=== PATIENT | female | born 1935 | race Caucasian/White ===

== ENCOUNTER → 2019-04-11 08:50 | Outpatient (CLI) | payer MEDICARE, SELFPAY ==
--- NOTE | 2019-04-11 08:55 | BD_ITS ---
STUDY: DUAL ENERGY X-RAY ABSORPTIOMETRY / DXA REASON FOR EXAM: Female, 84 years old. The patient is postmenopausal. Loss of height. TECHNIQUE: Bone Mineral Density (BMD) measurements of lumbar spine and bilateral hips were obtained. COMPARISON: None. FINDINGS: Lumbar Spine (L1-L4): g/cm2 (1.034) / T-score (-1.1) / Z-score (0.8) Findings are suggestive of osteopenia with a low fracture risk. Left Femur Total: g/cm2 (0.859) / T-score (-1.2) / Z-score (0.9) Left Femoral Neck: g/cm2 (0.848) / T-score (-1.4) / Z-score (0.9) Right Femur Total: g/cm2 (0.814) / T-score (-1.5) / Z-score (0.6) Right Femoral Neck: g/cm2 (0.827) / T-score (-1.5) / Z-score (0.7) Right Forearm: g/cm2 ( ) / T-score ( ) / Z-score ( ) Left Forearm: g/cm2 ( ) / T-score ( ) / Z-score ( ) BD/Dexa Bone Density Study IMPRESSION: The patient is considered osteopenic as outlined below according to World [employer] Organization (WHO) criteria with a moderate fracture risk. Reference Information: The T-score is the number of standard deviations above or below the standard which is normal for young adults at their peak bone mineral density. The World Health Organization (WHO) interprets the T-scores as follows: Above -1 Normal bone density Between -1 and -2.5 Osteopenia Equal to / or below -2.5 Osteoporosis As a practical clinical guideline, osteopenia may be graded as follows: Mild -1 through -1.5 Moderate -1.6 through -2.0 Severe -2.1 through -2.4 The Z-score is the number of standard deviations above or below age-matched controls. A Z-score of less than -1.5 would be considered abnormal. References: 1. NIH Osteoporosis and Related Bone Diseases http://www.osteo.org 2. International Society for Clinical Densitometry http://www.iscd.org 3. National Osteoporosis Foundation http://www.nof.org Electronically Signed: Dylan Gabriel, at 15:22 EDT , Service support ,
== END ==
PROVIDERS: Family Provider Family Medicine; PCP Family Medicine; Referring Provider Family Medicine; Visit Provider Family Medicine
DX: Z78.0 Asymptomatic menopausal state (principal)
CPT/HCPCS: 77080

== ENCOUNTER → 2020-06-19 09:52 | Outpatient (CLI) | payer MEDICARE, OTHER, SELFPAY ==
--- NOTE | 2020-06-19 09:55 | CDU_ITS ---
Reason For Study: DIZZINESS Rt. Velocities/BP Lt. Velocities/BP Prox CCA 59.9/ 9.0 cm/sec. Prox CCA 75.2/ 10.0 cm/sec. Mid CCA 65.1/ 10.3 cm/sec. Mid CCA 75.2/ 15.7 cm/sec. Dist CCA 32.7/ 5.3 cm/sec. Dist CCA 52.5/ 12.8 cm/sec. Prox ICA 32.8/ 6.6 cm/sec. Prox ICA 37.4/ 10.0 cm/sec. Mid ICA 83.7/ 23.2 cm/sec. Mid ICA 146.2/ 38.6 cm/sec. Dist ICA 96.1/ 28.5 cm/sec. Dist ICA 118.0/ 28.5 cm/sec. Rt. ICA/CCA = 1.6. Lt. ICA/CCA = 1.9. Prox ECA 68.6/ 0.0 cm/sec. Prox ECA 75.2/ 0.0 cm/sec. Rt. Vert. 43.1/ 5.3 cm/sec. Lt. Vert. 19.3/ 59.5 cm/sec. Right Extracranial There is intimal thickening but no significant atherosclerotic plaque noted in the right common carotid artery. There is intimal thickening but no significant atherosclerotic plaque noted in the right internal carotid artery. There is intimal thickening but no significant atherosclerotic plaque noted in the right external carotid artery. Antegrade flow is noted in the right vertebral artery. Left Extracranial There is homogeneous, smooth atherosclerotic plaque noted in the left common carotid artery. There is heterogeneous, smooth atherosclerotic plaque noted in the left internal carotid artery. The tortuous nature of the left internal carotid artery may result in flow velocities overestimating the degree of stenosis. There is intimal thickening but no significant atherosclerotic plaque noted in the left external carotid artery. Antegrade flow is noted in the left vertebral artery. Procedure Carotid Duplex 84402. This is a Carotid Duplex examination using B-mode, color flow and specral Doppler. Exam performed in department. 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 <50% stenosis left external carotid Patent, antegrade vertebrals bilaterally Ordering Physician: Minh Plaza Referring Physician: Minh Plaza Performed By: Fallon Kraus RVT and Student
--- NOTE | 2020-06-19 09:56 | ECHOD_ITS ---
Reason For Study: HEART MURMUR Procedure This was a 2D Doppler, Color Flow transthoracic echocardiogram. Exam performed in department. Left Ventricle Normal LV size. The estimated ejection fraction is 65 %. Diastolic function is indeterminate. No regional wall motion abnormalities noted. Right Ventricle Normal RV size. Normal systolic function. Atria The left atrium is mildly enlarged. Normal right atrium. No doppler evidence for ASD. Mitral Valve There is no mitral valve stenosis. No mitral valve insufficiency. Tricuspid Valve There is no tricuspid stenosis. Trivial tricuspid valve insufficiency. Pulmonary artery systolic pressure is 30 mmHg. Aortic Valve Mild diffuse aortic valve thickening. Mild aortic stenosis. No aortic valve insufficiency. Pulmonic Valve There is no pulmonic valvular stenosis. No pulmonic valve insufficiency. Great Vessels Normal aortic root. Pericardium/Pleural No pericardial effusion. MMode/2D Measurements & Calculations LVIDd: 4.1 cm IVSd: 1.0 cm LVOT diam: 2.0 cm LVIDs: 2.8 cm LVPWd: 0.97 cm LVOT area: 3.2 cm2 RVDd: 3.1 cm FS: 32.1 % Ao root diam: 3.2 cm LAV(MOD-bp): 53.2 ml LVAd ap4: 26.4 cm2 LAV(MOD-bp) Indexed: 34.0 ml/m2 EDV(MOD-sp4): 77.1 ml LAV(MOD-sp2): 56.9 ml EDV(sp4-el): 79.6 ml LAV(MOD-sp4): 46.6 ml LVAs ap4: 15.0 cm2 ESV(MOD-sp4): 31.0 ml ESV(sp4-el): 31.6 ml EF(MOD-sp4): 59.8 % EF(sp4-el): 60.3 % SV(MOD-sp4): 46.1 ml SV(sp4-el): 48.0 ml LA A4 area: 16.6 cm2 LA dimension(2D): 4.6 cm RA A4 area: 12.5 cm2 Time Measurements MV dec time: 0.25 sec Doppler Measurements & Calculations MV E max curt: 72.9 cm/sec Lat Peak E' Curt: 8.2 cm/sec Med Peak E' Curt: 7.4 cm/sec MV A max curt: 96.1 cm/sec E/E' lat: 8.9 E/E' med: 9.8 MV E/A: 0.76 Ao V2 max: 179.1 cm/sec LV V1 max: 104.5 cm/sec PA V2 max: 114.7 cm/sec Ao max P.8 mmHg LV V1 max P.4 mmHg MARY(V,D): 1.8 cm2 TR max curt: 256.1 cm/sec TR max P.3 mmHg Interpretation Summary The estimated ejection fraction is 65 %. Diastolic function is indeterminate. The left atrium is mildly enlarged. Trivial tricuspid valve insufficiency. Mild aortic stenosis. Ordering Physician: Minh Plaza Referring Physician: Minh Plaza Performed By: Joanie Weinsetin RDCS
== END ==
PROVIDERS: PCP Family Medicine; Referring Provider Family Medicine; Visit Provider Family Medicine
DX: R01.1 Cardiac murmur, unspecified (principal); R42 Dizziness and giddiness
CPT/HCPCS: 93306; 93880

== ENCOUNTER 2021-10-08 12:00 | Outpatient (RCR) | payer MEDICARE, SELFPAY | END 2021-10-12 23:59 | disposition home or self-care (01) | LOC: DC 12:00 | PROVIDERS: PCP Family Medicine; Referring Provider Family Medicine; Visit Provider Family Medicine | DX: E11.65 Type 2 diabetes mellitus with hyperglycemia (principal) | CPT/HCPCS: 97802; G0108 ==

== ENCOUNTER 2021-11-04 09:30 | Outpatient (RCR) | payer MEDICARE, SELFPAY | END 2021-11-05 11:08 | disposition home or self-care (01) | LOC: DC 09:30 | PROVIDERS: PCP Family Medicine; Referring Provider Family Medicine; Visit Provider Family Medicine | DX: E11.9 Type 2 diabetes mellitus without complications (principal) | CPT/HCPCS: 97803 ==

== ENCOUNTER → 2022-09-13 | Outpatient (CLI) | payer MEDICARE, SELFPAY ==
--- NOTE | 2022-09-13 13:13 | RAD_ITS ---
STUDY: X-RAY - PELVIS AND RIGHT HIP REASON FOR EXAM: Female, 87 years old. PAIN TECHNIQUE: XR Hip Unilateral with Pelvis when performed; 2-3 Views COMPARISON: None. FINDINGS: There is a non-specific bowel gas pattern. There are atherosclerotic vascular calcifications of the pelvic arteries. There are degenerative changes of the lumbar spine. Normal bilateral iliac wings, sacroiliac joints and visualized sacrum. Normal bilateral superior and inferior pubic rami. Normal pubic symphysis. Normal bilateral ischial tuberosities. Normal visualized femoral head. Normal acetabulum. Normal hip joint. RAD/HIP, UNI W/ Pelvis 2-3 Views IMPRESSION: No acute findings. Electronically Signed: Han Ro MD at 17:20 EST ,
== END | disposition home or self-care (01) ==
LOC: RAD 13:11
PROVIDERS: PCP Family Medicine; Referring Provider Family Medicine; Visit Provider Family Medicine
DX: M25.551 Pain in right hip (principal)
CPT/HCPCS: 73502

== ENCOUNTER → 2022-11-08 | Outpatient (CLI) | payer MEDICARE, SELFPAY ==
[2022-11-08 10:53] LABS: Absolute Lymphocyte Count 0.93 X10^3/uL (0.83-4.51); Absolute Neutrophil Count 3.1 X10^3/uL (2.0-7.7); Basophil# 0.01 X10^3/uL; Basophil% 0.2 % (0-1); Eosinophil# 0.02 X10^3/uL; Eosinophils% 0.5 % (0-5); Hematocrit 33.4 % (37-47); Hemoglobin 10.6 g/dL (12.0-15.0); Lymphocyte # 0.93 X10^3/ul (0.83-4.51); Lymphocyte % 21.4 % (19-41); Mean Corp Hgb Conc 31.7 g/dL (32-36); Mean Corpuscular Hgb 30.5 pg (27.0-32.0); Mean Platelet Vol. 10.1 fl (6.2-12.0); Monocyte# 0.32 X10^3/uL; Monocyte% 7.4 % (0-10); NRBC Flagged by Analyzer 0 % (0-5); Neutrophil # 3.06 X10^3/uL (2.7-7.7); Neutrophil % 70.3 % (47-70); Platelet Count 224 K/mm3 (150-450); RBC Distribution Width CV 14.5 % (11.6-14.6); RBC Distribution Width SD 50.4 fl (35.1-43.9); Red Blood Count 3.48 M/mm3 (4.2-5.4); White Blood Count 4.4 K/mm3 (4.4-11.0)
[2022-11-08 11:29] LABS: AST(SGOT) 25 U/L (15-37); Alanine Aminotransfer ALT/SGPT 33 U/L (13-56); Albumin, Serum 3.4 g/dL (3.2-5.0); Alkaline Phosphatase 99 U/L (45-117); Anion Gap 4 (5-15); BUN 22 mg/dL (7-18); BUN/Creat Ratio 33.7 RATIO (10-20); Bilirubin, Direct 0.14 mg/dL (0.00-0.30); Calcium,Total 8.6 mg/dL (8.5-10.1); Chloride 105 mmol/L (98-107); Creatinine, Serum 0.65 mg/dL (0.55-1.02); EST Glomerular Filtration Rate 92 mL/min (>60); Est Glom Filt Rate - Afr Amer 111 mL/min (>60); Glucose 147 mg/dL (74-106); Potassium 3.7 mmol/L (3.5-5.1); Protein, Total 6.4 g/dL (6.4-8.2); Sodium Level 140 mmol/L (136-145)
[2022-11-08 12:08] LABS: Hepatitis B Surface Antibody Non-Reactive; Hepatitis B Surface Antigen Non-Reactive (Nonreactive); Hepatitis C Antibody Non-Reactive (Nonreactive)
[2022-11-09 13:08] LABS: RNP Ab <0.2 AI (0.0-0.9); Smith Ab <0.2 AI (0.0-0.9)
[2022-11-09 16:32] LABS: ANTINUCLEAR ANTIBODIES DIRECT Positive (Negative)
[2022-11-10 09:50] LABS: Pathologist Review Reviewed
[2022-11-10 10:09] LABS: QNTFERON TB Mitogen Value > 10.00 IU/mL (.); QNTFERON TB Nil Value 0.02 IU/mL (.); QNTFERON TB1+ Ag Value 0.03 IU/mL (.); QNTFERON TB2+ Ag Value 0.03 IU/mL (.)
[2022-11-10 11:24] LABS: Hepatitis B Core Ab Total Negative (Negative)
[2022-11-10 11:25] LABS: CCP IgG Antibodies 0 units (0-19); QNTIFERON TB Positive Criteria Negative (Negative)
== END | disposition home or self-care (01) ==
PROVIDERS: PCP Family Medicine
DX: M06.9 Rheumatoid arthritis, unspecified (principal); D64.89 Other specified anemias; Z92.21 Personal history of antineoplastic chemotherapy
CPT/HCPCS: 36415; 80048; 80076; 85025; 86038; 86200; 86235; 86431; 86480; 86704; 86706; 86803; 87340

== ENCOUNTER → 2022-11-17 | Outpatient (CLI) | payer MEDICARE, SELFPAY ==
--- NOTE | 2022-11-17 09:04 | BD_ITS ---
STUDY: DUAL ENERGY X-RAY ABSORPTIOMETRY / DXA REASON FOR EXAM: Female, 87 years old. M810 TECHNIQUE: Bone Mineral Density (BMD) measurements of lumbar spine and bilateral hips were obtained. COMPARISON: Comparison is made with prior study April 11, 2019. FINDINGS: Lumbar Spine (L1-L4): g/cm2 (0.899) / T-score (-1.3) / Z-score (1.5) Findings are suggestive of osteopenia with a low fracture risk. Left Femur Total: g/cm2 (0.698) / T-score (-2.0) / Z-score (0.3) Left Femoral Neck: g/cm2 (0.663) / T-score (-1.7) / Z-score (0.8) Right Femur Total: g/cm2 (0.771) / T-score (-1.4) / Z-score (0.9) Right Femoral Neck: g/cm2 (0.629) / T-score (-2.0) / Z-score (0.5) The T-Scores on the most recent prior examination were: Lumbar Spine (L1-L4): There has been worsening of bone density since the previous examination. Left Femur Total: which represents a worsening of 12.4%. Right Femur Total: which represents an improvement of 2.3%. BD/Dexa Bone Density Study IMPRESSION: The patient is considered osteopenic as outlined below according to World Zacher[employer] Organization (WHO) criteria with a moderate fracture risk. There has been worsening of bone density since the previous examination. Reference Information: The T-score is the number of standard deviations above or below the standard which is normal for young adults at their peak bone mineral density. The World Health Organization (WHO) interprets the T-scores as follows: Above -1 Normal bone density Between -1 and -2.5 Osteopenia Equal to / or below -2.5 Osteoporosis As a practical clinical guideline, osteopenia may be graded as follows: Mild -1 through -1.5 Moderate -1.6 through -2.0 Severe -2.1 through -2.4 The Z-score is the number of standard deviations above or below age-matched controls. A Z-score of less than -1.5 would be considered abnormal. References: 1. NIH Osteoporosis and Related Bone Diseases www osteo.org 2. International Society for Clinical Densitometry www iscd.org 3. National Osteoporosis Foundation www nof.org Electronically Signed: Dylan Gabriel MD at 9:09 EDT ,
== END | disposition home or self-care (01) ==
LOC: OPBD 09:01
PROVIDERS: PCP Family Medicine
DX: M81.0 Age-related osteoporosis without current pathological fracture (principal)
CPT/HCPCS: 77080

== ENCOUNTER 2022-12-13 08:00 | Outpatient (RCR) | payer MEDICARE, SELFPAY ==
--- NOTE | 2022-11-17 11:49 | HP.PTEVAL ---
Patient's Visit Information MARYCRUZ LE is a 87 year old F referred to Physical Therapy by ROSEMARIE CAMACHO with a diagnosis of Gait instability. Date of Evaluation: 11/17/22 Physical Therapist: Priyank Saeed, MGT, OCS, CSCS - Visit Plan Frequency: 2x /Week Duration: 2-4 Weeks Plan: 2x/week for 2-4 weeks for.. 1. please teach head turn ing balance e(VOR, head turns with balance challenge). 2. foam ex progressing to ec. 3. weight shifting ex forward. progressing all to I at home with pics in 4 visits if safe. Work on gait with head movements. - Subjective Rhumatologist thought gait therapy might help her unsteady feeling. Walking a straight line is challenging intermittently. No stumbling but veers especially going the way she turns her head. Has to remind self to apple picker feet. Had a fall a number of months ago while walking running into a wagon and losing balance, hard to correct balance. No spinning , no neuropathy. Sleep is Ok. No pain. Not employed. Can get things done OK around the house but some things take longer and more care. basic ADLs are I. Hobbies include: cooking, walking, gardening. Doing them all without a problem. Walks 2 miles at time on pavement and uses walking stick for this. Does a senior chair ex program. - Objective Walks into therapy with head still but I, trasnfers I with UE, steps reciprocal with one rail. Hesitant in turning and veers to the direction she turns her head. cervical aROM WFL but hesitant to move it when walking. LE AROM WFL. coordination to reciprocal toe and heel tap is good. LE strength 4/5. sensation LE WNL to gross light touch. reflexes 2/3 patella and achilles - Balance/Special Test Scores Functional Gait Assessment Score: 24 % Disability: 20.0000 Lower Extremity Functional Score: 56 TUG Test Time Seconds: 8 30 Second Chair Rise Test Seconds: 14 - Goals Goal 1:: Walk with head turns without veering 100 feet Goal Time Frame: 2-4 Weeks Goal 2:: I appropr vestibualr balance ex to reduce future risk Goal Time Frame: 2-4 Weeks Goal 3:: Pt feel 50% improvement in overall balance mobility Goal Time Frame: 2-4 Weeks - Rehabilitation Potential Physical Therapy Diagnosis: Gait instability, seemingly vestibular weakness in nature Rehabilitation Potential: Good - Anticipated Interventions Patient/Client Instruction: Educate patient on: Condition, Plan of Care For the Purpose of:: To decrease pain, To improve gait and locomotor functions, To improve safety with gait, To improve safety Therapeutic Exercise to Include: Balance training, Gait and locomotor training For the Purpose of:: To improve balance, To improve safety with gait Thank you for the opportunity to evaluate your patient. For Medicare and Medicare HMO plans, please review the plan of care and approve it. It will need to be FAXED BACK to us at [phone] for Medicare purposes. For Medicare only, by signing this I certify the plan of care. Please let me know if there are questions or concerns regarding this plan of care. Physician Signature: Date:
--- NOTE | 2022-12-13 08:25 | HP.PTDCSUM ---
It has been my pleasure to treat MARYCRUZ LE referred by ROSEMARIE CAMACHO, with the diagnosis of Gait instability for a total of 6 visit(s). Discharge Date: 12/13/22 Please see the following information for a summary of their discharge status. Subjective: Not much improvement in feeling of steadiness but is more conscious of weight shift and foot lifting. % Improvement: 10 Objective/Function: No veering with ambuilation today. +3 FGA, but still feels about the same. Needs encouragement with her age related digression and to continue HEP but feels like she can do that herself. Goal 1:: Walk with head turns without veering 100 feet Goal Progress: Goal Met Goal 2:: I appropr vestibualr balance ex to reduce future risk Goal Progress: Goal Met Goal 3:: Pt feel 50% improvement in overall balance mobility Goal Progress: Goal Met Plan: d/c to HEP Discharge Comments: Pt to continue via HEP If there are questions or concerns regarding this patient's physical therapy, please feel free to call me at [phone]. Thank you for the referral of this patient. Sincerely, Priyank Saeed, DPT, OCS, CSCS Balance/Gait/Functional tests - Balance/Special Test Scores Functional Gait Assessment Score: 27 % Disability: 10.0000 CATSIB Score (Max score 120 seconds): 76 Lower Extremity Functional Score: 59 TUG Test Time Seconds: 8 Tug Test: <10 sec.=free mobile 30 Second Chair Rise Test Seconds: 14
== END 2022-12-13 09:53 | disposition home or self-care (01) ==
LOC: PT 08:00
PROVIDERS: PCP Family Medicine
DX: M06.00 Rheumatoid arthritis without rheumatoid factor, unspecified site (principal); R26.81 Unsteadiness on feet
CPT/HCPCS: 97110; 97112; 97161; 97164

== ENCOUNTER 2023-07-08 12:35 | Emergency (ER) | payer MEDICARE, SELFPAY ==
[2023-07-08 12:36] VITALS: BP 176/70; PULSE 74; RESP 18; TEMP 36.1; O2SAT 98; BMI 22.1
--- NOTE | 2023-07-08 12:59 | EDS_ITS ---
HPI History of Present Illness Chief Complaint: Hyperglycemia Informant: patient Narrative Narrative: Presenting to the ER for high blood sugars. She states they seem to start about a week ago when she felt like she was getting a head cold. They have persisted. Several days ago she had a blood sugar of about 430 but she states that was explained by her eating high sugar food item. In the last couple days they have ranged from 200-400. Her doctor was Dr. Plaza, he recently had his last day and she is being switched to a new physician next week, in the meantime when she called the office they told her to take extra dose of her insulin but she states it did not affect her blood sugar. When asked which insulin the patient is on, she states she is on Lantus and does not have any other insulins. She denies any fevers or chills or dyspnea or GI symptoms. She did have some increased thirst and urinary frequency a couple days ago when sugars were higher than they have been. Otherwise no dysuria or other urinary changes. No lightheadedness even when standing or walking. She states the head cold symptoms are really off-and-on, the majority of it is hoarseness and a bit of a sore throat, and sometimes rhinorrhea. She denies any cough or other symptoms. No known sick contacts. [facility] Medical History (Updated 07/08/23 @ 14:[address] Arya Miller MD) GERD (gastroesophageal reflux disease) HTN (hypertension) Rheumatoid arthritis Type 2 diabetes mellitus Home Medications cholecalciferol (vitamin D3) 25 mcg (1,000 unit) capsule (Vitamin D3) 1,000 unit PO DAILY 12/21/16 [History Last Taken Unknown] folic acid 1 mg tablet 1 mg PO DAILY@0800 12/21/16 [History Last Taken Unknown] lansoprazole 30 mg capsule,delayed release (Prevacid) 30 mg PO DAILY ##30 12/21/16 [Rx Last Taken Unknown] losartan 50 mg-hydrochlorothiazide 12.5 mg tablet 1 ea PO DAILY 12/21/16 [History Last Taken Unknown] metformin 500 mg 24 hr tablet,extended release 500 mg PO BID 12/21/16 [History Last Taken Unknown] methotrexate sodium 2.5 mg tablet 2.5 mg PO QWEEK 12/21/16 [History Last Taken Unknown] Allergy/AdvReac Type Severity Reaction Status Date / Time No Known Allergies Allergy Verified 07/08/23 12:38 Social History Smoking Status: Never smoker ROS ROS ED Constitutional Constitutional ED: Denies chills or fever(s) Eyes Eyes: Denies change in vision or diplopia ENT ENT ED: Reports hoarseness, rhinorrhea and sore throat Cardiovascular Cardiovascular: Denies chest pain or palpitations Respiratory/Chest Respiratory/Chest: Denies cough or dyspnea Gastrointestinal Gastrointestinal: Denies abdominal pain, diarrhea, nausea or vomiting Genitourinary Genitourinary ED: Denies dysuria or hematuria Musculoskeletal Musculoskeletal: Denies back pain or neck pain Integumentary Denies abscess or rash Neurologic Neurologic: Denies headache(s), paresthesias or weakness Psychiatric Psychiatric: Denies anxiety or suicidal thoughts Endocrine Endocrinology: Reports polydipsia and polyuria EXAM Physical Exam Const Vital Signs: 07/08/23 12:36 Temperature 97 F L Temperature Source Temporal Pulse Rate 74 Respiratory Rate 18 Blood Pressure 176/70 H Blood Pressure Mean 105 Pulse Ox 98 Oxygen Delivery Method Room Air Positive well nourished and well developed General Appearance ED: well developed and NAD HEENT Reports moist mucous membranes HEENT Narrative: POP clear normocephalic and atraumatic Eyes PERRL and EOMs intact bilaterally Neck full ROM and supple Resp normal respiratory effort and clear to auscultation bilaterally Cardio regular rate, regular rhythm and no murmurs GI non-tender and non-distended Auscultation: normoactive bowel sounds Palpation: soft Back/Spine no CVA tenderness General Back: other FROM Extremity normal to inspection General Extremety ED: Negative for edema, pulses abnormal or tenderness General Extremity: Negative for edema or pulses abnormal Neuro oriented x3, CN's II-XII intact bilaterally and no sensory deficits noted Sensorium / Orientation: awake and alert Motor Exam: strength 5/5 throughout Skin no rashes or lesions noted and no wounds MDM MDM MDM Narrative Medical decision making narrative: Patient confirms that she is on Lantus and no short acting insulin, I reviewed her medication list that she brought with her to confirm this as well. We discussed why her blood sugar did not go down because she used a very small dose of a long-acting insulin, she is on very low-dose of long-acting insulin daily in addition to metformin 1000 mg twice daily. We did a BGT here it is 308. Gave her dose of lispro and monitored her, her vital signs show no tachycardia, she is on no AV priscila blockers to suppress this, and she appears well and hydrated she does not have symptoms of orthostasis and I do not think any emergent blood tests are indicated, nor does she need IV fluids. I did have her provide a urine and drink some fluids. Her blood sugar is down to just over 200. I do not think she needs a COVID or influenza test for a week of symptoms that are very mild and sound more like viral laryngitis/pharyngitis. She is in agreement with that. Other than glycosuria, her urinalysis is normal. I discussed with her PCP, we discussed changing her Lantus dosing until she follows up to get better control of her sugars. She was given these instructions at discharge and she is comfortable with that. Lab Data Attestation: I reviewed the patient's lab results. Labs: Laboratory Results - last 24 hr 07/08/23 07/08/23 12:47 13:21 Urine Color Yellow Urine Clarity Clear Urine pH 6.5 Ur Specific [place] 1.010 Urine Protein Negative Urine Glucose (UA) 250 H Urine Ketones Negative Urine Occult Blood Negative Urine Nitrite Negative Urine Bilirubin Negative Urine Urobilinogen Normal Ur Leukocyte Esterase Negative Urine RBC 0 SEEN Urine WBC 0 SEEN Ur Squamous Epith Cells 0 SEEN Urine Bacteria 0 SEEN Urine Mucus 0 SEEN POC Glucose 308 H Management Discussion w/another healthcare provider: PCP Discharge Plan Triage Chief Complaint: Hyperglycemia ED Provider: Arya Miller Dx/Rx/DC Orders Clinical Impression: Hyperglycemia due to type 2 diabetes mellitus, Viral URI Instructions: ED Diabetic Hyperglycemia Prescriptions: Continued methotrexate sodium 2.5 MG tablet 2.5 mg PO QWEEK Patient Comments: RA folic acid 1 MG tablet 1 mg PO DAILY@0800 Patient Comments: take every day except the day you take methotrexate losartan-hydrochlorothiazide 1 EACH tablet 1 ea PO DAILY Patient Comments: htn cholecalciferol (vitamin D3) [Vitamin D3] 1,000 UNIT capsule 1,000 unit PO DAILY metformin 500 MG tablet,ER [email or web address] 24 hr 500 mg PO BID Patient Comments: 1 tab twice a day lansoprazole [Prevacid] 30 MG capsule 30 mg PO DAILY Qty: 30 0RF Discontinued prednisone 5 MG tablet 5 mg PO DAILY Primary Care Provider: Michela Holguin Referrals: Michela Holguin MD [Primary Care Provider] - Keep [facility] appointment (Office will call you if they can squeeze you in sooner this coming week) Activity Restrictions/Additional Instructions: Change your Lantus as follows: 10 units at nighttime before bed, just once daily. Check your blood sugar when you wake up in the morning before you eat or drink anything. If it is 180 or higher, increase your Lantus dosage at nighttime by 2 units. Continue doing this until you are around 150 and then stick with that dosing until you follow-up. Disposition Disposition: Home, Self Care
[2023-07-08 13:06] LABS: Bedside Glucose 308 mg/dL (74-106)
[2023-07-08] MEDS: Insulin Lispro 100 UNIT/ML INSULN.PEN 10 UNIT SC (13:16)
[2023-07-08 13:26] LABS: Bacteria 0 SEEN /hpf (None Seen); Mucous, Urine 0 SEEN /hpf (<or=2+); Red Blood Cells-Urine 0 SEEN /hpf (0-5); Squamous Epithelial Cells - UA 0 SEEN /hpf (5-10); White Blood Cells 0 SEEN /hpf (0-5)
[2023-07-08 13:38] LABS: Color, Urine Yellow (Yellow); Glucose, Dipstick 250 mg/dl (Normal); Ketone-Dipstick Negative (Negative); Leukocyte Esterase-Dipstick Negative /ul (Negative); Nitrite-Dipstick Negative (Negative); Occult Blood-Urine Negative /ul (Negative); Protein-Dipstick Negative (Negative); Urine Bilirubin Dipstick Negative (Negative); Urine Clarity Clear (Clear); Urine Urobilinogen Normal (Normal); Urine pH 6.5 (5.0 - 8.0)
[2023-07-08 14:38] LABS: Bedside Glucose 205 mg/dL (74-106)
== END 2023-07-08 14:39 | disposition home or self-care (01) ==
PROVIDERS: Emergency Provider Emergency Medicine; PCP Family Medicine; Visit Provider Emergency Medicine
DX: E11.65 Type 2 diabetes mellitus with hyperglycemia (principal); Z79.4 Long term (current) use of insulin; J06.9 Acute upper respiratory infection, unspecified; I10 Essential (primary) hypertension; R81 Glycosuria; Z79.84 Long term (current) use of oral hypoglycemic drugs; R63.1 Polydipsia; R35.89 Other polyuria
CPT/HCPCS: 81001; 82962; 99282

== ENCOUNTER 2023-07-10 19:21 | Emergency (ER) | payer MEDICARE, SELFPAY ==
[2023-07-10 19:24] VITALS: BP 161/78; PULSE 81; RESP 16; TEMP 36.6; O2SAT 97; BMI 22.4
--- NOTE | 2023-07-10 19:37 | EDS_ITS ---
HPI History of Present Illness Chief Complaint: Hyperglycemia Informant: patient and family Onset/Context/Timing Context: Gradual Onset Timing: Intermittent Current Severity: Mild Maximum Severity: Mild Narrative Narrative: 88-year-old female history of rheumatoid arthritis, diabetes and reflux. For her diabetes she is on Lantus and metformin. Has had no recent medication changes. Her blood sugars often run very irregular. Recently she has had mild URI symptoms. And her sugars have been running higher. She denies any vomiting or diarrhea. She denies any fever or chills. She denies any dysuria. She was seen in the emergency department the last 36 hours had a negative urinalysis and blood sugar 308 at that time. Prior similar symptoms: Yes Recent Illness/Hospitalization: No PFSH PFSH Medical History GERD (gastroesophageal reflux disease) HTN (hypertension) Rheumatoid arthritis Type 2 diabetes mellitus Home Medications cholecalciferol (vitamin D3) 25 mcg (1,000 unit) capsule (Vitamin D3) 1,000 unit PO DAILY 12/21/16 [History Last Taken Unknown] folic acid 1 mg tablet 1 mg PO DAILY@0800 12/21/16 [History Last Taken Unknown] lansoprazole 30 mg capsule,delayed release (Prevacid) 30 mg PO DAILY ##30 12/21/16 [Rx Last Taken Unknown] losartan 50 mg-hydrochlorothiazide 12.5 mg tablet 1 ea PO DAILY 12/21/16 [History Last Taken Unknown] metformin 500 mg 24 hr tablet,extended release 500 mg PO BID 12/21/16 [History Last Taken Unknown] methotrexate sodium 2.5 mg tablet 2.5 mg PO QWEEK 12/21/16 [History Last Taken Unknown] Allergy/AdvReac Type Severity Reaction Status Date / Time No Known Allergies Allergy Verified 07/10/23 19:25 Social History Smoking Status: Never smoker ROS ROS ED ROS Narrative Nasal congestion. Review of Systems ROS Unobtainable: Denies due to encephalopathy Constitutional Constitutional ED: Denies chills or fever(s) Eyes Eyes: Denies blurry vision ENT ENT ED: Denies ear pain Cardiovascular Cardiovascular: Denies chest pain Respiratory/Chest Respiratory/Chest: Denies cough or dyspnea Gastrointestinal Gastrointestinal: Denies abdominal pain Genitourinary Genitourinary ED: Denies dysuria or hematuria Musculoskeletal Musculoskeletal: Denies arthralgias or back pain Integumentary Denies abscess Neurologic Neurologic: Denies headache(s) Psychiatric Psychiatric: Denies anxiety Endocrine Endocrinology: Denies cold intolerance Hematologic/Lymphatic Hematologic/Lymphatic: Reports none Allergic/Immunologic Allergic/Immunologic ED: Denies mouth swelling, tongue swelling or urticaria EXAM Physical Exam Narrative Exam Narrative: Well-appearing 88-year-old female. Vital signs are stable and afebrile. She does not look septic toxic or in any distress. Well-hydrated. H EENT exam unremarkable. Moist mucous membranes. Neck nontender no lymphadenopathy. Lungs clear to auscultation bilaterally. Heart regular rhythm rate about 80 no murmur. Chest wall nontender. Abdomen soft nontender. Moving all 4 extremities. Nontender no edema. Neurologically she is awake and alert with no focal motor deficits. Answering questions following commands. Normal speech. No facial droop. Const Vital Signs: 07/10/23 19:24 07/10/23 20:10 Temperature 97.8 F Temperature Source Temporal Pulse Rate 81 Respiratory Rate 16 Respiratory Effort Normal Respiratory Pattern Normal Blood Pressure 161/78 H Blood Pressure Mean 105 Pulse Ox 97 Oxygen Delivery Method Room Air Positive well nourished and well developed; Negative for obese, cachectic, contractures or unkempt General Appearance ED: well developed and NAD; Negative for unkempt, cachectic, contractures, cyanotic or diaphoretic Nutritional Appearance: Negative for cachectic or obese HEENT Reports moist mucous membranes Negative for trauma or tenderness Eyes PERRL and EOMs intact bilaterally General Eye ED: Negative for pale conjunctiva, scleral icterus or other Neck no lymphadenopathy, supple and no JVD General: Negative for tenderness Lymph Lymphatic: Negative for other Chest Wall inspection of chest normal and palpation of chest normal Chest: Negative for other Resp normal respiratory effort and clear to auscultation bilaterally Effort and Inspection: Negative for retractions Auscultation: Negative for rales, rhonchi or wheezes Cardio regular rate, regular rhythm, S1 normal heart sound, S2 normal heart sound and no murmurs Palpation: Negative for palpable S3 or palpable S4 Rate: Negative for bradycardia or tachycardic Rhythm: Negative for abnormal rhythm GI normal to inspection, nondistended, normoactive bowel sounds, non-tender, non- distended and no masses Inspection: Negative for abdominal distention Auscultation: normoactive bowel sounds Palpation: soft; Negative for tender or guarding Bladder / Kidney Exam: No other Back/Spine no CVA tenderness General Back: Negative for CVA tenderness Cervical Spine: Negative for cervical spine tenderness Thoracic Spine / Upper Back: Negative for thoracic spinal tenderness Lumbar Spine / Lower Back: Negative for lumbar spinal tenderness Extremity normal to inspection General Extremety ED: Negative for edema or tenderness General Extremity: Negative for edema Neuro oriented x3 and CN's II-XII intact bilaterally Sensorium / Orientation: alert; Negative for orientation impaired, lethargic or stuporous Motor Exam: strength 5/5 throughout Psych mental status grossly normal Appearance: Negative for unkempt Attitude: No agitated Mood & Affect: Negative for depressed, anxious or tearful Skin no rashes or lesions noted, no wounds and skin turgor normal General Skin Exam: elasticity normal Lesions: No lesion noted Rashes: No rashes noted Trauma: Negative for abrasion Wounds: Negative for wounds noted MDM MDM MDM Narrative Medical decision making narrative: 88-year-old diabetic female with labile blood sugars recently. Exam benign. Screening labs will be obtained. She had negative urinalysis yesterday. She will be treated with a liter normal saline. Parth exam patient is doing well at 8:45 PM. She will be given 10 units of subcu insulin prior to discharge. She will check her blood sugar tonight at home before she goes to bed between 10 and 1030. Give her sliding dose of Lantus. Will going adjust her metformin from 1000-15 100 in the morning. Antecubitus thousand in the evening. She checks her blood sugar at least 3 if not 4 times a day. She will follow-up with endocrinology and her primary care physician. She has appointment to see her new primary care physician Dr. Holguin on 29 July. Lab Data Attestation: I reviewed the patient's lab results. Lab results narrative: CBC unremarkable. White count of 5.6. H&H of 10.5 and 33 that is her baseline chronic anemia. Platelet count 312. BMP shows. BUN of 26 creatinine 0.78. Glucose is elevated at 426. Serum acetone is negative. No DKA because gap is normal as is serum ketones. Labs: Laboratory Results - last 24 hr 07/10/23 07/10/23 19:50 20:07 WBC 5.6 RBC 3.47 L Hgb 10.5 L Hct 33.3 L MCV 96.0 MCH 30.3 MCHC 31.5 L RDW Std Deviation 47.7 H RDW Coeff of Siva 13.5 Plt Count 312 MPV 9.7 Immature Gran % (Auto) 0.900 Neut % (Auto) 65.8 Lymph % (Auto) 25.2 Swift % (Auto) 7.0 Eos % (Auto) 0.7 Baso % (Auto) 0.4 Absolute Neuts (auto) 3.7 Absolute Lymphs (auto) 1.40 Nucleated RBC % 0 Sodium 136 Potassium 4.0 Chloride 100 Carbon Dioxide 31.0 Anion Gap 5 BUN 26 H Creatinine 0.78 Estim Creat Clear Calc 31.94 Est GFR (MDRD) Af Amer 91 Est GFR (MDRD) Non-Af 75 BUN/Creatinine Ratio 33.5 H Glucose 426 H Calcium 9.0 Acetone Level NEGATIVE POC Glucose 415 H Discharge Plan Triage Chief Complaint: Hyperglycemia ED Provider: Bassam Soni Dx/Rx/DC Orders Clinical Impression: Hyperglycemia due to type 2 diabetes mellitus, Viral URI Instructions: ED Diabetic Hyperglycemia Prescriptions: No Action methotrexate sodium 2.5 MG tablet 2.5 mg PO QWEEK Patient Comments: RA folic acid 1 MG tablet 1 mg PO DAILY@0800 Patient Comments: take every day except the day you take methotrexate losartan-hydrochlorothiazide 1 EACH tablet 1 ea PO DAILY Patient Comments: htn cholecalciferol (vitamin D3) [Vitamin D3] 1,000 UNIT capsule 1,000 unit PO DAILY metformin 500 MG tablet,ER diane.retention 24 hr 500 mg PO BID Patient Comments: 1 tab twice a day lansoprazole [Prevacid] 30 MG capsule 30 mg PO DAILY Qty: 30 0RF Primary Care Provider: Michela Holguin Referrals: Michela Holguin MD [Primary Care Provider] - As soon as possible Montana Arriaga MD [Med Staff - Courtesy Staff] - As soon as possible Activity Restrictions/Additional Instructions: Acute blood sugar the night between 10 and 1030 before you go to bed. Usual sliding scale insulin prior to bedtime. I prefer that you are a little bit higher while you are sleeping ninth and it goes low. We will change your metformin dose to 1500 in the morning. And leave your evening dose the same as it is at 1000. Will be primary care physician. Follow-up with your primary care physician and/or get an appointment with the pharmaceutical laboratory technician, Dr. Montana Arriaga. Disposition Disposition: Home, Self Care
[2023-07-10 19:54] LABS: Absolute Neutrophil Count 3.7 X10^3/uL (2.0-7.7); Basophil# 0.02 X10^3/uL; Basophil% 0.4 % (0-1); Eosinophil# 0.04 X10^3/uL; Eosinophils% 0.7 % (0-5); Hematocrit 33.3 % (37-47); Hemoglobin 10.5 g/dL (12.0-15.0); Lymphocyte % 25.2 % (19-41); Mean Corp Hgb Conc 31.5 g/dL (32-36); Mean Corpuscular Hgb 30.3 pg (27.0-32.0); Mean Platelet Vol. 9.7 fl (6.2-12.0); Monocyte# 0.39 X10^3/uL; NRBC Flagged by Analyzer 0 % (0-5); Neutrophil # 3.66 X10^3/uL (2.7-7.7); Neutrophil % 65.8 % (47-70); Platelet Count 312 K/mm3 (150-450); RBC Distribution Width CV 13.5 % (11.6-14.6); RBC Distribution Width SD 47.7 fl (35.1-43.9); Red Blood Count 3.47 M/mm3 (4.2-5.4); White Blood Count 5.6 K/mm3 (4.4-11.0)
[2023-07-10] MEDS: 0.9% Normal Saline (1000mL) 1,000 ML 999 ML IV (19:59)
[2023-07-10 20:11] LABS: Anion Gap 5 (5-15); BUN 26 mg/dL (7-18); BUN/Creat Ratio 33.5 RATIO (10-20); Chloride 100 mmol/L (98-107); Creatinine, Serum 0.78 mg/dL (0.55-1.02); EST Glomerular Filtration Rate 75 mL/min (>60); Est Glom Filt Rate - Afr Amer 91 mL/min (>60); Estimated Creatinine Clearance 31.94 ml/min; Glucose 426 mg/dL (74-106); Sodium Level 136 mmol/L (136-145)
[2023-07-10 20:27] LABS: Bedside Glucose 415 mg/dL (74-106)
[2023-07-10 20:54] VITALS: BP 96/52; PULSE 59; RESP 16; O2SAT 97
[2023-07-10] MEDS: Insulin Lispro 100 UNIT/ML INSULN.PEN 10 UNIT SC (21:08)
== END 2023-07-10 21:16 | disposition home or self-care (01) ==
PROVIDERS: Emergency Provider Emergency Medicine; PCP Family Medicine; Visit Provider Emergency Medicine
DX: E11.65 Type 2 diabetes mellitus with hyperglycemia (principal); M06.9 Rheumatoid arthritis, unspecified; J06.9 Acute upper respiratory infection, unspecified; I10 Essential (primary) hypertension; K21.9 Gastro-esophageal reflux disease without esophagitis; Z79.84 Long term (current) use of oral hypoglycemic drugs; Z79.899 Other long term (current) drug therapy
CPT/HCPCS: 80048; 82009; 82962; 85025; 96360; 99283; J7030; A4216

== ENCOUNTER → 2023-10-19 | Outpatient (CLI) | payer OTHER, SELFPAY ==
--- OUTSIDE RECORDS SUMMARY | 2023-10-19 10:48 | XMS RPT_ITS | CCD ---
Author Name Unknown Address [address] [place] [address] Organization [facility] Care Team Providers Care [employer] Name Role Phone Evaristo Connors Unavailable [phone] Unavailable Unavailable Unavailable Stadnick, Evaristo Nava Unavailable Unavailable Stadnick, Evaristo Nava Unavailable Unavailable Stadnick, Evaristo Nava Unavailable Unavailable Stadnick, Evaristo Nava Unavailable Unavailable STADNICK, EVARISTO GUZMAN Unavailable Unavailab Evaristo Mayes Unavailable Unavailable Tomkyrie, Evaristo Mckeon Unavailable Unavailable Evaristo Connors Unavailable Unavailable Evaristo Connors Primary Care Provider Evaristo Connors MD Primary Care Provider [phone] Evaristo Connors MD Primary Care Provider [phone] EVARISTO CONNORS Primary Care Unavailable IGOEROSEMARIE Referring Unavailable EVARISTO CONNORS Primary Care Unavailable IGROSEMARIE MOCTEZUMA Attending Unavailable EVARISTO CONNORS Primary Care Unavailable IGOE, ROSEMARIE ALLAN Attending Unavailable EVARISTO CONNORS Primary Care Unavailable IGOE, ROSEMARIE ALLAN Attending Unavailable IGOE, ROSEMARIE ALLAN Attending Unavailable EVARISTO CONNORS Admitting Unavailable EVARISTO CONNORS Primary Care Unavailable EVARISTO CONNORS Referring Unavailable EVARISTO CONNORS Primary Care Unavailable IGOE, ROSEMARIE ALLAN Attending Unavailable Medications Current Medications Medication Drug Class(es) Dates Sig (Normalized) Sig (Original) cholecalciferol 0.025 mg oral tablet (6 sources) Vitamin D take 1 tablet by mouth once daily cholecalciferol, vitamin D3, 1,000 unit tablet Take 1 (one) tablet (1,000 Units total) by mouth daily . 0 Active folic acid 1 mg oral tablet (6 sources) Start: 11-01-2022 End: 11-01-2023 take 1 tablet by mouth once daily folic acid (FOLVITE) 1 MG tablet Indications: every day but methotrexate day Take 1 (one) tablet (1 mg total) by mouth daily Reasons: every day but methotrexate day. 360 tablet 0 11/01/2022 11/01/2023 Active Completed/Discontinued Medications Medication Drug Class(es) Dates Sig (Normalized) Sig (Original) sulfaSALAzine 500 mg oral tablet (4 sources) Aminosalicylate Start: 09-28-2017 End: 12-12-2017 sulfaSALAzine (AZULFIDINE) 500 mg tablet Indications: Seronegative rheumatoid arthritis (HCC) Take 1 pill a day for 1 week; then take 1 pill twice a day for 1 week; then take 1 pill 3 times a day for 1 week.. 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] Onset: 11-01-2022 Chronic Osteoarthritis (2 sources) Polyosteoarthritis, unspecified; Translations: [Polyosteoarthritis, unspecified] Onset: 11-01-2022 Chronic Osteoporosis (2 sources) Age-related osteoporosis without current pathological fracture; Translations: [Age-related osteoporosis without current pathological fracture] Onset: 11-01-2022 Chronic Other aftercare (1 source) skilled nursing methotrexate user; Translations: [intermediate frame tender methotrexate user] 03-30-2023 Episodic Other aftercare (1 source) Drug therapy finding; Translations: [Other penitentiary (current) drug therapy] 03-30-2023 Episodic Other aftercare (2 sources) Other penitentiary (current) drug therapy; Translations: [Other watermaster (current) drug therapy] Onset: 03-30-2023 Episodic Other connective tissue disease (1 source) Polymyalgia rheumatica; Translations: [Polymyalgia rheumatica] 03-30-2023 Chronic Other connective tissue disease (4 sources) Polymyalgia rheumatica; Translations: [Polymyalgia rheumatica] Onset: 03-30-2023 Chronic Other nervous system disorders (1 source) Abnormal gait; Translations: [Unsteadiness on feet] 03-30-2023 Episodic Other nervous system disorders (2 sources) Unsteadiness on feet; Translations: [Unsteadiness on feet] Onset: 03-30-2023 Episodic Other skin disorders (1 source) Callosity; Translations: [Corns and callosities] Episodic Rheumatoid arthritis and related disease (7 sources) Rheumatoid arthritis of multiple joints; Translations: [Rheumatoid arthritis with rheumatoid factor of multiple sites without organ or systems involvement] Onset: 11-01-2022 03-30-2023 Chronic Unclassified (1 source) skilled nursing (current) use of antimetabolite agent; Translations: [intermediate frame tender (current) use of antimetabolite agent] Onset: 03-30-2023 Past or Other Problems Problem Classification Problem Date Documented Date Episodic/Chronic Deficiency and other anemia (2 sources) Other specified anemias; Translations: [Other specified anemias] Onset: 11-01-2022 Episodic Immunizations and screening for infectious disease (2 sources) Encounter for screening for other viral diseases; Translations: [Encounter for screening for other viral diseases] Onset: 11-01-2022 Episodic Medical examination/evaluatio n (2 sources) Encounter for general adult medical examination without abnormal findings; Translations: [Encounter for general adult medical examination without abnormal findings] Onset: 09-13-2017 Episodic Other screening for suspected conditions (not mental disorders or infectious disease) (2 sources) Other specified abnormal findings of blood chemistry; Translations: [Other specified abnormal findings of blood chemistry] Onset: 11-01-2022 Episodic Residual codes; unclassified (2 sources) Personal history of antineoplastic chemotherapy; Translations: [Personal history of antineoplastic chemotherapy] Onset: 11-01-2022 Episodic Unclassified (1 source) skilled nursing (current) use of antimetabolite agent; Translations: [skilled nursing (current) use of antimetabolite agent] Onset: 03-30-2023 Results Test Name Value Interpretation Reference Range Facil ity Vital Signs Date Time Vital Sign Value Performing Clinician Bruce anderson 03-30-2023 08:09-0400 Body mass index (BMI) [Ratio] 21.26 kg/m2 Rosemarie Shi MD Work Phone: [facility] 03-30-2023 08:09-0400 Body weight 54.43 kg Rosemarie Shi MD Work Phone: [facility] 03-30-2023 08:09-0400 Diastolic blood pressure 70 mm[Hg] Rosemarie Shi MD Work Phone: [facility] 03-30-2023 08:09-0400 Heart rate 70 /min Rosemarie Shi MD Work Phone: [facility] 03-30-2023 08:09-0400 Systolic blood pressure 125 mm[Hg] Rosemarie Shi MD Work Phone: [facility] 12-12-2017 11:20-0400 BMI (Body Mass Index) 25.33 kg/m2 Evaristo Encarnacion [facility] 12-12-2017 11:20-0400 BP Diastolic 72 mm[Hg] [facility] 12-12-2017 11:20-0400 BP Systolic 131 mm[Hg] [facility] 12-12-2017 11:20-0400 Height 160 cm [facility] 12-12-2017 11:20-0400 Pulse (Heart Rate) 71 /min Evaristo Encarnacion [facility] 12-12-2017 11:20-0400 Weight 64.86 kg Evaristo Encarnacion [facility] 09-28-2017 10:07-0500 BMI (Body Mass Index) 25.33 kg/m2 Evaristo Encarnacion [facility] Work Phone: 09-28-2017 10:07-0500 BP Diastolic 81 mm[Hg] Evaristo Encarnacion [facility] Work Phone: 09-28-2017 10:07-0500 BP Systolic 149 mm[Hg] Evaristo Encarnacion [facility] Work Phone: 09-28-2017 10:07-0500 Pulse (Heart Rate) 83 /min Evaristo Encarnacion [facility] Work Phone: 09-28-2017 10:07-0500 Weight 64.86 kg Evaristo Encarnacion [facility] Work Phone: 09-13-2017 14:17-0500 BMI (Body Mass Index) 25.44 kg/m2 Evaristo Encarnacion [facility] Work Phone: 09-13-2017 14:17-0500 BP Diastolic 78 mm[Hg] Evaristo Encarnacion [facility] Work Phone: 09-13-2017 14:17-0500 BP Systolic 149 mm[Hg] Evaristo Encarnacion [facility] Work Phone: 09-13-2017 14:17-0500 Height 160 cm Evaristo Encarnacion [facility] Work Phone: 09-13-2017 14:17-0500 Pulse (Heart Rate) 93 /min Evaristo Encarnacion [facility] Work Phone: 09-13-2017 14:17-0500 Weight 65.14 kg Evaristo Encarnacion [facility] Work Phone: Encounters Encounter Date Encounter Type Care Provider Facility Start: [facility] Start: 03-30-2023 End: 04-03-2023 ambulatory [facility] Start: 03-30-2023 End: 03-30-2023 ambulatory [facility] Start: 03-30-2023 End: 03-30-2023 Office outpatient visit 40 minutes Rosemarie Shi MD Work Phone: [facility] Orthopedic and Sports Medicine Plan of Treatment Date Care Activity Detail Author Start: 10-05-2023 End: 10-05-2023 Patient encounter procedure 10/05/2023 9:00 AM EST Office Visit [facility] Orthopedic and Sports Medicine [address] [place] [address] [place] [id number] Rosemarie Shi MD [address] [place] [id number] [facility] Orthopedic and Sports Medicine Start: 04-15-2023 Influenza vaccination Sequential Influenza Vaccine (#1) [facility] Start: 04-15-2022 Influenza vaccination Sequential Influenza Vaccine (#1) [facility] Start: 12-03-2021 COVID-19 Vaccine (5 - Moderna series) COVID-19 Vaccine (5 - Moderna series) [facility] Start: 04-15-2020 Influenza vaccination given Sequential Influenza Vaccine (#1) [facility] Start: 03-13-2018 End: 03-13-2018 Ambulatory 03/13/2018 Office Visit Orthopedic Surgery Evaristo Encarnacion MD [address] [place] [address] [phone] [facility] Orthopedic and Sports Medicine Start: 12-14-2017 Ambulatory 12/14/2017 Office Visit Orthopedic Surgery Evaristo Encarnacion MD [address] [place] [address] [phone] [facility] Orthopedic [facility] Sports Medicine Start: 09-28-2017 Ambulatory 09/28/2017 Office Visit Orthopedic Surgery Evaristo Encarnacion MD [address] [place] [address] [phone] [facility] Orthopedic and Sports Medicine Start: 04-15-2017 Influenza vaccination SEQUENTIAL INFLUENZA VACCINE (#1) [facility] Work Phone: Start: 06-27-2007 Pneumococcal Vaccine: Age 65+ (2 - PCV) Pneumococcal Vaccine: Age 65+ (2 - PCV) [facility] Start: 2002 Fall risk assessment Falls Risk Assessment [facility] Start: 2002 Pneumococcal vaccination PNEUMOCOCCAL VACCINE AGE 65+ (1 of 2 - PCV13) [facility] Work Phone: Start: 2002 Pneumococcal Vaccine: Age 65+ (1 - PCV) Pneumococcal Vaccine: Age 65+ (1 - PCV) [facility] Start: 1997 Zoster vacc, sc ZOSTER VACCINE [facility] Work Phone: Start: 1987 Administration of herpes zoster vaccine Zoster Vaccines (1 of 2) [facility] Start: 1949 Adolescent depression screening assessment Depression Screening (PHQ9) [facility] Start: 1949 Depression screening using PHQ-9 (Patient Health Questionnaire 9) score Depression Screening (PHQ-2/9) [facility] Start: 1947 Diabetic foot examination Foot Exam [facility] Start: 1947 Glaucoma screening Diabetic Eye Exam [facility] Start: 1947 Urine screening for protein Urine Microalbumin [facility] Start: 02-28-1940 History and physical examination, annual for health maintenance Wellness Visit [facility] Start: 1937 COVID-19 Vaccine (#1) COVID-19 Vaccine (#1) [facility] Start: 1937 Fall risk assessment Falls Risk Assessment [facility] Start: 1937 Hemoglobin A1c measurement A1C [facility] Start: 1937 End: 1937 Screening for osteoporosis DEXA SCAN [facility] Start: 1937 End: 1937 Tetanus vaccination [facility] End: 03-30-2024 DIANNA measurement DIANNA Lab Routine Anemia, unspecified type 1 Occurrences starting 03/30/2023 until 03/30/2024 [facility] Work Phone: Payers Date Payer Category Payer Medicare [id number] 2017 Unknown [id number] 2017 Unknown [employer] [facility] [id number] 2017-Present [id number] 2017 Unknown [employer] [facility] [id number] 2017-Present [phone] [address] [place] [address] [id number] 2002 Medicare [id number] 2002 Medicare 2002 Medicare MEDICARE MEDICAR E PART A & B [id number] 2002-Present [place] [id number] 1937 Unknown [id number] 1937 Unknown [id number] 1937 Unknown [id number] 1937 Unknown [id number] 1937 Unknown [id number] 1937 Unknown [id number] Social History Date Type Detail Facility Start: 12-12-2017 End: 11-01-2022 Tobacco smoking status [facility] Never smoker [facility] Work Phone: Start: 1935 Sex Assigned At Not on file [facility] Work Phone: Start: 09-14-2017 Tobacco smoking stat us [facility] Unknown if ever smoked [facility] Work Phone: Start: 12-12-2017 End: 11-01-2022 Tobacco use and exposure Never used [facility] Start: 12-12-2017 End: 03-30-2023 Alcohol intake Current non-drinker of alcohol (finding) [facility] Start: 11-01-2022 History of Social function [facility] Start: 11-01-2022 Tobacco use panel [facility] History of Present illness Narrative 03-30-2023 Rosemarie Shi MD - 03/30/2023 8:09 AM EDT Note Date & Type Note Facility 03-30-2023 History of Presen t illness Narrative Formatting of this note is different fro m the original. Images from the original note were not included. RHEUMATOLOGY EST PATIENT VISIT Patients name: Carolina Mendez : 1935 Today's date: 03/30/2023 Reason for visit: Referred by Dr. Bradford for RA Disease summary:RA diagnosed at 62 years of age. Status: controlled. Serology: +ve -ve RF, CCP Radiology: Current Meds:methotrexate 5mg/week Pain control: Prior Meds: Hcq HPC: This is a 88 y.o. female with a pmhx of DJD, DM2, GERD who presents for f/u of her autoimmune issues. Hx: Patient reports to me when she was first diagnosed approximately 20 years ago she had abrupt onset pain all over her body with difficulty using her upper extremities. She was unable to brush her teeth or comb her hair or fasten her bra. In addition she had significantly swollen joints. She was diagnosed with rheumatoid arthritis and started on methotrexate. She has never used any other medications such as biologicals. She was briefly on Plaquenil for couple years and then stopped on the advice of her eye physician. We do not have any eye exam on file to ascertain if the patient does indeed have Plaquenil toxicity. Patient complains of issues with her gait: Unsteadiness and fear of falling. She cannot walk without looking at all times and having a walking stick. Dr. Chadd Pryor [facility] [place] Office: [address] [phone] Prior Rheum appts: Former Dr. Encarnacion patient Oct 2022 Interim: The patient reports feeling good with no swollen joints or other issues after the decrease in methotrexate dosage. 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 The patient recalls experiencing overall stiffness, swollen hands, and difficulty moving their arms when their joint issues first began around the age of 62. The patient has a history of gait therapy, which they found helpful, but still experiences a fear of falling due to feeling unbalanced. They have had a bone density test done recently but the results have not been received yet. The patient has had at least one previous bone density test before the most recent one. The patient has not been on any other rheumatology drugs or injections besides Plaquenil and methotrexate. I have reviewed the patient's medical history in detail and updated the computerized patient record. Past Medical History: Diagnosis Date Anemia Diabetes (HCC) Hypertension Past Surgical History: Procedure Laterality Date SECTION, CLASSIC Social History Tobacco Use Smoking status: Never Smokeless tobacco: Never Vaping Use Vaping Use: Never used Substance Use Topics Alcohol use: No Drug use: No Family History Problem Relation Age of Onset Broken bones Mother No Known Allergies No outpatient medications have been marked as taking for the 03/30/23 encounter (Appointment) with Rosemarie Shi MD. Review of Systems: General Constitutional: Denied fevers, chills, anorexia, weight loss, or night sweats Eyes: denied blurry vision, no dry eyes, no RP ENT: denied nasal drainage, sinus pressure, nasal ulcers Mouth: denied oral ulcers, dry mouth Lymphatics: no new adenopathy in cervical, supraclavicular, axillary, inguinal regions Respiratory: no cough, SOB CV: denied palpitations, chest pain/pressure, PND, orthopnea. GI: denied abd pain, n/v/d, constipation, melena. : denied dysuria, urgency, frequency or hematuria. Skin: no rashes or lesions Musculoskeletal: as per HPI Hematologic/lmmunologic: no adenopathy, bleeding, easy bruisiality or recurrent infection. Neurology: Denied new headaches, speech/balance/coordination problems. Denied new focal numbness or weakness of extremities Psych: denied anxiety, depression or mood swings A 10 point review of systems was completed. Physical Exam: BP 125/70 Pulse 70 Wt 54.4 kg (120 lb) BMI 21.26 kg/m Gen: NAD, resting comfortably,Alert, cooperative, no distress, appears stated age HEENT: NCAT, no temporal wasting, EOMI, perrl, anicteric sclerae, mmm, no op lesions Neck: supple, no thyromegaly or LAD, no bruits Lymphatics: no cervical, axillary, or inguinal adenopathy Chest: Good a/e b/l, no added sounds, no respiratory distress CV: RRR, no m/r/g, normal S1, S2 Abd: soft, nontender, nondistended, +BS, no hepatosplenomegaly Ext: no clubbing, cyanosis or edema MSK: No synovitis of the MCPs or PIPs. Crepitus of the knees no effusion or warmth. Skin: no rashes or lesions Neuro: no focal deficits, moves all four extremities Psych: Mood and affect appropriate DATA: I have reviewed lab work and imaging. Labs:reviewed. Imaging: reviewed. Health Maintenance Due Topic Date Due Tetanus: Every 10yrs Never done A1C Never done Dexa Scan Never done Wellness Visit Never done Foot Exam Never done Diabetic Eye Exam Never done Urine Microalbumin Never done Depression Screening (PHQ-2/9) Never done Falls Risk Assessment Never done Pneumococcal Vaccine: Age 65+ (2 - PCV) 06/27/2007 COVID-19 Vaccine (5 - Moderna series) 12/03/2021 Assessment & Plan Seronegative rheumatoid arthritis versus polymyalgia rheumatica - controlled on methotrexate - Hx more in keeping with PMR -ESR, CRP, CBC/BMP/LFTs -Biological screening labs WNL -Lower methotrexate 5mg/weekly with supplemental folate. - Need new HCQ eye exam - any flares advised to make urgent TH appt. Anemia - 2/2 methotrexate therapy versus other causes - Plan: Pathologist Blood Smear Interpretation, JACOBY labs, DIANNA, Nuclear antigen antibody Age-related osteoporosis without current pathological fracture - Plan: XR Bone Density DEXA Axial done recently at [place] - need to obtain result H/O methotrexate therapy - Plan:No fibrosis - Explained to patient that we need to monitor for laboratory abnormalities such as liver function and blood counts every three months. Advised patient to abstain from alcohol. -Explained to patient that she needs to take folic acid supplementation every day EXCEPT day MTX is administered to reduce the incidence of other adverse effects associated with folate deficiency such as stomatitis, alopecia, diarrhea, nausea/vomiting, flu-like symptoms, shortness of breath, symptoms of myelosuppression, hepatotoxicity, infection, lymph node swelling. - Methotrexate should be held for 2 weeks after vaccinations when possible Gait instability - improved - Plan: continue with home exercises The patient indicates understanding of these issues and agrees with the plan. Return to clinic in 6 month(s) - any issues can make urgent TH Telehealth appointments ok. Rosemarie Shi MD [employer] Specialist Note: To expedite correspondence this note was generated by [employer] voice recognition software. Some grammatical or spelling errors may occur using the system. documented in this encounter [facility] Evaluation note Note Date & Type Note Facility documented in this encounter [facility] Evaluation note Note Date & Type Note Facility documented in this encounter [facility] Assessments Diagnosis Seronegative rheumatoid arth ritis (HCC) Rheumatoid arthritis Diagnosis Seronegative rheumatoid arth ritis (HCC) - Primary Rheumatoid arthritis Diagnosis Rheumatoid arthritis, involv ing unspecified site, unspecified rheumatoid factor presence (HCC) Summary Purpose Family History No Family History Records FoundNo Family History Records FoundNo Family History Records FoundNo Family History Records FoundNo Family History Records Found Advance Directives No Advanced Directives Records FoundNo Advanced Directives Records FoundNo Advanced Directives Records FoundNo Advanced Directives Records FoundNo Advanced Directives Records Found Reason for Referral Specialty Diagnoses / Procedures Referred By Contac t Referred To Contact Podiatry Diagnoses Callus Evaristo Connors MD [address] [place] [address] [facility] [address] [place] [address] Referral ID Status Reason Start Date Expiration Date V isits Requested Visits Authorized [id number] Authorized 02/17/2022 02/17/2023 1 1 Specialty Diagnoses / Procedures Referred By Contac Referred To Contact Ophthalmology Diagnoses Long-term use of Plaquenil Rosemarie Shi MD [address] [place] [address] Referral ID Status Reason Start Date Expiration Date V isits Requested Visits Authorized [id number] Closed Specialty Services Required/Annia ent's Best Interest 03/30/2023 03/29/2024 1 1 Additional Source Comments INFORMATION SOURCE (unrecogn ized section and content) DATE CREATED AUTHOR AUTHOR'S ORGANIZ ATION 02/06/2018 [facility] DATE CREATED AUTHOR AUTHOR'S ORGANIZ ATION 02/07/2018 [facility] DATE CREATED AUTHOR AUTHOR'S ORGANIZ ATION 04/03/2023 [facility] DATE CREATED AUTHOR AUTHOR'S ORGANIZ ATION 06/17/2023 [facility] Care Teams (unrecognized sec tion and content) Rural Route Mail Carrier Relationship Specialty Start Date End Date Evaristo Connors MD PCP - General Family Medicine 09/13/17 FOR RECORDS PERTAINING TO PATIENTS WHO ARE OR HAVE BEEN ENROLLED IN A CHEMICAL DEPENDENCY/SUBSTANCEABUSE PROGRAM, SOME INFORMATION MAY BE OMITTED. This clinical summary was aggregated from multiple sources. Caution should be exercised in using it in the provision of clinical care. This summary normalizes information from multiple sources, and as a consequence, information in this document may materially change the coding, format and clinical context of patient data. In addition, data may be omitted in some cases. CLINICAL DECISIONS SHOULD BE BASED ON THE PRIMARY CLINICAL RECORDS. [facility] [employer] [facility]. provides no warranty or guarantee of the accuracy or completeness of information in this document.
[2023-10-19 12:32] LABS: Absolute Lymphocyte Count 0.87 X10^3/uL (0.83-4.51); Absolute Neutrophil Count 2.3 X10^3/uL (2.0-7.7); Basophil# 0.01 X10^3/uL; Basophil% 0.3 % (0-1); Eosinophil# 0.01 X10^3/uL; Eosinophils% 0.3 % (0-5); Hematocrit 33.5 % (37-47); Hemoglobin 10.6 g/dL (12.0-15.0); Lymphocyte # 0.87 X10^3/ul (0.83-4.51); Mean Corp Hgb Conc 31.6 g/dL (32-36); Mean Corpuscular Hgb 29.6 pg (27.0-32.0); Mean Corpuscular Volume 93.6 fL (81-99); Mean Platelet Vol. 10.4 fl (6.2-12.0); Monocyte# 0.24 X10^3/uL; Monocyte% 6.9 % (0-10); NRBC Flagged by Analyzer 0 % (0-5); Neutrophil # 2.34 X10^3/uL (2.7-7.7); Neutrophil % 67.2 % (47-70); Platelet Count 251 K/mm3 (150-450); RBC Distribution Width CV 14.6 % (11.6-14.6); RBC Distribution Width SD 49.6 fl (35.1-43.9); Red Blood Count 3.58 M/mm3 (4.2-5.4); White Blood Count 3.5 K/mm3 (4.4-11.0)
[2023-10-19 13:50] LABS: Ferritin 13 ng/mL (8-252); Iron 47 ug/dL (50-170); Iron Binding Capacity,Total 342 ug/dL (250-450); PERCENT IRON SATURATION 13.7 % (15.0-55.0); Thyroid Stim Hormone (TSH) 1.02 uIU/mL (0.358-3.74)
== END | disposition home or self-care (01) ==
LOC: MFPLAB 10:15
PROVIDERS: PCP Family Medicine; Visit Provider Family Medicine
DX: M06.9 Rheumatoid arthritis, unspecified (principal); D64.9 Anemia, unspecified; R53.83 Other fatigue
CPT/HCPCS: 36415; 82728; 82746; 83540; 83550; 84443; 85025

== ENCOUNTER → 2024-04-30 | Outpatient (CLI) | payer OTHER, SELFPAY ==
[2024-04-30 10:32] LABS: Absolute Neutrophil Count 2.3 X10^3/uL (2.0-7.7); Basophil# 0.01 X10^3/uL; Basophil% 0.3 % (0-1); Eosinophil# 0.01 X10^3/uL; Eosinophils% 0.3 % (0-5); Hematocrit 33.6 % (37-47); Hemoglobin 10.5 g/dL (12.0-15.0); Lymphocyte % 27.9 % (19-41); Mean Corp Hgb Conc 31.3 g/dL (32-36); Mean Corpuscular Hgb 30.7 pg (27.0-32.0); Mean Corpuscular Volume 98.2 fL (81-99); Monocyte# 0.28 X10^3/uL; Monocyte% 7.8 % (0-10); NRBC Flagged by Analyzer 0 % (0-5); Neutrophil # 2.28 X10^3/uL (2.7-7.7); Neutrophil % 63.4 % (47-70); Platelet Count 206 K/mm3 (150-450); RBC Distribution Width CV 13.1 % (11.6-14.6); RBC Distribution Width SD 46.5 fl (35.1-43.9); Red Blood Count 3.42 M/mm3 (4.2-5.4); White Blood Count 3.6 K/mm3 (4.4-11.0)
[2024-04-30 10:55] LABS: Vitamin D,25 Hydroxy 62.8 ng/mL
[2024-04-30 11:17] LABS: ALB/GLOB Ratio 1.2 RATIO (0.9-2.4); AST(SGOT) 17 U/L (15-37); Alanine Aminotransfer ALT/SGPT 24 U/L (13-56); Albumin, Serum 3.4 g/dL (3.2-5.0); Alkaline Phosphatase 117 U/L (45-117); Anion Gap 5 (5-15); BUN 25 mg/dL (7-18); BUN/Creat Ratio 39.3 RATIO (10-20); Calcium,Total 8.9 mg/dL (8.5-10.1); Chloride 103 mmol/L (98-107); Creatinine, Serum 0.64 mg/dL (0.55-1.02); EST Glomerular Filtration Rate 94 mL/min (>60); Est Glom Filt Rate - Afr Amer 114 mL/min (>60); Ferritin 60 ng/mL (8-252); Globulin 2.8 g/dL (2.2-4.2); Glucose 299 mg/dL (74-106); Iron 77 ug/dL (50-170); Iron Binding Capacity,Total 313 ug/dL (250-450); PERCENT IRON SATURATION 24.6 % (15.0-55.0); Potassium 4.1 mmol/L (3.5-5.1); Protein, Total 6.2 g/dL (6.4-8.2); Sodium Level 137 mmol/L (136-145); Thyroid Stim Hormone (TSH) 0.909 uIU/mL (0.358-3.740)
== END | disposition home or self-care (01) ==
LOC: MFPLAB 09:04
PROVIDERS: PCP Family Medicine; Visit Provider Family Medicine
DX: D64.9 Anemia, unspecified (principal)
CPT/HCPCS: 36415; 80053; 82306; 82728; 83540; 83550; 84443; 85025

== ENCOUNTER 2024-06-12 20:45 | Observation (INO) | payer MEDICARE, SELFPAY ==
[2024-06-12 20:46] VITALS: BP 199/95; PULSE 90; RESP 18; TEMP 36.4; O2SAT 100; BMI 22.3
[2024-06-12 21:16] VITALS: BMI 21.7
--- NOTE | 2024-06-12 21:16 | EKG12_ITS ---
Test Reason : DYSRHYTHMIA Blood Pressure : */* mmHG Vent. Rate : 88 BPM Atrial Rate : 88 BPM P-R Int : 148 ms QRS Dur : 100 ms QT Int : 368 ms P-R-T Axes : 64 -38 82 degrees QTcB Int : 445 ms Normal sinus rhythm Left axis deviation Septal infarct , age undetermined Abnormal ECG Confirmed by LAURA KHANNA, SANTOS ([id number]), editor publications TUCKER AUGUSTIN ([id number]) on 06/14/2024 11:31:15 AM Referred By: Confirmed By: SANTOS SANCHEZ MD
--- NOTE | 2024-06-12 21:16 | CT_ITS ---
INDICATION: Neuro deficit, acute, stroke suspected EXAMINATION: CT BRAIN WITHOUT CONTRAST, CTA HEAD, AND CTA NECK TECHNIQUE: Noncontrast axial images were obtained of the brain. Subsequently, routine carotid CT angiogram protocol was performed without and with IV contrast. In addition, images were obtained of the [place]. NASCET criteria using the distal ICAs for comparison were used for evaluation of stenoses. 3D reconstructions were reviewed. The protocol utilizes one or more of the following dose reduction techniques: automated exposure control, adjustment of mA and/or kV according to patient size,and/or use of iterative reconstruction technique. IV Contrast dosage and agent: COMPARISON: FINDINGS: --CT BRAIN WITHOUT CONTRAST: BRAIN PARENCHYMA: No intra- or extra-axial hemorrhage. No evidence of acute infarct. No intracranial mass or mass effect. Bilateral white matter microangiopathic ischemic changes. Posterior fossa structures are unremarkable. CSF SPACES: Appropriate for age. No hydrocephalus. Basal cisterns are patent. CALVARIUM, SKULL BASE, PARANASAL SINUSES AND MASTOID AIR CELLS: Clear. No discrete lytic or blastic abnormalities. --CTA NECK: AORTIC ARCH AND BRANCHES: Normal anatomy, patent. RIGHT CCA: No occlusion, significant stenosis or dissection. RIGHT CAROTID BULB: Atherosclerotic calcifications with no hemodynamically significant stenosis. RIGHT ICA: No occlusion, significant stenosis or dissection. LEFT CCA: No occlusion, significant stenosis or dissection. LEFT CAROTID BULB: Atherosclerotic calcifications with no hemodynamically significant stenosis. LEFT ICA: No occlusion, significant stenosis or dissection. RIGHT VERTEBRAL ARTERY: No occlusion, significant stenosis or dissection. LEFT VERTEBRAL ARTERY: No occlusion, significant stenosis or dissection. NECK SOFT TISSUES: Bilateral thyroid nodules.. --CTA HEAD: --Anterior circulation: ICAs: No significant stenosis at the intracranial/visualized segments. ACAs: No significant stenosis at the visualized segments. ACOM: Nonvisualization. MCAs: No significant stenosis at the visualized segments. --Posterior circulation: PCOMs: Nonvisualization bilaterally. configuration management analyst: No significant stenosis at the visualized segments. BASILAR ARTERY: No significant stenosis. VERTEBRAL ARTERIES: No significant stenosis at the intradural/visualized segments. No evidence of intracranial aneurysm or vascular malformation. CT/CTA Head AND Neck W/ Contrast IMPRESSION: Negative CT Brain, CTA Carotid, and CTA Brain. Electronically Signed: Kevin Chambers DO at 23:17 EDT ,
--- NOTE | 2024-06-12 21:20 | EDS_ITS ---
HPI History of Present Illness Chief Complaint: Neuro S/Sx Informant: patient and family Narrative Narrative: Presents by private vehicle with daughters for evaluation. 6:30 PM watching TV she had to turn her head to the left to see. She states on and off symptoms past year have this lasted longer. She called her daughter who came over. States on the phone was told just come there. While seeing her at the house blood glucose was 70, patient had trouble remembering what she ate for dinner and was unable to use the blood pressure cuff. She states she understood however just could not do what she needed to do. This is new symptoms for her. No stroke history. Rheumatoid arthritis with diabetes history. Has mild headache in the frontal region. Denies hemiparesis or any paresthesias. Symptoms now resolved. Prior similar symptoms: No PFSH PFSH Medical History Solar lentigo GERD (gastroesophageal reflux disease) Type 2 diabetes mellitus HTN (hypertension) Rheumatoid arthritis Home Medications ?Medication ?Instructions ?Recorded ?Last Taken ?Type cholecalciferol (vitamin D3) 25 1,000 unit PO DAILY 12/21/16 Unknown History mcg (1,000 unit) capsule (Vitamin D3) folic acid 1 mg tablet 1 mg PO DAILY@0800 12/21/16 Unknown History losartan 50 mg-hydrochlorothiazide 1 ea PO DAILY 12/21/16 Unknown History 12.5 mg tablet methotrexate sodium 2.5 mg tablet 2.5 mg PO QWEEK 12/21/16 Unknown History insulin glargine 100 unit/mL (3 7 unit subcut DAILY 03/26/24 Unknown History mL) subcutaneous pen (Lantus Solostar U-100 Insulin) insulin lispro 100 unit/mL 10 unit (0.1 mL) subcut TID #9 mL 03/26/24 Unknown Rx subcutaneous pen (Humalog KwikPen (U-100) Insulin) ferrous sulfate 325 mg (65 mg 325 mg PO QDAY 05/23/24 Unknown History iron) tablet metformin 500 mg 24 hr 1,000 mg PO BID 05/23/24 Unknown History tablet,extended release (gastric retention) rosuvastatin 5 mg tablet 5 mg PO QDAY 05/23/24 Unknown History Allergy/AdvReac Type Severity Reaction Status Date / Time No Known Allergies Allergy Verified 06/12/24 20:46 Family History Mother Diabetes Social History Smoking Status: Never smoker Electronic Cigarette Use: not used second hand exposure: No alcohol intake: never substance use type: does not use ROS ROS ED Constitutional Constitutional ED: Denies chills, fever(s) or sweats Eyes Eyes: Reports change in vision ENT ENT ED: Denies dysphagia or sore throat Cardiovascular Cardiovascular: Denies chest pain, leg edema, palpitations or racing heartbeat Respiratory/Chest Respiratory/Chest: Denies cough, dyspnea or dyspnea on exertion Gastrointestinal Gastrointestinal: Denies abdominal pain, diarrhea, nausea or vomiting Genitourinary Genitourinary ED: Denies dysuria, hematuria or urinary frequency Musculoskeletal Musculoskeletal: Denies back pain, extremity pain or neck pain Integumentary Denies rash or wounds Neurologic Neurologic: Reports headache(s) and other Details: Difficulty performing tasks and memory ; Denies paresthesias or weakness EXAM Physical Exam Const Vital Signs: 06/12/24 20:46 06/12/24 21:34 06/12/24 21:45 Temperature 97.5 F L Temperature Source Temporal Pulse Rate 90 82 Respiratory Rate 18 19 H Blood Pressure 199/95 H 154/91 H Blood Pressure Mean 129 108 Pulse Ox 100 99 Oxygen Delivery Method Room Air Room Air 06/12/24 22:00 06/12/24 22:30 06/12/24 23:00 Temperature Temperature Source Pulse Rate 83 78 74 Respiratory Rate 14 9 L 15 Blood Pressure 163/86 H 173/70 H 155/71 H Blood Pressure Mean 108 104 96 Pulse Ox 94 97 97 Oxygen Delivery Method Positive well nourished and well developed General Appearance ED: well developed and NAD HEENT Reports moist mucous membranes normocephalic and atraumatic Eyes EOMs intact bilaterally and conjunctivae normal Eyes Narrative: Normal finger counting in all 4 quadrants testing each eye separately. General Eye ED: Yes normal appearance of both eyes Neck no lymphadenopathy and supple General: Negative for tenderness Chest Wall Chest: Negative for tenderness Resp normal respiratory effort and normal air movement Effort and Inspection: symmetric chest movement; Negative for respiratory distress Cardio regular rate, regular rhythm and no murmurs Peripheral Pulses: pulses 2+ throughout GI normal to inspection, nondistended, normoactive bowel sounds and non-tender Palpation: Negative for guarding or rebound tenderness present Back/Spine no CVA tenderness and no thoracic nor lumbar tenderness Extremity normal to inspection General Extremety ED: Negative for edema or tenderness General Extremity: Negative for edema Neuro oriented x3, CN's II-XII intact bilaterally and no sensory deficits noted Sensorium / Orientation: awake and alert Skin no rashes or lesions noted and no wounds NIHSS NIHSS Initial: 1a Level of Consciousness: 0 1b LOC Questions (Score 2 if aphasic/stupor): 0 1c LOC Commands (Only score 1st attempt): 0 2 Best Gaze (If aphasic, use reflexive mvmts.): 0 3 Visual: 0 4 Facial Palsy: 0 5 Motor Arm Right (UN = amputation/fusion): 0 5 Motor Arm Left: 0 6 Motor Leg Right: 0 6 Motor Leg Left: 0 7 Limb ataxia (Only + if out of proportion): 0 8 Sensory (Aphasia/stupor=0 or 1, coma=2): 0 9 Best Language: 0 10 Dysarthria (mute, coma=2, intubated=UN): 0 11 Extinction and Inattention (only scored if +): 0 Total Score: 0 MDM MDM MDM Narrative Medical decision making narrative: Interventions / MDM: Differential diagnosis: TIA, transient hemianopsia, difficulty performing tasks Diagnosis considered but do not suspect: N/A My EKG interpretation: Sinus rate of 88, no ST or T wave changes. Imaging independently reviewed and interpreted by myself: 1 view chest x-ray: Right pulmonary hilar granulomatous calcifications. Also by radiology. CT angiogram head and neck: No acute process read by radiology. External documents reviewed: N/A Test considered but not ordered:N/A ED course: Patient elevated blood pressure around 199, blood pressure 170 in the room. She describes left-sided hemianopsia along with difficulty performing task. She understood what she needed to do however she is just could not. This is all resolved. Concern for TIA symptoms. NIH of 0. Will perform a stroke workup. Symptoms resolved no stroke team will be called at this time as she is not a TNK candidate at this time. 2325: Patient remains symptom-free. CT angiogram negative. Chest x-ray make. Labs are stable. EKG sinus rhythm. I will discuss with hospitalist for plan admission for further workup. 2350: I spoke with Dr. Morris for admission to PCU. Re-evaluation: stable Disposition discussed with patient/family/significant other: Patient and family Case discussed with consulting clinician: Hospitalist This note was generated with [employer] dictation software. It may contain incorrect words, spelling, and punctuation that were not noted in checking the note before signing. Lab Data Attestation: I reviewed the patient's lab results. Labs: Laboratory Results - last 24 hr 06/12/24 06/12/24 21:06 21:33 WBC 5.1 RBC 3.70 L Hgb 11.8 L Hct 36.8 L MCV 99.5 H MCH 31.9 MCHC 32.1 RDW Std Deviation 50.4 H RDW Coeff of Siva 13.8 Plt Count 255 MPV 9.8 Immature Gran % (Auto) 0.200 Neut % (Auto) 66.4 Lymph % (Auto) 23.1 [place] % (Auto) 9.7 Eos % (Auto) 0.2 Baso % (Auto) 0.4 Absolute Neuts (auto) 3.4 Absolute Lymphs (auto) 1.17 Nucleated RBC % 0 PT 11.8 INR 0.9 APTT 25.0 Sodium 141 Potassium 3.9 Chloride 105 Carbon Dioxide 30.0 Anion Gap 6 BUN 18 Creatinine 0.72 Estim Creat Clear Calc 39.18 Est GFR (MDRD) Af Amer 98 Est GFR (MDRD) Non-Af 81 BUN/Creatinine Ratio 24.9 H Glucose 99 Calcium 9.3 Troponin I High Sens 50 POC Glucose 104 Radiography Diagnostic Testing: Clinical Impression(s) from Imaging Studies Head/Neck CTA 06/12/24 21:16 IMPRESSION: Negative CT Brain, CTA Carotid, and CTA Brain. Electronically Signed: Kevin Chambers DO at 23:17 EDT , Chest X-Ray 06/12/24 21:35 IMPRESSION: Right pulmonary and hilar granulomatous calcifications.. Electronically Signed: Kevin Chambers DO at 23:02 EDT , Discharge Plan Dx/Rx/DC Orders Clinical Impression: Brain TIA, Left homonymous hemianopsia, HTN (hypertension), Type 2 diabetes mellitus, Rheumatoid arthritis Disposition Disposition: Acute Care Hospital [facility]
[2024-06-12 21:27] LABS: Absolute Lymphocyte Count 1.17 X10^3/uL (0.83-4.51); Absolute Neutrophil Count 3.4 X10^3/uL (2.0-7.7); Basophil# 0.02 X10^3/uL; Basophil% 0.4 % (0-1); Eosinophil# 0.01 X10^3/uL; Eosinophils% 0.2 % (0-5); Hematocrit 36.8 % (37-47); Hemoglobin 11.8 g/dL (12.0-15.0); Lymphocyte # 1.17 X10^3/ul (0.83-4.51); Lymphocyte % 23.1 % (19-41); Mean Corp Hgb Conc 32.1 g/dL (32-36); Mean Corpuscular Hgb 31.9 pg (27.0-32.0); Mean Corpuscular Volume 99.5 fL (81-99); Mean Platelet Vol. 9.8 fl (6.2-12.0); Monocyte# 0.49 X10^3/uL; Monocyte% 9.7 % (0-10); NRBC Flagged by Analyzer 0 % (0-5); Neutrophil # 3.36 X10^3/uL (2.7-7.7); Neutrophil % 66.4 % (47-70); Platelet Count 255 K/mm3 (150-450); RBC Distribution Width CV 13.8 % (11.6-14.6); RBC Distribution Width SD 50.4 fl (35.1-43.9); White Blood Count 5.1 K/mm3 (4.4-11.0)
--- NOTE | 2024-06-12 21:35 | RAD_ITS ---
INDICATION: Neuro deficit, acute, stroke suspected EXAMINATION/TECHNIQUE: X-RAY - XR Chest 1 View COMPARISON: FINDINGS: LINES/DEVICES: None. LUNGS: No consolidation, edema or effusion. No pneumothorax. MEDIASTINUM AND CARDIOVASCULAR STRUCTURES: Cardiac silhouette not enlarged. Right pulmonary and hilar granulomatous calcifications. Central airways and mediastinal contour are unremarkable. BONES AND SOFT TISSUES: Unremarkable. RAD/Chest 1 View IMPRESSION: Right pulmonary and hilar granulomatous calcifications.. Electronically Signed: Kevin Chambers DO at 23:02 EDT ,
[2024-06-12 21:44] LABS: International Normalized Ratio 0.9; Prothrombin Time (Protime)PT. 11.8 SECONDS (11.7-14.9)
[2024-06-12 21:45] VITALS: BP 154/91; PULSE 82; RESP 19; O2SAT 99
[2024-06-12 21:47] LABS: Anion Gap 6 (5-15); BUN 18 mg/dL (7-18); BUN/Creat Ratio 24.9 RATIO (10-20); Calcium,Total 9.3 mg/dL (8.5-10.1); Chloride 105 mmol/L (98-107); Creatinine, Serum 0.72 mg/dL (0.55-1.02); EST Glomerular Filtration Rate 81 mL/min (>60); Est Glom Filt Rate - Afr Amer 98 mL/min (>60); Estimated Creatinine Clearance 39.18 ml/min; Glucose 99 mg/dL (74-106); Potassium 3.9 mmol/L (3.5-5.1); Sodium Level 141 mmol/L (136-145); Troponin-I HS 50 pg/mL (3.0-54.0)
[2024-06-12 21:58] LABS: Bedside Glucose 104 mg/dL (74-106)
[2024-06-12 22:00] VITALS: BP 163/86; PULSE 83; RESP 14; O2SAT 94
[2024-06-12 22:30] VITALS: BP 173/70; PULSE 78; RESP 9; O2SAT 97
[2024-06-12 23:00] VITALS: BP 155/71; PULSE 74; RESP 15; O2SAT 97
--- NOTE | 2024-06-12 23:47 | PCM.HP.STD ---
[facility] - General General Date of Admission: 06/12/24 Date of Service: 06/12/24 Chief Complaint: Left-sided hemianopsia about 6:30, lasted for an hour. HPI Narrative MARYCRUZ LE, is a 89 F who came to ED with sudden onset of vision loss on the left side while she was watching the TV. This happened about 6:30 PM and she had to turn her head to the left to see the TV. She was also confused and was trying to call her daughter who lives in close have her hold but it took 5 minutes to figure out how to call her. Actually she picked up a TV remote and thought it was her phone. Her symptoms of vision loss lasted for about an hour. She denies any other symptoms like hemiplegia, sensory loss, language deficit, dysarthria or dysphagia. She had similar symptoms of vision loss total 3 in her life in last 1 year. She checked her blood sugar and it was 70. Complain of mild headache in the frontal region. Her symptoms resolved by the time she came to ED. She has also seen skoog machine operator Dr. 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 Vitals in the ED shows BP was high 199/95, heart rate 90/min but most recent BP 155/71. CT head does not show acute intracranial abnormality and patient was admitted. [facility] Medical History Solar lentigo GERD (gastroesophageal reflux disease) Type 2 diabetes mellitus HTN (hypertension) Rheumatoid arthritis Home Medications ?Medication ?Instructions ?Recorded ?Last Taken ?Type cholecalciferol (vitamin D3) 25 1,000 unit PO DAILY 12/21/16 Unknown History mcg (1,000 unit) capsule (Vitamin D3) folic acid 1 mg tablet 1 mg PO DAILY@0800 12/21/16 Unknown History methotrexate sodium 2.5 mg tablet 5 mg PO QWEEK 12/21/16 Unknown History insulin glargine 100 unit/mL (3 6 unit subcut DAILY 03/26/24 Unknown History mL) subcutaneous pen (Lantus Solostar U-100 Insulin) ferrous sulfate 325 mg (65 mg 325 mg PO QDAY 05/23/24 Unknown History iron) tablet metformin 500 mg 24 hr 1,000 mg PO BID 05/23/24 Unknown History tablet,extended release (gastric retention) rosuvastatin 5 mg tablet 5 mg PO QDAY 05/23/24 Unknown History insulin lispro 100 unit/mL See Rx Instructions .Route .COMPLEX 06/13/24 Unknown History subcutaneous pen (Humalog KwikPen (U-100) Insulin) losartan 50 mg tablet 50 mg PO DAILY 06/13/24 Unknown History Allergy/AdvReac Type Severity Reaction Status Date / Time No Known Allergies Allergy Verified 06/12/24 20:46 Family History Mother Diabetes Social History Smoking Status: Never smoker Electronic Cigarette Use: not used second hand exposure: No alcohol intake: never substance use type: does not use ROS ROS Narrative Constitutional: No acute fatigue and weakness. Mild headache, has resolved. No fever. HEENT: No dizziness/vertigo. Reports systems reviewed and no addt'l complaints, except as documented Respiratory/Chest: No acute shortness of breath or respiratory distress or wheezing. CVS: No chest pain pressure or tightness. Gastrointestinal: Denies coffee ground emesis, hematemesis or vomiting Genitourinary: Denies burning urination or new urinary tract symptoms Musculoskeletal: Denies acute joint pain or limited range of motion. No acute injury Neurologic: Denies seizure-like symptoms. Chronic mild gait instability but no new weakness. Rest as described in HPI skin: No ulcer. No rash Endocrinology: Reports systems reviewed and no addt'l complaints, except as documented Hematologic/Lymphatic: Reports systems reviewed and no addt'l complaints, except as documented Rest 14 ROS are negative except as mentioned in HPI Vital Signs Vital Signs Vital Signs: 06/12/24 20:46 06/12/24 21:34 06/12/24 21:45 Temperature 97.5 F L Temperature Source Temporal Pulse Rate 90 82 Respiratory Rate 18 19 H Blood Pressure 199/95 H 154/91 H Blood Pressure Mean 129 108 Pulse Ox 100 99 Oxygen Delivery Method Room Air Room Air 06/12/24 22:00 06/12/24 22:30 06/12/24 23:00 Temperature Temperature Source Pulse Rate 83 78 74 Respiratory Rate 14 9 L 15 Blood Pressure 163/86 H 173/70 H 155/71 H Blood Pressure Mean 108 104 96 Pulse Ox 94 97 97 Oxygen Delivery Method Weight Weight: 121 lb 14.65 oz Body Mass Index (BMI) 22.3 Physical Exam Narrative General: Alert, Oriented x3, Cooperative HEENT: Uses hearing aid. Atraumatic, PERRLA, EOMI, Normocephalic Oral: oral mucosa moist.No Gingival or Mucosal Lesions/ Ulcerations Neck: Supple, No JVD, Negative Carotid Bruits Chest wall/Lungs: Air entry equal in bilateral lung bases. No crepitation/rhonchi Cardiovascular: Regular rate, Regular Rhythm, Normal S1, Normal S2, No M/G/R Abdomen: Bowel Sounds Present, Soft, Non Tender, Non-Distended : No dysuria. No renal angle tenderness. No suprapubic tenderness. Extremities: No edema, Capillary Refill Less than 3 Seconds Skin: No rashes, No breakdown Musculoskeletal: No Tenderness to Palpation of Joints or Extremities Neurological: Cranial nerves II-XII grossly intact, DTR 2+/4. No acute focal neurological deficit. Visual confrontation test shows no acute vision loss or loss of field of vision. Psych/Mental Status: Normal Affect, Appropriate. Results Lab / Micro Data 06/12/24 21:06 06/12/24 21:06 Labs: Laboratory Results - last 24 hr 06/12/24 21:06: WBC 5.1, RBC 3.70 L, Hgb 11.8 L, Hct 36.8 L, MCV 99.5 H, MCH 31.9, MCHC 32.1, RDW Std Deviation 50.4 H, RDW Coeff of Siva 13.8, Plt Count 255, MPV 9.8, Immature Gran % (Auto) 0.200, Neut % (Auto) 66.4, Lymph % (Auto) 23.1, [place] % (Auto) 9.7, Eos % (Auto) 0.2, Baso % (Auto) 0.4, Absolute Neuts (auto) 3.4, Absolute Lymphs (auto) 1.17, Nucleated RBC % 0, PT 11.8, INR 0.9, APTT 25.0, Sodium 141, Potassium 3.9, Chloride 105, Carbon Dioxide 30.0, Anion Gap 6, BUN 18, Creatinine 0.72, Estim Creat Clear Calc 39.18, Est GFR (MDRD) Af Amer 98, Est GFR (MDRD) Non-Af 81, BUN/Creatinine Ratio 24.9 H, Glucose 99, Calcium 9.3, Troponin I High Sens 50 06/12/24 21:33: POC Glucose 104 Imaging Radiology Impression Head/Neck CTA 06/12/24 21:16 IMPRESSION: Negative CT Brain, CTA Carotid, and CTA Brain. Electronically Signed: Kevin Chambers DO at 23:17 EDT , Chest X-Ray 06/12/24 21:35 IMPRESSION: Right pulmonary and hilar granulomatous calcifications.. Electronically Signed: Kevin Chambers DO at 23:02 EDT , Assessment & Plan Assessment/Plan (1) Left homonymous hemianopsia: PLAN: Plan This is a 89-year-old female came to ED with sudden onset of left-sided hemianopia that has resolved. 1. Left sided homonymous hemianopia, unclear whether TIA or dry macular degeneration: Patient is being admitted to PCU. Head and neck CTA was done which was negative for acute abnormality. NIH stroke scale 0. Twelve-lead EKG shows normal sinus rhythm 78 bpm. LAD, LVH QTc 414 ms. Chest x-ray no acute abnormality. PT, OT, speech therapy/swallow evaluation and management, nursing NIH stroke scale, BP and glucose monitoring and control as per stroke protocol. TSH, A1c fasting lipid profile tomorrow AM. MRI brain and 2D echo with bubble contrast study ordered 2. 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 Pryor, skoog machine operator [facility]. Advised to continue follow. 3. Type 2 diabetes mellitus: Glucose in BMP 99, POC 104. At home her Accu-Chek was 70 mg/dL. Accu-Chek before meals and at bedtime with Humalog sliding scale coverage and hypoglycemia protocol. 4. Hypertension: BP was high in ED, 119/95. Follow stroke guidelines for blood pressure control. 5. Chronic rheumatoid arthritis: No acute issues. DVT prophylaxis: Lovenox 40 Mg subcu daily. Living will/advanced directive/end of life care: Patient does have living will or advanced directive. Her daughter is power of health care attorney for health. After discussion of benefits/risks procedures involved with full code, DNR CC arrest and DNR CC, the patient opted for DNR CC arrest with no intubation Patient doesn't want artificial life support including intubation, tube feed, ventilator and/chest compression, central venous catheter, vasopressor and DC shock if needed Total time spent in [id number] encounter in discussion of advanced directive 17 minutes. Laboratory Results 06/12/24 21:06: WBC 5.1, RBC 3.70 L, Hgb 11.8 L, Hct 36.8 L, MCV 99.5 H, MCH 31.9, MCHC 32.1, RDW Std Deviation 50.4 H, RDW Coeff of Siva 13.8, Plt Count 255, MPV 9.8, Immature Gran % (Auto) 0.200, Neut % (Auto) 66.4, Lymph % (Auto) 23.1, [place] % (Auto) 9.7, Eos % (Auto) 0.2, Baso % (Auto) 0.4, Absolute Neuts (auto) 3.4, Absolute Lymphs (auto) 1.17, Nucleated RBC % 0, PT 11.8, INR 0.9, APTT 25.0, Sodium 141, Potassium 3.9, Chloride 105, Carbon Dioxide 30.0, Anion Gap 6, BUN 18, Creatinine 0.72, Estim Creat Clear Calc 39.18, Est GFR (MDRD) Af Amer 98, Est GFR (MDRD) Non-Af 81, BUN/Creatinine Ratio 24.9 H, Glucose 99, Calcium 9.3, Troponin I High Sens 50 06/12/24 21:33: POC Glucose 104 Clinical Impression(s) from Imaging Studies Head/Neck CTA 06/12/24 21:16 IMPRESSION: Negative CT Brain, CTA Carotid, and CTA Brain. Chest X-Ray 06/12/24 21:35 IMPRESSION: Right pulmonary and hilar granulomatous calcifications.. Charges/Coding Visit Charges Inpatient E&M: 13706 Init Hosp L3 Procedures Hospitalists Procedures: 98350 Advncd Care Plan 30 Min
[2024-06-12 23:59] VITALS: BMI 22.3
[2024-06-13] VITALS (9 sets, daily range): BP systolic 105–180; BP diastolic 65–83; PULSE 62–81; RESP 13–18; TEMP 36.7–36.9; O2SAT 93–98; BMI 21.7
[2024-06-13 00:14] LABS: Bedside Glucose 141 mg/dL (74-106)
[2024-06-13 00:19] LABS: Magnesium 1.7 mg/dL (1.6-2.6)
--- NOTE | 2024-06-13 00:38 | MRI_ITS ---
EXAM: MR HEAD WITHOUT INTRAVENOUS CONTRAST CLINICAL INDICATION: STROKE Suspected TECHNIQUE: Multiplanar and multisequence MR images of the brain were obtained without intravenous contrast. COMPARISON: CTA head and neck with contrast 06/12/2024. FINDINGS: BRAIN AND EXTRA-AXIAL SPACES: No diffusion restriction to suspect acute or subacute ischemic infarct. Periventricular white matter T2 FLAIR hyperintensity foci in both vertebral hemispheres are chronic white matter ischemic changes. They are confluent in the forceps major. Normal ventricles and cisterns. No recent or remote intracranial bleeding. No communicating or noncommunicating hydrocephalus. No intracranial mass or mass effect. Posterior fossa structures are unremarkable. SELLA: Unremarkable. Normal sella turcica, pituitary gland, infundibular stalk, optic chiasm and hypothalamus. AUDITORY SYSTEM: Unremarkable. The internal auditory canals are patent. BONES/JOINTS: Unremarkable. No discrete lytic or blastic abnormalities. SINUSES: Unremarkable as visualized. Clear. MASTOID AIR CELLS: Unremarkable as visualized. Clear. ORBITS: Unremarkable as visualized. Both globes, extraocular muscles, optic nerves and retrobulbar fat appear unremarkable. VASCULATURE: Unremarkable as visualized. Normal flow voids in the major intracranial circulation. MRI/Brain without Contrast IMPRESSION: 1. No MRI evidence of acute or subacute ischemic infarct or remote cortical-based ischemic infarct. 2. Chronic periventricular white matter ischemic changes in both cerebral hemispheres, confluent in the forceps major. Electronically Signed: Parth Dumont MD at 13:34 EDT ,
--- NOTE | 2024-06-13 00:38 | ECHOD_ITS ---
Reason For Study: TIA/CVA Procedure This was a 2D Doppler, Color Flow transthoracic echocardiogram. Myocardial strain analysis was performed in this exam to aid in the assessment of cardiac function. Exam performed portable in patient room. Left Ventricle Normal LV size. Moderate concentric left ventricular hypertrophy. The left ventricular ejection fraction is 70 %. Stage 1 diastolic dysfunction. No regional wall motion abnormalities noted. Right Ventricle Normal RV size. Normal systolic function. Atria Normal left atrium. Normal right atrium. Bubble contrast study negative for right to left interatrial shunt. Mitral Valve There is mild mitral annular calcification. Mild (1+) eccentric mitral valve insufficiency. Tricuspid Valve Normal tricuspid valve. Mild (1+) tricuspid valve insufficiency. Pulmonary artery systolic pressure is 45 mmHg. Aortic Valve Trisinus/trileaflet aortic valve. Moderate focal aortic valve calcification. Pulmonic Valve Normal pulmonic valve. Great Vessels Normal aortic root. The pulmonary artery is normal size. Inferior vena cava collapse with respiration. Pericardium/Pleural Small (<1.0 cm) pericardial effusion. Medication Performed a rapid injection of agitated mix of 9 cc saline and 1cc air to assess for atrial septal defect. MMode/2D Measurements & Calculations LVIDd: 3.8 cm IVSd: 1.5 cm LVOT diam: 2.2 cm LVIDs: 2.1 cm LVPWd: 1.2 cm RVDd: 3.1 cm FS: 44.6 % LVOT area: 3.6 cm2 asc Aorta Diam: 3.3 cm LAV(MOD-bp): 52.2 ml LVAd ap4: 22.2 cm2 LAV(MOD-bp) Indexed: 33.7 ml/m2 LVLd ap4: 7.4 cm LAV(MOD-sp2): 51.7 ml EDV(MOD-sp4): 56.5 ml LAV(MOD-sp4): 50.0 ml EDV(sp4-el): 57.1 ml LVAs ap4: 10.9 cm2 LVLs ap4: 5.8 cm ESV(MOD-sp4): 17.9 ml ESV(sp4-el): 17.1 ml EF(MOD-sp4): 68.3 % EF(sp4-el): 70.0 % LVAd ap2: 22.6 cm2 SV(MOD-sp4): 38.6 ml SV(MOD-sp2): 40.2 ml LVLd ap2: 7.2 cm SI(MOD-sp4): 24.9 ml/m2 SI(MOD-sp2): 25.9 ml/m2 EDV(MOD-sp2): 59.2 ml EDV(sp2-el): 60.5 ml LVAs ap2: 11.4 cm2 LVLs ap2: 6.0 cm ESV(MOD-sp2): 18.9 ml ESV(sp2-el): 18.6 ml EF(MOD-sp2): 68.0 % SV(sp4-el): 39.9 ml Ao sinus diam: 3.[address] Junction: 2.9 cm LA dimension(2D): 4.2 cm LA A4 area: 18.0 cm2 RA A4 area: 15.2 cm2 TAPSE: 2.0 cm Time Measurements MV dec time: 0.24 sec Doppler Measurements & Calculations MV E max curt: 80.3 cm/sec Lat Peak E' Curt: 9.3 cm/sec Med Peak E' Curt: 7.7 cm/sec MV A max cutr: 104.5 cm/sec E/E' lat: 8.7 E/E' med: 10.4 MV E/A: 0.77 MV dec slope: 330.3 cm/sec2 Ao V2 max: 188.9 cm/sec LV V1 max: 108.0 cm/sec Ao max P.4 mmHg LV V1 max P.7 mmHg Ao V2 mean: 130.5 cm/sec LV V1 mean P.5 mmHg Ao mean P.7 mmHg LV V1 mean: 75.5 cm/sec Ao V2 VTI: 42.9 cm LV V1 VTI: 26.8 cm AV (velocity ratio): 0.63 MARY(I,D): 2.3 cm2 MARY(V,D): 2.1 cm2 SV(LVOT): 97.4 ml PA V2 max: 101.1 cm/sec TR max curt: 311.7 cm/sec PA max PG (full): 1.3 mmHg TR max P.9 mmHg ECHO/Echo Complete Interpretation Summary Normal LV size. The left ventricular ejection fraction is 70 %. Stage 1 diastolic dysfunction. Moderate concentric left ventricular hypertrophy. Bubble contrast study negative for right to left interatrial shunt. The global longitudinal strain is normal. The global longitudinal strain = -19. 2 % (normal). Ordering Physician: Ammon Morris Performed By: Yadira Fernandez RDCS and Student
[2024-06-13] MEDS: 0.9% Normal Saline (1000mL) 1,000 ML 100 ML IV (01:26)
[2024-06-13] MEDS: Aspirin 81 MG TAB.CHEW PO (01:26)
--- NOTE | 2024-06-13 01:57 | EKG12_ITS ---
Test Reason : CP Blood Pressure : */* mmHG Vent. Rate : 78 BPM Atrial Rate : 78 BPM P-R Int : 150 ms QRS Dur : 104 ms QT Int : 364 ms P-R-T Axes : 67 -34 63 degrees QTcB Int : 414 ms Normal sinus rhythm Left axis deviation Minimal voltage criteria for LVH, may be normal variant ( [place] product ) Septal infarct , age undetermined Abnormal ECG When compared with ECG of 12-Jun-2024 21:33, MANUAL COMPARISON REQUIRED DATA IS UNCONFIRMED Confirmed by LAURA KHANNA, SANTOS ([id number]), industrial editor TUCKER AUGUSTIN ([id number]) on 06/14/2024 11:34:13 AM Referred By: ALYSON Confirmed By: SANTOS SANCHEZ MD
[2024-06-13] MEDS: Insulin Lispro 100 UNIT/ML INSULN.PEN SC ×4 (06:17→22:57)
[2024-06-13 06:52] LABS: Bedside Glucose 197 mg/dL (74-106)
[2024-06-13 07:14] LABS: Cholesterol 100 mg/dL (200); High Density Lipoprotein 89 mg/dL; Triglycerides 16 mg/dL; Very Low Density Lipoprotein 3 mg/dL (5-40)
[2024-06-13 07:28] LABS: Hemoglobin A1c 7.3 % (3.8-5.6)
[2024-06-13] MEDS: Enoxaparin 40 MG/0.4 ML Syringe SC (09:15)
[2024-06-13] MEDS: FLU VACCINE **HIGH DOSE** TV 24-25 180 MCG/0.5 ML SYRINGE IM (09:20)
[2024-06-13 13:17] LABS: Bedside Glucose 301 mg/dL (74-106)
--- NOTE | 2024-06-13 13:50 | CON.PCM.NE_ITS ---
Assessment and Plan: Stroke Assessment/Plan MARYCRUZ LE is a 89 F with a history of DM2 and RA who presents for evaluation of TIA. Symptoms are atypical as she is having some recurrent stereotyped episodes which are off for cerebrovascular events. Concern that these represent either small seizure or there could be a clot in the heart causing some cerebrovascular events but this is not clear - Anti-platelet medication: Aspirin 81 mg + Plavix 75mg daily for 21 days, then ASA alone - hold on statin as LDL is very low - Recommend EEG to eval for any seizure signatures - recommedn STEVEN to eval the PHU more closely - Occupational/ Physical therapy consults - DVT prophylaxis with SCDs and heparin SQ - Vascular risk factor modification. 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 BP management should aim to achieve retirement contorl in a reasonable amount of time, taking into consideration the individual patient's requirements and characteristics. Weight Management: Goal for BMI is 18.5 -24.9 kg/m2 Alcohol: No more than 2 drinks/day for men or 1 drink/day for non- women - Promote lifestyle modification: weight control, physical activity, moderation of alcohol intake, moderate sodium intake. Followup with PCP in 1-2 weeks, and in Neurology clinic in 6-12 weeks HPI Consult Data Date of Consult: 06/13/24 HPI Narrative HPI Narrative: Presents by private vehicle with daughters for evaluation. 6:30 PM watching TV she had to turn her head to the left to see. She states on and off symptoms past year have this lasted longer. She called her daughter who came over. States on the phone was told just come there. While seeing her at the house blood glucose was 70, patient had trouble remembering what she ate for dinner and was unable to use the blood pressure cuff. She states she understood however just could not do what she needed to do. This is new symptoms for her. No stroke history. Rheumatoid arthritis with diabetes history. Has mild headache in the frontal region. Denies hemiparesis or any paresthesias. Symptoms now resolved. Prior similar symptoms: No Neurologic History: Last night she was reading a newspaper and had to turn her head to see everything. She has had symptoms off and on per her for the last 2-3 months off and on. 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 Never has headache with these events happen. No numbness or weakness with this event. This last time was atypical because she had confusion as well. Had to turn to her left to see the newspaper. She has had recurrent episodes in the last 3 months 6 times, at most these symptoms will last 5-8 min[address] one morning and did notice one day had difficulty looking as the white line on the R side which lasted < 20 min. Has blurriness and blurred vision with this. No scotomas noted. Sometimes she will notice someone approaching her from the L side. Never had seizures.Has had a change in her diabetic medications but no other changes to her medication. At baseline she gets a high BG and will then have a low BG later in the day. [facility] Medical History Solar lentigo GERD (gastroesophageal reflux disease) Type 2 diabetes mellitus HTN (hypertension) Rheumatoid arthritis Home Medications ?Medication ?Instructions ?Recorded ?Last Taken ?Type cholecalciferol (vitamin D3) 25 1,000 unit PO DAILY 12/21/16 Unknown History mcg (1,000 unit) capsule (Vitamin D3) folic acid 1 mg tablet 1 mg PO DAILY@0800 12/21/16 Unknown History methotrexate sodium 2.5 mg tablet 5 mg PO QWEEK 12/21/16 Unknown History insulin glargine 100 unit/mL (3 6 unit subcut DAILY 03/26/24 Unknown History mL) subcutaneous pen (Lantus Solostar U-100 Insulin) ferrous sulfate 325 mg (65 mg 325 mg PO QDAY 05/23/24 Unknown History iron) tablet metformin 500 mg 24 hr 1,000 mg PO BID 05/23/24 Unknown History tablet,extended release (gastric retention) rosuvastatin 5 mg tablet 5 mg PO QDAY 05/23/24 Unknown History aspirin 81 mg chewable tablet 81 mg PO BREAKFAST #30 tabs 06/13/24 Unknown Rx insulin lispro 100 unit/mL See Rx Instructions .Route .COMPLEX 06/13/24 Unknown History subcutaneous pen (Humalog KwikPen (U-100) Insulin) losartan 50 mg tablet 50 mg PO DAILY 06/13/24 Unknown History Allergy/AdvReac Type Severity Reaction Status Date / Time No Known Allergies Allergy Verified 06/12/24 20:46 Family History Mother Diabetes Social History Smoking Status: Never smoker Electronic Cigarette Use: not used second hand exposure: No alcohol intake: never substance use type: does not use Vital Signs Vital Signs Vital Signs: 06/12/24 20:46 06/12/24 21:34 06/12/24 21:45 Temperature 97.5 F L Temperature Source Temporal Pulse Rate 90 82 Respiratory Rate 18 19 H Respiratory Effort Respiratory Depth Respiratory Pattern Blood Pressure 199/95 H 154/91 H Blood Pressure Mean 129 108 Blood Pressure Source Blood Pressure Position Blood Pressure Location Pulse Ox 100 99 Oxygen Delivery Method Room Air Room Air 06/12/24 22:00 06/12/24 22:30 06/12/24 23:00 Temperature Temperature Source Pulse Rate 83 78 74 Respiratory Rate 14 9 L 15 Respiratory Effort Respiratory Depth Respiratory Pattern Blood Pressure 163/86 H 173/70 H 155/71 H Blood Pressure Mean 108 104 96 Blood Pressure Source Blood Pressure Position Blood Pressure Location Pulse Ox 94 97 97 Oxygen Delivery Method 06/13/24 00:00 06/13/24 00:45 06/13/24 00:45 Temperature 98.5 F 98.0 F 98.0 F Temperature Source Oral Oral Pulse Rate 81 76 76 Respiratory Rate 13 18 18 Respiratory Effort Respiratory Depth Respiratory Pattern Blood Pressure 180/77 H 179/73 H 179/73 H Blood Pressure Mean 111 108 108 Blood Pressure Source Monitor Monitor Blood Pressure Position Semi-Fowlers Semi-Fowlers Blood Pressure Location Right Arm Right Arm Pulse Ox 97 97 97 Oxygen Delivery Method Room Air Room Air 06/13/24 00:45 06/13/24 01:46 06/13/24 04:45 Temperature 98.4 F Temperature Source Oral Pulse Rate 75 Respiratory Rate 18 Respiratory Effort Normal Non-Labored Respiratory Depth Normal Respiratory Pattern Normal Blood Pressure 158/73 H Blood Pressure Mean 101 Blood Pressure Source Monitor Blood Pressure Position Semi-Fowlers Blood Pressure Location Right Arm Pulse Ox 93 97 Oxygen Delivery Method Room Air Room Air Room Air 06/13/24 04:45 06/13/24 07:34 06/13/24 08:45 Temperature 98.4 F 98.1 F Temperature Source Oral Oral Pulse Rate 75 72 Respiratory Rate 18 16 Respiratory Effort Respiratory Depth Respiratory Pattern Blood Pressure 158/73 H 155/83 H Blood Pressure Mean 101 107 Blood Pressure Source Monitor Monitor Blood Pressure Position Semi-Fowlers Semi-Fowlers Blood Pressure Location Right Arm Right Arm Pulse Ox 97 98 95 Oxygen Delivery Method Room Air Room Air Room Air 06/13/24 08:45 06/13/24 09:58 06/13/24 11:35 Temperature 98.1 F 98.1 F Temperature Source Oral Oral Pulse Rate 72 68 Respiratory Rate 16 16 Respiratory Effort Normal Non-Labored Respiratory Depth Normal Respiratory Pattern Normal Blood Pressure 155/83 H 159/71 H Blood Pressure Mean 107 100 Blood Pressure Source Monitor Monitor Blood Pressure Position Semi-Fowlers Sitting Blood Pressure Location Right Arm Right Arm Pulse Ox 95 98 Oxygen Delivery Method Room Air Room Air Room Air Weight Weight: 53.977 kg Body Mass Index (BMI) 21.7 EEG Results Procedure Details EEG Procedure Details: MARYCRUZ LE is a 89 year old F with a past medical history of , who presents for evaluation of Electroencephalogram on DATE at TIME NIHSS NIHSS Nursing Documentation NIHSS Nursing Documentation: NIHSS: Ischemic Stroke/TIA Start: 06/13/24 00:38 Text: For PCU Patients: NIH and Neuro Check every 4 Status: Active hours, PRN and with change in RN caregiver. Freq: [id number] Protocol: Activity Type Activity Date Activity User E-sign Co-sign Detail Recorded Client Recorded Date Recorded By Document 06/13/24 11:44 UBD [id number] 06/13/24 12:58 BUD 06/13/24 11:44 NIH Stroke Scale [NIHSS] A score of 0 is normal or asymptomatic . Total possible score is 42. Inpatient: RN or Physician to activate a stroke alert for onset of new stroke symptoms or with NIHSS increase >/= 3 points. Following change in neurological status, NIHSS will be performed per physician order or more frequently PRN. -1a. Level of Consciousness Alert; keenly responsive -1b. LOC Questions Answers BOTH questions correctly. -1c. LOC Commands Performs both tasks correctly . -2. Best Gaze Normal -3. Visual No visual loss -4. Facial Palsy Normal symmetrical movements -5a. Left Arm No drift; arm holds 90 (or 45 ) degrees for full 10 seconds -5b. Right Arm No drift; arm holds 90 (or 45 ) degrees for full 10 seconds -6a. Left Leg No drift; leg holds 30-degree position for full 5 seconds -6b. Right Leg No drift; leg holds 30-degree position for full 5 seconds -7. Limb Ataxia Absent -8. Sensory Normal; no sensory loss -9. Best Language No aphasia; normal -10. Dysarthria Normal -11. Extinction and Inattention No abnormality -Total 0 Query Text:A score of 0 is normal or asymptomatic. Total possible score is 42 . ED: Notify Physician for NIHSS increase by > / = 3 points. Inpatient: RN or Physician to activate a stroke alert for NIHSS increase of > / = 3 points. Coma Scale [Assess] -Eye Opening Spontaneous -Motor Obeys Commands -Verbal Oriented [Total] -Coma Scale Total 15 NIHSS 1a. Level of Consciousness: Alert; keenly responsive 1b. LOC Questions: Answers BOTH questions correctly. 1c. LOC Commands: Performs both tasks correctly. 2. Best Gaze: Normal 3. Visual: No visual loss 4. Facial Palsy: Normal symmetrical movements 5a. Left Arm: No drift; arm holds 90 (or 45) degrees for full 10 seconds 5b. Right Arm: No drift; arm holds 90 (or 45) degrees for full 10 seconds 6a. Left Leg: No drift; leg holds 30-degree position for full 5 seconds 6b. Right Leg: No drift; leg holds 30-degree position for full 5 seconds 7. Limb Ataxia: Absent 8. Sensory: Normal; no sensory loss 9. Best Language: No aphasia; normal 10. Dysarthria: Normal 11. Extinction and Inattention: No abnormality Total: 0 Lab / Micro Data 06/12/24 21:06 06/12/24 21:06 Labs: Laboratory Results - last 24 hr 06/12/24 21:06: WBC 5.1, RBC 3.70 L, Hgb 11.8 L, Hct 36.8 L, MCV 99.5 H, MCH 31.9, MCHC 32.1, RDW Std Deviation 50.4 H, RDW Coeff of Siva 13.8, Plt Count 255, MPV 9.8, Immature Gran % (Auto) 0.200, Neut % (Auto) 66.4, Lymph % (Auto) 23.1, [place] % (Auto) 9.7, Eos % (Auto) 0.2, Baso % (Auto) 0.4, Absolute Neuts (auto) 3.4, Absolute Lymphs (auto) 1.17, Nucleated RBC % 0, PT 11.8, INR 0.9, APTT 25.0, Sodium 141, Potassium 3.9, Chloride 105, Carbon Dioxide 30.0, Anion Gap 6, BUN 18, Creatinine 0.72, Estim Creat Clear Calc 39.18, Est GFR (MDRD) Af Amer 98, Est GFR (MDRD) Non-Af 81, BUN/Creatinine Ratio 24.9 H, Glucose 99, Calcium 9.3, Magnesium 1.7, Troponin I High Sens 50 06/12/24 21:33: POC Glucose 104 06/12/24 23:55: POC Glucose 141 H 06/13/24 06:06: Hemoglobin A1c 7.3 H, Triglycerides 16, Cholesterol 100, LDL Cholesterol 8, VLDL Cholesterol 3 L, HDL Cholesterol 89, TSH 1.810 06/13/24 06:13: POC Glucose 197 H 06/13/24 12:50: POC Glucose 301 H Imaging Radiology Impression Head/Neck CTA 06/12/24 21:16 IMPRESSION: Negative CT Brain, CTA Carotid, and CTA Brain. Electronically Signed: Kevin Chambers DO at 23:17 EDT , Chest X-Ray 06/12/24 21:35 IMPRESSION: Right pulmonary and hilar granulomatous calcifications.. Electronically Signed: Kevin Chambers DO at 23:02 EDT , Brain MRI 06/13/24 00:38 IMPRESSION: 1. No MRI evidence of acute or subacute ischemic infarct or remote cortical-based ischemic infarct. 2. Chronic periventricular white matter ischemic changes in both cerebral hemispheres, confluent in the forceps major. Electronically Signed: Parth Dumont MD at 13:34 EDT , Active Medications Active Medications Active Medications: Current Medications Generic Name Dose Route Start Last Admin Trade Name Freq PRN Reason Stop Dose Admin Acetaminophen 650 mg 06/13/24 00:38 Acetaminophen 325 Mg Tablet PO Q6H PRN PRN Pain 1-10 Or Fever>100.7 Aspirin 81 mg 06/13/24 00:38 06/13/24 01:26 Aspirin 81 Mg Tab.Chew PO 81 mg BREAKFAST ADRI Administration Atorvastatin Calcium 40 mg 06/13/24 22:00 Atorvastatin Calcium 40 Mg Tablet PO QHS ADRI Enoxaparin Sodium 40 mg 06/13/24 10:00 06/13/24 09:15 Enoxaparin 40 Mg/0.4 Ml Syringe SC 40 mg DAILY ADRI Administration Glucagon 1 mg 06/13/24 00:38 Glucagon 1 Mg/Ml Syringe IM X1 PRN Hypoglycemia Protocol Hydralazine HCl 5 mg 06/13/24 00:38 Hydralazine 20 Mg/Ml Vial IV 06/14/24 00:38 Q30M PRN maintain BP parameters with HR <60 Dextrose 250 mls @ 0 mls/hr 06/13/24 00:38 Dextrose 10%-Water IV .Q0M PRN HYPOGLYCEMIA Protocol As Directed Sodium Chloride 500 mls @ 15 mls/hr 06/13/24 00:56 IV .[id number] PRN Saline Flush Sodium Chloride 500 mls @ 15 mls/hr 06/13/24 00:56 IV .[id number] PRN Additional IVPB Infusion Insulin Human Lispro 0 unit 06/13/24 07:00 06/13/24 12:51 Insulin Lispro 100 Unit/Ml Insuln.Pen SC 6 units ACHS ADRI Administration Protocol Iopamidol 0 ml 06/12/24 21:15 06/12/24 22:32 Contrast Allergy Safety Check IV Not Given X1 [facility] Iopamidol 0 ml 06/12/24 21:30 06/12/24 22:32 Contrast Allergy Safety Check IV Not Given X1 [facility] Labetalol HCl 20 mg 06/12/24 21:16 Labetalol (Prefilled) 20 Mg/4 Ml Vial IV 06/13/24 21:16 X1 PRN BLOOD PRESSURE Labetalol HCl 10 - 20 mg 06/13/24 00:38 Labetalol (Prefilled) 20 Mg/4 Ml Vial IV 06/14/24 00:38 Q10M PRN PRN maintain BP parameters with HR >/=60 Prochlorperazine Edisylate 5 mg 06/13/24 00:38 Prochlorperazine 10 Mg/2 Ml Vial IV Q4H PRN PRN Breakthrough Nausea/Vomiting Senna/Docusate Sodium 2 tablet 06/13/24 00:38 Senna/Docusate Sodium 1 Tablet PO BID PRN PRN Constipation Sodium Chloride 10 - 40 ml 06/13/24 00:56 0.9% Saline Lock 10 Ml Syringe IV UD PRN SALINE FLUSH
--- NOTE | 2024-06-13 14:07 | PCM.DC.SUM ---
Providers Date of Admission: 06/12/24 Date of Discharge: 06/13/24 Primary Care Physician: Michela Holguin MD Consultations 06/13/24 00:38 Consult: Tele-Neurology Routine Consulting Provider: [facility] Reason for Consult: Acute Ischemic Stroke/TIA EMERGENT Consult: No MD Notified: Yes Date Notified: 06/13/24 Time Notified: 04:19 Method of Notification: Answering Service Nursing Unit Staff Notify [facility] of Tele-Neurology Consult: Yes Reason For Visit: TIA Diagnosis Discharge Diagnosis (1) Left homonymous hemianopsia: Status: Acute Code(s): H53.462 - Homonymous bilateral field defects, left side Medications at Discharge Home Medications cholecalciferol (vitamin D3) 25 mcg (1,000 unit) capsule (Vitamin D3) 1,000 unit PO DAILY 12/21/16 folic acid 1 mg tablet 1 mg PO DAILY@0800 12/21/16 methotrexate sodium 2.5 mg tablet 5 mg PO QWEEK 12/21/16 insulin glargine 100 unit/mL (3 mL) subcutaneous pen (Lantus Solostar U-100 Insulin) 6 unit subcut DAILY 03/26/24 ferrous sulfate 325 mg (65 mg iron) tablet 325 mg PO QDAY 05/23/24 metformin 500 mg 24 hr tablet,extended release (gastric retention) 1,000 mg PO BID 05/23/24 rosuvastatin 5 mg tablet 5 mg PO QDAY 05/23/24 aspirin 81 mg chewable tablet 81 mg PO BREAKFAST #30 tabs 06/13/24 insulin lispro 100 unit/mL subcutaneous pen (Humalog KwikPen (U-100) Insulin) See Rx Instructions .Route .COMPLEX 06/13/24 losartan 50 mg tablet 50 mg PO DAILY 06/13/24 Hospital Course Operations None Procedures None Summary of Care Provided Minutes Spent on Discharge: 45 Hospital Course: Patient is an 89-year-old female with a past medical history as outlined was admitted to the ED on 06/12/2024 with a complaint of sudden onset of vision loss in her left eye while she was watching TV. This happened at around 6:30 PM on the day of admission. She had to turn her head to the left to watch TV. She says she also had some episode of confusion and could not remember how to call her daughter. His symptoms lasted for about an hour. He had no other symptoms and she denied any weakness, numbness or tingling or any other symptoms. She checked her blood sugar at home and her blood sugar was 70. Review of systems otherwise negative. CT of the brain showed no acute intracranial pathology. Her blood pressure was elevated when she came in at 199/95 but subsequently improved. She was admitted to be managed for TIA. CT of the brain showed no acute intracranial pathology. CTA of the head and neck showed no hemodynamically significant stenosis. 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 She had MRI of the brain which showed no evidence of a stroke. She remained stable and her symptoms did didnt recur. Lipid profile was normal. She remained stable and was discharged home on 06/13/2024. She is to follow up with her PCP and with her opthalmologist within 1-2 weeks. Patient seen and examined prior to discharge. She had no complaints and felt well. She had an uneventful night. Review of systems was otherwise negative. Labs nad vitals reviewed. Home meds reviewed and reconciled. Physical Exam Const alert, oriented x3 and no apparent distress General Appearance: cooperative and comfortable Orientation / Consciousness: awake Exam Limitations: no limitations HEENT normocephalic, head/scalp atraumatic, hearing grossly normal bilaterally, moist oral mucous membranes and oropharynx normal Mouth: oral and palatal mucosa normal Eyes PERRL, EOMs intact bilaterally and conjunctivae normal Neck no lymphadenopathy, supple and no JVD Resp normal respiratory effort, no retractions and no use of accessory muscles Cardio regular rate, regular rhythm, S1 normal heart sound, S2 normal heart sound and no murmurs GI normal to inspection, nondistended, normoactive bowel sounds, soft to palpation, non-tender and non-distended Extremity normal to inspection, full ROM and no clubbing, cyanosis or edema Skin no rashes or lesions noted Neuro oriented x3, CN's II-XII intact bilaterally, moves all extremities and no focal motor deficits Sensorium / Orientation: awake and alert Motor Exam: strength 5/5 throughout Psych affect normal Weight / BMI Weight Weight: 119 lb Body Mass Index (BMI) 21.7 ABG / Lab / Microbiology Data 06/12/24 21:06 06/12/24 21:06 Laboratory: Laboratory Results - last 24 hr 06/12/24 21:06: WBC 5.1, RBC 3.70 L, Hgb 11.8 L, Hct 36.8 L, MCV 99.5 H, MCH 31.9, MCHC 32.1, RDW Std Deviation 50.4 H, RDW Coeff of Siva 13.8, Plt Count 255, MPV 9.8, Immature Gran % (Auto) 0.200, Neut % (Auto) 66.4, Lymph % (Auto) 23.1, [place] % (Auto) 9.7, Eos % (Auto) 0.2, Baso % (Auto) 0.4, Absolute Neuts (auto) 3.4, Absolute Lymphs (auto) 1.17, Nucleated RBC % 0, PT 11.8, INR 0.9, APTT 25.0, Sodium 141, Potassium 3.9, Chloride 105, Carbon Dioxide 30.0, Anion Gap 6, BUN 18, Creatinine 0.72, Estim Creat Clear Calc 39.18, Est GFR (MDRD) Af Amer 98, Est GFR (MDRD) Non-Af 81, BUN/Creatinine Ratio 24.9 H, Glucose 99, Calcium 9.3, Magnesium 1.7, Troponin I High Sens 50 06/12/24 21:33: POC Glucose 104 06/12/24 23:55: POC Glucose 141 H 06/13/24 06:06: Hemoglobin A1c 7.3 H, Triglycerides 16, Cholesterol 100, LDL Cholesterol 8, VLDL Cholesterol 3 L, HDL Cholesterol 89, TSH 1.810 06/13/24 06:13: POC Glucose 197 H 06/13/24 12:50: POC Glucose 301 H Radiography Diagnostic Testing: Radiology Impression Head/Neck CTA 06/12/24 21:16 IMPRESSION: Negative CT Brain, CTA Carotid, and CTA Brain. Electronically Signed: Kevin Chambers DO at 23:17 EDT , Chest X-Ray 06/12/24 21:35 IMPRESSION: Right pulmonary and hilar granulomatous calcifications.. Electronically Signed: Kevin Chambers DO at 23:02 EDT , Brain MRI 06/13/24 00:38 IMPRESSION: 1. No MRI evidence of acute or subacute ischemic infarct or remote cortical-based ischemic infarct. 2. Chronic periventricular white matter ischemic changes in both cerebral hemispheres, confluent in the forceps major. Electronically Signed: Parth Dumont MD at 13:34 EDT , D/C Instructions Discharge Diet: Low fat / Low cholesterol Discharge Activity: Return to Normal Activity Weight Bearing Status: Weight bearing as tolerated Call your doctor if you observe: Fever of 101 or Higher, Shortness of breath, Dizziness, Swelling in the ankles and Chest pain Meaningful Use Info Meaningful Use Meaningful Use Diagnoses (Choose all that apply): None applicable Ischemic Stroke Statin Dosing Therapy Reference: STATIN DOSE THERAPY REFERENCE: * Patients > 75 years receive moderate or high dose statin therapy. * Patients 75 years or YOUNGER should receive HIGH intensity statin dose unless contraindicated. You will be required to document reason for non-treatment if statin daily dose does not meet guidelines. HIGH DOSE STATIN THERAPY DAILY Atorvastatin > than or = to 40 mg Rosuvastatin > than or = to 20 mg Amlodipine + Atorvastatin > than or = to 2.5/40 mg Ezetimibe + Simvastatin 10/80 mg Simvastatin 80mg Discharge Plan Admission Admit Date/Time: 06/12/24 23:48 Primary Reason for Your Visit: left hemianopsia Attending Provider: Alice Triplett Primary Care Provider: Michela Holguin Consulting Providers: Guzman Real; Karina Menjivar; Billie Henriquez; Josefina Obregon; Linette Ramirez; Thor Doe; Wanda Pagan; Yaya Bear; Bam Florentino; Piero Carmichael; Toshia Arvizu; Horace Verdugo; Solange Ohara; John Dias; Cathi Pierson; Jose D Murphy; Tao Mckeon; Simone Rascon; Yolanda Espinoza; Ellen Gomez; Arturo,Ammon Instructions Patient Instructions: TIA Dc Discharge Orders/Prescriptions Prescriptions: New aspirin 81 mg Tablet,Chewable 81 mg PO BREAKFAST Qty: 30 2RF Continued insulin glargine [Lantus Solostar U-100 Insulin] 100 unit/mL (3 mL) insulin pen 6 unit subcut DAILY Rx Instructions: qam rosuvastatin 5 mg tablet 5 mg PO QDAY ferrous sulfate 325 mg (65 mg iron) tablet 325 mg PO QDAY methotrexate sodium 2.5 MG tablet 5 mg PO QWEEK Patient Comments: RA Rx Instructions: folic acid 1 MG tablet 1 mg PO DAILY@0800 Patient Comments: take every day except the day you take methotrexate cholecalciferol (vitamin D3) [Vitamin D3] 1,000 UNIT capsule 1,000 unit PO DAILY metformin 500 mg tablet,ER diane.retention 24 hr 1,000 mg PO BID Patient Comments: 1 tab twice a day losartan 50 mg tablet 50 mg PO DAILY insulin lispro [Humalog KwikPen Insulin] 100 unit/mL insulin pen See Rx Instructions .ROUTE .COMPLEX Rx Instructions: 6 units daily before breakfast 4 units daily before lunch and dinner; Referrals / Follow Up: Michela Holguin MD [Primary Care Provider] - Within 2 Weeks Disposition Disposition (needs filled in before D/C Order can be placed): Home, Self Care Charges/Coding Visit Charges Inpatient E&M: 62315 Disch Hosp >30min
--- NOTE | 2024-06-13 14:32 | PN_ITS ---
Subjective Subjective Patient seen and examined. Her left eye blurred vision had resolved. Review of systems is otherwise negative. Objective Data Objective Data Vital Signs: Vital Signs Temp Pulse Resp BP Pulse Ox O2 Del Method 98.1 F 68 16 159/71 H 98 Room Air 06/13/24 11:35 06/13/24 11:35 06/13/24 11:35 06/13/24 11:35 06/13/24 11:35 06/13/24 11:35 Oxygen Delivery Method Room Air Weight: 119 lb Body Mass Index (BMI) 21.7 Intake & Output: Intake and Output for Last 24 Hours 06/11/24 06/12/24 06/13/24 23:59 23:59 23:59 Intake Total 1460 / 1460 Balance 1460 / 1460 Lab / Micro Data 06/12/24 21:06 06/12/24 21:06 Labs: Laboratory Results - last 24 hr 06/12/24 21:06: WBC 5.1, RBC 3.70 L, Hgb 11.8 L, Hct 36.8 L, MCV 99.5 H, MCH 31.9, MCHC 32.1, RDW Std Deviation 50.4 H, RDW Coeff of Siva 13.8, Plt Count 255, MPV 9.8, Immature Gran % (Auto) 0.200, Neut % (Auto) 66.4, Lymph % (Auto) 23.1, [place] % (Auto) 9.7, Eos % (Auto) 0.2, Baso % (Auto) 0.4, Absolute Neuts (auto) 3.4, Absolute Lymphs (auto) 1.17, Nucleated RBC % 0, PT 11.8, INR 0.9, APTT 25.0, Sodium 141, Potassium 3.9, Chloride 105, Carbon Dioxide 30.0, Anion Gap 6, BUN 18, Creatinine 0.72, Estim Creat Clear Calc 39.18, Est GFR (MDRD) Af Amer 98, Est GFR (MDRD) Non-Af 81, BUN/Creatinine Ratio 24.9 H, Glucose 99, Calcium 9.3, Magnesium 1.7, Troponin I High Sens 50 06/12/24 21:33: POC Glucose 104 06/12/24 23:55: POC Glucose 141 H 06/13/24 06:06: Hemoglobin A1c 7.3 H, Triglycerides 16, Cholesterol 100, LDL Cholesterol 8, VLDL Cholesterol 3 L, HDL Cholesterol 89, TSH 1.810 06/13/24 06:13: POC Glucose 197 H 06/13/24 12:50: POC Glucose 301 H Radiography Diagnostic Testing: Radiology Impression Head/Neck CTA 06/12/24 21:16 IMPRESSION: Negative CT Brain, CTA Carotid, and CTA Brain. Electronically Signed: Kevin Chambers DO at 23:17 EDT , Chest X-Ray 06/12/24 21:35 IMPRESSION: Right pulmonary and hilar granulomatous calcifications.. Electronically Signed: Kevin Chambers DO at 23:02 EDT , Brain MRI 06/13/24 00:38 IMPRESSION: 1. No MRI evidence of acute or subacute ischemic infarct or remote cortical-based ischemic infarct. 2. Chronic periventricular white matter ischemic changes in both cerebral hemispheres, confluent in the forceps major. Electronically Signed: Parth Dumont MD at 13:34 EDT , Physical Exam Const alert, oriented x3, no apparent distress and well nourished General Appearance: cooperative HEENT normocephalic, head/scalp atraumatic, moist oral mucous membranes and oropharynx normal Eyes PERRL and EOMs intact bilaterally Neck no lymphadenopathy and supple Lymph Lymphatic: no lymphadenopathy noted Resp normal respiratory effort, normal air movement and clear to auscultation bilaterally Cardio regular rate, regular rhythm, S1 normal heart sound, S2 normal heart sound and no murmurs GI normal to inspection, nondistended, normoactive bowel sounds, soft to palpation, non-tender and non-distended Extremity normal capillary refill, no clubbing, cyanosis or edema and no calf tenderness General Extremity: no tenderness to palpation of joints or extremities Skin General Skin Exam: no breakdown Neuro CN's II-XII intact bilaterally, no focal motor deficits and no sensory deficits noted Motor Exam: strength 5/5 throughout and general weakness Psych thought process normal and cooperative Appearance: appropriate Assessment & Plan Assessment/Plan (1) Left homonymous hemianopsia: (2) Brain TIA: PLAN: Plan #Left sided homonymous hemianopia * Didnt recur. * CT of the brain and CT of the head and neck did not show any acute pathology. EKG showed no acute ST changes. * MRI of the brain shows no evidence of stroke. * Lipid profile is normal. Neurology reviewed patient's and think this is atypical for TIA. * Neurology recommends continuing aspirin and Plavix and to get STEVEN and EEG. He had been ordered. * PT OT on board. * High intensity statin * #Type 2 diabetes mellitus: On Lantus 6 units daily. Insulin sliding scale. Accu-Cheks ACHS. Also on metformin Hypertension: Resume BP meds and stroke has been ruled out. On losartan #Chronic rheumatoid arthritis: Stable. On methotrexate #DVT prophylaxis: Lovenox Charges/Coding Visit Charges Inpatient E&M: 76180 Subs Hosp L2
--- NOTE | 2024-06-13 15:02 | CHAPLAIN ---
Type of Pastoral Visit _x__ Initial Visit ___ Follow-up Visit ___ On-call Visit ___ General Patient Visit ___ Spiritual Assessment ___ Family Conference ___ Bereavement ___ Rapid Response ___ Code Blue ___ Other (describe below) Pastoral Care Referral From _x__ Patient ___ Family ___ Nurse ___ Physician ___ Computer Game Designer ___ Manager Bridge ___ Other (describe below) Sacrament/Intervention _x__ Active listening ___ Anointing ___ Yazidi ___ Bereavement ___ Communion _x__ Yeny exploration ___ ___ Life review _x__ Prayer ___ Reconciliation ___ Sacrament of Sick _x__ Supportive presence ___ Wedding ___ Other (describe below) Pastoral Comments patient states that she is feeling fine and has no pains; pt describes however her physical problems that brought her to the hospital and the resulting finds that may address some unknown issues; pt is an active person and hopes to return to her events; pt is active in her [employer]; pt is pleasant and reports no other concerns or worries; prayer is given
--- NOTE | 2024-06-13 15:45 | CASEMGMT ---
SW completed a PHQ 9 with patient as she may have had a TIA. Patient scored a 0 which indicates no depression. Patient denied need for any counseling resources. Ashlyn HASKINS
--- NOTE | 2024-06-13 15:53 | CASEMGMT ---
Met with patient to complete SHI form. SHI form explained to patient who voiced understanding and signed form. Original form placed in pt?s chart and copy provided to patient. Radha Osuna, Discharge Planning Asst
[2024-06-13 17:16] LABS: Bedside Glucose 347 mg/dL (74-106)
[2024-06-13] MEDS: Atorvastatin Calcium 40 MG Tablet PO (22:57)
[2024-06-13 23:45] LABS: Bedside Glucose 205 mg/dL (74-106)
[2024-06-14 02:55] VITALS: BP 133/64; PULSE 91; RESP 18; TEMP 36.6; O2SAT 97
[2024-06-14 03:02] VITALS: BMI 21.7
[2024-06-14 06:15] VITALS: BP 157/65; PULSE 65; RESP 16; TEMP 36.7; O2SAT 96
[2024-06-14] MEDS: Insulin Lispro 100 UNIT/ML INSULN.PEN SC ×3 (06:22→16:30)
[2024-06-14 06:49] LABS: Absolute Lymphocyte Count 0.81 X10^3/uL (0.83-4.51); Absolute Neutrophil Count 2.5 X10^3/uL (2.0-7.7); Basophil# 0.02 X10^3/uL; Basophil% 0.5 % (0-1); Eosinophil# 0.03 X10^3/uL; Eosinophils% 0.8 % (0-5); Hematocrit 32.8 % (37-47); Hemoglobin 10.4 g/dL (12.0-15.0); Lymphocyte # 0.81 X10^3/ul (0.83-4.51); Lymphocyte % 21.5 % (19-41); Mean Corp Hgb Conc 31.7 g/dL (32-36); Mean Corpuscular Hgb 31.2 pg (27.0-32.0); Mean Corpuscular Volume 98.5 fL (81-99); Mean Platelet Vol. 9.7 fl (6.2-12.0); Monocyte# 0.42 X10^3/uL; Monocyte% 11.1 % (0-10); NRBC Flagged by Analyzer 0 % (0-5); Neutrophil # 2.47 X10^3/uL (2.7-7.7); Neutrophil % 65.6 % (47-70); Platelet Count 175 K/mm3 (150-450); RBC Distribution Width CV 13.7 % (11.6-14.6); RBC Distribution Width SD 49.5 fl (35.1-43.9); Red Blood Count 3.33 M/mm3 (4.2-5.4); White Blood Count 3.8 K/mm3 (4.4-11.0)
[2024-06-14 07:15] LABS: Bedside Glucose 204 mg/dL (74-106)
[2024-06-14 07:56] LABS: Anion Gap 5 (5-15); BUN 19 mg/dL (7-18); BUN/Creat Ratio 27.7 RATIO (10-20); Calcium,Total 8.4 mg/dL (8.5-10.1); Chloride 109 mmol/L (98-107); Creatinine, Serum 0.68 mg/dL (0.55-1.02); EST Glomerular Filtration Rate 86 mL/min (>60); Est Glom Filt Rate - Afr Amer 104 mL/min (>60); Estimated Creatinine Clearance 39.18 ml/min; Glucose 208 mg/dL (74-106); Potassium 4.3 mmol/L (3.5-5.1); Sodium Level 142 mmol/L (136-145)
[2024-06-14 08:07] VITALS: O2SAT 96
[2024-06-14 10:35] VITALS: BP 149/70; PULSE 64; RESP 16; TEMP 36.4; O2SAT 98
[2024-06-14] MEDS: Enoxaparin 40 MG/0.4 ML Syringe SC (11:30)
[2024-06-14] MEDS: Aspirin 81 MG TAB.CHEW PO (11:30)
[2024-06-14 11:54] LABS: Bedside Glucose 202 mg/dL (74-106)
--- NOTE | 2024-06-14 15:28 | STROKE.PNOTE ---
Objective Data Objective Data Vital Signs: Vital Signs Temp Pulse Resp BP Pulse Ox O2 Del Method 97.6 F L 64 16 149/70 H 98 Room Air 06/14/24 10:35 06/14/24 10:35 06/14/24 10:35 06/14/24 10:35 06/14/24 10:35 06/14/24 10:35 Oxygen Delivery Method Room Air Weight: 53.977 kg Body Mass Index (BMI) 21.7 Intake & Output: Intake and Output for Last 24 Hours 06/12/24 06/13/24 06/14/24 23:59 23:59 23:59 Intake Total 1700 / 1700 220 / 220 Balance 1700 / 1700 220 / 220 Lab / Micro Data 06/14/24 06:32 06/14/24 06:32 Labs: Laboratory Results - last 24 hr 06/13/24 16:54: POC Glucose 347 H 06/13/24 22:54: POC Glucose 205 H 06/14/24 06:21: POC Glucose 204 H 06/14/24 06:32: WBC 3.8 L, RBC 3.33 L, Hgb 10.4 L, Hct 32.8 L, MCV 98.5, MCH 31.2, MCHC 31.7 L, RDW Std Deviation 49.5 H, RDW Coeff of Siva 13.7, Plt Count 175, MPV 9.7, Immature Gran % (Auto) 0.500, Neut % (Auto) 65.6, Lymph % (Auto) 21.5, [place] % (Auto) 11.1 H, Eos % (Auto) 0.8, Baso % (Auto) 0.5, Absolute Neuts (auto) 2.5, Absolute Lymphs (auto) 0.81 L, Nucleated RBC % 0, Sodium 142, Potassium 4.3, Chloride 109 H, Carbon Dioxide 28.0, Anion Gap 5, BUN 19 H, Creatinine 0.68, Estim Creat Clear Calc 39.18, Est GFR (MDRD) Af Amer 104, Est GFR (MDRD) Non-Af 86, BUN/Creatinine Ratio 27.7 H, Glucose 208 H, Calcium 8.4 L 06/14/24 11:35: POC Glucose 202 H Radiography Diagnostic Testing: Radiology Impression Echocardiogram 06/13/24 00:38 Interpretation Summary Normal LV size. The left ventricular ejection fraction is 70 %. Stage 1 diastolic dysfunction. Moderate concentric left ventricular hypertrophy. Bubble contrast study negative for right to left interatrial shunt. The global longitudinal strain is normal. The global longitudinal strain = -19.2 % (normal). Ordering Physician: Ammon Morris Performed By: Yadira Fernandez RDCS and Student Subject: Neurology Subjective Pt no events overnight, doing well. Unable to get STEVEN EEG Results Procedure Details EEG Procedure Details: MARYCRUZ LE is a 89 year old F with a past medical history of , who presents for evaluation of Electroencephalogram on DATE at TIME Assessment and Plan: Stroke Assessment/Plan MARYCRUZ LE is a 89 F with a history of DM2 and RA who presents for evaluation of TIA. Symptoms are atypical as she is having some recurrent stereotyped episodes which are off for cerebrovascular events. Concern that these represent either small seizure or there could be a clot in the heart causing some cerebrovascular events but this is not clear - Anti-platelet medication: Aspirin 81 mg + Plavix 75mg daily for 21 days, then ASA alone - hold on statin as LDL is very low - EEG is normal, no interictal changes - unable to do STEVEN d/t esophageal stricture - recommend 30 day environmental monitoring specialist - Occupational/ Physical therapy consults - DVT prophylaxis with SCDs and heparin SQ - Vascular risk factor modification. The following are the recommended guidelines: LDL Goal < 70 Smoking Cessation Diabetes Management [facility] blood pressure control should achieve <130/80 mmHg. BP management should aim to achieve mcfp contorl in a reasonable amount of time, taking into consideration the individual patient's requirements and characteristics. Weight Management: Goal for BMI is 18.5 -24.9 kg/m2 Alcohol: No more than 2 drinks/day for men or 1 drink/day for non- women - Promote lifestyle modification: weight control, physical activity, moderation of alcohol intake, moderate sodium intake. Followup with PCP in 1-2 weeks, and in Neurology clinic in 6-12 weeks
--- NOTE | 2024-06-14 16:06 | DS.PCM_ITS ---
Providers Date of Admission: 06/12/24 Date of Discharge: 06/14/24 Primary Care Physician: Michela Holguin MD Consultations 06/13/24 00:38 Consult: Tele-Neurology Routine Consulting Provider: [facility] Reason for Consult: Acute Ischemic Stroke/TIA EMERGENT Consult: No MD Notified: Yes Date Notified: 06/13/24 Time Notified: 04:19 Method of Notification: Answering Service Nursing Unit Staff Notify [facility] of Tele-Neurology Consult: Yes Reason For Visit: TIA Diagnosis Discharge Diagnosis (1) Left homonymous hemianopsia: Status: Acute Code(s): H53.462 - Homonymous bilateral field defects, left side (2) Brain TIA: Status: Acute Code(s): G45.9 - Transient cerebral ischemic attack, unspecified Plan #Left sided homonymous hemianopia * Didnt recur. * CT of the brain and CT of the head and neck did not show any acute pathology. EKG showed no acute ST changes. * MRI of the brain shows no evidence of stroke. * Lipid profile is normal. Neurology reviewed patient's and think this is atypical for TIA. * Neurology recommends continuing aspirin and Plavix and to get STEVEN and EEG. He had been ordered. * PT OT on board. * High intensity statin * #Type 2 diabetes mellitus: On Lantus 6 units daily. Insulin sliding scale. Accu-Cheks ACHS. Also on metformin Hypertension: Resume BP meds and stroke has been ruled out. On losartan #Chronic rheumatoid arthritis: Stable. On methotrexate #DVT prophylaxis: Lovenox Medications at Discharge Home Medications cholecalciferol (vitamin D3) 25 mcg (1,000 unit) capsule (Vitamin D3) 1,000 unit PO DAILY 12/21/16 folic acid 1 mg tablet 1 mg PO DAILY@0800 12/21/16 methotrexate sodium 2.5 mg tablet 5 mg PO QWEEK 12/21/16 insulin glargine 100 unit/mL (3 mL) subcutaneous pen (Lantus Solostar U-100 Insulin) 6 unit subcut DAILY 03/26/24 ferrous sulfate 325 mg (65 mg iron) tablet 325 mg PO QDAY 05/23/24 metformin 500 mg 24 hr tablet,extended release (gastric retention) 1,000 mg PO BID 05/23/24 rosuvastatin 5 mg tablet 5 mg PO QDAY 05/23/24 aspirin 81 mg chewable tablet 81 mg PO BREAKFAST #30 tabs 06/13/24 insulin lispro 100 unit/mL subcutaneous pen (Humalog KwikPen (U-100) Insulin) See Rx Instructions .Route .COMPLEX 06/13/24 losartan 50 mg tablet 50 mg PO DAILY 06/13/24 clopidogrel 75 mg tablet 75 mg PO DAILY #21 tabs 06/14/24 Hospital Course Operations None Procedures 2-D Echocardiogram and Electroencephalogram Summary of Care Provided Minutes Spent on Discharge: 55 Hospital Course: Patient is an 89-year-old female with a past medical history as outlined was admitted through the ED on 06/12/2024 with a complaint of sudden onset of loss of vision in the left eye while she was watching TV. Her last normal was around 6:30 PM. She had to turn her head to watch TV. She also had associated confusion. His symptoms lasted for about an hour and subsequently resolved. She had no other symptoms. Says she had had similar symptoms of vision loss like this previously. 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 Review of systems otherwise negative. CT of the brain showed no acute intracranial pathology. She was admitted to rule out a stroke. CTA of the head and neck showed no acute intracranial pathology and no hemodynamically significant stenosis. 2D echo done showed EF of 70% with stage I diastolic dysfunction and moderate concentric left ventricular hypertrophy with negative bubble study. Neurology reviewed patient and thought this was an unusual presentation for TIA. Neurology therefore commended that patient get a STEVEN and an EEG. STEVEN was ordered and cardiology attempted STEVEN but could not do it due to concerns about a possible esophageal stricture. She did have the EEG which showed no evidence of his seizure. Neurology therefore commended that patient could be discharged on a 30-day event monitor and to be discharged on p.o. aspirin and Plavix for 21 days and then to continue with only aspirin. Hold off on statin as the LDL was very low. She was to follow-up with her primary care doctor and with neurology on outpatient basis. Patient was seen and examined prior to discharge. She had no active complaints and had an uneventful night. Review of systems otherwise negative. Labs and vitals reviewed. Home medication reviewed and reconciled. Physical Exam Const alert, oriented x3, no apparent distress and well nourished General Appearance: cooperative and comfortable Orientation / Consciousness: awake Exam Limitations: no limitations HEENT normocephalic, head/scalp atraumatic, hearing grossly normal bilaterally, moist oral mucous membranes and oropharynx normal Mouth: oral and palatal mucosa normal Eyes PERRL, EOMs intact bilaterally and conjunctivae normal Neck no lymphadenopathy, supple and no JVD Lymph Lymphatic: no lymphadenopathy noted Resp normal respiratory effort, normal air movement, no retractions, no use of accessory muscles and clear to auscultation bilaterally Cardio regular rate, regular rhythm, S1 normal heart sound, S2 normal heart sound and no murmurs GI normal to inspection, nondistended, normoactive bowel sounds, soft to palpation, non-tender and non-distended Extremity normal to inspection, full ROM, normal capillary refill, no clubbing, cyanosis or edema and no calf tenderness General Extremity: no tenderness to palpation of joints or extremities Skin no rashes or lesions noted General Skin Exam: no breakdown Neuro oriented x3, CN's II-XII intact bilaterally, moves all extremities, no focal motor deficits and no sensory deficits noted Sensorium / Orientation: awake and alert Motor Exam: strength 5/5 throughout and general weakness Psych thought process normal, cooperative and affect normal Appearance: appropriate Weight / BMI Weight Weight: 118 lb 15.983 oz Body Mass Index (BMI) 21.7 ABG / Lab / Microbiology Data 06/14/24 06:32 06/14/24 06:32 Laboratory: Laboratory Results - last 24 hr 06/13/24 16:54: POC Glucose 347 H 06/13/24 22:54: POC Glucose 205 H 06/14/24 06:21: POC Glucose 204 H 06/14/24 06:32: WBC 3.8 L, RBC 3.33 L, Hgb 10.4 L, Hct 32.8 L, MCV 98.5, MCH 31.2, MCHC 31.7 L, RDW Std Deviation 49.5 H, RDW Coeff of Siva 13.7, Plt Count 175, MPV 9.7, Immature Gran % (Auto) 0.500, Neut % (Auto) 65.6, Lymph % (Auto) 21.5, Martin % (Auto) 11.1 H, Eos % (Auto) 0.8, Baso % (Auto) 0.5, Absolute Neuts (auto) 2.5, Absolute Lymphs (auto) 0.81 L, Nucleated RBC % 0, Sodium 142, Potassium 4.3, Chloride 109 H, Carbon Dioxide 28.0, Anion Gap 5, BUN 19 H, Creatinine 0.68, Estim Creat Clear Calc 39.18, Est GFR (MDRD) Af Amer 104, Est GFR (MDRD) Non-Af 86, BUN/Creatinine Ratio 27.7 H, Glucose 208 H, Calcium 8.4 L 06/14/24 11:35: POC Glucose 202 H Radiography Diagnostic Testing: Radiology Impression Echocardiogram 06/13/24 00:38 Interpretation Summary Normal LV size. The left ventricular ejection fraction is 70 %. Stage 1 diastolic dysfunction. Moderate concentric left ventricular hypertrophy. Bubble contrast study negative for right to left interatrial shunt. The global longitudinal strain is normal. The global longitudinal strain = -19.2 % (normal). Ordering Physician: Ammon Morris Performed By: Yadira Fernandez RDCS and Student D/C Instructions Discharge Diet: Low fat / Low cholesterol Discharge Activity: Return to Normal Activity Weight Bearing Status: Weight bearing as tolerated Call your doctor if you observe: Fever of 101 or Higher, Shortness of breath, Dizziness, Swelling in the ankles and Chest pain Meaningful Use Info Meaningful Use Meaningful Use Diagnoses (Choose all that apply): None applicable Ischemic Stroke Statin Dosing Therapy Reference: STATIN DOSE THERAPY REFERENCE: * Patients > 75 years receive moderate or high dose statin therapy. * Patients 75 years or YOUNGER should receive HIGH intensity statin dose unless contraindicated. You will be required to document reason for non-treatment if statin daily dose does not meet guidelines. HIGH DOSE STATIN THERAPY DAILY Atorvastatin > than or = to 40 mg Rosuvastatin > than or = to 20 mg Amlodipine + Atorvastatin > than or = to 2.5/40 mg Ezetimibe + Simvastatin 10/80 mg Simvastatin 80mg Discharge Plan Admission Admit Date/Time: 06/12/24 23:48 Primary Reason for Your Visit: left hemianopsia Attending Provider: Alice Triplett Primary Care Provider: Michela Holguin Consulting Providers: Guzman Real; Karina Menjivar; Billie Henriquez; Josefina Obregon; Linette Ramirez; Thor Doe; Wanda Pagan; Yaya Bear; Bam Florentino; Piero Carmichael; Toshia Arvizu; Horace Verdugo; Solange Ohara; John Dias; Cathi Pierson; Jose D Murphy; Tao Mckeon; Simone Rascon; Yolanda Espinoza; Ellen Gomez; Ammon Morris; April Moyer; Jamil Curtis; Cornell Jovel; JULIETTE HUSSEIN; Timothy Escobar; Lyudmila Chen Instructions Patient Instructions: TIA Dc Discharge Orders/Prescriptions Prescriptions: New aspirin 81 mg Tablet,Chewable 81 mg PO BREAKFAST Qty: 30 2RF clopidogrel 75 mg Tablet 75 mg PO DAILY Qty: 21 0RF Continued insulin glargine [Lantus Solostar U-100 Insulin] 100 unit/mL (3 mL) insulin pen 6 unit subcut DAILY Rx Instructions: qam rosuvastatin 5 mg tablet 5 mg PO QDAY ferrous sulfate 325 mg (65 mg iron) tablet 325 mg PO QDAY methotrexate sodium 2.5 MG tablet 5 mg PO QWEEK Patient Comments: RA Rx Instructions: folic acid 1 MG tablet 1 mg PO DAILY@0800 Patient Comments: take every day except the day you take methotrexate cholecalciferol (vitamin D3) [Vitamin D3] 1,000 UNIT capsule 1,000 unit PO DAILY metformin 500 mg tablet,ER diane.retention 24 hr 1,000 mg PO BID Patient Comments: 1 tab twice a day losartan 50 mg tablet 50 mg PO DAILY insulin lispro [Humalog KwikPen Insulin] 100 unit/mL insulin pen See Rx Instructions .ROUTE .COMPLEX Rx Instructions: 6 units daily before breakfast 4 units daily before lunch and dinner; Other Ambulatory Orders: 30 Day Event Recorder Preventi (Urgent) Timeframe: 1 Day Facility: [facility] - Location: Cardiovascular Services Ordered By: Dr. Alice Triplett Referrals / Follow Up: Michela Holguin MD [Primary Care Provider] - Within 2 Weeks Disposition Disposition (needs filled in before D/C Order can be placed): Home, Self Care Charges/Coding Visit Charges Inpatient E&M: 01883 Disch Hosp >30min
--- NOTE | 2024-06-14 16:20 | DCINST_ITS ---
Discharge Instructions Diet Discharge Diet: Low fat / Low cholesterol Activity Discharge Activity: Return to Normal Activity Weight Bearing Status: Weight bearing as tolerated Dressing / Incision Call your doctor if you observe: Fever of 101 or Higher, Shortness of breath, Dizziness, Swelling in the ankles and Chest pain Follow Up Care Test Results: Test results from this visit will be discussed in further detail at your follow- up appointment, if applicable. Discharge Plan Admission Admit Date/Time: 06/12/24 23:48 Primary Reason for Your Visit: left hemianopsia Attending Provider: Alice Triplett Primary Care Provider: Michela Holguin Consulting Providers: Guzman Real; Karina Menjivar; Billie Henriquez; Josefina Obregon; Linette Ramirez; Thor Doe; Wanda Pagan; Yaya Bear; Bam Florentino; Piero Carmichael; Toshia Arvizu; Horace Verdugo; Solange Ohara; John Dias; Cathi Pierson; Jose D Murphy; Tao Mckeon; Simone Rascon; Yolanda Espinoza; Ellen Gomez; Ammon Morris; April Moyer; Jamil Curtis; Cornell Jovel; JULIETTE HUSSEIN; Timothy Escobar; Lyudmila Chen Instructions Patient Instructions: TIA Dc Discharge Orders/Prescriptions Prescriptions: New aspirin 81 mg Tablet,Chewable 81 mg PO BREAKFAST Qty: 30 2RF clopidogrel 75 mg Tablet 75 mg PO DAILY Qty: 21 0RF Continued insulin glargine [Lantus Solostar U-100 Insulin] 100 unit/mL (3 mL) insulin pen 6 unit subcut DAILY Rx Instructions: qam rosuvastatin 5 mg tablet 5 mg PO QDAY ferrous sulfate 325 mg (65 mg iron) tablet 325 mg PO QDAY methotrexate sodium 2.5 MG tablet 5 mg PO QWEEK Patient Comments: RA Rx Instructions: folic acid 1 MG tablet 1 mg PO DAILY@0800 Patient Comments: take every day except the day you take methotrexate cholecalciferol (vitamin D3) [Vitamin D3] 1,000 UNIT capsule 1,000 unit PO DAILY metformin 500 mg tablet,ER diane.retention 24 hr 1,000 mg PO BID Patient Comments: 1 tab twice a day losartan 50 mg tablet 50 mg PO DAILY insulin lispro [Humalog KwikPen Insulin] 100 unit/mL insulin pen See Rx Instructions .ROUTE .COMPLEX Rx Instructions: 6 units daily before breakfast 4 units daily before lunch and dinner; Other Ambulatory Orders: 30 Day Event Recorder Preventi (Urgent) Timeframe: 1 Day Facility: [facility] - Location: Cardiovascular Services Ordered By: Dr. Alice Triplett Referrals / Follow Up: Michela Holguin MD [Primary Care Provider] - Within 2 Weeks Disposition Disposition (needs filled in before D/C Order can be placed): Home, Self Care
[2024-06-14 16:25] VITALS: BP 150/81; PULSE 71; RESP 16; TEMP 36.8; O2SAT 97
--- NOTE | 2024-06-14 16:28 | CASEMGMT ---
Order for DC placed. RN CM to pt room at this time. Pt RN at bedside. Pt states that she lives alone but has plenty of family support at home. Pt denies the need for HHC, OP Tx. Pt states that she has a ride home today. Pt did well with PT, see notes. Pt denies further questions or concerns at this time.
[2024-06-14 16:54] LABS: Bedside Glucose 271 mg/dL (74-106)
[2024-06-14 17:15] VITALS: BP 150/81; PULSE 71; RESP 16; TEMP 36.8; O2SAT 97
== END 2024-06-14 16:16 | disposition home or self-care (01) ==
LOC: ED 23:29 → PCU 06-13 00:10
PROVIDERS: Admitting Provider Internal Medicine; Emergency Provider Emergency Medicine; PCP Family Medicine; Visit Provider Student in an Organized Health Care Education/Training Program
DX: G45.9 Transient cerebral ischemic attack, unspecified (principal); M06.9 Rheumatoid arthritis, unspecified; E11.9 Type 2 diabetes mellitus without complications; Z79.4 Long term (current) use of insulin; H53.462 Homonymous bilateral field defects, left side; R29.700 NIHSS score 0; Z23 Encounter for immunization; K21.9 Gastro-esophageal reflux disease without esophagitis; I10 Essential (primary) hypertension; Z79.899 Other long term (current) drug therapy; H35.30 Unspecified macular degeneration; Z79.84 Long term (current) use of oral hypoglycemic drugs; Z53.09 Procedure and treatment not carried out because of other contraindication
CPT/HCPCS: 36415; 70496; 70498; 70551; 71045; 80048; 80061; 82962; 83036; 83735; 84443; 84484; 85025; 85610; 85730; 90662; 93005; 93306; 93312; 93320; 93325; 94668; 94762; 95819; 96360; 96361; 96372; 97161; 99221; 99284; G0008; J7030; Q9967; A4216; G0378

== ENCOUNTER → 2024-07-02 | Outpatient (CLI) | payer MEDICARE, SELFPAY ==
[2024-07-02 17:50] LABS: Absolute Lymphocyte Count 1.22 X10^3/uL (0.83-4.51); Absolute Neutrophil Count 2.9 X10^3/uL (2.0-7.7); Basophil# 0.01 X10^3/uL; Basophil% 0.2 % (0-1); Eosinophil# 0.04 X10^3/uL; Eosinophils% 0.9 % (0-5); Hematocrit 34.6 % (37-47); Hemoglobin 10.8 g/dL (12.0-15.0); Lymphocyte # 1.22 X10^3/ul (0.83-4.51); Lymphocyte % 26.3 % (19-41); Mean Corp Hgb Conc 31.2 g/dL (32-36); Mean Corpuscular Hgb 30.9 pg (27.0-32.0); Mean Corpuscular Volume 99.1 fL (81-99); Mean Platelet Vol. 9.6 fl (6.2-12.0); Monocyte% 8.6 % (0-10); NRBC Flagged by Analyzer 0 % (0-5); Neutrophil # 2.94 X10^3/uL (2.7-7.7); Neutrophil % 63.6 % (47-70); Platelet Count 249 K/mm3 (150-450); RBC Distribution Width CV 13.2 % (11.6-14.6); RBC Distribution Width SD 47.6 fl (35.1-43.9); Red Blood Count 3.49 M/mm3 (4.2-5.4); White Blood Count 4.6 K/mm3 (4.4-11.0)
== END | disposition home or self-care (01) ==
LOC: MFPLAB 16:10
PROVIDERS: PCP Family Medicine; Visit Provider Family Medicine
DX: D64.9 Anemia, unspecified (principal)
CPT/HCPCS: 36415; 85025

== ENCOUNTER → 2024-07-16 | Outpatient (CLI) | payer MEDICARE, SELFPAY ==
[2024-07-16 17:34] LABS: Absolute Lymphocyte Count 0.99 X10^3/uL (0.83-4.51); Basophil# 0.02 X10^3/uL; Basophil% 0.4 % (0-1); Eosinophil# 0.02 X10^3/uL; Eosinophils% 0.4 % (0-5); Hematocrit 34.5 % (37-47); Hemoglobin 10.6 g/dL (12.0-15.0); Lymphocyte # 0.99 X10^3/ul (0.83-4.51); Lymphocyte % 22.2 % (19-41); Mean Corp Hgb Conc 30.7 g/dL (32-36); Mean Corpuscular Hgb 30.7 pg (27.0-32.0); Mean Platelet Vol. 9.9 fl (6.2-12.0); Monocyte# 0.39 X10^3/uL; Monocyte% 8.7 % (0-10); NRBC Flagged by Analyzer 0 % (0-5); Neutrophil # 3.03 X10^3/uL (2.7-7.7); Neutrophil % 68.1 % (47-70); Platelet Count 250 K/mm3 (150-450); RBC Distribution Width CV 13.4 % (11.6-14.6); Red Blood Count 3.45 M/mm3 (4.2-5.4); White Blood Count 4.5 K/mm3 (4.4-11.0)
== END | disposition home or self-care (01) ==
LOC: MFPLAB 15:45
PROVIDERS: PCP Family Medicine; Visit Provider Family Medicine
DX: D64.9 Anemia, unspecified (principal)
CPT/HCPCS: 36415; 85025

== ENCOUNTER → 2024-08-16 | Outpatient (CLI) | payer MEDICARE, SELFPAY ==
[2024-08-16 12:27] LABS: Absolute Lymphocyte Count 0.81 X10^3/uL (0.83-4.51); Absolute Neutrophil Count 2.7 X10^3/uL (2.0-7.7); Basophil# 0.02 X10^3/uL; Basophil% 0.5 % (0-1); Eosinophil# 0.02 X10^3/uL; Eosinophils% 0.5 % (0-5); Hematocrit 34.7 % (37-47); Lymphocyte # 0.81 X10^3/ul (0.83-4.51); Lymphocyte % 20.7 % (19-41); Mean Corp Hgb Conc 31.7 g/dL (32-36); Mean Corpuscular Hgb 31.2 pg (27.0-32.0); Mean Corpuscular Volume 98.3 fL (81-99); Mean Platelet Vol. 9.9 fl (6.2-12.0); Monocyte% 10.2 % (0-10); NRBC Flagged by Analyzer 0 % (0-5); Neutrophil # 2.67 X10^3/uL (2.7-7.7); Neutrophil % 68.1 % (47-70); Platelet Count 217 K/mm3 (150-450); RBC Distribution Width CV 13.4 % (11.6-14.6); Red Blood Count 3.53 M/mm3 (4.2-5.4); White Blood Count 3.9 K/mm3 (4.4-11.0)
== END | disposition home or self-care (01) ==
LOC: MFPLAB 09:58
PROVIDERS: PCP Family Medicine
DX: D64.9 Anemia, unspecified (principal)
CPT/HCPCS: 36415; 85025

== ENCOUNTER → 2024-12-10 | Outpatient (CLI) | payer MEDICARE, SELFPAY ==
[2024-12-10 18:44] LABS: Microalbumin,Random Urine < 12.0 mg/L (NO RANGE EST.); Microalbumin:Creatinine Ratio UNABLE TO CALCULATE mg/g CRE
[2024-12-10 18:48] LABS: Anion Gap 10 (5-15); BUN 26 mg/dL (4-19); BUN/Creat Ratio 34.4 RATIO (10-20); Calcium,Total 9.6 mg/dL (7.6-11.0); Chloride 103 mmol/L (98-108); Creatinine, Serum 0.74 mg/dL (0.70-1.20); EST Glomerular Filtration Rate 78 (>60); Glucose 55 mg/dL (70-99); Potassium 3.8 mmol/L (3.3-5.1); Sodium Level 142 mmol/L (133-145)
== END | disposition home or self-care (01) ==
LOC: MTLAB 15:17
PROVIDERS: PCP Family Medicine; Referring Provider Nurse Practitioner Family; Visit Provider Nurse Practitioner Family
DX: R79.89 Other specified abnormal findings of blood chemistry (principal); E11.65 Type 2 diabetes mellitus with hyperglycemia; Z79.4 Long term (current) use of insulin
CPT/HCPCS: 36415; 80048; 82043; 82570

== ENCOUNTER → 2025-02-28 | Outpatient (CLI) | payer MEDICARE, SELFPAY ==
--- NOTE | 2025-02-28 08:30 | BD_ITS ---
PROCEDURE: DEXA BONE DENSITY STUDY 02/28/2025 REASON FOR EXAM: SCREENING F, age 89 y/o . Postmenopausal. TECHNIQUE: DEXA BONE DENSITY STUDY COMPARISON: Prior study dated November 17, 2022. FINDINGS: BMD and T-SCORES Lumbar spine: 0.858 g/cm2, T-score -1.7 Levels: L1 through L4 Change from prior: Loss of 4.6%. Left femoral neck: 0.662 g/cm2, T-score -1.7 Femoral neck comparison data not recommended for monitoring change. Left total hip: 0.617 g/cm2, T-score -2.7 Change from prior: Loss of 11.7%. Right femoral neck: 0.636 g/cm2, T-score -1.9 Femoral neck comparison data not recommended for monitoring change. Right total hip: 0.662 g/cm2, T-score -2.3 Change from prior: Loss of 14.2%. The World Health Organization has defined the following categories based on bone density: Normal bone density: T-score equal to or greater than -1.0 Osteopenia: T-score between -1.0 and -2.5 Osteoporosis: T-score equal to or less than -2.5 The patient does meet the pharmacological treatment recommendations for prevention of osteoporosis. BD/Dexa Bone Density Study IMPRESSION: OSTEOPOROSIS. Recommend follow-up as clinically warranted. Reading Location: [place] [id number]
[2025-02-28 09:05] LABS: AST(SGOT) 24 U/L (<=31); Alanine Aminotransfer ALT/SGPT 25 U/L (<=34); Albumin, Serum 4.1 g/dL (3.4-4.8); Alkaline Phosphatase 88 U/L (35-104); Anion Gap 12 (5-15); BUN 23 mg/dL (4-19); BUN/Creat Ratio 31.0 RATIO (10-20); Calcium,Total 9.1 mg/dL (7.6-11.0); Carbon Dioxide 25.2 mmol/L (21.0-32.0); Chloride 103 mmol/L (98-108); Cholesterol 112 mg/dL (<=200); Globulin 2.1 g/dL (2.2-4.2); Glucose 161 mg/dL (70-99); Low Density Lipoprotein Calc. 16 mg/dL; Potassium 4.5 mmol/L (3.3-5.1); Triglycerides 31 mg/dL; Very Low Density Lipoprotein 6 mg/dL (5-40); Vitamin D,25 Hydroxy 45.4 ng/mL (30-100); cholesterol:hdl ratio screen 1.25
[2025-02-28 10:24] LABS: Creatinine, Urine (random) 73.50 mg/dL (28.00-217.00); Microalbumin,Random Urine < 12.0 mg/L (<20 mg/L)
== END | disposition home or self-care (01) ==
LOC: OPBD 08:33
PROVIDERS: PCP Family Medicine; Referring Provider Nurse Practitioner Family; Visit Provider Nurse Practitioner Family
DX: Z13.9 Encounter for screening, unspecified (principal); E11.65 Type 2 diabetes mellitus with hyperglycemia; Z79.4 Long term (current) use of insulin; Z78.0 Asymptomatic menopausal state; M81.0 Age-related osteoporosis without current pathological fracture; E55.9 Vitamin D deficiency, unspecified
CPT/HCPCS: 36415; 77080; 80053; 80061; 82043; 82306; 82570; 84443

== ENCOUNTER 2025-07-17 00:06 | Emergency (ER) | payer MEDICARE, SELFPAY ==
[2025-07-17 00:09] VITALS: BP 204/140; PULSE 95; RESP 13; TEMP 36.6; O2SAT 98; BMI 24.1
--- NOTE | 2025-07-17 00:26 | EKG12_ITS ---
Test Reason : DYSRHYTHMIA Blood Pressure : */* mmHG Vent. Rate : 84 BPM Atrial Rate : 84 BPM P-R Int : 172 ms QRS Dur : 106 ms QT Int : 368 ms P-R-T Axes : 26 -39 81 degrees QTcB Int : 434 ms Sinus rhythm with Premature atrial complexes Left axis deviation Moderate voltage criteria for LVH, may be normal variant ( R in aVL , Aiden product ) Septal infarct (cited on or before 12-Jun-2024) Abnormal ECG Confirmed by Humza Campos ([id number]), non linear editor TUCKER AUGUSTIN ([id number]) on 07/17/2025 8:49:14 AM Referred By: Confirmed By: Humza Campos
--- NOTE | 2025-07-17 00:26 | CT_ITS ---
PROCEDURE: CTA HEAD AND NECK W/ CONTRAST 07/17/2025 REASON FOR EXAM: PARESTHESIA TECHNIQUE: Procedure Code: CTCTA.HDNCK Modality: CT Procedure: CTA HEAD AND NECK W/ CONTRAST Multiplanar Sagittal and Coronal images were obtained. CONTRAST: Isovue 370 VOLUME: 100 mL One or more dose reduction techniques were used (e.g., Automated exposure control, adjustment of the mA and/or kV according to patient size, use of iterative reconstruction technique). RADIATION DOSE SUMMARY: CTDlvol: 15.41 mGy DLP: 1444.25 mGycm COMPARISON: MRI on 06/13/2024. CT angiography on 06/12/2024. FINDINGS: Mild diffuse cortical atrophy, commensurate with the patient's age. Scattered hypodense foci in the periventricular and subcortical white matter suggestive of chronic ischemic white matter disease. Normal size of the ventricles and extra-axial spaces for the patient's age. Normal basal ganglia and thalami. Normal brainstem. Normal cerebellum. There is no demonstrated extra-axial, intraparenchymal, or intraventricular hemorrhage. There are no findings of an acute ischemic infarction. Normal calvarium. There is no demonstrated fracture. Normal soft tissue structures. Normal visualized paranasal sinuses. Normal bilateral petrous carotid arteries. Mild atheromatous plaques of the right cavernous carotid artery with a normal supraclinoid bifurcation. Mild atheromatous plaques of the left cavernous carotid artery with a normal supraclinoid bifurcation. Normal right A1 segments of the anterior cerebral artery. Normal left A1 segments of the anterior cerebral artery. Normal intact anterior communicating artery (ACOM). Normal bilateral A2 segments of the anterior cerebral arteries. Normal right M1 and M2 segments of the middle cerebral arteries, with a normal M1 bifurcation. Normal left M1 and M2 segments of the middle cerebral arteries, with a normal M1 bifurcation. Normal right posterior communicating artery (PCOM). Normal left posterior communicating artery (PCOM). Normal bilateral vertebral arteries. Normal basilar artery with a normal basilar bifurcation. The visualized bilateral superior cerebellar (SCA) arteries are normal. Normal bilateral P1, P2 and visualized P3 segments of the posterior cerebral arteries. There is no demonstrated aneurysm of the [place] of [place]. There is no major vessel occlusion or hemodynamically significant stenosis. There is no demonstrated abnormality of the visualized brain. RIGHT CAROTID ARTERIES: Normal right common carotid artery (CCA). Normal right common carotid bulb. 10% stenosis of the origin of the right internal carotid (ICA) artery without a hemodynamically significant stenosis. Normal visualized cervical portion of the right internal carotid artery. Normal origin of the right external carotid artery (ECA). LEFT CAROTID ARTERIES: Normal left common carotid artery (CCA). Normal left common carotid bulb. 10% stenosis of the origin of the left internal carotid (ICA) artery without a hemodynamically significant stenosis. Normal visualized cervical portion of the left internal carotid artery. Normal origin of the left external carotid artery (ECA). VERTEBRAL ARTERIES: Normal bilateral vertebral artery without a hemodynamically significant stenosis. CT/CTA Head AND Neck W/ Contrast IMPRESSION: No CT evidence for acute brain abnormality. Atherosclerosis without high-grade stenosis. No significant change is noted since the prior exam. I discussed the findings with Dr. Ted Chow in the emergency department at 3 :15 a.m. EST. Reading Location: [place] [address]
[2025-07-17] MEDS: 0.9% Normal Saline (500mL Bag) 500 ML 999 ML IV (00:35)
[2025-07-17 00:40] VITALS: BMI 24.3
[2025-07-17 00:40] LABS: Hematocrit 33.2 % (37-47); Hemoglobin 10.7 g/dL (12.0-15.0); Immature Granulocytes Count 0.020 X10^3/uL (0.0-0.0); Mean Corp Hgb Conc 32.2 g/dL (32-36); Mean Corpuscular Volume 97.9 fL (81-99); Mean Platelet Vol. 9.8 fl (6.2-12.0); NRBC Flagged by Analyzer 0 % (0-5); Platelet Count 317 K/mm3 (150-450); RBC Distribution Width CV 13.4 % (11.6-14.6); RBC Distribution Width SD 47.6 fl (35.1-43.9); Red Blood Count 3.39 M/mm3 (4.2-5.4); White Blood Count 5.6 K/mm3 (4.4-11.0)
[2025-07-17 00:42] VITALS: BP 144/70; PULSE 83; RESP 16; O2SAT 97
[2025-07-17 01:13] LABS: Anion Gap 11 (5-15); BUN 26 mg/dL (4-19); BUN/Creat Ratio 33.4 RATIO (10-20); Calcium,Total 9.3 mg/dL (7.6-11.0); Carbon Dioxide 25.5 mmol/L (21.0-32.0); Chloride 103 mmol/L (98-108); Estimated Creatinine Clearance 40.39 ml/min (50-250); Glucose 111 mg/dL (70-99); Potassium 4.2 mmol/L (3.3-5.1)
--- NOTE | 2025-07-17 01:14 | EX.ED.DYSGE1 ---
HPI History of Present Illness Chief Complaint: Neuro S/Sx Informant: patient and family Narrative Narrative: Patient is an 89-year-old female with past medical history of rheumatoid arthritis hypertension and insulin-dependent type 2 diabetes. She states around 8 PM this evening she was reading and she states that she could read the words on the page but felt like she could not comprehend them. She states then a few hours later she noticed some decrease sensation in her left hand. She states she is also had a left-sided frontal headache. Patient denies any fevers or chills she denies any change in vision or recent trauma. She states she only takes a baby aspirin once daily and reports has been taking all of her medications as directed. She reports she was seen for similar issues roughly 1 year ago without obvious reason for them. She states she was told she had a TIA at that time and with concern for that once again she presents for evaluation [facility] Medical History Solar lentigo GERD (gastroesophageal reflux disease) Type 2 diabetes mellitus HTN (hypertension) Rheumatoid arthritis Home Medications ?Medication ?Instructions ?Recorded ?Last Taken ?Type folic acid 1 mg tablet 1 mg PO DAILY@0800 supplement 12/21/16 Unknown History methotrexate sodium 2.5 mg tablet 5 mg PO QWEEK 12/21/16 Unknown History insulin glargine 100 unit/mL (3 6 unit subcut DAILY diabetes 03/26/24 Unknown History mL) subcutaneous pen (Lantus Solostar U-100 Insulin) ferrous sulfate 325 mg (65 mg 325 mg PO QDAY supplement 05/23/24 Unknown History iron) tablet aspirin 81 mg chewable tablet 81 mg PO BREAKFAST #30 tabs 06/13/24 Unknown Rx calcium 600 mg (as carbonate)-vit tab PO 08/22/24 Unknown History D3 1,000 unit-vitamin K2 90 mcg tab mecobalamin (vitamin B12) 1,000 1,000 mcg PO QDAY 08/22/24 Unknown History mcg chewable tablet vitamins A,C,F-ulfz-pswzje 2,148 2 tab PO BID 08/22/24 Unknown History mcg-113 mg-45 mg-17.4 mg tablet (PreserVision AREDS) losartan 100 mg tablet 100 mg PO QDAY #90 tabs 11/21/24 Unknown Rx rosuvastatin 5 mg tablet 5 mg PO 2XW cholesterol 04/09/25 Unknown History pen needle, diabetic 32 gauge x #360 ea 01/30/25 Unknown Rx 5/32 metformin 500 mg tablet,extended 1,000 mg (2 x 500 mg) PO BID #360 02/04/25 Unknown Rx release 24 hr (Glucophage XR) tabs blood sugar diagnostic (FreeStyle #50 ea 06/03/25 Unknown Rx Precision Aldo Strips) insulin lispro 100 unit/mL 7 unit (0.07 mL) subcut TID 07/15/25 Unknown Rx subcutaneous pen (Humalog KwikPen diabetes #15 mL (U-100) Insulin) Allergy/AdvReac Type Severity Reaction Status Date / Time No Known Allergies Allergy Verified 07/17/25 00:12 Family History Mother Diabetes Social History Smoking Status: Never smoker Electronic Cigarette Use: not used second hand exposure: No alcohol intake: never substance use type: does not use ROS ROS ED Constitutional Constitutional ED: Denies chills or fever(s) Eyes Eyes: Denies blurry vision or change in vision ENT ENT ED: Denies sore throat Cardiovascular Cardiovascular: Denies chest pain, palpitations or racing heartbeat Respiratory/Chest Respiratory/Chest: Denies cough or dyspnea Gastrointestinal Gastrointestinal: Denies abdominal pain, diarrhea, nausea or vomiting Genitourinary Genitourinary ED: Denies dysuria Musculoskeletal Musculoskeletal: Denies myalgias or neck pain Integumentary Denies rash Neurologic Neurologic: Reports headache(s) and paresthesias; Denies weakness Hematologic/Lymphatic Hematologic/Lymphatic: Denies easy bleeding or easy bruising EXAM Physical Exam Const Vital Signs: 07/17/25 00:09 07/17/25 00:42 07/17/25 02:00 Temperature 98 F Temperature Source Oral Pulse Rate 95 83 71 Respiratory Rate 13 16 16 Blood Pressure 204/140 H 144/70 H 155/73 H Blood Pressure Mean 161 94 100 Pulse Ox 98 97 98 Oxygen Delivery Method Room Air Room Air Room Air 07/17/25 03:00 07/17/25 03:26 Temperature 97.9 F Temperature Source Pulse Rate 73 73 Respiratory Rate 18 16 Blood Pressure 159/68 H 159/68 H Blood Pressure Mean 98 98 Pulse Ox 99 Oxygen Delivery Method Positive well nourished and well developed General Appearance ED: well developed; Negative for pallor HEENT HEENT Narrative: Normocephalic atraumatic Eyes PERRL and EOMs intact bilaterally General Eye ED: Negative for scleral icterus Neck supple Neck Narrative: No nuchal rigidity or meningeal signs Resp normal respiratory effort and clear to auscultation bilaterally Cardio regular rate and regular rhythm Rate: other Other Details: Heart is regular rate and rhythm with occasional ectopic beat noted Radial and carotid pulses are equal and symmetric No carotid bruits noted GI normal to inspection, nondistended, normoactive bowel sounds, non-tender, non-distended and no masses GI Narrative: No voluntary guarding or rigidity or pulsatile mass Auscultation: normoactive bowel sounds Palpation: soft Extremity Extremity Narrative: +1 pitting edema to the bilateral lower extremities that is equal and symmetric and chronic per patient Negative Homans' sign bilaterally Neuro oriented x3, CN's II-XII intact bilaterally and no sensory deficits noted Neuro Narrative: GCS of 15 Cranial nerves II through XII are grossly intact without focal neurologic deficit Patient reports paresthesias in the left hand but when stressed between soft and sharp sensation in multiple dermatomes states this is the same as on the right side No pronator drift no dysmetria no truncal ataxia NIH stroke scale score of 0 Sensorium / Orientation: alert Motor Exam: strength 5/5 throughout Psych mental status grossly normal Skin no rashes or lesions noted General Skin Exam: Negative for jaundice or pallor MDM MDM MDM Narrative Medical decision making narrative: Patient arrived to the ER hypertensive otherwise with stable vitals. She reported initial symptoms around 8 PM and states that she was reading but felt like she could not comprehend the words that were appearing in front of her. She states she also had a left-sided headache but denies any history of atypical migraines. Later in the day there was progression to reported numbness and tingling in the left hand. As the symptoms were persistent there was concern this could be neurological in nature and the patient was brought in by family members. Upon arrival however despite her reporting paresthesias on physical exam she denies any change in sensation between the left and right hand and her NIH stroke scale score is 0. Her previous chart was reviewed and she had atypical complaints roughly 13 months ago and May 2024 for which she had a CTA of the head and neck and MRI which revealed chronic changes without acute findings. The neurology consultation note was reviewed and in this he reported multiple differential diagnoses that could potentially cause her symptoms but the MRI confirmed there was no findings of recent or acute stroke. Blood work today was obtained to assess for electrolyte abnormality or with a headache around the left frontal/temporal region potential temporal arteritis. Her inflammatory markers are normal going against temporal arteritis and laboratory study showed no findings of acute kidney injury or clinically significant electrolyte abnormality such as hypokalemia or hypomagnesemia as a cause of the paresthesia. I discussed with patient and family this could be related to hypertensive encephalopathy as her blood pressure was spiked upon arrival. However family ember states they are checking her blood pressure at home and it was running roughly 140-150/80 which is similar to the values we were obtaining in the ER after the initial hypertensive reading. Her blood sugar was also normal and there was no report that she needed to take glucose secondary to a hypoglycemic event. EKG and cardiac monitoring revealed no signs of ischemia or cardiac dysrhythmia. On reevaluation at the end of the workup patient's vitals remained stable and NIH remains 0. As she has had a workup for this previously with no obvious findings I do not feel there is need for readmission especially as her stroke scale score is 0 at this time. This plan of care was discussed with patient and family and they are agreeable to it and would prefer to follow-up with family doctor to discuss outpatient evaluation. Therefore as the patient's vitals are stable her neurologic exam normal with stroke scale score of 0 and overall workup is negative she is otherwise safe for discharge History & Record Review Discussion w/independent historian: Patient and Family Additional record(s) reviewed:: Prior inpatient record, Prior ED visit and Prior labs Lab Data Attestation: I reviewed the patient's lab results. Labs: Laboratory Results - last 24 hr 07/17/25 00:08 WBC 5.6 RBC 3.39 L Hgb 10.7 L Hct 33.2 L MCV 97.9 MCH 31.6 MCHC 32.2 RDW Std Deviation 47.6 H RDW Coeff of Siva 13.4 Plt Count 317 MPV 9.8 Immature Gran % (Auto) 0.400 Neut % (Auto) 64.3 Lymph % (Auto) 25.5 Marion % (Auto) 8.6 Eos % (Auto) 0.7 Baso % (Auto) 0.5 Absolute Neuts (auto) 3.6 Absolute Lymphs (auto) 1.43 Nucleated RBC % 0 ESR 2 Sodium 140 Potassium 4.2 Chloride 103 Carbon Dioxide 25.5 Anion Gap 11 BUN 26 H Creatinine 0.79 Estim Creat Clear Calc 40.39 L Est GFR (MDRD) Non-Af 72 BUN/Creatinine Ratio 33.4 H Glucose 111 H Calcium 9.3 Magnesium 1.8 C-React Prot Ext Range < 3.00 Radiography Diagnostic Testing: Clinical Impression(s) from Imaging Studies Head/Neck CTA 07/17/25 00:26 IMPRESSION: No CT evidence for acute brain abnormality. Atherosclerosis without high-grade stenosis. No significant change is noted since the prior exam. I discussed the findings with Dr. Ted Chow in the emergency department at 3:15 a.m. EST. Reading Location: [place] [id number] Management Discussion w/another healthcare provider: Radiologist Discharge Plan Triage Chief Complaint: Neuro S/Sx ED Provider: Ted Chow Dx/Rx/DC Orders Clinical Impression: Paresthesias, Hypertension, Rheumatoid arthritis, Diabetes mellitus type 2, insulin dependent Instructions: ED TIA: Transient Ischemic Attack, ED Paresthesia Prescriptions: No Action insulin glargine [Lantus Solostar U-100 Insulin] 100 unit/mL (3 mL) insulin pen 6 unit subcut DAILY Rx Instructions: qam ferrous sulfate 325 mg (65 mg iron) tablet 325 mg PO QDAY rosuvastatin 5 mg tablet 5 mg PO 2XW PreserVision AREDS 2,148 mcg-113 mg-45 mg-17.4mg tablet 2 tab PO BID Rx Instructions: administer with AM and PM meals mecobalamin (vitamin B12) 1,000 mcg tablet,chewable 1,000 mcg PO QDAY calcium carb-vitamin D3-vit K2 600 mg-1,000 unit-90 mcg tablet PO losartan 100 mg tablet 100 mg PO QDAY Qty: 90 1RF methotrexate sodium 2.5 MG tablet 5 mg PO QWEEK Patient Comments: RA Rx Instructions: folic acid 1 MG tablet 1 mg PO DAILY@0800 Patient Comments: take every day except the day you take methotrexate aspirin 81 mg Tablet,Chewable 81 mg PO BREAKFAST Qty: 30 2RF (DME) pen needle, diabetic 32 gauge x 5/32 needle See Rx Instructions .ROUTE .MEDSUPPLY Qty: 360 3RF Rx Instructions: 4 times daily metformin [Glucophage XR] 500 mg tablet extended release 24 hr 1,000 mg PO BID Qty: 360 1RF (DME) FreeStyle Precision Aldo Strips Strip See Rx Instructions .Route Qty: 50 5RF Rx Instructions: BID insulin lispro [Humalog KwikPen Insulin] 100 unit/mL insulin pen 7 unit subcut TID Qty: 15 1RF Primary Care Provider: Michela Holguin Referrals: Michela Holguin MD [Primary Care Provider, Family Practice] Activity Restrictions/Additional Instructions: Your CT scan today revealed no acute changes and was very similar to your previous workup from roughly a year ago according to the radiologist. Your labs revealed no signs of infection or electrolyte issues or inflammatory changes to serve as a cause of your symptoms. Please continue all of your home medications as directed by your family doctor. Talk to your family doctor about outpatient MRI and carotid duplex to further assess for potential causes of your symptoms. If they return or worsen or you have any further concerns return to the ER for repeat evaluation Print Language: [place] Island[place] Disposition Disposition: Home, Self Care Discharge Date/Time: 07/17/25 03:27
[2025-07-17 01:18] LABS: Magnesium 1.8 mg/dL (1.5-2.2)
--- OUTSIDE RECORDS SUMMARY | 2025-07-17 01:58 | XMS RPT_ITS | CCD ---
Author Organization [facility] Care Team Providers Care Cow Washer Name Role Phone Evaristo Plaza Unavailable [phone] Unavailable Unavailable Unavailable Stadnick, Evaristo Nava Unavailable Unavailable Stadnick, Evaristo Nava Unavailable Unavailable Stadnick, Evaristo Nava Unavailable Unavailable Stadnick, Evaristo Nava Unavailable Unavailable STADNICK, EVARISTO BOOTHR Unavailable Unavailab le TomEvaristo mittal Unavailable Unavailable Tomchak, Evaristo Mckeon Unavailable Unavailable TomEvaristo mittal Unavailable Unavailable Evaristo Plaza Primary Care Provider Evaristo Plaza MD Primary Care Provider Evaristo Plaza MD Primary Care Provider EVARISTO PLAZA Primary Care Unavailable IGOE, ROSEMARIE ALLAN Referring Unavailable EVARISTO PLAZA Primary Care Unavailable IGOE, ROSEMARIE ALLAN Attending Unavailable EVARISTO PLAZA Primary Care Unavailable IGOE, ROSEMARIE ALLAN Attending Unavailable EVARISTO PLAZA Primary Care Unavailable IGOE, ROSEMARIE ALLAN Attending Unavailable IGOE, ROSEMARIE ALLAN Attending Unavailable EVARISTO PLAZA Admitting Unavailable EVARISTO PLAZA Primary Care Unavailable EVARISTO PLAZA Referring Unavailable EVARISTO PLAZA Primary Care Unavailable IGOE, ROSEMARIE ALLAN Attending Unavailable Michela Holguin MD Primary Care Provider Michela Holguin MD Referring Provider Ramirez ROLLER MACHINE OPERATOR-CTonia Attending Provider [phone] Ramirez ROLLER MACHINE OPERATOR-CTonia Referring Provider [phone] Michela Holguin Primary Care Unavailable McMorrow ROLLER MACHINE OPERATOR, Jose Juan Attending Unavailable Guzman Real Consulting Unavailable Michela Holguin Primary Care Unavailable Ammon Morris Admitting Unavailable Alice Triplett Attending Unavailable Karina Menjivar Consulting Unavailable Hinduja, Billie Consulting Unavailable Sabas, Josefina Consulting Unavailable Zha, Linette Consulting Unavailable Brook, Thor Consulting Unavailable Latasha, Wanda Consulting Unavailable Bittar, Yaya Consulting Unavailable Chadd Bam Consulting Unavailable Amol, Piero Consulting Unavailable Beshelby, Toshia Consulting Unavailable Gusantonio, Horace Consulting Unavailable Lev, Solange Consulting Unavailable Ridha, Mohamed Consulting Unavailable Zaghlouleh, Mhd Villa Consulting UnavailJose D Evangelista Consulting Unavailable Mckeon, Rami Consulting Unavailable Tarah, Simone Consulting Unavailable Alexis, Yolanda Consulting Unavailable Hannawi, Yousef Consulting Unavailable Arturo, Ammon Consulting Unavailable Moyer, April Consulting Unavailable Mindchino, Jamil Consulting Unavailable Med, Jaydeningh Consulting Unavailable JOVITA, SEGOVIA Consulting Unavailable Khanddebbie, Timothy Consulting Unavailable Maturu, Lyudmila Consulting Unavailable Ezio, Chalon Primary Care Unavailable Koram, Alice Rebecca Referring Unavailable Koram, Alice Rebecca Attending Unavailable Ezio, Chalon Primary Care Unavailable Arturo, Ammon Attending Unavailable Arturo, Ammon Admitting Unavailable Arturo, Ammon Consulting Unavailable Guzman Real Consulting Unavailable Koram, Alice Rebecca Attending Unavailable Adeli, Amir Consulting Unavailable Hinduja, Billie Consulting Unavailable Sabas, Josefina Consulting Unavailable Zha, Linette Consulting Unavailable Brook, Thor Consulting Unavailable Latasha, Wanda Consulting Unavailable Bittar, Yaya Consulting Unavailable Chadd, Bam Consulting Unavailable Amol Piero Consulting Unavailable BeAlix ryanaret Consulting Unavailable Gusantonio, Horace Consulting Unavailable Lev, Solange Consulting Unavailable Ridha, Mohamed Consulting Unavailable Zaghlouleh, Mhd Villa Consulting UnavailJose D Evangelista Consulting Unavailable Mckeon, Rami Consulting Unavailable Tarah, Simone Consulting Unavailable Alexis, Yolanda Consulting Unavailable Hannawi, Yousef Consulting Unavailable Moyer, April Consulting Unavailable Mindel, Jamil Consulting Unavailable Jovel, Jaysingh Consulting Unavailable JOVITA, SEGOVIA Consulting Unavailable Khandker, Timothy Consulting Unavailable Maturu, Lyudmila Consulting Unavailable Koram, Alice Rebecca Consulting Unavailable Ezio, Chalon Primary Care Unavailable Ezio, Chalon Referring Unavailable Tonia Guzmán Attending Unavailable Ezio, Chalon Primary Care Unavailable Ezio, Chalon Referring Unavailable Tonia Guzmán Attending Unavailable Ezio, Chalon Primary Care Unavailable Ezio, Chalon Referring Unavailable Ramirez, Tonia Attending Unavailable Ezio, Chalon Primary Care Unavailable Tommie Monet Attending Unavailable Ezio, Chalon Primary Care Unavailable Ezio, Chalon Referring Unavailable Ramirez, Tonia Attending Unavailable Ezio, Chalon Primary Care Unavailable Ramirez, Tonia Attending Unavailable Ramirez, Tonia Referring Unavailable Ezio, Chalon Primary Care Unavailable Ramirez, Tonia Attending Unavailable Ramirez, Tonia Referring Unavailable Ezio, Chalon Primary Care Unavailable Ezio, Chalon Attending Unavailable Ezio, Chalon Primary Care Unavailable Ezio, Chalon Attending Unavailable Ezio KHANNA, Michela Primary Care Physician Michela Holguin MD Referring Provider [phone] Ramirez ROLLER MACHINE OPERATOR-C, Tonia Attending Physician Ramirez ROLLER MACHINE OPERATOR-C, Tonia Referring Provider Medications Current Medications Medication Drug Class(es) Dates Sig (Normalized) Sig (Original) ascorbic acid 113 mg / beta carotene 7160 mg / cuprous oxide 0.4 mg / dl-alpha tocopheryl acetate 100 unt / zinc oxide 17.4 mg oral tablet (3 sources) Vitamin C Start: 08-22-2024 Vitamins A,C,Q-Wnec-Kgnjqt (Preservision Areds) 2,148 mcg-113 mg-45 mg-17.4mg tablet Active 2 {tbl} PO TWICE A DAY August 22, 2024 1:00am administer with AM and PM meals Complies with drug therapy aspirin 81 mg chewable tablet (3 sources) Platelet Aggregation Inhibitor, Nonsteroidal Anti-inflammatory Drug Start: 06-13-2024 take 1 tablet by mouth at breakfast Aspirin 81 mg Tablet,Chewable Active 81 mg PO WITH BREAKFAST 30 June 13, 2024 12:00am Complies with drug therapy Calcium Carb-Vitamin D3-Vit K2 600 mg-1,000 unit-90 mcg tablet (3 sources) Start: 08-22-2024 Calcium Carb-Vitamin D3-Vit K2 600 mg-1,000 unit-90 mcg tablet Active {tbl} PO August 22, 2024 1:00am Complies with drug therapy Start: 08-22-2024 Calcium Carb-V itamin D3-Vit K2 600 mg-1,000 unit-90 mcg tablet Active {tbl} PO August 22, 2024 1:00am ferrous sulfate 325 mg oral tablet (3 sources) Start: 05-23-2024 take 1 tablet by mouth once daily Ferrous Sulfate 325 mg (65 mg iron) tablet Active 325 mg PO daily May 23, 2024 12:00am supplement Complies with drug therapy folic acid 1 mg oral tablet (15 sources) Start: 12-21-2016 End: 11-01-2023 take 1 tablet by mouth once daily Folic Acid 1 MG tablet Active 1 mg PO DAILY@08December 21, 2016 12:00am supplement Complies with drug therapy hydroxychloroquine sulfate 200 mg oral tablet (6 sources) Antirheumatic Agent Start: 08-28-2017 take 1 tablet by mouth once daily hydroxychloroquine (PLAQUENIL) 200 mg tablet Take 1 (one) tablet (200 mg total) by mouth daily . 0 08/28/2017 Active 3 ml insulin glargine 100 unt/ml pen injector (3 sources) Insulin Analog Start: 03-26-2024 Insulin Glargine (Lantus Solostar U-100 Insulin) 100 unit/mL (3 mL) insulin pen Active 6 U SC DAILY March 26, 2024 12:00am diabetes qam Complies with drug therapy 3 ml insulin lispro 100 unt/ml pen injector (12 sources) Insulin Analog Start: 02-20-2025 Insulin Lispro (Humalog Kwikpen Insulin) 100 unit/mL insulin pen Active 7 U SC THREE TIMES A DAY 15 February 20, 2025 11:48am diabetes Complies with drug therapy Start: 06-13-2024 End: 02-20-2025 Insulin Lispro (Humalog Kwik pen Insulin) 100 unit/mL insulin pen Discontinued 0 .ROUTE .COMPLEX 15 December 11, 2024 10:50am February 20, 2025 11:50am diabetes 6 units daily before breakfast 4 units daily before lunch and dinner; Start: 03-26-2024 End: 06-13-2024 Insulin Lispro (Humalog Kwik pen Insulin) 100 unit/mL insulin pen Discontinued 10 U SC THREE TIMES A DAY 9 March 26, 2024 12:00am June 13, 2024 12:09am Type 2 diabetes mellitus Type 2 diabetes mellitus without complications losartan potassium 100 mg oral tablet (6 sources) Angiotensin 2 Receptor Lelo Start: 11-21-2024 take 1 tablet by mouth once daily Losartan 100 mg tablet Active 100 mg PO daily 90 November 21, 2024 12:00am Blood cholesterol decreased Other specified abnormal findings of blood chemistry Complies with drug therapy Start: 06-13-2024 End: 11-21-2024 take 1 tablet by mouth once daily Losartan 50 mg tablet Discontinued 50 mg PO DAILY June 13, 2024 12:00am November 21, 2024 11:33am blood pressure mecobalamin 1 mg chewable tablet (3 sources) Start: 08-22-2024 take 1 tablet by mouth once daily Mecobalamin (Vitamin B12) 1,000 mcg tablet,chewable Active 1000 ug PO daily August 22, 2024 1:00am Complies with drug therapy 24 hr metFORMIN hydrochloride 500 mg extended release oral tablet (20 sources) Biguanide Start: 02-04-2025 Metformin (Glu cophage Xr) 500 mg tablet extended release 24 hr Active 1000 mg PO TWICE A DAY 360 February 04, 2025 12:00am Type 2 diabetes mellitus Type 2 diabetes mellitus with hyperglycemia detention (current) use of insulin Complies with drug therapy Start: 05-23-2024 End: 02-04-2025 take 1 tablet by mouth twice daily Metformin 500 mg tablet,ER [email or web address] 24 hr Discontinued 1000 mg PO TWICE A DAY May 23, 2024 10:40am February 04, 2025 9:51am diabetes Start: 07-17-2017 take 1 tablet by rosalva th twice daily metFORMIN (GLUCOPHAGE-XR) 500 MG 24 hr tablet Take 1 (one) tablet (500 mg total) by mouth 2 (two) times a day . 0 07/17/2017 Active Start: 12-21-2016 End: 05-23-2024 take 1 tablet by mouth twice daily Metformin 500 MG tablet,ER diane.retention 24 hr Discontinued 500 mg PO TWICE A DAY December 21, 2016 12:00am May 23, 2024 10:42am methotrexate 2.5 mg oral tablet (19 sources) Folate Analog Metabolic Inhibitor Start: 11-01-2022 take 3 tablets by mouth every week methotrexate (TREXALL) 2.5 MG tablet Indications: H/O methotrexate therapy , Seronegative rheumatoid arthritis (HCC) Take 3 (three) tablets (7.5 mg total) by mouth once a week . 36 tablet 0 11/01/2022 Active Start: 09-28-2017 End: 12-12-2017 methotrexate 2.5 MG tablet Indications: Seronegative rheumatoid arthritis (HCC) Take 6 pills every Tuesday.. 72 tablet 1 12/12/2017 Active Start: 07-01-2017 End: 09-28-2017 methotrexate 2.5 MG tablet T marcelle 15 mg by mouth every 7 days. 07/01/2017 09/28/2017 Discontinued Start: 12-21-2016 take 2 tablets by mo uth every week Methotrexate Sodium 2.5 MG tablet Active 5 mg PO EVERY WEEK December 21, 2016 12:00am Complies with drug therapy Start: 12-21-2016 take 2.5 mg by mouth every we k Methotrexate Sodium Active 2.5 MG PO EVERY WEEK December 21, 2016 12:00am rosuvastatin calcium 5 mg oral tablet (6 sources) HMG-CoA Reductase Inhibitor Start: 11-21-2024 take 1 tablet by mouth two times weekly Rosuvastatin 5 mg tablet Active 5 mg PO TWICE A WEEK November 21, 2024 10:52am cholesterol Complies with drug therapy Start: 05-23-2024 End: 11-21-2024 take 1 tablet by mouth once daily Rosuvastatin 5 mg tablet Discontinued 5 mg PO daily May 23, 2024 12:00am November 21, 2024 10:52am cholesterol vitamin b12 1 mg oral tablet (6 sources) Vitamin B12 take 1 tablet by mouth once daily cyanocobalamin (B-12) 1000 MCG tablet Take 1 (one) tablet (1,000 mcg total) by mouth daily . 0 Active Completed/Discontinued Medications Medication Drug Class(es) Dates Sig (Normalized) Sig (Original) cholecalciferol 0.025 mg oral capsule (15 sources) Vitamin D Start: 12-21-2016 End: 08-22-2024 take 1 capsule by mouth once daily Cholecalciferol (Vitamin D3) (Vitamin D3) 1,000 UNIT capsule Discontinued 1000 U PO DAILY December 21, 2016 12:00am August 22, 2024 11:47am vitamin take 1 tablet by mouth once ronnell y cholecalciferol, vitamin D3, 1,000 unit tablet Take 1 (one) tablet (1,000 Units total) by mouth daily . 0 Active clopidogrel 75 mg oral tablet (3 sources) P2Y12 Platelet Inhibitor Start: 06-14-2024 End: 08-22-2024 take 1 tablet by mouth once daily Clopidogrel 75 mg Tablet Discontinued 75 mg PO DAILY 21 June 14, 2024 12:00am August 22, 2024 11:45am 0.5 ml dulaglutide 1.5 mg/ml auto-injector (3 sources) GLP-1 Receptor Agonist Start: 03-26-2024 End: 05-23-2024 Dulaglutide (Trulicity) 0.75 mg/0.5 mL pen injector Discontinued 0.75 mg SC EVERY WEEK March 26, 2024 12:00am May 23, 2024 10:39am hydroCHLOROthiazide 12.5 mg / losartan potassium 50 mg oral tablet (15 sources) Thiazide Diuretic, Angiotensin 2 Receptor Lelo Start: 12-21-2016 End: 06-13-2024 Losartan-Hydrochl orothiazide 1 EACH tablet Discontinued 1 NMA PO DAILY December 21, 2016 12:00am June 13, 2024 12:06am Start: 12-21-2016 Losartan-[place] chlorothiazide Active 1 EACH PO DAILY December 21, 2016 12:00am lansoprazole 30 mg delayed release oral capsule (9 sources) Proton Pump Inhibitor Start: 12-21-2016 End: 05-23-2024 take 1 capsule by mouth once daily Lansoprazole (Prevacid) 30 MG capsule Discontinued 30 mg PO DAILY 30 December 21, 2016 12:00am May 23, 2024 10:41am predniSONE 5 mg oral tablet (9 sources) Start: 12-21-2016 End: 07-08-2023 take 1 tablet by mouth once daily Prednisone 5 MG tablet Discontinued 5 mg PO DAILY December 21, 2016 12:00am July 08, 2023 3:16pm sulfaSALAzine 500 mg oral tablet (4 sources) Aminosalicylate Start: 09-28-2017 End: 12-12-2017 sulfaSALAzine (AZULFIDINE) 500 mg tablet Indications: Seronegative rheumatoid arthritis (HCC) Take 1 pill a day for 1 week; then take 1 pill twice a day for 1 week; then take 1 pill 3 times a day for 1 week.. 42 tablet 0 09/28/2017 12/12/2017 Discontinued Start: 09-28-2017 End: 12-12-2017 sulfaSALAzine (AZULFIDINE) 5 00 mg tablet Indications: Seronegative rheumatoid arthritis (HCC) Take 2 pills twice a day after food.. 360 tablet 1 09/28/2017 12/12/2017 Discontinued Problems Active Problems Problem Classification Problem Date Documented Da te Episodic/Chronic Blindness and vision defects (1 source) Unspecified visual loss; Translations: [Unspecified visual loss] Onset: 07-04-2024 Chronic Deficiency and other anemia (4 sources) Anemia; Translations: [Anemia, unspecified] 03-30-2023 Episodic Diabetes mellitus with complications (6 sources) Hyperglycemia due to type 2 diabetes mellitus; Translations: [Type 2 diabetes mellitus with hyperglycemia] Onset: 05-29-2025 07-10-2023 Chronic Diabetes mellitus without complication (8 sources) Type 2 diabetes mellitus; Translations: [Type 2 diabetes mellitus without complications] 03-26-2024 Chronic Essential hypertension (8 sources) Hypertensive disorder; Translations: [Essential (primary) hypertension] 03-26-2024 Chronic Nutritional deficiencies (3 sources) 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; Translations: [Vitamin D deficiency, unspecified] Onset: 11-01-2022 Chronic Osteoarthritis (2 sources) Polyosteoarthritis, unspecified; Translations: [Polyosteoarthritis, unspecified] Onset: 11-01-2022 Chronic Osteoporosis (5 sources) Age-related osteoporosis without current pathological fracture; Translations: [Osteoporosis] Onset: 11-01-2022 Chronic Other aftercare (1 source) 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; Translations: [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] 03-30-2023 Episodic Other aftercare (1 source) Drug therapy finding; Translations: [Other prison (current) drug therapy] 03-30-2023 Episodic Other aftercare (2 sources) Other prison (current) drug therapy; Translations: [Other prison (current) drug therapy] Onset: 03-30-2023 Episodic Other aftercare (1 source) detention (current) use of insulin; Translations: [buttermilk drier operator (current) use of insulin] Onset: 05-29-2025 Episodic Other bone disease and musculoskeletal deformities (4 sources) Osteopenia; Translations: [Other specified disorders of bone density and structure, unspecified site] 02-20-2025 Episodic Other connective tissue disease (1 source) Polymyalgia rheumatica; Translations: [Polymyalgia rheumatica] 03-30-2023 Chronic Other connective tissue disease (4 sources) Polymyalgia rheumatica; Translations: [Polymyalgia rheumatica] Onset: 03-30-2023 Chronic Other nervous system disorders (1 source) Abnormal gait; Translations: [Unsteadiness on feet] 03-30-2023 Episodic Other nervous system disorders (2 sources) Unsteadiness on feet; Translations: [Unsteadiness on feet] Onset: 03-30-2023 Episodic Other screening for suspected conditions (not mental disorders or infectious disease) (12 sources) Other specified abnormal findings of blood chemistry; Translations: [Cholesterol level - finding] Onset: 11-01-2022 Episodic Other skin disorders (1 source) Callosity; Translations: [Corns and callosities] Episodic Other upper respiratory infections (5 sources) Viral upper respiratory tract infection; Translations: [Acute upper respiratory infection, unspecified] 07-10-2023 Episodic Rheumatoid arthritis and related disease (10 sources) Rheumatoid arthritis of multiple joints; Translations: [Rheumatoid arthritis with rheumatoid factor of multiple sites without organ or systems involvement] Onset: 11-01-2022 03-30-2023 Chronic Transient cerebral ischemia (4 sources) Transient cerebral ischemia; Translations: [Transient cerebral ischemic attack, unspecified] Onset: 06-14-2024 06-12-2024 Chronic Unclassified (1 source) detention (current) use of antimetabolite agent; Translations: [buttermilk drier operator (current) use of antimetabolite agent] Onset: 03-30-2023 Past or Other Problems Problem Classification Problem Date Documented Date Episodic/Chronic Blindness and vision defects (4 sources) Left homonymous hemianopsia; Translations: [Homonymous bilateral field defects, left side] Onset: 06-14-2024 06-22-2024 Episodic Deficiency and other anemia (5 sources) Anemia, unspecified; Translations: [Anemia, unspecified] Onset: 03-30-2023 Episodic Deficiency and other anemia (2 sources) Other [...] examination without abnormal findings] Onset: 09-13-2017 Episodic Residual codes; unclassified (2 sources) Personal history of antineoplastic chemotherapy; Translations: [Personal history of antineoplastic chemotherapy] Onset: 11-01-2022 Episodic Unclassified (1 source) detention (current) use of antimetabolite agent; Translations: [buttermilk drier operator (current) use of antimetabolite agent] Onset: 03-30-2023 Results Test Name Value Interpretation Reference Range Facility Endocrinology Visit Reporton 05-29-2025 Endocrinology Visit Report [facility] [address] [place] [address] OFFICE VISIT Date of Service: 05/29/25 MR#: [id number] Acct: [id number] Name: MARYCRUZ MENDEZ Rep #: [id number] : 1935 Provider: SONIA cheng Age/Sex: 89/F Location: [facility] [place] Status: Signed Intake Vital Signs 02/20/25 10:42 05/29/25 11:16 Height 5 ft 2 in 5 ft 2 in Weight: 125 lb 131 lb BMI 22.8 23.9 BP 123/74 H 143/69 H Blood Pressure Location Lt brachial Lt brachial Position Sitting Sitting Pulse 69 67 Pulse Source Monitor Monitor Pulse Oximetry (%) 68 98 Oxygen Delivery Method room air room air Intake Visit Reasons: 3 M FU Chief Complaint: f/u diabetes Newspaper Vendor Required: No Accompanied by: Self Is patient in pain?: No Allergies No Known Allergies Allergy (Verified 05/29/25 11:16) Medications ???Medication ???Instructions ???Recorded ???Confirmed ???Type folic acid 1 mg tablet 1 mg PO DAILY@0800 supplement 05/0105/29/25 History methotrexate sodium 2.5 mg tablet 5 mg PO QWEEK 12/21/16 05/29/25 H istory insulin glargine 100 unit/mL (3 6 unit subcut DAILY diabetes 03/2605/29/25 History mL) subcutaneous pen (Lantus Solostar U-100 Insulin) ferrous sulfate 325 mg (65 mg 325 mg PO QDAY supplement 05/23/24 05/29/25 History iron) tablet aspirin 81 mg chewable tablet 81 mg PO BREAKFAST #30 tabs 05/29/25 Rx calcium 600 mg (as carbonate)-vit tab PO 08/22/24 05/29/25 History D3 1,000 unit-vitamin K2 90 mcg tab mecobalamin (vitamin B12) 1,000 1,000 mcg PO QDAY 08/22/24 5 History mcg chewable tablet vitamins A,C,N-kzea-tkucoc 2,148 2 tab PO BID 08/22/24 05/29/25 His tory mcg-113 mg-45 mg-17.4 mg tablet (PreserVision AREDS) losartan 100 mg tablet 100 mg PO QDAY #90 tabs 11/21/24 1 Rx rosuvastatin 5 mg tablet 5 mg PO 2XW cholesterol 11/21/24 1 History pen needle, diabetic 32 gauge x #360 ea 01/30/25 05/29/25 Rx / metformin 500 mg tablet,extended 1,000 mg (2 x 500 mg) PO BID #360 02/04/25 05/29/25 Rx release 24 hr (Glucophage XR) tabs insulin lispro 100 unit/mL 7 unit (0.07 mL) subcut TID 05/29/25 Rx subcutaneous pen (Humalog KwikPen diabetes #15 mL (U-100) Insulin) Have you fallen in the past year?: No PFSH Medical History Solar lentigo GERD (gastroesophageal reflux disease) Type 2 diabetes mellitus HTN (hypertension) Rheumatoid arthritis Family History Mother Diabetes Social History Smoking Status: Never smoker Electronic Cigarette Use: not used second hand exposure: No alcohol intake: never substance use type: does not use HPI HPI Chief Complaint: f/u diabetes Details: MARYCRUZ MENDEZ, is a 89 F who presents to the office today for evaluation and management of diabetes. A1C today is 7.2%, increased from 02/20/25 at 6.8%. She has gained 6 lbs since that time. Currently taking Lantus 5 u once daily, Humalog 3-5-5, and metformin 1 gm BID with food. She is having recurrent loose stools after breakfast dose of metformin. Dexcom downloaded and reviewed- unfortunately her CGM advertising sales consultant is downloading bizarre tracings with two blood sugars listed at all times that with signification variation in readings. CGM reading at time of appointment is 92, finger stick bgl is 88. Per her reports, blood sugar will drop within an hour of lunchtime, she will correct and blood sugar will increase throughout the day until supper time. She routinely goes to bed with elevated blood sugar and notes improvement upon rising in the morning. She denies any significant episodes of hypoglycemia that have required assistance from others. BP controlled. Currently taking losartan 100 mg once daily. Reports she has been taking her BP at home a couple times/week with typical reading 120-140/60-80s. Bone density completed in February showed T score of -2.7 to her left hip. Discussed Prolia injections; however, she wanted to discuss with PCP prior to pursuing. She states that she forgot at her most recent appointment. She is taking a daily vitamin D supplement. Denies any recent fractures or falls. She has tightly controlled cholesterol and is currently taking rosuvastatin 5 mg 2x/week. Labs are up to date. Denies any acute concerns. ROS Const Constitutional: No fatigue, weakness, weight change or change in appetite Eyes Eyes: No change in vision ENT ENT: No hearing loss, nasal congestion or difficulty swallowing Cardio Cardiology: No chest pain at rest, chest pain with exertion or shortness of breath Musc Muscul (more content not included)... Normal [facility] - Hematology and Cell countsOrdered By: Tonia Guzmán on 05-29-2025 HbA1c (Bld) [Mass fraction] 7.2 % High 4.2-6.3 [facility] Anion gap in Serum or Plasma Ordered By: Tonia Guzmán on 02-28-2025 Anion gap [Moles/Vol] 12 mmol/L 12-27 [facility] BUN/creatinine ratioOrdered By: Tonia Guzmán on 02-28-2025 Urea nitrogen/Creatinine [Mass ratio] 31.0 mg/mg High 06-03 [facility] Bilirubin, totalOrdered By: Tonia Guzmán on 02-28-2025 Bilirubin [Mass/Vol] 0.26 mg/dL 0.00-1.30 [facility] Bone density reportOrdered B y: Dylan Gabriel on 02-28-2025 Study report Skeletal system [facility] [address] [place] [address] Dexa Bone Density Study MR#: [id number] Acct: [id number] Name: MARYCRUZ MENDEZ Rep #: [id number] : 1935 F 89 From: Jacob Gabriel MD PCP: Dr. Michela Holguin MD Status: REG CL I Study:Dexa Bone Density Study Date of Exam: 02/28/25 Exam# [id number] Ordering Dr: Tonia Guzmán ROLLER MACHINE OPERATOR-C PROCEDURE: DEXA BONE DENSITY STUDY 02/28/2025 REASON FOR EXAM: SCREENING F, age 89 y/o . Postmenopausal. TECHNIQUE: DEXA BONE DENSITY STUDY COMPARISON: Prior study dated November 17, 2022. FINDINGS: BMD and T-SCORES Lumbar spine: 0.858 g/cm2, T-score -1.7 Levels: L1 through L4 Change from prior: Loss of 4.6%. Left femoral neck: 0.662 g/cm2, T-score -1.7 Femoral neck comparison data not recommended for monitoring change. Left total hip: 0.617 g/cm2, T-score -2.7 Change from prior: Loss of 11.7%. Right femoral neck: 0.636 g/cm2, T-score -1.9 Femoral neck comparison data not recommended for monitoring change. Right total hip: 0.662 g/cm2, T-score -2.3 Change from prior: Loss of 14.2%. The World Health Organization has defined the following categories based on bonedensity: Normal bone density: T-score equal to or greater than -1.0 Osteopenia: T-score between -1.0 and -2.5 Osteoporosis: T-score equal to or less than -2.5 The patient does meet the pharmacological treatment recommendations for prevention of osteoporosis. BD/Dexa Bone Density Study IMPRESSION: OSTEOPOROSIS. Recommend follow-up as clinically warranted. Reading Location: [facility] CC: SONIA Guzmán; Dr. Michela Holguin MD ~ Tempering Oven Operator: Signed [facility] Calculated very low density lipoprotein (VLDL) cholesterol measurementOrdered By: Tonia Guzmán on 02-28-2025 Calculated very low density lipoprotein (VLDL) cholesterol measurement 6 mg/dL 5-40 [facility] Carbon dioxide, total [Moles /volume] in Central venous bloodOrdered By: Tonia Guzmán on 02-28-2025 CO2 [Moles/Vol] 25.2 mmol/L 21.0-32.0 [facility] Chloride assayOrdered By: Me aileen Guzmán on 02-28-2025 Chloride [Moles/Vol] 103 mmol/L 98-108 [facility] Comprehensive Metabolic Prof ilon 02-28-2025 Albumin [Mass/Vol] 4.1 g/dL Normal 3.4-4.8 [facility] Comment on above: Performed By: #### L 500.4050, L502.0250, L506.1001, L501.9520, L500.4100 ####[facility] [address] [place], [address] Albumin/Globulin [Mass ratio] 2.0 {ratio} Normal 0.9-2.4 [facility] Comment on above: Performed By: #### L 500.4050, L502.0250, L506.1001, L501.9520, L500.4100 ####[facility] [address] [place], [address] ALK PHOS 88 U/L Normal 35-104 [facility] Comment on above: Performed By: #### L 500.4050, L502.0250, L506.1001, L501.9520, L500.4100 ####[facility] [address] [place], [address] ALT [Catalytic activity/Vol] 25 U/L Normal <=34 [facility] Comment on above: Performed By: #### L 500.4050, L502.0250, L506.1001, L501.9520, L500.4100 ####[facility] [address] [place], [address] AST [Catalytic activity/Vol] 24 U/L Normal <=31 [facility] Comment on above: Performed By: #### L 500.4050, L502.0250, L506.1001, L501.9520, L500.4100 ####[facility] [address] [place], [address] Bilirubin [Mass/Vol] 0.26 mg/dL Normal 0.00-1.30 [facility] Comment on above: Performed By: #### L 500.4050, L502.0250, L506.1001, L501.9520, L500.4100 ####[facility] [address] [place], [address] BUN/CRE 31.0 RATIO High 10-20 [facility] Comment on above: Performed By: #### L 500.4050, L502.0250, L506.1001, L501.9520, L500.4100 ####[facility] [address] [place], [address] Calcium [Mass/Vol] 9.1 mg/dL Normal 7.6-11.0 [facility] Comment on above: Performed By: #### L 500.4050, L502.0250, L506.1001, L501.9520, L500.4100 ####[facility] [address] [place], [address] Chloride [Moles/Vol] 103 mmol/L Normal 98-108 [facility] Comment on above: Performed By: #### L 500.4050, L502.0250, L506.1001, L501.9520, L500.4100 ####[facility] [address] [place], [address] CO2 [Moles/Vol] 25.2 mmol/L Normal 21.0-32.0 [facility] Comment on above: Performed By: #### L 500.4050, L502.0250, L506.1001, L501.9520, L500.4100 ####[facility] [address] [place], [address] Creatinine [Mass/Vol] 0.74 mg/dL Normal 0.70-1.20 [facility] Comment on above: Performed By: #### L 500.4050, L502.0250, L506.1001, L501.9520, L500.4100 ####[facility] [address] [place], [address] GAP 12 Normal 5-15 [facility] Comment on above: Performed By: #### L 500.4050, L502.0250, L506.1001, L501.9520, L500.4100 ####[facility] [address] [place], [address] GFR/1.73 sq M.predicted among non-blacks MDRD (S/P/Bld) [Vol rate/Area] 78 mL/min/{1.73_m2} Normal >60 [facility] Comment on above: Result Comment: mL/m in/1.73m2 CKD-EPI Creatinine Equation (2020) Performed By: #### L 500.4050, L502.0250, L506.1001, L501.9520, L500.4100 ####[facility] [address] [place], [address] Globulin (S) [Mass/Vol] 2.1 g/dL Low 2.2-4.2 [facility] Comment on above: Performed By: #### L 500.4050, L502.0250, L506.1001, L501.9520, L500.4100 ####[facility] [address] [place], [address] Glucose [Mass/Vol] 161 mg/dL High 70-99 [facility] Comment on above: Performed By: #### L 500.4050, L502.0250, L506.1001, L501.9520, L500.4100 ####[facility] [address] [place], [address] Potassium [Moles/Vol] 4.5 mmol/L Normal 3.3-5.1 [facility] Comment on above: Performed By: #### L 500.4050, L502.0250, L506.1001, L501.9520, L500.4100 ####[facility] [address] [place], [address] Sodium [Moles/Vol] 140 mmol/L Normal 133-145 [facility] Comment on above: Performed By: #### L 500.4050, L502.0250, L506.1001, L501.9520, L500.4100 ####[facility] [address] [place], [address] T PROT 6.2 g/dL Normal 5.9-8.4 [facility] Comment on above: Performed By: #### L 500.4050, L502.0250, L506.1001, L501.9520, L500.4100 ####[facility] [address] [place], [address] Urea nitrogen [Mass/Vol] 23 mg/dL High 4-19 [facility] Comment on above: Performed By: #### L 500.4050, L502.0250, L506.1001, L501.9520, L500.4100 ####[facility] [address] [place], [address] Dexa Bone Density Studyon Dexa Bone Density Study [facility] [address] [place] [address] Dexa Bone Density Study MR#: [id number] Acct: [id number] Name: MARYCRUZ MENDEZ Rep #: [id number] : 1935 F 89 From: Dylan ding MD PCP: Dr. Michela Holguin MD Status: REG CLI Study: Dexa Bone Density Study Date of Exam: 02/28/25 Exam# [id number] Ordering Dr: Tonia Guzmán PROCEDURE: DEXA BONE DENSITY STUDY 02/28/2025 REASON FOR EXAM: SCREENING F, age 89 y/o . Postmenopausal. TECHNIQUE: DEXA BONE DENSITY STUDY COMPARISON: Prior study dated November 17, 2022. FINDINGS: BMD and T-SCORES Lumbar spine: 0.858 g/cm2, T-score -1.7 Levels: L1 through L4 Change from prior: Loss of 4.6%. Left femoral neck: 0.662 g/cm2, T-score -1.7 Femoral neck comparison data not recommended for monitoring change. Left total hip: 0.617 g/cm2, T-score -2.7 Change from prior: Loss of 11.7%. Right femoral neck: 0.636 g/cm2, T-score -1.9 Femoral neck comparison data not recommended for monitoring change. Right total hip: 0.662 g/cm2, T-score -2.3 Change from prior: Loss of 14.2%. The World Health Organization has defined the following categories based on bone density: Normal bone density: T-score equal to or greater than -1.0 Osteopenia: T-score between -1.0 and -2.5 Osteoporosis: T-score equal to or less than -2.5 The patient does meet the pharmacological treatment recommendations for prevention of osteoporosis. BD/Dexa Bone Density Study IMPRESSION: OSTEOPOROSIS. Recommend follow-up as clinically warranted. Reading Location: [place] [address] CC: SONIA Guzmán; Dr. Michela Holguin MD Tempering Oven Operator: Signed Normal [facility] Glomerular filtration rate ( GFR) estimation/1.73 sq m using serum, plasma, or whole bOrdered By: Tonia Guzmán on 02-28-2025 GFR/1.73 sq M.predicted among non-blacks MDRD (S/P/Bld) [Vol rate/Area] 78 mL/min/{1.73_m2} >60 [facility] Comment on above: mL/min/1.73m2 CKD-EP I Creatinine Equation (2020) LDL calc ser/plasOrdered By: Tonia Guzmán on 02-28-2025 Cholesterol in LDL [Mass/Vol] 16 mg/dL [facility] Comment on above: Lpqqbkgyix=624-159 m g/dL & Higher Cjuu=967 mg/dL or greater Laboratory - Chemistry and C hemistry - challengeOrdered By: Tonia Guzmán on 02-28-2025 AST [Catalytic activity/Vol] 24 U/L <32 [facility] Lipid Profileon 02-28-2025 CHOL:HDL 1.25 Normal [facility] Comment on above: Performed By: #### L 500.4050, L502.0250, L506.1001, L501.9520, L500.4100 ####[facility] [address] [place], [address] Cholesterol [Mass/Vol] 112 mg/dL Normal <=200 [facility] Comment on above: Result Comment: Chol esterol level, Desirable <200 mg/dL Borderline high cholesterol 200-239 mg/dL High cholesterol >=240 mg/dL Recommendations of the NCEP Adult Treatment Panel for the following risk-cutoff thresholds for the [place] population. Performed By: #### L 500.4050, L502.0250, L506.1001, L501.9520, L500.4100 ####[facility] [address] [place], [address] Cholesterol in HDL [Mass/Vol] 90 mg/dL Normal [facility] Comment on above: Result Comment: Lien onal Cholesterol Education Program (NCEP) guidelines: <40 mg/dL: Low HDL-cholesterol (major risk factor for CHD) >= 60 mg/dL: High HDL-cholesterol (negative risk factor for CHD) HDL-cholesterol is affected by a number of factors, e.g. smoking, exercise, hormones, sex and age. Performed By: #### L 500.4050, L502.0250, L506.1001, L501.9520, L500.4100 ####[facility] [address] [place], [address] Cholesterol in LDL [Mass/Vol] 16 mg/dL Normal [facility] Comment on above: Result Comment: Bord jschtn=659-987 mg/dL Higher Jcpu=666 mg/dL or greater Performed By: #### L 500.4050, L502.0250, L506.1001, L501.9520, L500.4100 ####[facility] [address] [place], [address] Cholesterol in VLDL [Mass/Vol] 6 mg/dL Normal 5-40 [facility] Comment on above: Performed By: #### L 500.4050, L502.0250, L506.1001, L501.9520, L500.4100 ####[facility] [address] [place], [address] Triglyceride [Mass/Vol] 31 mg/dL Normal [facility] Comment on above: Result Comment: The drugs N-Acetylcysteine and Metamizole may falsely depress this assay. Normal range: <150 mg/dL Borderline High: 150-199 mg/dL High: 200-499 mg/dL Very High: >500 mg/dL Performed By: #### L 500.4050, L502.0250, L506.1001, L501.9520, L500.4100 ####[facility] [address] [place], [address] Microalb:Creat Ratio,Random URon 02-28-2025 Creatinine [Mass/Vol] 73.50 mg/dL Normal 28.00-217.00 [facility] Comment on above: Performed By: #### L 500.4050, L502.0250, L506.1001, L501.9520, L500.4100 ####[facility] [address] [place], [address] MALB:CREAT UNABLE TO CALCULATE Normal <30 mg/g CRE [facility] Comment on above: Performed By: #### L 500.4050, L502.0250, L506.1001, L501.9520, L500.4100 ####[facility] [address] [place], [address] MICROALBUMIN,UR < 12.0 Normal <20 mg/L [facility] Comment on above: Performed By: #### L 500.4050, L502.0250, L506.1001, L501.9520, L500.4100 ####[facility] [address] [place], [address] Microalbumin/creat ratio urO rdered By: Tonia Guzmán on 02-28-2025 Urine microalbumin/creatinin e ratio measurement UNABLE TO CALCULATE mg/g CRE <30 [facility] Potassium measurement (mass/ volume)Ordered By: Tonia Guzmán on 02-28-2025 Potassium (Unsp spec) [Mass/Vol] 4.5 mmol/L 3.3-5.1 [facility] Random urine creatinine geovany urement (mass/volume)Ordered By: Tonia Guzmán on 02-28-2025 Creatinine Unsp time (U) [Mass/Vol] 73.50 mg/dL 28.00-217.00 [facility] Screening total cholesterol/ high density lipoprotein (HDL) cholesterol ratioOrdered By: Tonia Guzmán on 02-28-2025 Cholesterol.total/Chol esterol in HDL [Mass ratio] 1.25 {ratio} [facility] Serum creatinine measurement (mass/volume)Ordered By: Tonia Guzmán on 02-28-2025 Creatinine [Mass/Vol] 0.74 mg/dL 0.70-1.20 [facility] Serum globulin measurementOr dered By: Tonia Guzmán on 02-28-2025 Globulin (S) [Mass/Vol] 2.1 g/dL Low 2.2-4.2 [facility] Serum glucose measurement (m ass/volume)Ordered By: Tonia Guzmán on 02-28-2025 Glucose [Mass/Vol] 161 mg/dL High 70-99 [facility] Serum or plasma alanine lin otransferase (ALT) measurementOrdered By: Tonia Guzmán on 02-28-2025 ALT [Catalytic activity/Vol] 25 U/L <35 [facility] Serum or plasma albumin geovany urement (mass/volume)Ordered By: Tonia Guzmán on 02-28-2025 Albumin [Mass/Vol] 4.1 g/dL 3.4-4.8 [facility] Serum or plasma albumin/glob ulin mass ratioOrdered By: Tonia Guzmán on 02-28-2025 Albumin/Globulin [Mass ratio] 2.0 {ratio} 0.9-2.4 [facility] Serum or plasma alkaline mundo sphatase measurementOrdered By: Tonia Guzmán on 02-28-2025 ALP [Catalytic activity/Vol] 88 U/L 35-104 [facility] Serum or plasma calcium geovany urement (mass/volume)Ordered By: Tonia Guzmán on 02-28-2025 Calcium [Mass/Vol] 9.1 mg/dL 7.6-11.0 [facility] Serum or plasma cholesterol in HDL measurement (mass/volume)Ordered By: Tonia Guzmán on 02-28-2025 Cholesterol in HDL [Mass/Vol] 90 mg/dL >40 [facility] Comment on above: National Cholesterol Education Program (NCEP) guidelines:<40 mg/dL: Low HDL-cholesterol (major risk factor for CHD)>= 60 mg/dL: High HDL-cholesterol (negative risk factor for CHD)HDL-cholesterol is affected by a number of factors, e.g. smoking, exercise, hormones, sex and age. Serum or plasma cholesterol measurement (mass/volume)Ordered By: Tonia Guzmán on 02-28-2025 Cholesterol [Mass/Vol] 112 mg/dL <201 [facility] Comment on above: Cholesterol level, D esirable <200 mg/dLBorderline high cholesterol 200-239 mg/dLHigh cholesterol >=240 mg/dLRecommendations of the NCEP Adult Treatment Panel for the following risk-cutoff thresholds for the [place] population. Serum or plasma urea nitroge n measurement (mass/volume)Ordered By: Tonia Guzmán on 02-28-2025 Urea nitrogen [Mass/Vol] 23 mg/dL High 4-19 [facility] Sodium levelOrdered By: Joe Guzmán on 02-28-2025 Sodium [Moles/Vol] 140 mmol/L 133-145 [facility] TSH DL <= 0.005 mIU/L QnOrde red By: Tonia Guzmán on 02-28-2025 TSH Qn 1.800 uIU/mL 0.300-4.200 [facility] Thyroid Stim Hormone (TSH)on 02-28-2025 TSH 1.800 uIU/mL Normal 0.300-4.200 [facility] Comment on above: Performed By: #### L 500.4050, L502.0250, L506.1001, L501.9520, L500.4100 ####[facility] [address] [place], [address] Total proteinOrdered By: Mecca Guzmán on 02-28-2025 Protein [Mass/Vol] 6.2 g/dL 5.9-8.4 [facility] Triglycerides measurementOrd ered By: Tonia Guzmán on 02-28-2025 Triglyceride [Mass/Vol] 31 mg/dL <199 [facility] Comment on above: The drugs N-Acetylcy steine and Metamizole may falsely depress this assay. Normal range: <150 mg/dLBorderline High: 150-199 mg/dLHigh: 200-499 mg/dLVery High: >500 mg/dL Urine albumin measurement [facility] detection limit of 20 mg/L or less (mass/volume)Ordered By: Tonia Guzmán on 02-28-2025 Albumin DL <= 20 mg/L (U) [Mass/Vol] < 12.0 mg/L <20 mg/L [facility] Vitamin D,25 Hydroxyon 02-28 Vitamin D 25-OH 45.4 ng/mL Normal 30-100 [facility] Comment on above: Result Comment: Gavi min D Status Deficiency: <20 ng/mL (50nmol/L) Insufficiency: 20-30 ng/mL (50-75 nmol/L) Sufficiency: 30-100 ng/mL (75-250 nmol/L) Toxicity: >100 ng/mL (>250 nmol/L) Performed By: #### L 500.4050, L502.0250, L506.1001, L501.9520, L500.4100 ####[facility] [address] [place], [address] Endocrinology Visit Reporton 02-20-2025 Endocrinology Visit Report [facility] [address] [place] [address] OFFICE VISIT Date of Service: 02/20/25 MR#: [id number] Acct: [id number] Name: MARYCRUZ MENDEZ Rep #: [id number] : 1935 Provider: SONIA cheng Age/Sex: 89/F Location: [facility] [place] Status: Signed Intake Vital Signs 11/21/24 10:43 02/20/25 10:42 Height 5 ft 2 in 5 ft 2 in Weight: 126 lb 125 lb BMI 23.0 22.8 BP 167/70 H 123/74 H Blood Pressure Location Lt brachial Lt brachial Position Sitting Sitting Pulse 79 69 Pulse Source Monitor Monitor Pulse Oximetry (%) 97 68 Oxygen Delivery Method room air room air Intake Visit Reasons: 3 M FU Chief Complaint: f/u diabetes Newspaper Vendor Required: No Accompanied by: Self Is patient in pain?: No Allergies No Known Allergies Allergy (Verified 02/20/25 10:42) Medications ???Medication ???Instructions ???Recorded ???Confirmed ???Type folic acid 1 mg tablet 1 mg PO DAILY@0800 supplement 05/0 05/0102/20/25 History methotrexate sodium 2.5 mg tablet 5 mg PO QWEEK 12/21/16 02/20/25 H istory insulin glargine 100 unit/mL (3 6 unit subcut DAILY diabetes 03/2602/20/25 History mL) subcutaneous pen (Lantus Solostar U-100 Insulin) ferrous sulfate 325 mg (65 mg 325 mg PO QDAY supplement 05/23/24 02/20/25 History iron) tablet aspirin 81 mg chewable tablet 81 mg PO BREAKFAST #30 tabs 02/20/25 Rx calcium 600 mg (as carbonate)-vit tab PO 08/22/24 02/20/25 History D3 1,000 unit-vitamin K2 90 mcg tab mecobalamin (vitamin B12) 1,000 1,000 mcg PO QDAY 08/22/24 5 History mcg chewable tablet vitamins A,C,G-tuaj-uxhbnc 2,148 2 tab PO BID 08/22/24 02/20/25 His tory mcg-113 mg-45 mg-17.4 mg tablet (PreserVision AREDS) losartan 100 mg tablet 100 mg PO QDAY #90 tabs 11/21/24 0 02/20/25 Rx rosuvastatin 5 mg tablet 5 mg PO 2XW cholesterol 11/21/24 0 02/20/25 History pen needle, diabetic 32 gauge x #360 ea 01/30/25 02/20/25 Rx / metformin 500 mg tablet,extended 1,000 mg (2 x 500 mg) PO BID #360 02/04/25 02/20/25 Rx release 24 hr (Glucophage XR) tabs insulin lispro 100 unit/mL 7 unit (0.07 mL) subcut TID 02/20/25 Rx subcutaneous pen (Humalog KwikPen diabetes #15 mL (U-100) Insulin) Have you fallen in the past year?: No PFSH Medical History Solar lentigo GERD (gastroesophageal reflux disease) Type 2 diabetes mellitus HTN (hypertension) Rheumatoid arthritis Family History Mother Diabetes Social History Smoking Status: Never smoker Electronic Cigarette Use: not used second hand exposure: No alcohol intake: never substance use type: does not use HPI HPI Chief Complaint: f/u diabetes Details: MARYCRUZ MENDEZ, is a 89 F who presents to the office today for evaluation and management of diabetes. A1C today is 6.8%, increased from 11/21/24 at 6.1%. Weight is stable. Currently taking Lantus 6 u once daily and Humalog 3-5-5. Dexcom downloaded and reviewed- she is having recurrent lows. She is having occasional post meal elevations. She is frustrated by prolonged elevations. She denies any significant episode of hypoglycemia that has required assistance from others. BP today is controlled. At her last appointment here, losartan was increased to 100 mg once daily. Currently taking rosuvastatin 5 mg 2x/week. Hx of tightly controlled cholesterol. Bone density in 2022 showed T score of -2.0 to L femur and R femoral neck. She is due for routine labs. Denies any acute concerns. ROS Const Constitutional: No fatigue, weakness or weight change Cardio Cardiology: No chest pain at rest, chest pain with exertion or shortness of breath Musc Musculoskeletal: Positive for joint pain; No numbness Neuro Neurology: No weakness or numbness Skin Skin: No wounds Endo Endocrine: No fatigue or weight change Exam Const General: cooperative, healthy appearing, comfortable and no acute distress Nutritional Appearance: average body habitus Orientation: alert, awake and oriented x3 HENMT Head: normal to inspection Ears: hearing grossly normal bilaterally Nose: external nose normal Face and sinus: normal facial exam Eyes General: appearance normal, both eyes and all related structures Alignment and Position: alignment normal Sclera: sclerae normal Neck Neck: normal visual inspection Chest Chest palpation inspection: normal inspection of the chest Resp Effort Inspection: normal respiratory effort, able to speak in complete sentences, symmetric chest movement, normal respiratory pattern, no audible (more content not included)... Normal [facility] Laboratory - Hematology and Cell countsOrdered By: Tonia Guzmán on 02-20-2025 HbA1c (Bld) [Mass fraction] 6.8 % High 4.2-6.3 [facility] Anion gap in Serum or Plasma Ordered By: Tonia Guzmán on 12-10-2024 Anion gap [Moles/Vol] 10 mmol/L 5- [facility] BUN/creatinine ratioOrdered By: Tonia Guzmán on 12-10-2024 Urea nitrogen/Creatinine [Mass ratio] 34.4 mg/mg High - [facility] Basic Metabolic Profile (BMP )on 12-10-2024 BUN/CRE 34.4 RATIO High 06-03 [facility] Comment on above: Performed By: #### L 502.0250, L500.2500 #### [facility] [address] [place], [address] Calcium [Mass/Vol] 9.6 mg/dL Normal 7.6-11.0 [facility] Comment on above: Performed By: #### L 502.0250, L500.2500 #### [facility] [address] [place], [address] Chloride [Moles/Vol] 103 mmol/L Normal 98-108 [facility] Comment on above: Performed By: #### L 502.0250, L500.2500 #### [facility] [address] [place], [address] CO2 [Moles/Vol] 29.0 mmol/L Normal 21.0-32.0 [facility] Comment on above: Performed By: #### L 502.0250, L500.2500 #### [facility] [address] [place], [address] Creatinine [Mass/Vol] 0.74 mg/dL Normal 0.70-1.20 [facility] Comment on above: Performed By: #### L 502.0250, L500.2500 #### [facility] [address] [place], [address] GAP 10 Normal 5-15 [facility] Comment on above: Performed By: #### L 502.0250, L500.2500 #### [facility] [address] [place], [address] GFR/1.73 sq M.predicted among non-blacks MDRD (S/P/Bld) [Vol rate/Area] 78 mL/min/{1.73_m2} Normal >60 [facility] Comment on above: Result Comment: mL/m in/1.73m2 CKD-EPI Creatinine Equation (2020) Performed By: #### L 502.0250, L500.2500 #### [facility] [address] [place], [address] Glucose [Mass/Vol] 55 mg/dL Low 70-99 [facility] Comment on above: Performed By: #### L 502.0250, L500.2500 #### [facility] [address] [place], [address] Potassium [Moles/Vol] 3.8 mmol/L Normal 3.3-5.1 [facility] Comment on above: Performed By: #### L 502.0250, L500.2500 #### [facility] [address] [place], [address] Sodium [Moles/Vol] 142 mmol/L Normal 133-145 [facility] Comment on above: Performed By: #### L 502.0250, L500.2500 #### [facility] [address] [place], [address] Urea nitrogen [Mass/Vol] 26 mg/dL High 4-19 [facility] Comment on above: Performed By: #### L 502.0250, L500.2500 #### [facility] [address] [place], [address] Carbon dioxide, total [Moles /volume] in Central venous bloodOrdered By: Tonia Guzmán on 12-10-2024 CO2 [Moles/Vol] 29.0 mmol/L 21.0-32.0 [facility] Chloride assayOrdered By: Me aileen uGzmán on 12-10-2024 Chloride [Moles/Vol] 103 mmol/L 98-108 [facility] Glomerular filtration rate ( GFR) estimation/1.73 sq m using serum, plasma, or whole bOrdered By: Tonia Guzmán on 12-10-2024 GFR/1.73 sq M.predicted among non-blacks MDRD (S/P/Bld) [Vol rate/Area] 78 mL/min/{1.73_m2} >60 [facility] Comment on above: mL/min/1.73m2 CKD-EP I Creatinine Equation (2021) Microalb:Creat Ratio,Random URon 12-10-2024 Creatinine [Mass/Vol] 50.20 mg/dL Normal 28.00-217.00 [facility] Comment on above: Performed By: #### L 502.0250, L500.2500 #### [facility] [address] [place], [address] MALB:CREAT UNABLE TO CALCULATE Normal [facility] Comment on above: Performed By: #### L 502.0250, L500.2500 #### [facility] [address] [place], [address] MICROALBUMIN,UR < 12.0 Normal NO RANGE EST. [facility] Comment on above: Performed By: #### L 502.0250, L500.2500 #### [facility] [address] [place], [address] Microalbumin/creat ratio urO rdered By: Tonia Guzmán on 12-10-2024 Urine microalbumin/creatinin e ratio measurement UNABLE TO CALCULATE mg/g CRE [facility] Potassium measurement (mass/ volume)Ordered By: Tonia Guzmán on 12-10-2024 Potassium (Unsp spec) [Mass/Vol] 3.8 mmol/L 3.3-5.1 [facility] Random urine creatinine geovany urement (mass/volume)Ordered By: Tonia Guzmán on 12-10-2024 Creatinine Unsp time (U) [Mass/Vol] 50.20 mg/dL 28.00-217.00 [facility] Serum creatinine measurement (mass/volume)Ordered By: Tonia Guzmán on 12-10-2024 Creatinine [Mass/Vol] 0.74 mg/dL 0.70-1.20 [facility] Serum glucose measurement (m ass/volume)Ordered By: Tonia Guzmán on 12-10-2024 Glucose [Mass/Vol] 55 mg/dL Low 70-99 [facility] Serum or plasma calcium geovany urement (mass/volume)Ordered By: Tonia Guzmán on 12-10-2024 Calcium [Mass/Vol] 9.6 mg/dL 7.6-11.0 [facility] Serum or plasma urea nitroge n measurement (mass/volume)Ordered By: Tonia Guzmán on 12-10-2024 Urea nitrogen [Mass/Vol] 26 mg/dL High 4-19 [facility] Sodium levelOrdered By: Joe Guzmán on 12-10-2024 Sodium [Moles/Vol] 142 mmol/L 133-145 [facility] Urine albumin measurement [facility] detection limit of 20 mg/L or less (mass/volume)Ordered By: Tonia Guzmán on 12-10-2024 Albumin DL <= 20 mg/L (U) [Mass/Vol] < 12.0 mg/L NO RANGE EST. [facility] Endocrinology Visit Reporton 11-21-2024 Endocrinology Visit Report [facility] [address] [place] [address] OFFICE VISIT Date of Service: 11/21/24 MR#: [id number] Acct: [id number] Name: REYMARYCRUZ Blu Rep #: [id number] : 1935 Provider: SONIA cheng Age/Sex: 89/F Location[place] [facility] [place] Status: Signed Intake Vital Signs 08/22/24 10:39 11/21/24 10:43 Height 5 ft 2 in 5 ft 2 in Weight: 123 lb 4 oz 126 lb BMI 22.5 23.0 BP 169/82 H 167/70 H Blood Pressure Location Rt brachial Lt brachial Position Sitting Sitting Pulse 73 79 Pulse Source Monitor Monitor Pulse Oximetry (%) 96 97 Oxygen Delivery Method room air Intake Visit Reasons: 3 M FU Chief Complaint: f/u diabetes Newspaper Vendor Required: No Accompanied by: Self Is patient in pain?: No Allergies No Known Allergies Allergy (Verified 11/21/24 10:49) Medications ???Medication ???Instructions ???Recorded ???Confirmed ???Type folic acid 1 mg tablet 1 mg PO DAILY@0800 supplement 05/0 05/0111/21/24 History methotrexate sodium 2.5 mg tablet 5 mg PO QWEEK 12/21/16 11/21/24 H istory insulin glargine 100 unit/mL (3 6 unit subcut DAILY diabetes 03/2611/21/24 History mL) subcutaneous pen (Lantus Solostar U-100 Insulin) ferrous sulfate 325 mg (65 mg 325 mg PO QDAY supplement 05/23/24 11/21/24 History iron) tablet metformin 500 mg 24 hr 1,000 mg PO BID diabetes 05/23/24 11/21/24 History tablet,extended release (gastric retention) aspirin 81 mg chewable tablet 81 mg PO BREAKFAST #30 tabs 11/21/24 Rx insulin lispro 100 unit/mL See Rx Instructions .Route 4 11/21/24 History subcutaneous pen (Humalog KwikPen .COMPLEX diabetes (U-100) Insulin) calcium 600 mg (as carbonate)-vit tab PO 08/22/24 11/21/24 History D3 1,000 unit-vitamin K2 90 mcg tab mecobalamin (vitamin B12) 1,000 1,000 mcg PO QDAY 08/22/24 5 History mcg chewable tablet vitamins A,C,I-edrq-khtqaz 2,148 2 tab PO BID 08/22/24 11/21/24 His tory mcg-113 mg-45 mg-17.4 mg tablet (PreserVision AREDS) BD Ultra-Fine Danyell Pen Needle 32 #360 ea 11/08/24 11/21/24 Rx gauge x 5/32 (pen needle, diabetic) losartan 100 mg tablet 100 mg PO QDAY #90 tabs 11/21/24 0 11/21/24 Rx rosuvastatin 5 mg tablet 5 mg PO 2XW cholesterol 11/21/24 0 11/21/24 History Have you fallen in the past year?: No PFSH Medical History Solar lentigo GERD (gastroesophageal reflux disease) Type 2 diabetes mellitus HTN (hypertension) Rheumatoid arthritis Family History Mother Diabetes Social History Smoking Status: Never smoker Electronic Cigarette Use: not used second hand exposure: No alcohol intake: never substance use type: does not use HPI HPI Chief Complaint: f/u diabetes Details: MARYCRUZ MENDEZ, is a 89 F who presents to the office today for evaluation and management of diabetes. A1C today is 6.1%, improved from 08/22/24 at 7.1%. She has gained 3 lbs since that time. Currently taking Lantus 5 u once daily and Humalog 5 u TIDCM. Dexcom downloaded and reviewed- she is having lows shortly after breakfast. She complains of blood sugars increasing just prior to lunch/supper. She denies any significant episode of hypoglycemia that has required assistance from others. She is trying to be mindful of her diet. BP today is 167/70, consistent with her last apt here on 08/22/24. Reports typical systolic at home is 160's, she states if I sit long enough I can get it to come down to 140's. Currently taking losartan 50 mg once daily. She takes rosuvastatin 5 mg 2x/week. Hx of tightly controlled cholesterol. Labs are up to date and unremarkable. Denies any acute concerns. [facility] Musculoskeletal: Positive for joint pain Exam Const General: cooperative, healthy appearing, comfortable and no acute distress Nutritional Appearance: average body habitus Orientation: alert, awake and oriented x3 HENMT Head: normal to inspection Ears: hearing grossly normal bilaterally Nose: external nose normal Face and sinus: normal facial exam Eyes General: appearance normal, both eyes and all related structures Alignment and Position: alignment normal Sclera: sclerae normal Neck Neck: normal visual inspection Chest Chest palpation inspection: normal inspection of the chest Resp Effort Inspection: normal respiratory effort, able to speak in complete sentences, symmetric chest movement, normal respiratory pattern, no audible wheezes and no cough Auscultation: Bilateral: Clear to Auscultation Cardio Rate: regular rate Rhythm: regular rhythm Heart Sounds: S1 n (more content not included)... Normal [facility] - Hematology and Cell countsOrdered By: Tonia Guzmán on 11-21-2024 HbA1c (Bld) [Mass fraction] 6.1 % 4.2-6.3 [facility] Endocrinology Visit Reporton 08-22-2024 Endocrinology Visit Report [facility] [address] [place] [address]. [address] [place] [address] OFFICE VISIT Date of Service: 08/22/24 MR#: [id number] Acct: [id number] Name: MARYCRUZ MENDEZ Rep #: [id number] : 1935 Provider: SONIA cheng Age/Sex: 89/F [place] [facility] [place] Status: Signed Intake Vital Signs 05/23/24 10:35 06/13/24 15:06 08/22/24 10:39 Height 5 ft 2 in 5 ft 2 in 5 ft 2 in Weight: 123 lb 4 oz BMI 22.5 BP 169/82 H Blood Pressure Location Rt brachial Position Sitting Pulse 73 Pulse Source Monitor Pulse Oximetry (%) 96 Intake Visit Reasons: 3 M FU Chief Complaint: f/u diabetes Is patient in pain?: No Allergies No Known Allergies Allergy (Verified 08/22/24 10:44) Medications ???Medication ???Instructions ???Recorded ???Confirmed ???Type folic acid 1 mg tablet 1 mg PO DAILY@0800 supplement 12/21/16 08/22/24 History methotrexate sodium 2.5 mg tablet 5 mg PO QWEEK 12/21/16 08/22/24 History insulin glargine 100 unit/mL (3 6 unit subcut DAILY diabetes 03/26/24 06/14/24 History mL) subcutaneous pen (Lantus Solostar U-100 Insulin) ferrous sulfate 325 mg (65 mg 325 mg PO QDAY supplement 05/23/24 08/22/24 History iron) tablet metformin 500 mg 24 hr 1,000 mg PO BID diabetes 05/23/24 08/22/24 History tablet,extended release (gastric retention) rosuvastatin 5 mg tablet 5 mg PO QDAY cholesterol 05/23/24 08/22/24 History aspirin 81 mg chewable tablet 81 mg PO BREAKFAST #30 tabs 06/13/24 08/22/24 Rx insulin lispro 100 unit/mL See Rx Instructions .Route 06/13/24 06/14/24 History subcutaneous pen (Humalog KwikPen .COMPLEX diabetes (U-100) Insulin) losartan 50 mg tablet 50 mg PO DAILY blood pressure 06/13/24 08/22/24 History calcium 600 mg (as carbonate)-vit tab PO 08/22/24 08/22/24 History D3 1,000 unit-vitamin K2 90 mcg tab mecobalamin (vitamin B12) 1,000 1,000 mcg PO QDAY 08/22/24 08/22/24 History mcg chewable tablet vitamins A,C,I-rpoh-xtrffs 2,148 2 tab PO BID 08/22/24 08/22/24 History mcg-113 mg-45 mg-17.4 mg tablet (PreserVision AREDS) Have you fallen in the past year?: No [facility] Medical History Solar lentigo GERD (gastroesophageal reflux disease) Type 2 diabetes mellitus HTN (hypertension) Rheumatoid arthritis Family History Mother Diabetes Social History Smoking Status: Never smoker Electronic Cigarette Use: not used second hand exposure: No alcohol intake: never substance use type: does not use HPI HPI Chief Complaint: f/u diabetes Details: MARYCRUZ MENDEZ, is a 89 F who presents to the office today for evaluation and management of diabetes. A1C today is 7.1%, improved from 05/23/24 at 7.8%. She has gained 3 lbs. Currently taking Lantus 6 u once daily and Humalog 6-4-4. Dexcom advertising sales consultant downloaded and reviewed- she is having significant elevations during sleeping hours. She does not think she is eating prior to bedtime, but she is not certain. She is having lows within an hour of eating lunch. Denies any significant episode of hypoglycemia that has required assistance from others. She was admitted to [facility] this past fall with TIA. BGL was 70 during onset of symptoms and not thought to be related. BP today is elevated, 169/82. This is typical reading for her in office. Reports stressful commute to our office this morning. Currently taking losartan 50 mg once daily, HCTZ component discontinued during hospitalization. She is unsure why. She takes rosuvastatin 5 mg once daily. 06/13/24 total cholesterol 100, LDL 8, triglycerides 16. Labs are up to date and otherwise unremarkable. Denies any acute concerns. ROS Const Constitutional: No fatigue or weight change ENT ENT: Positive for balance problems; No dizziness/vertigo Cardio Cardiology: No chest pain at rest, chest pain with exertion, shortness of breath or palpitations Skin Skin: No wounds Endo Endocrine: No fatigue or weight change Exam Const General: cooperative, healthy appearing, comfortable and no acute distress Nutritional Appearance: average body habitus Orientation: alert, awake and oriented x3 HENMT Head: normal to inspection Ears: hearing grossly normal bilaterally Nose: external nose normal Face and sinus: normal facial exam Eyes General: appearance normal, both eyes and all related structures Alignment and Position: alignment normal Sclera: sclerae normal Neck Neck: normal visual inspection Chest Chest palpation inspection: normal inspection of the chest Resp Effort Inspection: normal respiratory effort, able to speak in complete sentences, symmetric chest (more content not included)... Normal [facility] CBC W/Diff, Automatedon Absolute Lymph 0.81 X10 3/uL Low 0.83-4.51 [facility] Comment on above: Order Comment: Order Date: 08/16/24Order Info: 0184-1 - CBCD Performed By: #### L 100.0100 ####[facility] [address] [place], [address] Absolute Neut 2.7 X10 3/uL Normal 2.0-7.7 [facility] Comment on above: Order Comment: Order Date: 08/16/24Order Info: 0184-1 - CBCD Performed By: #### L 100.0100 ####[facility] [address] [place], [address] Basophils/100 WBC (Bld) 0.5 % Normal 0-1 [facility] Comment on above: Order Comment: Order Date: 08/16/24Order Info: 0184-1 - CBCD Performed By: #### L 100.0100 ####[facility] [address] [place], [address] Eosinophils/100 WBC (Bld) 0.5 % Normal 0-5 [facility] Comment on above: Order Comment: Order Date: 08/16/24Order Info: 0184-1 - CBCD Performed By: #### L 100.0100 ####[facility] [address] [place], [address] Erythrocyte distribution width (RBC) [Ratio] 13.4 % Normal 11.6-14.6 [facility] Comment on above: Order Comment: Order Date: 08/16/24Order Info: 0184-1 - CBCD Performed By: #### L 100.0100 ####[facility] [address] [place], [phone]) Hematocrit (Bld) [Volume fraction] 34.7 % Low 37-47 [facility] Comment on above: Order Comment: Order Date: 08/16/24Order Info: 0184-1 - CBCD Performed By: #### L 100.0100 ####[facility] [address] [place], [address] Hemoglobin (Bld) [Mass/Vol] 11.0 g/dL Low 12.0-15.0 [facility] Comment on above: Order Comment: Order Date: 08/16/24Order Info: 0184-1 - CBCD Performed By: #### L 100.0100 ####[facility] [address] [place], [phone] IG% 0.000 Normal 0.0-0.9 [facility] Comment on above: Order Comment: Order Date: 08/16/24Order Info: 0184-1 - CBCD Result Comment: IG% - Immature Granulocytes (promyelocytes, myelocytes and metamyelocytes) > 1% indicates that a LEFT SHIFT is Present. Performed By: #### L 100.0100 ####[facility] [address] [place], [phone] Lymphocytes/100 WBC (Bld) 20.7 % Normal 19-41 [facility] Comment on above: Order Comment: Order Date: 08/16/24Order Info: 0184-1 - CBCD Performed By: #### L 100.0100 ####[facility] [address] [place], [phone] MCH (RBC) [Entitic mass] 31.2 pg Normal 27.0-32.0 [facility] Comment on above: Order Comment: Order Date: 08/16/24Order Info: 0184-1 - CBCD Performed By: #### L 100.0100 ####[facility] [address] [place], [address] MCHC (RBC) [Mass/Vol] 31.7 g/dL Low 32-36 [facility] Comment on above: Order Comment: Order Date: 08/16/24Order Info: 0184-1 - CBCD Performed By: #### L 100.0100 ####[facility] [address] [place], [address] MCV (RBC) [Entitic vol] 98.3 fL Normal 81-99 [facility] Comment on above: Order Comment: Order Date: 08/16/24Order Info: 0184-1 - CBCD Performed By: #### L 100.0100 ####[facility] [address] [place], [address] Monocytes/100 WBC (Bld) 10.2 % High 0-10 [facility] Comment on above: Order Comment: Order Date: 08/16/24Order Info: 0184-1 - CBCD Performed By: #### L 100.0100 ####[facility] [address] [place], [address] Neutrophils/100 WBC (Bld) 68.1 % Normal 47-70 [facility] Comment on above: Order Comment: Order Date: 08/16/24Order Info: 0184-1 - CBCD Performed By: #### L 100.0100 ####[facility] [address] [place], [address] Nucleated RBC (Bld) [#/Vol] 0 10*3/uL Normal 0-5 [facility] Comment on above: Order Comment: Order Date: 08/16/24Order Info: 0184-1 - CBCD Performed By: #### L 100.0100 ####[facility] [address] [place], [address] Platelet mean volume (Bld) [Entitic vol] 9.9 fL Normal 6.2-12.0 [facility] Comment on above: Order Comment: Order Date: 08/16/24Order Info: 0184-1 - CBCD Performed By: #### L 100.0100 ####[facility] [address] [place], [address] Platelets (Bld) [#/Vol] 217 10*3/uL Normal 150-450 [facility] Comment on above: Order Comment: Order Date: 08/16/24Order Info: 0184-1 - CBCD Performed By: #### L 100.0100 ####[facility] [address] [place], [address] RBC (Bld) [#/Vol] 3.53 10*6/uL Low 4.2-5.4 [facility] Comment on above: Order Comment: Order Date: 08/16/24Order Info: 0184-1 - CBCD Performed By: #### L 100.0100 ####[facility] [address] [place], [address] RDW SD 48.0 fl High 35.1-43.9 [facility] Comment on above: Order Comment: Order Date: 08/16/24Order Info: 0184-1 - CBCD Performed By: #### L 100.0100 ####[facility] [address] [place], [address] WBC (Bld) [#/Vol] 3.9 10*3/uL Low 4.4-11.0 [facility] Comment on above: Order Comment: Order Date: 08/16/24Order Info: 0184-1 - CBCD Performed By: #### L 100.0100 ####[facility] [address] [place], [address] CBC W/Diff, Automatedon 12-0 2-2024 Absolute Lymph 0.99 X10 3/uL Normal 0.83-4.51 [facility] Comment on above: Performed By: #### L 502.0250, L500.2500 #### [facility] [address] [place], [address] Absolute Neut 3.0 X10 3/uL Normal 2.0-7.7 [facility] Comment on above: Performed By: #### L 502.0250, L500.2500 #### [facility] [address] [place], [address] Basophils/100 WBC (Bld) 0.4 % Normal 0-1 [facility] Comment on above: Performed By: #### L 502.0250, L500.2500 #### [facility] [address] [place], [address] Eosinophils/100 WBC (Bld) 0.4 % Normal 0-5 [facility] Comment on above: Performed By: #### L 502.0250, L500.2500 #### [facility] [address] [place], [address] Erythrocyte distribution width (RBC) [Ratio] 13.4 % Normal 11.6-14.6 [facility] Comment on above: Performed By: #### L 502.0250, L500.2500 #### [facility] [address] [place], [address] Hematocrit (Bld) [Volume fraction] 34.5 % Low 37-47 [facility] Comment on above: Performed By: #### L 502.0250, L500.2500 #### [facility] [address] [place], [address] Hemoglobin (Bld) [Mass/Vol] 10.6 g/dL Low 12.0-15.0 [facility] Comment on above: Performed By: #### L 502.0250, L500.2500 #### [facility] [address] [place], [address] IG% 0.200 Normal 0.0-0.9 [facility] Comment on above: Result Comment: IG% - Immature Granulocytes (promyelocytes, myelocytes and metamyelocytes) > 1% indicates that a LEFT SHIFT is Present. Performed By: #### L 502.0250, L500.2500 #### [facility] [address] [place], [address] Lymphocytes/100 WBC (Bld) 22.2 % Normal 19-41 [facility] Comment on above: Performed By: #### L 502.0250, L500.2500 #### [facility] [address] [place], [address] MCH (RBC) [Entitic mass] 30.7 pg Normal 27.0-32.0 [facility] Comment on above: Performed By: #### L 502.0250, L500.2500 #### [facility] [address] [place], [address] MCHC (RBC) [Mass/Vol] 30.7 g/dL Low 32-36 [facility] Comment on above: Performed By: #### L 502.0250, L500.2500 #### [facility] [address] [place], [address] MCV (RBC) [Entitic vol] 100.0 fL High 81-99 [facility] Comment on above: Performed By: #### L 502.0250, L500.2500 #### [facility] [address] [place], [address] Monocytes/100 WBC (Bld) 8.7 % Normal 0-10 [facility] Comment on above: Performed By: #### L 502.0250, L500.2500 #### [facility] [address] [place], [address] Neutrophils/100 WBC (Bld) 68.1 % Normal 47-70 [facility] Comment on above: Performed By: #### L 502.0250, L500.2500 #### [facility] [address] [place], [address] Nucleated RBC (Bld) [#/Vol] 0 10*3/uL Normal 0-5 [facility] Comment on above: Performed By: #### L 502.0250, L500.2500 #### [facility] [address] [place], [address] Platelet mean volume (Bld) [Entitic vol] 9.9 fL Normal 6.2-12.0 [facility] Comment on above: Performed By: #### L 502.0250, L500.2500 #### [facility] [address] [place], [address] Platelets (Bld) [#/Vol] 250 10*3/uL Normal 150-450 [facility] Comment on above: Performed By: #### L 502.0250, L500.2500 #### [facility] [address] [place], [address] RBC (Bld) [#/Vol] 3.45 10*6/uL Low 4.2-5.4 [facility] Comment on above: Performed By: #### L 502.0250, L500.2500 #### [facility] [address] [place], [address] RDW SD 49.0 fl High 35.1-43.9 [facility] Comment on above: Performed By: #### L 502.0250, L500.2500 #### [facility] [address] [place], [address] WBC (Bld) [#/Vol] 4.5 10*3/uL Normal 4.4-11.0 [facility] Comment on above: Performed By: #### L 502.0250, L500.2500 #### [facility] [address] [place], [address] CBC W/Diff, Automatedon 11- Absolute Lymph 1.22 X10 3/uL Normal 0.83-4.51 [facility] Comment on above: Order Comment: Order Date: 06/28/24Order Info: 183- - CBCD Performed By: #### L 502.0250, L500.2500 #### [facility] [address] [place], [address] Absolute Neut 2.9 X10 3/uL Normal 2.0-7.7 [facility] Comment on above: Order Comment: Order Date: 06/28/24Order Info: 183- - CBCD Performed By: #### L 502.0250, L500.2500 #### [facility] [address] [place], [address] Basophils/100 WBC (Bld) 0.2 % Normal 0-1 [facility] Comment on above: Order Comment: Order Date: 06/28/24Order Info: 018- - CBCD Performed By: #### L 502.0250, L500.2500 #### [facility] [address] [place], [address] Eosinophils/100 WBC (Bld) 0.9 % Normal 0-5 [facility] Comment on above: Order Comment: Order Date: 06/28/24Order Info: 018- - CBCD Performed By: #### L 502.0250, L500.2500 #### [facility] [address] [place], [address] Erythrocyte distribution width (RBC) [Ratio] 13.2 % Normal 11.6-14.6 [facility] Comment on above: Order Comment: Order Date: 06/28/24Order Info: 0184-1 - CBCD Performed By: #### L 502.0250, L500.2500 #### [facility] [address] [place], [address] Hematocrit (Bld) [Volume fraction] 34.6 % Low 37-47 [facility] Comment on above: Order Comment: Order Date: 06/28/24Order Info: 018- - CBCD Performed By: #### L 502.0250, L500.2500 #### [facility] [address] [place], [address] Hemoglobin (Bld) [Mass/Vol] 10.8 g/dL Low 12.0-15.0 [facility] Comment on above: Order Comment: Order Date: 06/28/24Order Info: 183- - CBCD Performed By: #### L 502.0250, L500.2500 #### [facility] [address] [place], [address] IG% 0.400 Normal 0.0-0.9 [facility] Comment on above: Order Comment: Order Date: 06/28/24Order Info: 183- - CBCD Result Comment: IG% - Immature Granulocytes (promyelocytes, myelocytes and metamyelocytes) > 1% indicates that a LEFT SHIFT is Present. Performed By: #### L 502.0250, L500.2500 #### [facility] [address] [place], [address] Lymphocytes/100 WBC (Bld) 26.3 % Normal 19-41 [facility] Comment on above: Order Comment: Order Date: 06/28/24Order Info: 018- - CBCD Performed By: #### L 502.0250, L500.2500 #### [facility] [address] [place], [address] MCH (RBC) [Entitic mass] 30.9 pg Normal 27.0-32.0 [facility] Comment on above: Order Comment: Order Date: 06/28/24Order Info: 018- - CBCD Performed By: #### L 502.0250, L500.2500 #### [facility] [address] [place], [address] MCHC (RBC) [Mass/Vol] 31.2 g/dL Low 32-36 [facility] Comment on above: Order Comment: Order Date: 06/28/24Order Info: 0184-1 - CBCD Performed By: #### L 502.0250, L500.2500 #### [facility] [address] [place], [address] MCV (RBC) [Entitic vol] 99.1 fL High 81-99 [facility] Comment on above: Order Comment: Order Date: 06/28/24Order Info: 0184-1 - CBCD Performed By: #### L 502.0250, L500.2500 #### [facility] [address] [place], [address] Monocytes/100 WBC (Bld) 8.6 % Normal 0-10 [facility] Comment on above: Order Comment: Order Date: 06/28/24Order Info: 0184-1 - CBCD Performed By: #### L 502.0250, L500.2500 #### [facility] [address] [place], [address] Neutrophils/100 WBC (Bld) 63.6 % Normal 47-70 [facility] Comment on above: Order Comment: Order Date: 06/28/24Order Info: 0184-1 - CBCD Performed By: #### L 502.0250, L500.2500 #### [facility] [address] [place], [address] Nucleated RBC (Bld) [#/Vol] 0 10*3/uL Normal 0-5 [facility] Comment on above: Order Comment: Order Date: 06/28/24Order Info: 0184-1 - CBCD Performed By: #### L 502.0250, L500.2500 #### [facility] [address] [place], [address] Platelet mean volume (Bld) [Entitic vol] 9.6 fL Normal 6.2-12.0 [facility] Comment on above: Order Comment: Order Date: 06/28/24Order Info: 183- - CBCD Performed By: #### L 502.0250, L500.2500 #### [facility] [address] [place], [address] Platelets (Bld) [#/Vol] 249 10*3/uL Normal 150-450 [facility] Comment on above: Order Comment: Order Date: 06/28/24Order Info: 183- - CBCD Performed By: #### L 502.0250, L500.2500 #### [facility] [address] [place], [address] RBC (Bld) [#/Vol] 3.49 10*6/uL Low 4.2-5.4 [facility] Comment on above: Order Comment: Order Date: 06/28/24Order Info: 183- - CBCD Performed By: #### L 502.0250, L500.2500 #### [facility] [address] [place], [address] RDW SD 47.6 fl High 35.1-43.9 [facility] Comment on above: Order Comment: Order Date: 06/28/24Order Info: 183- - CBCD Performed By: #### L 502.0250, L500.2500 #### [facility] [address] [place], [address] WBC (Bld) [#/Vol] 4.6 10*3/uL Normal 4.4-11.0 [facility] Comment on above: Order Comment: Order Date: 06/28/24Order Info: 018- - CBCD Performed By: #### L 502.0250, L500.2500 #### [facility] [address] [place], [address] Basic Metabolic Profile (BMP )on 06-21-2024 BUN Normal 7-18 [facility] Comment on above: Result Comment: Canc elled via OM: Order cancelled - Patient discharged Performed By: #### L 500.2500, L100.0100 #### [facility] [address] [place], [address] BUN/CRE Normal 10-20 [facility] Comment on above: Result Comment: Canc elled via OM: Order cancelled - Patient discharged Performed By: #### L 500.2500, L100.0100 #### [facility] [address] [place], [address] CA,Total Normal 8.5-10.1 [facility] Comment on above: Result Comment: Canc elled via OM: Order cancelled - Patient discharged Performed By: #### L 500.2500, L100.0100 #### [facility] [address] [place], [address] CL Normal 98-107 [facility] Comment on above: Result Comment: Canc elled via OM: Order cancelled - Patient discharged Performed By: #### L 500.2500, L100.0100 #### [facility] [address] [place], [address] CO2 Normal 21.0-32.0 [facility] Comment on above: Result Comment: Canc elled via OM: Order cancelled - Patient discharged Performed By: #### L 500.2500, L100.0100 #### [facility] [address] [place], [address] CREAT,SERUM Normal 0.55-1.02 [facility] Comment on above: Result Comment: Canc elled via OM: Order cancelled - Patient discharged Performed By: #### L 500.2500, L100.0100 #### [facility] [address] [place], [address] EST GFR Normal >60 [facility] Comment on above: Result Comment: Canc elled via OM: Order cancelled - Patient discharged Performed By: #### L 500.2500, L100.0100 #### [facility] [address] [place], [address] EST GFR - AA Normal >60 [facility] Comment on above: Result Comment: Canc elled via OM: Order cancelled - Patient discharged Performed By: #### L 500.2500, L100.0100 #### [facility] [address] [place], [address] GAP Normal 5-15 [facility] Comment on above: Result Comment: Canc elled via OM: Order cancelled - Patient discharged Performed By: #### L 500.2500, L100.0100 #### [facility] [address] [place], [address] GLU Normal 74-106 [facility] Comment on above: Result Comment: Canc elled via OM: Order cancelled - Patient discharged Performed By: #### L 500.2500, L100.0100 #### [facility] [address] [place], [address] Potassium Normal 3.5-5.1 [facility] Comment on above: Result Comment: Canc elled via OM: Order cancelled - Patient discharged Performed By: #### L 500.2500, L100.0100 #### [facility] [address] [place], [address] Basic Metabolic Profile (BMP) Normal 136-145 [facility] Comment on above: Result Comment: Canc elled via OM: Order cancelled - Patient discharged Performed By: #### L 500.2500, L100.0100 #### [facility] [address] [place], [address] CBC W/Diff, Automatedon 11-0 -2023 Absolute Neut Normal 2.0-7.7 [facility] Comment on above: Result Comment: Canc elled via OM: Order cancelled - Patient discharged Performed By: #### L 500.2500, L100.0100 #### [facility] [address] [place], [address] HCT Normal 37-47 [facility] Comment on above: Result Comment: Canc elled via OM: Order cancelled - Patient discharged Performed By: #### L 500.2500, L100.0100 #### [facility] [address] [place], [address] HGB Normal 12.0-15.0 [facility] Comment on above: Result Comment: Canc elled via OM: Order cancelled - Patient discharged Performed By: #### L 500.2500, L100.0100 #### [facility] [address] [place], [address] MCH Normal 27.0-32.0 [facility] Comment on above: Result Comment: Canc elled via OM: Order cancelled - Patient discharged Performed By: #### L 500.2500, L100.0100 #### [facility] [address] [place], [address] MCHC Normal 32-36 [facility] Comment on above: Result Comment: Canc elled via OM: Order cancelled - Patient discharged Performed By: #### L 500.2500, L100.0100 #### [facility] [address] [place], [address] MCV Normal 81-99 [facility] Comment on above: Result Comment: Canc elled via OM: Order cancelled - Patient discharged Performed By: #### L 500.2500, L100.0100 #### [facility] [address] [place], [address] NEUT% Normal 47-70 [facility] Comment on above: Result Comment: Canc elled via OM: Order cancelled - Patient discharged Performed By: #### L 500.2500, L100.0100 #### [facility] [address] [place], [address] PLT Normal 150-450 [facility] Comment on above: Result Comment: Canc elled via OM: Order cancelled - Patient discharged Performed By: #### L 500.2500, L100.0100 #### [facility] [address] [place], [address] RBC Normal 4.2-5.4 [facility] Comment on above: Result Comment: Canc elled via OM: Order cancelled - Patient discharged Performed By: #### L 500.2500, L100.0100 #### [facility] [address] [place], [address] RDW CV Normal 11.6-14.6 [facility] Comment on above: Result Comment: Canc elled via OM: Order cancelled - Patient discharged Performed By: #### L 500.2500, L100.0100 #### [facility] [address] [place], [address] RDW SD Normal 35.1-43.9 [facility] Comment on above: Result Comment: Canc elled via OM: Order cancelled - Patient discharged Performed By: #### L 500.2500, L100.0100 #### [facility] [address] [place], [address] WBC Normal 4.4-11.0 [facility] Comment on above: Result Comment: Canc elled via OM: Order cancelled - Patient discharged Performed By: #### L 500.2500, L100.0100 #### [facility] [address] [place], [address] Basic Metabolic Profile (BMP )on 06-20-2024 BUN Normal 7-18 [facility] Comment on above: Result Comment: Canc elled via OM: Order cancelled - Patient discharged Performed By: #### L 100.0100, L500.2500 #### [facility] [address] [place], [address] BUN/CRE Normal 10-20 [facility] Comment on above: Result Comment: Canc elled via OM: Order cancelled - Patient discharged Performed By: #### L 100.0100, L500.2500 #### [facility] [address] [place], [address] CA,Total Normal 8.5-10.1 [facility] Comment on above: Result Comment: Canc elled via OM: Order cancelled - Patient discharged Performed By: #### L 100.0100, L500.2500 #### [facility] [address] [place], [address] CL Normal 98-107 [facility] Comment on above: Result Comment: Canc elled via OM: Order cancelled - Patient discharged Performed By: #### L 100.0100, L500.2500 #### [facility] [address] [place], [address] CO2 Normal 21.0-32.0 [facility] Comment on above: Result Comment: Canc elled via OM: Order cancelled - Patient discharged Performed By: #### L 100.0100, L500.2500 #### [facility] [address] [place], [address] CREAT,SERUM Normal 0.55-1.02 [facility] Comment on above: Result Comment: Canc elled via OM: Order cancelled - Patient discharged Performed By: #### L 100.0100, L500.2500 #### [facility] [address] [place], [address] EST GFR Normal >60 [facility] Comment on above: Result Comment: Canc elled via OM: Order cancelled - Patient discharged Performed By: #### L 100.0100, L500.2500 #### [facility] [address] [place], [address] EST GFR - AA Normal >60 [facility] Comment on above: Result Comment: Canc elled via OM: Order cancelled - Patient discharged Performed By: #### L 100.0100, L500.2500 #### [facility] [address] [place], [address] GAP Normal 5-15 [facility] Comment on above: Result Comment: Canc elled via OM: Order cancelled - Patient discharged Performed By: #### L 100.0100, L500.2500 #### [facility] [address] [place], [address] GLU Normal 74-106 [facility] Comment on above: Result Comment: Canc elled via OM: Order cancelled - Patient discharged Performed By: #### L 100.0100, L500.2500 #### [facility] [address] [place], [address] Potassium Normal 3.5-5.1 [facility] Comment on above: Result Comment: Canc elled via OM: Order cancelled - Patient discharged Performed By: #### L 100.0100, L500.2500 #### [facility] [address] [place], [address] Basic Metabolic Profile (BMP) Normal 136-145 [facility] Comment on above: Result Comment: Canc elled via OM: Order cancelled - Patient discharged Performed By: #### L 100.0100, L500.2500 #### [facility] [address] [place], [address] CBC W/Diff, Automatedon 11-0 -2023 Absolute Neut Normal 2.0-7.7 [facility] Comment on above: Result Comment: Canc elled via OM: Order cancelled - Patient discharged Performed By: #### L 100.0100, L500.2500 #### [facility] [address] [place], [address] HCT Normal 37-47 [facility] Comment on above: Result Comment: Canc elled via OM: Order cancelled - Patient discharged Performed By: #### L 100.0100, L500.2500 #### [facility] [address] [place], [address] HGB Normal 12.0-15.0 [facility] Comment on above: Result Comment: Canc elled via OM: Order cancelled - Patient discharged Performed By: #### L 100.0100, L500.2500 #### [facility] [address] [place], [address] MCH Normal 27.0-32.0 [facility] Comment on above: Result Comment: Canc elled via OM: Order cancelled - Patient discharged Performed By: #### L 100.0100, L500.2500 #### [facility] [address] [place], [address] MCHC Normal 32-36 [facility] Comment on above: Result Comment: Canc elled via OM: Order cancelled - Patient discharged Performed By: #### L 100.0100, L500.2500 #### [facility] [address] [place], [address] MCV Normal 81-99 [facility] Comment on above: Result Comment: Canc elled via OM: Order cancelled - Patient discharged Performed By: #### L 100.0100, L500.2500 #### [facility] [address] [place], [address] NEUT% Normal 47-70 [facility] Comment on above: Result Comment: Canc elled via OM: Order cancelled - Patient discharged Performed By: #### L 100.0100, L500.2500 #### [facility] [address] [place], [address] PLT Normal 150-450 [facility] Comment on above: Result Comment: Canc elled via OM: Order cancelled - Patient discharged Performed By: #### L 100.0100, L500.2500 #### [facility] [address] [place], [address] RBC Normal 4.2-5.4 [facility] Comment on above: Result Comment: Canc elled via OM: Order cancelled - Patient discharged Performed By: #### L 100.0100, L500.2500 #### [facility] [address] [place], [address] RDW CV Normal 11.6-14.6 [facility] Comment on above: Result Comment: Canc elled via OM: Order cancelled - Patient discharged Performed By: #### L 100.0100, L500.2500 #### [facility] [address] [place], [address] RDW SD Normal 35.1-43.9 [facility] Comment on above: Result Comment: Canc elled via OM: Order cancelled - Patient discharged Performed By: #### L 100.0100, L500.2500 #### [facility] [address] [place], [address] WBC Normal 4.4-11.0 [facility] Comment on above: Result Comment: Canc elled via OM: Order cancelled - Patient discharged Performed By: #### L 100.0100, L500.2500 #### [facility] [address] [place], [address] Basic Metabolic Profile (BMP )on 06-19-2024 BUN Normal 7-18 [facility] Comment on above: Result Comment: Canc elled via OM: Order cancelled - Patient discharged Performed By: #### L 500.2500, L100.0100 #### [facility] [address] [place], [address] BUN/CRE Normal 10-20 [facility] Comment on above: Result Comment: Canc elled via OM: Order cancelled - Patient discharged Performed By: #### L 500.2500, L100.0100 #### [facility] [address] [place], [address] CA,Total Normal 8.5-10.1 [facility] Comment on above: Result Comment: Canc elled via OM: Order cancelled - Patient discharged Performed By: #### L 500.2500, L100.0100 #### [facility] [address] [place], [address] CL Normal 98-107 [facility] Comment on above: Result Comment: Canc elled via OM: Order cancelled - Patient discharged Performed By: #### L 500.2500, L100.0100 #### [facility] [address] [place], [address] CO2 Normal 21.0-32.0 [facility] Comment on above: Result Comment: Canc elled via OM: Order cancelled - Patient discharged Performed By: #### L 500.2500, L100.0100 #### [facility] [address] [place], [address] CREAT,SERUM Normal 0.55-1.02 [facility] Comment on above: Result Comment: Canc elled via OM: Order cancelled - Patient discharged Performed By: #### L 500.2500, L100.0100 #### [facility] [address] [place], [address] EST GFR Normal >60 [facility] Comment on above: Result Comment: Canc elled via OM: Order cancelled - Patient discharged Performed By: #### L 500.2500, L100.0100 #### [facility] [address] [place], [address] EST GFR - AA Normal >60 [facility] Comment on above: Result Comment: Canc elled via OM: Order cancelled - Patient discharged Performed By: #### L 500.2500, L100.0100 #### [facility] [address] [place], [address] GAP Normal 5-15 [facility] Comment on above: Result Comment: Canc elled via OM: Order cancelled - Patient discharged Performed By: #### L 500.2500, L100.0100 #### [facility] [address] [place], [address] GLU Normal 74-106 [facility] Comment on above: Result Comment: Canc elled via OM: Order cancelled - Patient discharged Performed By: #### L 500.2500, L100.0100 #### [facility] [address] [place], [address] Potassium Normal 3.5-5.1 [facility] Comment on above: Result Comment: Canc elled via OM: Order cancelled - Patient discharged Performed By: #### L 500.2500, L100.0100 #### [facility] [address] [place], [address] Basic Metabolic Profile (BMP) Normal 136-145 [facility] Comment on above: Result Comment: Canc elled via OM: Order cancelled - Patient discharged Performed By: #### L 500.2500, L100.0100 #### [facility] [address] [place], [address] CBC W/Diff, Automatedon 11-0 -2023 Absolute Neut Normal 2.0-7.7 [facility] Comment on above: Result Comment: Canc elled via OM: Order cancelled - Patient discharged Performed By: #### L 500.2500, L100.0100 #### [facility] [address] [place], [address] HCT Normal 37-47 [facility] Comment on above: Result Comment: Canc elled via OM: Order cancelled - Patient discharged Performed By: #### L 500.2500, L100.0100 #### [facility] [address] [place], [address] HGB Normal 12.0-15.0 [facility] Comment on above: Result Comment: Canc elled via OM: Order cancelled - Patient discharged Performed By: #### L 500.2500, L100.0100 #### [facility] [address] [place], [address] MCH Normal 27.0-32.0 [facility] Comment on above: Result Comment: Canc elled via OM: Order cancelled - Patient discharged Performed By: #### L 500.2500, L100.0100 #### [facility] [address] [place], [address] MCHC Normal 32-36 [facility] Comment on above: Result Comment: Canc elled via OM: Order cancelled - Patient discharged Performed By: #### L 500.2500, L100.0100 #### [facility] [address] [place], [address] MCV Normal 81-99 [facility] Comment on above: Result Comment: Canc elled via OM: Order cancelled - Patient discharged Performed By: #### L 500.2500, L100.0100 #### [facility] [address] [place], [address] NEUT% Normal 47-70 [facility] Comment on above: Result Comment: Canc elled via OM: Order cancelled - Patient discharged Performed By: #### L 500.2500, L100.0100 #### [facility] [address] [place], [address] PLT Normal 150-450 [facility] Comment on above: Result Comment: Canc elled via OM: Order cancelled - Patient discharged Performed By: #### L 500.2500, L100.0100 #### [facility] [address] [place], [address] RBC Normal 4.2-5.4 [facility] Comment on above: Result Comment: Canc elled via OM: Order cancelled - Patient discharged Performed By: #### L 500.2500, L100.0100 #### [facility] [address] [place], [address] RDW CV Normal 11.6-14.6 [facility] Comment on above: Result Comment: Canc elled via OM: Order cancelled - Patient discharged Performed By: #### L 500.2500, L100.0100 #### [facility] [address] [place], [address] RDW SD Normal 35.1-43.9 [facility] Comment on above: Result Comment: Canc elled via OM: Order cancelled - Patient discharged Performed By: #### L 500.2500, L100.0100 #### [facility] [address] [place], [address] WBC Normal 4.4-11.0 [facility] Comment on above: Result Comment: Canc elled via OM: Order cancelled - Patient discharged Performed By: #### L 500.2500, L100.0100 #### [facility] [address] [place], [address] Basic Metabolic Profile (BMP )on 06-18-2024 BUN Normal 7-18 [facility] Comment on above: Result Comment: Canc elled via OM: Order cancelled - Patient discharged Performed By: #### L 502.0250, L500.2500 #### [facility] [address] [place], [address] BUN/CRE Normal 10-20 [facility] Comment on above: Result Comment: Canc elled via OM: Order cancelled - Patient discharged Performed By: #### L 502.0250, L500.2500 #### [facility] [address] [place], [address] CA,Total Normal 8.5-10.1 [facility] Comment on above: Result Comment: Canc elled via OM: Order cancelled - Patient discharged Performed By: #### L 502.0250, L500.2500 #### [facility] [address] [place], [address] CL Normal 98-107 [facility] Comment on above: Result Comment: Canc elled via OM: Order cancelled - Patient discharged Performed By: #### L 502.0250, L500.2500 #### [facility] [address] [place], [address] CO2 Normal 21.0-32.0 [facility] Comment on above: Result Comment: Canc elled via OM: Order cancelled - Patient discharged Performed By: #### L 502.0250, L500.2500 #### [facility] [address] [place], [address] CREAT,SERUM Normal 0.55-1.02 [facility] Comment on above: Result Comment: Canc elled via OM: Order cancelled - Patient discharged Performed By: #### L 502.0250, L500.2500 #### [facility] [address] [place], [address] EST GFR Normal >60 [facility] Comment on above: Result Comment: Canc elled via OM: Order cancelled - Patient discharged Performed By: #### L 502.0250, L500.2500 #### [facility] [address] [place], [address] EST GFR - AA Normal >60 [facility] Comment on above: Result Comment: Canc elled via OM: Order cancelled - Patient discharged Performed By: #### L 502.0250, L500.2500 #### [facility] [address] [place], [address] GAP Normal 5-15 [facility] Comment on above: Result Comment: Canc elled via OM: Order cancelled - Patient discharged Performed By: #### L 502.0250, L500.2500 #### [facility] [address] [place], [address] GLU Normal 74-106 [facility] Comment on above: Result Comment: Canc elled via OM: Order cancelled - Patient discharged Performed By: #### L 502.0250, L500.2500 #### [facility] [address] [place], [address] Potassium Normal 3.5-5.1 [facility] Comment on above: Result Comment: Canc elled via OM: Order cancelled - Patient discharged Performed By: #### L 502.0250, L500.2500 #### [facility] [address] [place], [address] Basic Metabolic Profile (BMP) Normal 136-145 [facility] Comment on above: Result Comment: Canc elled via OM: Order cancelled - Patient discharged Performed By: #### L 502.0250, L500.2500 #### [facility] [address] [place], [address] CBC W/Diff, Automatedon 11-0 Absolute Neut Normal 2.0-7.7 [facility] Comment on above: Result Comment: Canc elled via OM: Order cancelled - Patient discharged Performed By: #### L 502.0250, L500.2500 #### [facility] [address] [place], [address] HCT Normal 37-47 [facility] Comment on above: Result Comment: Canc elled via OM: Order cancelled - Patient discharged Performed By: #### L 502.0250, L500.2500 #### [facility] [address] [place], [address] HGB Normal 12.0-15.0 [facility] Comment on above: Result Comment: Canc elled via OM: Order cancelled - Patient discharged Performed By: #### L 502.0250, L500.2500 #### [facility] [address] [place], [address] MCH Normal 27.0-32.0 [facility] Comment on above: Result Comment: Canc elled via OM: Order cancelled - Patient discharged Performed By: #### L 502.0250, L500.2500 #### [facility] [address] [place], [address] MCHC Normal 32-36 [facility] Comment on above: Result Comment: Canc elled via OM: Order cancelled - Patient discharged Performed By: #### L 502.0250, L500.2500 #### [facility] [address] [place], [address] MCV Normal 81-99 [facility] Comment on above: Result Comment: Canc elled via OM: Order cancelled - Patient discharged Performed By: #### L 502.0250, L500.2500 #### [facility] [address] [place], [address] NEUT% Normal 47-70 [facility] Comment on above: Result Comment: Canc elled via OM: Order cancelled - Patient discharged Performed By: #### L 502.0250, L500.2500 #### [facility] [address] [place], [address] PLT Normal 150-450 [facility] Comment on above: Result Comment: Canc elled via OM: Order cancelled - Patient discharged Performed By: #### L 502.0250, L500.2500 #### [facility] [address] [place], [address] RBC Normal 4.2-5.4 [facility] Comment on above: Result Comment: Canc elled via OM: Order cancelled - Patient discharged Performed By: #### L 502.0250, L500.2500 #### [facility] [address] [place], [address] RDW CV Normal 11.6-14.6 [facility] Comment on above: Result Comment: Canc elled via OM: Order cancelled - Patient discharged Performed By: #### L 502.0250, L500.2500 #### [facility] [address] [place], [address] RDW SD Normal 35.1-43.9 [facility] Comment on above: Result Comment: Canc elled via OM: Order cancelled - Patient discharged Performed By: #### L 502.0250, L500.2500 #### [facility] [address] [place], [address] WBC Normal 4.4-11.0 [facility] Comment on above: Result Comment: Canc elled via OM: Order cancelled - Patient discharged Performed By: #### L 502.0250, L500.2500 #### [facility] [address] [place], [address] Basic Metabolic Profile (BMP )on 06-17-2024 BUN Normal 7-18 [facility] Comment on above: Result Comment: Canc elled via OM: Order cancelled - Patient discharged Performed By: #### L 500.2500, L100.0100 #### [facility] [address] [place], [address] BUN/CRE Normal 10-20 [facility] Comment on above: Result Comment: Canc elled via OM: Order cancelled - Patient discharged Performed By: #### L 500.2500, L100.0100 #### [facility] [address] [place], [address] CA,Total Normal 8.5-10.1 [facility] Comment on above: Result Comment: Canc elled via OM: Order cancelled - Patient discharged Performed By: #### L 500.2500, L100.0100 #### [facility] [address] [place], [address] CL Normal 98-107 [facility] Comment on above: Result Comment: Canc elled via OM: Order cancelled - Patient discharged Performed By: #### L 500.2500, L100.0100 #### [facility] [address] [place], [address] CO2 Normal 21.0-32.0 [facility] Comment on above: Result Comment: Canc elled via OM: Order cancelled - Patient discharged Performed By: #### L 500.2500, L100.0100 #### [facility] [address] [place], [address] CREAT,SERUM Normal 0.55-1.02 [facility] Comment on above: Result Comment: Canc elled via OM: Order cancelled - Patient discharged Performed By: #### L 500.2500, L100.0100 #### [facility] [address] [place], [address] EST GFR Normal >60 [facility] Comment on above: Result Comment: Canc elled via OM: Order cancelled - Patient discharged Performed By: #### L 500.2500, L100.0100 #### [facility] [address] [place], [address] EST GFR - AA Normal >60 [facility] Comment on above: Result Comment: Canc elled via OM: Order cancelled - Patient discharged Performed By: #### L 500.2500, L100.0100 #### [facility] [address] [place], [address] GAP Normal 5-15 [facility] Comment on above: Result Comment: Canc elled via OM: Order cancelled - Patient discharged Performed By: #### L 500.2500, L100.0100 #### [facility] [address] [place], [address] GLU Normal 74-106 [facility] Comment on above: Result Comment: Canc elled via OM: Order cancelled - Patient discharged Performed By: #### L 500.2500, L100.0100 #### [facility] [address] [place], [address] Potassium Normal 3.5-5.1 [facility] Comment on above: Result Comment: Canc elled via OM: Order cancelled - Patient discharged Performed By: #### L 500.2500, L100.0100 #### [facility] [address] [place], [address] Basic Metabolic Profile (BMP) Normal 136-145 [facility] Comment on above: Result Comment: Canc elled via OM: Order cancelled - Patient discharged Performed By: #### L 500.2500, L100.0100 #### [facility] [address] [place], [address] CBC W/Diff, Automatedon 11-0 Absolute Neut Normal 2.0-7.7 [facility] Comment on above: Result Comment: Canc elled via OM: Order cancelled - Patient discharged Performed By: #### L 500.2500, L100.0100 #### [facility] [address] [place], [address] HCT Normal 37-47 [facility] Comment on above: Result Comment: Canc elled via OM: Order cancelled - Patient discharged Performed By: #### L 500.2500, L100.0100 #### [facility] [address] [place], [address] HGB Normal 12.0-15.0 [facility] Comment on above: Result Comment: Canc elled via OM: Order cancelled - Patient discharged Performed By: #### L 500.2500, L100.0100 #### [facility] [address] [place], [address] MCH Normal 27.0-32.0 [facility] Comment on above: Result Comment: Canc elled via OM: Order cancelled - Patient discharged Performed By: #### L 500.2500, L100.0100 #### [facility] [address] [place], [address] MCHC Normal 32-36 [facility] Comment on above: Result Comment: Canc elled via OM: Order cancelled - Patient discharged Performed By: #### L 500.2500, L100.0100 #### [facility] [address] [place], [address] MCV Normal 81-99 [facility] Comment on above: Result Comment: Canc elled via OM: Order cancelled - Patient discharged Performed By: #### L 500.2500, L100.0100 #### [facility] [address] [place], [address] NEUT% Normal 47-70 [facility] Comment on above: Result Comment: Canc elled via OM: Order cancelled - Patient discharged Performed By: #### L 500.2500, L100.0100 #### [facility] [address] [place], [address] PLT Normal 150-450 [facility] Comment on above: Result Comment: Canc elled via OM: Order cancelled - Patient discharged Performed By: #### L 500.2500, L100.0100 #### [facility] [address] [place], [address] RBC Normal 4.2-5.4 [facility] Comment on above: Result Comment: Canc elled via OM: Order cancelled - Patient discharged Performed By: #### L 500.2500, L100.0100 #### [facility] [address] [place], [address] RDW CV Normal 11.6-14.6 [facility] Comment on above: Result Comment: Canc elled via OM: Order cancelled - Patient discharged Performed By: #### L 500.2500, L100.0100 #### [facility] [address] [place], [address] RDW SD Normal 35.1-43.9 [facility] Comment on above: Result Comment: Canc elled via OM: Order cancelled - Patient discharged Performed By: #### L 500.2500, L100.0100 #### [facility] [address] [place], [address] WBC Normal 4.4-11.0 [facility] Comment on above: Result Comment: Canc elled via OM: Order cancelled - Patient discharged Performed By: #### L 500.2500, L100.0100 #### [facility] [address] [place], [address] Basic Metabolic Profile (BMP )on 06-16-2024 BUN Normal 7-18 [facility] Comment on above: Result Comment: Canc elled via OM: Order cancelled - Patient discharged Performed By: #### L 502.0250, L500.2500 #### [facility] [address] [place], [address] BUN/CRE Normal 10-20 [facility] Comment on above: Result Comment: Canc elled via OM: Order cancelled - Patient discharged Performed By: #### L 502.0250, L500.2500 #### [facility] [address] [place], [address] CA,Total Normal 8.5-10.1 [facility] Comment on above: Result Comment: Canc elled via OM: Order cancelled - Patient discharged Performed By: #### L 502.0250, L500.2500 #### [facility] [address] [place], [address] CL Normal 98-107 [facility] Comment on above: Result Comment: Canc elled via OM: Order cancelled - Patient discharged Performed By: #### L 502.0250, L500.2500 #### [facility] [address] [place], [address] CO2 Normal 21.0-32.0 [facility] Comment on above: Result Comment: Canc elled via OM: Order cancelled - Patient discharged Performed By: #### L 502.0250, L500.2500 #### [facility] [address] [place], [address] CREAT,SERUM Normal 0.55-1.02 [facility] Comment on above: Result Comment: Canc elled via OM: Order cancelled - Patient discharged Performed By: #### L 502.0250, L500.2500 #### [facility] [address] [place], [address] EST GFR Normal >60 [facility] Comment on above: Result Comment: Canc elled via OM: Order cancelled - Patient discharged Performed By: #### L 502.0250, L500.2500 #### [facility] [address] [place], [address] EST GFR - AA Normal >60 [facility] Comment on above: Result Comment: Canc elled via OM: Order cancelled - Patient discharged Performed By: #### L 502.0250, L500.2500 #### [facility] [address] [place], [address] GAP Normal 5-15 [facility] Comment on above: Result Comment: Canc elled via OM: Order cancelled - Patient discharged Performed By: #### L 502.0250, L500.2500 #### [facility] [address] [place], [address] GLU Normal 74-106 [facility] Comment on above: Result Comment: Canc elled via OM: Order cancelled - Patient discharged Performed By: #### L 502.0250, L500.2500 #### [facility] [address] [place], [address] Potassium Normal 3.5-5.1 [facility] Comment on above: Result Comment: Canc elled via OM: Order cancelled - Patient discharged Performed By: #### L 502.0250, L500.2500 #### [facility] [address] [place], [address] Basic Metabolic Profile (BMP) Normal 136-145 [facility] Comment on above: Result Comment: Canc elled via OM: Order cancelled - Patient discharged Performed By: #### L 502.0250, L500.2500 #### [facility] [address] [place], [address] CBC W/Diff, Automatedon 11-0 Absolute Neut Normal 2.0-7.7 [facility] Comment on above: Result Comment: Canc elled via OM: Order cancelled - Patient discharged Performed By: #### L 502.0250, L500.2500 #### [facility] [address] [place], [address] HCT Normal 37-47 [facility] Comment on above: Result Comment: Canc elled via OM: Order cancelled - Patient discharged Performed By: #### L 502.0250, L500.2500 #### [facility] [address] [place], [address] HGB Normal 12.0-15.0 [facility] Comment on above: Result Comment: Canc elled via OM: Order cancelled - Patient discharged Performed By: #### L 502.0250, L500.2500 #### [facility] [address] [place], [address] MCH Normal 27.0-32.0 [facility] Comment on above: Result Comment: Canc elled via OM: Order cancelled - Patient discharged Performed By: #### L 502.0250, L500.2500 #### [facility] [address] [place], [address] MCHC Normal 32-36 [facility] Comment on above: Result Comment: Canc elled via OM: Order cancelled - Patient discharged Performed By: #### L 502.0250, L500.2500 #### [facility] [address] [place], [address] MCV Normal 81-99 [facility] Comment on above: Result Comment: Canc elled via OM: Order cancelled - Patient discharged Performed By: #### L 502.0250, L500.2500 #### [facility] [address] [place], [address] NEUT% Normal 47-70 [facility] Comment on above: Result Comment: Canc elled via OM: Order cancelled - Patient discharged Performed By: #### L 502.0250, L500.2500 #### [facility] [address] [place], [address] PLT Normal 150-450 [facility] Comment on above: Result Comment: Canc elled via OM: Order cancelled - Patient discharged Performed By: #### L 502.0250, L500.2500 #### [facility] [address] [place], [address] RBC Normal 4.2-5.4 [facility] Comment on above: Result Comment: Canc elled via OM: Order cancelled - Patient discharged Performed By: #### L 502.0250, L500.2500 #### [facility] [address] [place], [address] RDW CV Normal 11.6-14.6 [facility] Comment on above: Result Comment: Canc elled via OM: Order cancelled - Patient discharged Performed By: #### L 502.0250, L500.2500 #### [facility] [address] [place], [address] RDW SD Normal 35.1-43.9 [facility] Comment on above: Result Comment: Canc elled via OM: Order cancelled - Patient discharged Performed By: #### L 502.0250, L500.2500 #### [facility] [address] [place], [address] WBC Normal 4.4-11.0 [facility] Comment on above: Result Comment: Canc elled via OM: Order cancelled - Patient discharged Performed By: #### L 502.0250, L500.2500 #### [facility] [address] [place], [address] Basic Metabolic Profile (BMP )on 06-15-2024 BUN Normal 7-18 [facility] Comment on above: Result Comment: Canc elled via OM: Order cancelled - Patient discharged Performed By: #### L 502.0250, L500.2500 #### [facility] [address] [place], [address] BUN/CRE Normal 10-20 [facility] Comment on above: Result Comment: Canc elled via OM: Order cancelled - Patient discharged Performed By: #### L 502.0250, L500.2500 #### [facility] [address] [place], [address] CA,Total Normal 8.5-10.1 [facility] Comment on above: Result Comment: Canc elled via OM: Order cancelled - Patient discharged Performed By: #### L 502.0250, L500.2500 #### [facility] [address] [place], [address] CL Normal 98-107 [facility] Comment on above: Result Comment: Canc elled via OM: Order cancelled - Patient discharged Performed By: #### L 502.0250, L500.2500 #### [facility] [address] [place], [address] CO2 Normal 21.0-32.0 [facility] Comment on above: Result Comment: Canc elled via OM: Order cancelled - Patient discharged Performed By: #### L 502.0250, L500.2500 #### [facility] [address] [place], [address] CREAT,SERUM Normal 0.55-1.02 [facility] Comment on above: Result Comment: Canc elled via OM: Order cancelled - Patient discharged Performed By: #### L 502.0250, L500.2500 #### [facility] [address] [place], [address] EST GFR Normal >60 [facility] Comment on above: Result Comment: Canc elled via OM: Order cancelled - Patient discharged Performed By: #### L 502.0250, L500.2500 #### [facility] [address] [place], [address] EST GFR - AA Normal >60 [facility] Comment on above: Result Comment: Canc elled via OM: Order cancelled - Patient discharged Performed By: #### L 502.0250, L500.2500 #### [facility] [address] [place], [address] GAP Normal 5-15 [facility] Comment on above: Result Comment: Canc elled via OM: Order cancelled - Patient discharged Performed By: #### L 502.0250, L500.2500 #### [facility] [address] [place], [address] GLU Normal 74-106 [facility] Comment on above: Result Comment: Canc elled via OM: Order cancelled - Patient discharged Performed By: #### L 502.0250, L500.2500 #### [facility] [address] [place], [address] Potassium Normal 3.5-5.1 [facility] Comment on above: Result Comment: Canc elled via OM: Order cancelled - Patient discharged Performed By: #### L 502.0250, L500.2500 #### [facility] [address] [place], [address] Basic Metabolic Profile (BMP) Normal 136-145 [facility] Comment on above: Result Comment: Canc elled via OM: Order cancelled - Patient discharged Performed By: #### L 502.0250, L500.2500 #### [facility] [address] [place], [address] CBC W/Diff, Automatedon 11-0 Absolute Neut Normal 2.0-7.7 [facility] Comment on above: Result Comment: Canc elled via OM: Order cancelled - Patient discharged Performed By: #### L 502.0250, L500.2500 #### [facility] [address] [place], [address] HCT Normal 37-47 [facility] Comment on above: Result Comment: Canc elled via OM: Order cancelled - Patient discharged Performed By: #### L 502.0250, L500.2500 #### [facility] [address] [place], [address] HGB Normal 12.0-15.0 [facility] Comment on above: Result Comment: Canc elled via OM: Order cancelled - Patient discharged Performed By: #### L 502.0250, L500.2500 #### [facility] [address] [place], [address] MCH Normal 27.0-32.0 [facility] Comment on above: Result Comment: Canc elled via OM: Order cancelled - Patient discharged Performed By: #### L 502.0250, L500.2500 #### [facility] [address] [place], [address] MCHC Normal 32-36 [facility] Comment on above: Result Comment: Canc elled via OM: Order cancelled - Patient discharged Performed By: #### L 502.0250, L500.2500 #### [facility] [address] [place], [address] MCV Normal 81-99 [facility] Comment on above: Result Comment: Canc elled via OM: Order cancelled - Patient discharged Performed By: #### L 502.0250, L500.2500 #### [facility] [address] [place], [address] NEUT% Normal 47-70 [facility] Comment on above: Result Comment: Canc elled via OM: Order cancelled - Patient discharged Performed By: #### L 502.0250, L500.2500 #### [facility] [address] [place], [address] PLT Normal 150-450 [facility] Comment on above: Result Comment: Canc elled via OM: Order cancelled - Patient discharged Performed By: #### L 502.0250, L500.2500 #### [facility] [address] [place], [address] RBC Normal 4.2-5.4 [facility] Comment on above: Result Comment: Canc elled via OM: Order cancelled - Patient discharged Performed By: #### L 502.0250, L500.2500 #### [facility] [address] [place], [address] RDW CV Normal 11.6-14.6 [facility] Comment on above: Result Comment: Canc elled via OM: Order cancelled - Patient discharged Performed By: #### L 502.0250, L500.2500 #### [facility] [address] [place], [address] RDW SD Normal 35.1-43.9 [facility] Comment on above: Result Comment: Canc elled via OM: Order cancelled - Patient discharged Performed By: #### L 502.0250, L500.2500 #### [facility] [address] [place], [address] WBC Normal 4.4-11.0 [facility] Comment on above: Result Comment: Canc elled via OM: Order cancelled - Patient discharged Performed By: #### L 502.0250, L500.2500 #### [facility] [address] [place], [address] Basic Metabolic Profile (BMP )on 06-14-2024 BUN/CRE 27.7 RATIO High 10-20 [facility] Comment on above: Performed By: #### L 500.2500, L100.0100 #### [facility] [address] [place], [address] CA,Total 8.4 mg/dL Low 8.5-10.1 [facility] Comment on above: Performed By: #### L 500.2500, L100.0100 #### [facility] [address] [place], [address] Chloride [Moles/Vol] 109 mmol/L High 98-107 [facility] Comment on above: Performed By: #### L 500.2500, L100.0100 #### [facility] [address] [place], [address] CO2 [Moles/Vol] 28.0 mmol/L Normal 21.0-32.0 [facility] Comment on above: Performed By: #### L 500.2500, L100.0100 #### [facility] [address] [place], [address] Creatinine [Mass/Vol] 0.68 mg/dL Normal 0.55-1.02 [facility] Comment on above: Result Comment: The validity of the calculated GFR GFRAA in patients over 70 years has not been determined. Clinical correlation is essential. Performed By: #### L 500.2500, L100.0100 #### [facility] [address] [place], [address] ECRCL 39.18 ml/min Normal [facility] Comment on above: Performed By: #### L 500.2500, L100.0100 #### [facility] [address] [place], [address] EST GFR - AA 104 mL/min Normal >60 [facility] Comment on above: Result Comment: Afri can [place] GFR Calc Performed By: #### L 500.2500, L100.0100 #### [facility] [address] [place], [address] GAP 5 Normal 5-15 [facility] Comment on above: Performed By: #### L 500.2500, L100.0100 #### [facility] [address] [place], [address] GFR/1.73 sq M.predicted among non-blacks MDRD (S/P/Bld) [Vol rate/Area] 86 mL/min/{1.73_m2} Normal >60 [facility] Comment on above: Result Comment: Non- GFR Calc Performed By: #### L 500.2500, L100.0100 #### [facility] [address] [place], [address] Glucose [Mass/Vol] 208 mg/dL High 74-106 [facility] Comment on above: Result Comment: Gluc ose result greater than or equal to 200 mg/dL suggests DIABETES MELLITUS per A.D.A. criteria. Performed By: #### L 500.2500, L100.0100 #### [facility] [facility] [address] [place], [address] Potassium [Moles/Vol] 4.3 mmol/L Normal 3.5-5.1 [facility] Comment on above: Performed By: #### L 500.2500, L100.0100 #### [facility] [address] [place], [address] Sodium [Moles/Vol] 142 mmol/L Normal 136-145 [facility] Comment on above: Performed By: #### L 500.2500, L100.0100 #### [facility] [address] [place], [address] Urea nitrogen [Mass/Vol] 19 mg/dL High 7-18 [facility] Comment on above: Performed By: #### L 500.2500, L100.0100 #### [facility] [address] [place], [address] Bedside Glucoseon --4 FINGERSTICK GLU 271 mg/dL High 74-106 [facility] Comment on above: Result Comment: KRISTYN GEMENT OF PATIENT CARE PER NURSING PROTOCOL Performed By: #### L 502.0250, L500.2500 #### [facility] [address] [place], [address] FINGERSTICK GLU 202 mg/dL High 74-106 [facility] Comment on above: Result Comment: KRISTYN GEMENT OF PATIENT CARE PER NURSING PROTOCOL Performed By: #### L 502.0250, L500.2500 #### [facility] [address] [place], [address] FINGERSTICK GLU 204 mg/dL High 74-106 [facility] Comment on above: Result Comment: KRISTYN GEMENT OF PATIENT CARE PER NURSING PROTOCOL Performed By: #### L 502.0250, L500.2500 #### [facility] [address] [place], [address] CBC W/Diff, Automatedon 10-3 Absolute Lymph 0.81 X10 3/uL Low 0.83-4.51 [facility] Comment on above: Performed By: #### L 500.2500, L100.0100 #### [facility] [address] [place], [address] Absolute Neut 2.5 X10 3/uL Normal 2.0-7.7 [facility] Comment on above: Performed By: #### L 500.2500, L100.0100 #### [facility] [address] [place], [address] Basophils/100 WBC (Bld) 0.5 % Normal 0-1 [facility] Comment on above: Performed By: #### L 500.2500, L100.0100 #### [facility] [address] [place], [address] Eosinophils/100 WBC (Bld) 0.8 % Normal 0-5 [facility] Comment on above: Performed By: #### L 500.2500, L100.0100 #### [facility] [address] [place], [address] Erythrocyte distribution width (RBC) [Ratio] 13.7 % Normal 11.6-14.6 [facility] Comment on above: Performed By: #### L 500.2500, L100.0100 #### [facility] [address] [place], [address] Hematocrit (Bld) [Volume fraction] 32.8 % Low 37-47 [facility] Comment on above: Performed By: #### L 500.2500, L100.0100 #### [facility] [address] [place], [address] Hemoglobin (Bld) [Mass/Vol] 10.4 g/dL Low 12.0-15.0 [facility] Comment on above: Performed By: #### L 500.2500, L100.0100 #### [facility] [address] [place], [address] IG% 0.500 Normal 0.0-0.9 [facility] Comment on above: Result Comment: IG% - Immature Granulocytes (promyelocytes, myelocytes and metamyelocytes) > 1% indicates that a LEFT SHIFT is Present. Performed By: #### L 500.2500, L100.0100 #### [facility] [address] [place], [address] Lymphocytes/100 WBC (Bld) 21.5 % Normal 19-41 [facility] Comment on above: Performed By: #### L 500.2500, L100.0100 #### [facility] [address] [place], [address] MCH (RBC) [Entitic mass] 31.2 pg Normal 27.0-32.0 [facility] Comment on above: Performed By: #### L 500.2500, L100.0100 #### [facility] [address] [place], [address] MCHC (RBC) [Mass/Vol] 31.7 g/dL Low 32-36 [facility] Comment on above: Performed By: #### L 500.2500, L100.0100 #### [facility] [address] [place], [address] MCV (RBC) [Entitic vol] 98.5 fL Normal 81-99 [facility] Comment on above: Performed By: #### L 500.2500, L100.0100 #### [facility] [address] [place], [address] Monocytes/100 WBC (Bld) 11.1 % High 0-10 [facility] Comment on above: Performed By: #### L 500.2500, L100.0100 #### [facility] [address] [place], [address] Neutrophils/100 WBC (Bld) 65.6 % Normal 47-70 [facility] Comment on above: Performed By: #### L 500.2500, L100.0100 #### [facility] [address] [place], [address] Nucleated RBC (Bld) [#/Vol] 0 10*3/uL Normal 0-5 [facility] Comment on above: Performed By: #### L 500.2500, L100.0100 #### [facility] [address] [place], [address] Platelet mean volume (Bld) [Entitic vol] 9.7 fL Normal 6.2-12.0 [facility] Comment on above: Performed By: #### L 500.2500, L100.0100 #### [facility] [address] [place], [address] Platelets (Bld) [#/Vol] 175 10*3/uL Normal 150-450 [facility] Comment on above: Performed By: #### L 500.2500, L100.0100 #### [facility] [address] [place], [address] RBC (Bld) [#/Vol] 3.33 10*6/uL Low 4.2-5.4 [facility] Comment on above: Performed By: #### L 500.2500, L100.0100 #### [facility] [address] [place], [address] RDW SD 49.5 fl High 35.1-43.9 [facility] Comment on above: Performed By: #### L 500.2500, L100.0100 #### [facility] [address] [place], [address] WBC (Bld) [#/Vol] 3.8 10*3/uL Low 4.4-11.0 [facility] Comment on above: Performed By: #### L 500.2500, L100.0100 #### [facility] [address] [place], [address] Discharge Instructionon 05-17 Discharge Instruction [facility] Medical Records Department [address] [place] [address] Instructions for Home/Discharge Instructions 06/14/24 1620 MR#: [id number] Acct: [id number] Name: MARYCRUZ MENDEZ Rep #: [id number] : 1935 89 From: Alice Triplett MD PCP: Dr. Michela Holguin MD Status:ADM KAYLYN Discharge Instructions Diet Discharge Diet: Low fat / Low cholesterol Activity Discharge Activity: Return to Normal Activity Weight Bearing Status: Weight bearing as tolerated Dressing / Incision Call your doctor if you observe: Fever of 101 or Higher, Shortness of breath, Dizziness, Swelling in the ankles and Chest pain Follow Up Care Test Results: Test results from this visit will be discussed in further detail at your follow-up appointment, if applicable. Discharge Plan Admission Admit Date/Time: 06/12/24 23:48 Primary Reason for Your Visit: left hemianopsia Attending Provider: Alice Triplett Primary Care Provider: Michela Holguin Consulting Providers: Guzman Real; Karina Menjivar; Billie Henriquez; Josefina Obregon; Linette Ramirez; Thor Doe; Wanda Pagan; Yaya Bear; aBm Florentino; Piero Carmichael; Toshia Arvizu; Horace Verdugo; Solange Ohara; John Dias; Cathi Pierson; Jose D Murphy; Tao Mckeon; Simone Rascon; Yolanda Espinoza; Ellen Gomez; Ammon Morris; April Moyer; Jamil Curtis; Cornell Jovel; JULIETTE GREY; Timothy Escobar; Lyudmila Chen Instructions Patient Instructions: TIA Dc Discharge Orders/Prescriptions Prescriptions: New aspirin 81 mg Tablet,Chewable 81 mg PO BREAKFAST Qty: 30 2RF clopidogrel 75 mg Tablet 75 mg PO DAILY Qty: 21 0RF Continued insulin glargine [Lantus Solostar U-100 Insulin] 100 unit/mL (3 mL) insulin pen 6 unit subcut DAILY Rx Instructions: qam rosuvastatin 5 mg tablet 5 mg PO QDAY ferrous sulfate 325 mg (65 mg iron) tablet 325 mg PO QDAY methotrexate sodium 2.5 MG tablet 5 mg PO QWEEK Patient Comments: RA Rx Instructions: folic acid 1 MG tablet 1 mg PO DAILY@0800 Patient Comments: take every day except the day you take methotrexate cholecalciferol (vitamin D3) [Vitamin D3] 1,000 UNIT capsule 1,000 unit PO DAILY metformin 500 mg tablet,ER diane.retention 24 hr 1,000 mg PO BID Patient Comments: 1 tab twice a day losartan 50 mg tablet 50 mg PO DAILY insulin lispro [Humalog KwikPen Insulin] 100 unit/mL insulin pen See Rx Instructions .ROUTE .COMPLEX Rx Instructions: 6 units daily before breakfast 4 units daily before lunch and dinner; Other Ambulatory Orders: 30 Day Event Recorder Preventi (Urgent) Timeframe: 1 Day Facility: [facility] - Location: Cardiovascular Services Ordered By: Dr. Alice Triplett Referrals / Follow Up: Michela Holguin MD [Primary Care Provider] - Within 2 Weeks Disposition Disposition (needs filled in before D/C Order can be placed): Home, Self Care 06/14/24 1620 Alice Triplett MD CC: Josefina Obregon; Solange Ohara; Jose D Murphy; Linette Ramirez MD; Billie Henriquez MD; Guzman Real MD; April Moyer MD; Dr. Eduar Grey MD; Dr. Karina Menjivar MD; Dr. Michela Holguin MD; Dr. Thor Doe MD; Dr. Wanda Pagan MD; Dr. Bam Florentino MD; Dr. Yaya Bear MD; Dr. Piero Carmichael MD; Dr. Horace Verdugo DO; Dr. Cathi Pierson MD; Dr. John Dias MD; Dr. Ammon Morris MD; Dr. Tao Mckeon MD; Dr. Simone Rascon MD; Dr. Yolanda Espinoza MD; Cornell Jovel MD; Jamil Curtis MD; Toshia Arvizu DO; Timothy Escobar MD; Lyudmila [place] DO; Ellen Gomez MD Signed Normal [facility] 12 Lead EKGon 06-13-2024 12 Lead EKG [facility] Cardiovascular Services [address] [place] [address] 12 Lead EKG 06/13/24 0202 MR#: [id number] Acct: [id number] Name: MARYCRUZ MENDEZ Rep #: [id number] : 1935 89 From: Tommie Monet MD Attending Dr: Dr. Alice Triplett MD Status: AD M KAYLYN Ordering Dr: Ammon Morris MD Date: 06/13/24 Location: [facility] Sex: F C Admitted: 06/12/24 Test Reason : CP Blood Pressure : */* mmHG Vent. Rate : 78 BPM Atrial Rate : 78 BPM P-R Int : 150 ms QRS Dur : 104 ms QT Int : 364 ms P-R-T Axes : 67 -34 63 degrees QTcB Int : 414 ms Normal sinus rhythm Left axis deviation Minimal voltage criteria for LVH, may be normal variant ( Aiden product ) Septal infarct , age undetermined Abnormal ECG When compared with ECG of 12-Jun-2024 21:33, MANUAL COMPARISON REQUIRED DATA IS UNCONFIRMED Confirmed by LAURA KHANNA, TOMMIE ([id number]), book or script editor TUCKER AUGUSTIN ([id number]) on 06/14/2024 11:34:13 AM Referred By: ARTURO Confirmed By: TOMMIE MONET MD 06/14/24 1134 Date Tommie Monet MD CC: Dr. Michela Holguin MD; Dr. Alice Triplett MD; Dr. Ammon Morris MD Signed Normal [facility] Bedside Glucoseon 06-13-2024 FINGERSTICK GLU 205 mg/dL High 74-106 [facility] Comment on above: Result Comment: KRISTYN GEMENT OF PATIENT CARE PER NURSING PROTOCOL Performed By: #### L 502.0250, L500.2500 #### [facility] [address] [place], [address] FINGERSTICK GLU 347 mg/dL High 74-106 [facility] Comment on above: Result Comment: KRISTYN GEMENT OF PATIENT CARE PER NURSING PROTOCOL Performed By: #### L 502.0250, L500.2500 #### [facility] [address] [place], [address] FINGERSTICK GLU 301 mg/dL High 74-106 [facility] Comment on above: Result Comment: KRISTYN GEMENT OF PATIENT CARE PER NURSING PROTOCOL Performed By: #### L 502.0250, L500.2500 #### [facility] [address] [place], [address] FINGERSTICK GLU 197 mg/dL High 74-106 [facility] Comment on above: Result Comment: KRISTYN GEMENT OF PATIENT CARE PER NURSING PROTOCOL Performed By: #### L 502.0250, L500.2500 #### [facility] [address] [place], [address] FINGERSTICK GLU 141 mg/dL High [address] [place] [address] Comment on above: Result Comment: KRISTYN GEMENT OF PATIENT CARE PER NURSING PROTOCOL Performed By: #### L 502.0250, L500.2500 #### [facility] [address] [place], [address] Brain without Contraston Brain without Contrast [facility] Imaging Services [address] [place] [address] Brain without Contrast MR#: [id number] Acct: [id number] Name: MARYCRUZ MENDEZ Rep #: [id number] : 1935 F 89 From: Parth Dumont MD PCP: Dr. Michela Holguin MD Status: ADM KAYLYN Study: Brain without Contrast Date of Exam: 06/13/24 Exam# [id number] Ordering Dr: Ammon Morris MD [id number] EXAM: MR HEAD WITHOUT INTRAVENOUS CONTRAST CLINICAL INDICATION: STROKE Suspected TECHNIQUE: Multiplanar and multisequence MR images of the brain were obtained without intravenous contrast. COMPARISON: CTA head and neck with contrast 06/12/2024. FINDINGS: BRAIN AND EXTRA-AXIAL SPACES: No diffusion restriction to suspect acute or subacute ischemic infarct. Periventricular white matter T2 FLAIR hyperintensity foci in both vertebral hemispheres are chronic white matter ischemic changes. They are confluent in the forceps major. Normal ventricles and cisterns. No recent or remote intracranial bleeding. No communicating or noncommunicating hydrocephalus. No intracranial mass or mass effect. Posterior fossa structures are unremarkable. SELLA: Unremarkable. Normal sella turcica, pituitary gland, infundibular stalk, optic chiasm and hypothalamus. AUDITORY SYSTEM: Unremarkable. The internal auditory canals are patent. BONES/JOINTS: Unremarkable. No discrete lytic or blastic abnormalities. SINUSES: Unremarkable as visualized. Clear. MASTOID AIR CELLS: Unremarkable as visualized. Clear. ORBITS: Unremarkable as visualized. Both globes, extraocular muscles, optic nerves and retrobulbar fat appear unremarkable. VASCULATURE: Unremarkable as visualized. Normal flow voids in the major intracranial circulation. MRI/Brain without Contrast IMPRESSION: 1. No MRI evidence of acute or subacute ischemic infarct or remote cortical-based ischemic infarct. 2. Chronic periventricular white matter ischemic changes in both cerebral hemispheres, confluent in the forceps major. Electronically Signed: Parth Dumont MD at 13:34 EDT Reading Location ID and State: [facility] / [place] , Service support , CC: Dr. Michela Holguin MD; Dr. 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 Cardiovascular Services [address] [place] [address] Echo Complete 06/13/24 0951 MR#: [id number] Acct: [id number] Name: MARYCRUZ MENDEZ Rep #: [id number] : 1935 89 From: Tommie Monet MD Attending Dr: Dr. Alice Triplett MD Status: AD M KAYLYN Ordering Dr: Ammon Morris MD Date: 06/13/24 Location: PCU Sex: F C Admitted: 06/12/24 Reason For Study: TIA/CVA Procedure This was a 2D Doppler, Color Flow transthoracic echocardiogram. Myocardial strain analysis was performed in this exam to aid in the assessment of cardiac function. Exam performed portable in patient room. Left Ventricle Normal LV size. Moderate concentric left ventricular hypertrophy. The left ventricular ejection fraction is 70 %. Stage 1 diastolic dysfunction. No regional wall motion abnormalities noted. Right Ventricle Normal RV size. Normal systolic function. Atria Normal left atrium. Normal right atrium. Bubble contrast study negative for right to left interatrial shunt. Mitral Valve There is mild mitral annular calcification. Mild (1+) eccentric mitral valve insufficiency. Tricuspid Valve Normal tricuspid valve. Mild (1+) tricuspid valve insufficiency. Pulmonary artery systolic pressure is 45 mmHg. Aortic Valve Trisinus/trileaflet aortic valve. Moderate focal aortic valve calcification. Pulmonic Valve Normal pulmonic valve. Great Vessels Normal aortic root. The pulmonary artery is normal size. Inferior vena cava collapse with respiration. Pericardium/Pleural Small (<1.0 cm) pericardial effusion. Medication Performed a rapid injection of agitated mix of 9 cc saline and 1cc air to assess for atrial septal defect. MMode/2D Measurements Calculations LVIDd: 3.8 cm IVSd: 1.5 cm LVOT diam: 2.2 cm LVIDs: 2.1 cm LVPWd: 1.2 cm RVDd: 3.1 cm FS: 44.6 % LVOT area: 3.6 cm2 asc Aorta Diam: 3.3 cm LAV(MOD-bp): 52.2 ml LVAd ap4: 22.2 cm2 LAV(MOD-bp) Indexed: 33.7 ml/m2 LVLd ap4: 7.4 cm LAV(MOD-sp2): 51.7 ml EDV(MOD-sp4): 56.5 ml LAV(MOD-sp4): 50.0 ml EDV(sp4-el): 57.1 ml LVAs ap4: 10.9 cm2 LVLs ap4: 5.8 cm ESV(MOD-sp4): 17.9 ml ESV(sp4-el): 17.1 ml EF(MOD-sp4): 68.3 % EF(sp4-el): 70.0 % LVAd ap2: 22.6 cm2 SV(MOD-sp4): 38.6 ml SV(MOD-sp2): 40.2 ml LVLd ap2: 7.2 cm SI(MOD-sp4): 24.9 ml/m2 SI(MOD-sp2): 25.9 ml/m2 EDV(MOD-sp2): 59.2 ml EDV(sp2-el): 60.5 ml LVAs ap2: 11.4 cm2 LVLs ap2: 6.0 cm ESV(MOD-sp2): 18.9 ml ESV(sp2-el): 18.6 ml EF(MOD-sp2): 68.0 % SV(sp4-el): 39.9 ml Ao sinus diam: 3.[address] Junction: 2.9 cm LA dimension(2D): 4.2 cm LA A4 area: 18.0 cm2 RA A4 area: 15.2 cm2 TAPSE: 2.0 cm Time Measurements MV dec time: 0.24 sec Doppler Measurements Calculations MV E max jelly: 80.3 cm/sec Lat Peak E' Jelly: 9.3 cm/sec Med Peak E' Jelly: 7.7 cm/sec MV A max jelly: 104.5 cm/sec E/E' lat: 8.7 E/E' med: 10.4 MV E/A: 0.77 MV dec slope: 330.3 cm/sec2 Ao V2 max: 188.9 cm/sec LV V1 max: 108.0 cm/sec Ao max P.4 mmHg LV V1 max P.7 mmHg Ao V2 mean: 130.5 cm/sec LV V1 mean P.5 mmHg Ao mean P.7 mmHg LV V1 mean: 75.5 cm/sec Ao V2 VTI: 42.9 cm LV V1 VTI: 26.8 cm AV (velocity ratio): 0.63 MARY(I,D): 2.3 cm2 MARY(V,D): 2.1 cm2 SV(LVOT): 97.4 ml PA V2 max: 101.1 cm/sec TR max jelly: 311.7 cm/sec PA max PG (full): 1.3 mmHg TR max P.9 mmHg ECHO/Echo Complete Interpretation Summary Normal LV size. The left ventricular ejection fraction is 70 %. Stage 1 diastolic dysfunction. Moderate concentric left ventricular hypertrophy. Bubble contrast study negative for right to left interatrial shunt. The global longitudinal strain is normal. The global longitudinal strain = -19.2 % (normal). ___ Ordering Physician: Ammon Morris Performed By: Yadira Fernandez RDCS and Student 06/13/241710 Date Tommie Monet MD CC: Dr. Michela Holguin MD; Dr. Alice Triplett MD; Dr. Ammon Morris MD Date Dictated: 06/13/24950 Date Transcribed: 06/13/241710 Tempering Oven Operator: Signed Normal [facility] Hemoglobin A1con 06-13-2024 HbA1c (Bld) [Mass fraction] 7.3 % High 3.8-5.6 [facility] Comment on above: Result Comment: Norm al < 5.7 % Prediabetic 5.7 - 6.4 % Diabetic >or= 6.5 % Please note range changes. Performed By: #### L 501.9520, L501.9985 ####[facility] [address] [place], [place], [id number] Lipid Profileon 06-13-2024 Cholesterol [Mass/Vol] 100 mg/dL Normal [facility] Comment on above: Order Comment: Comme nts: NPO at MN prior to lipid panel Result Comment: <200 mg/dL Desirable 200-240 mg/dL Borderline >240 mg/dL High Risk Performed By: #### L 500.4106 ####[facility] [address] [place], [place], [id number] Cholesterol in HDL [Mass/Vol] 89 mg/dL Normal [facility] Comment on above: Order Comment: Comme nts: NPO at MN prior to lipid panel Result Comment: The drugs N-Acetylcysteine and Metamizole may falsely depress this assay. Reference Range HDL <40 mg/dL Low HDL Cholesterol HDL >or= 60 mg/dL High HDL Cholesterol Performed By: #### L 500.4100 ####[facility] [address] [place], [address] Cholesterol in LDL [Mass/Vol] 8 mg/dL Normal 0-130 [facility] Comment on above: Order Comment: Comme nts: NPO at MN prior to lipid panel Performed By: #### L 500.4100 ####[facility] [address] [facility] [place], [address] Cholesterol in VLDL [Mass/Vol] 3 mg/dL Low 5-40 [facility] Comment on above: Order Comment: Comme nts: NPO at MN prior to lipid panel Performed By: #### L 500.4100 ####[facility] [address] [facility] [place], [address] Triglyceride [Mass/Vol] 16 mg/dL Normal [facility] Comment on above: Order Comment: Comme nts: NPO at [place] prior to lipid panel Result Comment: The drugs N-Acetylcysteine and Metamizole may falsely depress this assay. Serum Triglycerides Reference Interval Normal <150 mg/dL Borderline high 150 - 199 mg/dL High 200 - 499 mg/dL Very High > or = 500 mg/dL Performed By: #### L 500.4100 ####[facility] [address] [place], [address] MR/CON.PCM.NEon 06-13-2024 MR/CON.PCM.NE [facility] Medical Records Department [address] [place] [address] Consultation - Neurology 06/13/24 1350 MR#: [id number] Acct: [id number] Name: REYMARYCRUZ Blu Rep #: [id number] : 1935 89 From: Linette Ramirez MD PCP: Dr. Michela Holguin MD Status:ADM KAYLYN Location: [place] [address] Assessment and Plan: Stroke Assessment/Plan MARYCRUZ MENDEZ is a 89 F with a history of DM2 and RA who presents for evaluation of TIA. Symptoms are atypical as she is having some recurrent stereotyped episodes which are off for cerebrovascular events. Concern that these represent either small seizure or there could be a clot in the heart causing some cerebrovascular events but this is not clear - Anti-platelet medication: Aspirin 81 mg + Plavix 75mg daily for 21 days, then ASA alone - hold on statin as LDL is very low - Recommend EEG to eval for any seizure signatures - recommedn STEVEN to eval the PHU more closely - Occupational/ Physical therapy consults - DVT prophylaxis with SCDs and heparin SQ - Vascular risk factor modification. The following are the recommended guidelines: LDL Goal < 70 Smoking Cessation Diabetes Management detention blood pressure control should achieve <130/80 mmHg. BP management should aim to achieve prison contorl in a reasonable amount of time, taking into consideration the individual patient's requirements and characteristics. Weight Management: Goal for BMI is 18.5 -24.9 kg/m2 Alcohol: No more than 2 drinks/day for men or 1 drink/day for non- women - Promote lifestyle modification: weight control, physical activity, moderation of alcohol intake, moderate sodium intake. Followup with PCP in 1-2 weeks, and in Neurology clinic in 6-12 weeks HPI Consult Data Date of Consult: 06/13/24 HPI Narrative HPI Narrative: Presents by private vehicle with daughters for evaluation. 6:30 PM watching TV she had to turn her head to the left to see. She states on and off symptoms past year have this lasted longer. She called her daughter who came over. States on the phone was told just come there. While seeing her at the house blood glucose was 70, patient had trouble remembering what she ate for dinner and was unable to use the blood pressure cuff. She states she understood however just could not do what she needed to do. This is new symptoms for her. No stroke history. Rheumatoid arthritis with diabetes history. Has mild headache in the frontal region. Denies hemiparesis or any paresthesias. Symptoms now resolved. Prior similar symptoms: No Neurologic History: Last night she was reading a newspaper and had to turn her head to see everything. She has had symptoms off and on per her for the last 2-3 months off and on. She saw manager cost and only addressed issues in the L eye. Never has headache with these events happen. No numbness or weakness with this event. This last time was atypical because she had confusion as well. Had to turn to her left to see the newspaper. She has had recurrent episodes in the last 3 months 6 times, at most these symptoms will last 5-8 min[address] one morning and did notice one day had difficulty looking as the white line on the R side which lasted < 20 min. Has blurriness and blurred vision with this. No scotomas noted. Sometimes she will notice someone approaching her from the L side. Never had seizures.Has had a change in her diabetic medications but no other changes to her medication. At baseline she gets a high BG and will then have a low BG later in the day. [facility] Medical History Solar lentigo GERD (gastroesophageal reflux disease) Type 2 diabetes mellitus HTN (hypertension) Rheumatoid arthritis Home Medications ???Medication ???Instructions ???Recorded ???Last Taken ???Type cholecalciferol (vitamin D3) 25 1,000 unit PO DAILY 12/21/16 Unknown History mcg (1,000 unit) capsule (Vitamin D3) folic acid 1 mg tablet 1 mg PO DAILY@0800 12/21/16 Unknown History methotrexate sodium 2.5 mg tablet 5 mg PO QWEEK 12/21/16 Unknown History insulin glargine 100 unit/mL (3 6 unit subcut DAILY 03/26/24 Unknown History mL) subcutaneous pen (Lantus Solostar U-100 Insulin) ferrous sulfate 325 mg (65 mg 325 mg PO QDAY 05/23/24 Unknown History iron) tablet metformin 500 mg 24 hr 1,000 mg PO BID 05/23/24 Unknown History tablet,extended release (gastric retention) rosuvastatin 5 mg tablet 5 mg PO QDAY 05/23/24 Unknown History aspirin 81 mg chewable tablet 81 mg PO BREAKFAST #30 tabs 06/13/24 Unknown Rx insulin lispro 100 unit/mL See Rx Instructions .Route .COMPLEX 06/13/24 Unknown History subcutaneous pen (Humalog KwikPen (U-100) Insulin) losartan 50 mg tablet 50 mg PO DAILY 06/13/24 Unknown History Allergy/AdvReac Type Severity Reaction (more content not included)... Normal [facility] Magnesiumon 06-13-2024 Magnesium [Mass/Vol] 1.7 mg/dL Normal 1.6-2.6 [facility] Comment on above: Performed By: #### L 501.5200 ####[facility] [address] [facility] [place], [address] Thyroid Stim Hormone (TSH)on 06-13-2024 TSH 1.810 uIU/mL Normal 0.358-3.740 [facility] Comment on above: Performed By: #### L 501.9520, L501.9985 ####[facility] [address] [facility] [place], [address] 12 Lead EKGon 06-12-2024 12 Lead EKG [facility] [address] [place] [address] 12 Lead EKG 06/12/24 2133 MR#: [id number] Acct: [id number] Name: MARYCRUZ MENDEZ Rep #: [id number] : 1935 89 From: Tommie Monet MD Attending Dr: Dr. Alice Triplett MD Status: AD M KAYLYN Ordering Dr: Kaushal Prater DO Date: 06/12/24 Location: [facility] Sex: F C Admitted: 06/12/24 Test Reason : DYSRHYTHMIA Blood Pressure : */* mmHG Vent. Rate : 88 BPM Atrial Rate : 88 BPM P-R Int : 148 ms QRS Dur : 100 ms QT Int : 368 ms P-R-T Axes : 64 -38 82 degrees QTcB Int : 445 ms Normal sinus rhythm Left axis deviation Septal infarct , age undetermined Abnormal ECG Confirmed by TOMMIE MONET MD ([id number]), book or script editor TUCKER AUGUSTIN ([id number]) on 06/14/2024 11:31:15 AM Referred By: Confirmed By: TOMMIE MONET MD 06/14/24 1131 Date Tommie Monet MD CC: Dr. Michela Holguin MD; Dr. Alice Triplett MD; Dr. Kaushal Prater DO Signed Normal [facility] Basic Metabolic Profile (BMP )on 06-12-2024 BUN/CRE 24.9 RATIO High 10-20 [facility] Comment on above: Order Comment: 'TROP ' Serial specimen #1, #2 or #3: 1 Performed By: #### L 500.2500, L501.4020, L300.4310, L100.0100, L300.3900 ####[facility] [address] [place], [address] CA,Total 9.3 mg/dL Normal 8.5-10.1 [facility] Comment on above: Order Comment: 'TROP ' Serial specimen #1, #2 or #3: 1 Performed By: #### L 500.2500, L501.4020, L300.4310, L100.0100, L300.3900 ####[facility] [address] [place], [address] Chloride [Moles/Vol] 105 mmol/L Normal 98-107 [facility] Comment on above: Order Comment: 'TROP ' Serial specimen #1, #2 or #3: 1 Performed By: #### L 500.2500, L501.4020, L300.4310, L100.0100, L300.3900 ####[facility] [address] [place], [address] CO2 [Moles/Vol] 30.0 mmol/L Normal 21.0-32.0 [facility] Comment on above: Order Comment: 'TROP ' Serial specimen #1, #2 or #3: 1 Performed By: #### L 500.2500, L501.4020, L300.4310, L100.0100, L300.3900 ####[facility] [address] [place], [address] Creatinine [Mass/Vol] 0.72 mg/dL Normal 0.55-1.02 [facility] Comment on above: Order Comment: 'TROP ' Serial specimen #1, #2 or #3: 1 Result Comment: The validity of the calculated GFR GFRAA in patients over 70 years has not been determined. Clinical correlation is essential. Performed By: #### L 500.2500, L501.4020, L300.4310, L100.0100, L300.3900 ####[facility] [address] [place], [address] ECRCL 39.18 ml/min Normal [facility] Comment on above: Order Comment: 'TROP ' Serial specimen #1, #2 or #3: 1 Performed By: #### L 500.2500, L501.4020, L300.4310, L100.0100, L300.3900 ####[facility] [address] [place], [address] EST GFR - AA 98 mL/min Normal >60 [facility] Comment on above: Order Comment: 'TROP ' Serial specimen #1, #2 or #3: 1 Result Comment: Afri can [place] GFR Calc Performed By: #### L 500.2500, L501.4020, L300.4310, L100.0100, L300.3900 ####[facility] [address] [place], [address] GAP 6 Normal 5-15 [facility] Comment on above: Order Comment: 'TROP ' Serial specimen #1, #2 or #3: 1 Performed By: #### L 500.2500, L501.4020, L300.4310, L100.0100, L300.3900 ####[facility] [address] [place], [address] GFR/1.73 sq M.predicted among non-blacks MDRD (S/P/Bld) [Vol rate/Area] 81 mL/min/{1.73_m2} Normal >60 [facility] Comment on above: Order Comment: 'TROP ' Serial specimen #1, #2 or #3: 1 Result Comment: Non- GFR Calc Performed By: #### L 500.2500, L501.4020, L300.4310, L100.0100, L300.3900 ####[facility] [address] [place], [address] Glucose [Mass/Vol] 99 mg/dL Normal 74-106 [facility] Comment on above: Order Comment: 'TROP ' Serial specimen #1, #2 or #3: 1 Performed By: #### L 500.2500, L501.4020, L300.4310, L100.0100, L300.3900 ####[facility] [address] [place], [address] Potassium [Moles/Vol] 3.9 mmol/L Normal 3.5-5.1 [facility] Comment on above: Order Comment: 'TROP ' Serial specimen #1, #2 or #3: 1 Performed By: #### L 500.2500, L501.4020, L300.4310, L100.0100, L300.3900 ####[facility] [address] [place], [address] Sodium [Moles/Vol] 141 mmol/L Normal 136-145 [facility] Comment on above: Order Comment: 'TROP ' Serial specimen #1, #2 or #3: 1 Performed By: #### L 500.2500, L501.4020, L300.4310, L100.0100, L300.3900 ####[facility] [address] [place], [address] Urea nitrogen [Mass/Vol] 18 mg/dL Normal 7-18 [facility] Comment on above: Order Comment: 'TROP ' Serial specimen #1, #2 or #3: 1 Performed By: #### L 500.2500, L501.4020, L300.4310, L100.0100, L300.3900 ####[facility] [address] [place], [address] Bedside Glucoseon 06-12-2024 FINGERSTICK GLU 104 mg/dL Normal 74-106 [facility] Comment on above: Result Comment: KRISTYN GUILLAUME OF PATIENT CARE PER NURSING PROTOCOL Performed By: #### L 500.2500, L100.0100 #### [facility] [address] [place], [address] CBC W/Diff, Automatedon 10- Absolute Lymph 1.17 X10 3/uL Normal 0.83-4.51 [facility] Comment on above: Performed By: #### L 500.2500, L501.4020, L300.4310, L100.0100, L300.3900 #### [facility] [address] [place], [address] Absolute Neut 3.4 X10 3/uL Normal 2.0-7.7 [facility] Comment on above: Performed By: #### L 500.2500, L501.4020, L300.4310, L100.0100, L300.3900 #### [facility] [address] [place], [address] Basophils/100 WBC (Bld) 0.4 % Normal 0-1 [facility] Comment on above: Performed By: #### L 500.2500, L501.4020, L300.4310, L100.0100, L300.3900 #### [facility] [address] [place], [address] Eosinophils/100 WBC (Bld) 0.2 % Normal 0-5 [facility] Comment on above: Performed By: #### L 500.2500, L501.4020, L300.4310, L100.0100, L300.3900 #### [facility] [address] [place], [address] Erythrocyte distribution width (RBC) [Ratio] 13.8 % Normal 11.6-14.6 [facility] Comment on above: Performed By: #### L 500.2500, L501.4020, L300.4310, L100.0100, L300.3900 #### [facility] [address] [place], [address] Hematocrit (Bld) [Volume fraction] 36.8 % Low 37-47 [facility] Comment on above: Performed By: #### L 500.2500, L501.4020, L300.4310, L100.0100, L300.3900 #### [facility] [address] [place], [address] Hemoglobin (Bld) [Mass/Vol] 11.8 g/dL Low 12.0-15.0 [facility] Comment on above: Performed By: #### L 500.2500, L501.4020, L300.4310, L100.0100, L300.3900 #### [facility] [address] [place], [address] IG% 0.200 Normal 0.0-0.9 [facility] Comment on above: Result Comment: IG% - Immature Granulocytes (promyelocytes, myelocytes and metamyelocytes) > 1% indicates that a LEFT SHIFT is Present. Performed By: #### L 500.2500, L501.4020, L300.4310, L100.0100, L300.3900 #### [facility] [address] [place], [address] Lymphocytes/100 WBC (Bld) 23.1 % Normal 19-41 [facility] Comment on above: Performed By: #### L 500.2500, L501.4020, L300.4310, L100.0100, L300.3900 #### [facility] [address] [place], [address] MCH (RBC) [Entitic mass] 31.9 pg Normal 27.0-32.0 [facility] Comment on above: Performed By: #### L 500.2500, L501.4020, L300.4310, L100.0100, L300.3900 #### [facility] [address] [place], [address] MCHC (RBC) [Mass/Vol] 32.1 g/dL Normal 32-36 [facility] Comment on above: Performed By: #### L 500.2500, L501.4020, L300.4310, L100.0100, L300.3900 #### [facility] [address] [place], [address] MCV (RBC) [Entitic vol] 99.5 fL High 81-99 [facility] Comment on above: Performed By: #### L 500.2500, L501.4020, L300.4310, L100.0100, L300.3900 #### [facility] [address] [place], [address] Monocytes/100 WBC (Bld) 9.7 % Normal 0-10 [facility] Comment on above: Performed By: #### L 500.2500, L501.4020, L300.4310, L100.0100, L300.3900 #### [facility] [address] [place], [address] Neutrophils/100 WBC (Bld) 66.4 % Normal 47-70 [facility] Comment on above: Performed By: #### L 500.2500, L501.4020, L300.4310, L100.0100, L300.3900 #### [facility] [address] [place], [address] Nucleated RBC (Bld) [#/Vol] 0 10*3/uL Normal 0-5 [facility] Comment on above: Performed By: #### L 500.2500, L501.4020, L300.4310, L100.0100, L300.3900 #### [facility] [address] [place], [address] Platelet mean volume (Bld) [Entitic vol] 9.8 fL Normal 6.2-12.0 [facility] Comment on above: Performed By: #### L 500.2500, L501.4020, L300.4310, L100.0100, L300.3900 #### [facility] [address] [place], [address] Platelets (Bld) [#/Vol] 255 10*3/uL Normal 150-450 [facility] Comment on above: Performed By: #### L 500.2500, L501.4020, L300.4310, L100.0100, L300.3900 #### [facility] [address] [place], [address] RBC (Bld) [#/Vol] 3.70 10*6/uL Low 4.2-5.4 [facility] Comment on above: Performed By: #### L 500.2500, L501.4020, L300.4310, L100.0100, L300.3900 #### [facility] [address] [place], [address] RDW SD 50.4 fl High 35.1-43.9 [facility] Comment on above: Performed By: #### L 500.2500, L501.4020, L300.4310, L100.0100, L300.3900 #### [facility] [address] [place], [address] WBC (Bld) [#/Vol] 5.1 10*3/uL Normal 4.4-11.0 [facility] Comment on above: Performed By: #### L 500.2500, L501.4020, L300.4310, L100.0100, L300.3900 #### [facility] [address] [place], [address] CTA Head AND Neck W/ Contras ton 06-12-2024 CTA Head AND Neck W/ Contrast [facility] Imaging Services [address] [place] [address] CTA Head AND Neck W/ Contrast MR#: [id number] Acct: [id number] Name: MARYCRUZ MENDEZ Rep #: [id number] : 1935 F 89 From: Kevin Chambers DO PCP: Dr. Michela Holguin MD Status: REG ER Study: CTA Head AND Neck W/ Contrast Date of Exam: Exam# [id number] Ordering Dr: Kaushal Prater DO [id number] INDICATION: Neuro deficit, acute, stroke suspected EXAMINATION: CT BRAIN WITHOUT CONTRAST, CTA HEAD, AND CTA NECK TECHNIQUE: Noncontrast axial images were obtained of the brain. Subsequently, routine carotid CT angiogram protocol was performed without and with IV contrast. In addition, images were obtained of the [place] of [place]. NASCET criteria using the distal ICAs for comparison were used for evaluation of stenoses. 3D reconstructions were reviewed. The protocol utilizes one or more of the following dose reduction techniques: automated exposure control, adjustment of mA and/or kV according to patient size,and/or use of iterative reconstruction technique. IV Contrast dosage and agent: COMPARISON: FINDINGS: --CT BRAIN WITHOUT CONTRAST: BRAIN PARENCHYMA: No intra- or extra-axial hemorrhage. No evidence of acute infarct. No intracranial mass or mass effect. Bilateral white matter microangiopathic ischemic changes. Posterior fossa structures are unremarkable. CSF SPACES: Appropriate for age. No hydrocephalus. Basal cisterns are patent. CALVARIUM, SKULL BASE, PARANASAL SINUSES AND MASTOID AIR CELLS: Clear. No discrete lytic or blastic abnormalities. --CTA NECK: AORTIC ARCH AND BRANCHES: Normal anatomy, patent. RIGHT CCA: No occlusion, significant stenosis or dissection. RIGHT CAROTID BULB: Atherosclerotic calcifications with no hemodynamically significant stenosis. RIGHT ICA: No occlusion, significant stenosis or dissection. LEFT CCA: No occlusion, significant stenosis or dissection. LEFT CAROTID BULB: Atherosclerotic calcifications with no hemodynamically significant stenosis. LEFT ICA: No occlusion, significant stenosis or dissection. RIGHT VERTEBRAL ARTERY: No occlusion, significant stenosis or dissection. LEFT VERTEBRAL ARTERY: No occlusion, significant stenosis or dissection. NECK SOFT TISSUES: Bilateral thyroid nodules.. --CTA HEAD: --Anterior circulation: ICAs: No significant stenosis at the intracranial/visualized segments. ACAs: No significant stenosis at the visualized segments. ACOM: Nonvisualization. MCAs: No significant stenosis at the visualized segments. --Posterior circulation: PCOMs: Nonvisualization bilaterally. unit supervisor: No significant stenosis at the visualized segments. BASILAR ARTERY: No significant stenosis. VERTEBRAL ARTERIES: No significant stenosis at the intradural/visualized segments. No evidence of intracranial aneurysm or vascular malformation. CT/CTA Head AND Neck W/ Contrast IMPRESSION: Negative CT Brain, CTA Carotid, and CTA Brain. Electronically Signed: Kevin Chambers DO at 23:17 EDT Reading Location ID and State: [facility] / [place] Tel [phone], Service support , CC: Dr. Michela Holguin MD; Dr. Kaushal Prater DO Tempering Oven Operator: Signed Normal [facility] Chest 1 Viewon 06-12-2024 Chest 1 View [facility] Imaging Services [address] [place] [id number] Chest 1 View MR#: [id number] Acct: [id number] Name: MARYCRUZ MENDEZ Rep #: [id number] : 1935 F 89 From: Kevin Chambers DO PCP: Dr. Michela Holguin MD Status: REG ER Study: Chest 1 View Date of Exam: 06/12/24 Exam# [id number] Ordering Dr: Kaushal Prater DO [id number] INDICATION: Neuro deficit, acute, stroke suspected EXAMINATION/TECHNIQUE: X-RAY - XR Chest 1 View COMPARISON: FINDINGS: LINES/DEVICES: None. LUNGS: No consolidation, edema or effusion. No pneumothorax. MEDIASTINUM AND CARDIOVASCULAR STRUCTURES: Cardiac silhouette not enlarged. Right pulmonary and hilar granulomatous calcifications. Central airways and mediastinal contour are unremarkable. BONES AND SOFT TISSUES: Unremarkable. RAD/Chest 1 View IMPRESSION: Right pulmonary and hilar granulomatous calcifications.. Electronically Signed: Kevin Chambers DO at 23:02 EDT , CC: Dr. Michela Holguin MD; Dr. Kaushal Prater DO Tempering Oven Operator: Signed Normal [facility] Emergency Department Summary on 06-12-2024 Emergency Department Summary [facility] Medical Records Department [address] [place] [address] Emergency Department Summary 06/12/24 MR#: [id number] Acct: [id number] Name: MARYCRUZ MENDEZ Rep #: [id number] : 1935 89 From: Kaushal Marin PCP: Dr. Michela Holguin MD Status:REG ER Location: ED HPI History of Present Illness Chief Complaint: Neuro S/Sx Informant: patient and family Narrative Narrative: Presents by private vehicle with daughters for evaluation. 6:30 PM watching TV she had to turn her head to the left to see. She states on and off symptoms past year have this lasted longer. She called her daughter who came over. States on the phone was told just come there. While seeing her at the house blood glucose was 70, patient had trouble remembering what she ate for dinner and was unable to use the blood pressure cuff. She states she understood however just could not do what she needed to do. This is new symptoms for her. No stroke history. Rheumatoid arthritis with diabetes history. Has mild headache in the frontal region. Denies hemiparesis or any paresthesias. Symptoms now resolved. Prior similar symptoms: No PFSH PFSH Medical History Solar lentigo GERD (gastroesophageal reflux disease) Type 2 diabetes mellitus HTN (hypertension) Rheumatoid arthritis Home Medications ???Medication ???Instructions ???Recorded ???Last Taken ???Type cholecalciferol (vitamin D3) 25 1,000 unit PO DAILY 12/21/16 Unknown History mcg (1,000 unit) capsule (Vitamin D3) folic acid 1 mg tablet 1 mg PO DAILY@0800 12/21/16 Unknown History losartan 50 mg-hydrochlorothiazide 1 ea PO DAILY 12/21/16 Unknown History 12.5 mg tablet methotrexate sodium 2.5 mg tablet 2.5 mg PO QWEEK 12/21/16 Unknown History insulin glargine 100 unit/mL (3 7 unit subcut DAILY 03/26/24 Unknown History mL) subcutaneous pen (Lantus Solostar U-100 Insulin) insulin lispro 100 unit/mL 10 unit (0.1 mL) subcut TID #9 mL 03/26/24 Unknown Rx subcutaneous pen (Humalog KwikPen (U-100) Insulin) ferrous sulfate 325 mg (65 mg 325 mg PO QDAY 05/23/24 Unknown History iron) tablet metformin 500 mg 24 hr 1,000 mg PO BID 05/23/24 Unknown History tablet,extended release (gastric retention) rosuvastatin 5 mg tablet 5 mg PO QDAY 05/23/24 Unknown History Allergy/AdvReac Type Severity Reaction Status Date / Time No Known Allergies Allergy Verified 06/12/24 20:46 Family History Mother Diabetes Social History Smoking Status: Never smoker Electronic Cigarette Use: not used second hand exposure: No alcohol intake: never substance use type: does not use ROS ROS ED Constitutional Constitutional ED: Denies chills, fever(s) or sweats Eyes Eyes: Reports change in vision ENT ENT ED: Denies dysphagia or sore throat Cardiovascular Cardiovascular: Denies chest pain, leg edema, palpitations or racing heartbeat Respiratory/Chest Respiratory/Chest: Denies cough, dyspnea or dyspnea on exertion Gastrointestinal Gastrointestinal: Denies abdominal pain, diarrhea, nausea or vomiting Genitourinary Genitourinary ED: Denies dysuria, hematuria or urinary frequency Musculoskeletal Musculoskeletal: Denies back pain, extremity pain or neck pain Integumentary Denies rash or wounds Neurologic Neurologic: Reports headache(s) and other Details: Difficulty performing tasks and memory ; Denies paresthesias or weakness EXAM Physical Exam Const Vital Signs: 06/12/24 20:46 06/12/24 21:34 06/12/24 21:45 Temperature 97.5 F L Temperature Source Temporal Pulse Rate 90 82 Respiratory Rate 18 19 H Blood Pressure 199/95 H 154/91 H Blood Pressure Mean 129 108 Pulse Ox 100 99 Oxygen Delivery Method Room Air Room Air 06/12/24 22:00 06/12/24 22:30 06/12/24 23:00 Temperature Temperature Source Pulse Rate 83 78 74 Respiratory Rate 14 9 L 15 Blood Pressure 163/86 H 173/70 H 155/71 H Blood Pressure Mean 108 104 96 Pulse Ox 94 97 97 Oxygen Delivery Method Positive well nourished and well developed General Appearance ED: well developed and NAD HEENT Reports moist mucous membranes normocephalic and atraumatic Eyes EOMs intact bilaterally and conjunctivae normal Eyes Narrative: Normal finger counting in all 4 quadrants testing each eye separately. General Eye ED: Yes normal appearance of both eyes Neck no lymphadenopathy and supple General: Negative for tenderness Chest Wall Chest: Negative for tenderness Resp normal respiratory effort and normal air movement Effort and Inspection: symmetric chest movement; Negative for respiratory distress Cardio regular rate, regular (more content not included)... Normal [facility] H AND P Exam - Hospitaliston 06-12-2024 H&P Exam - Hospitalist [facility] Medical Records Department [address] [place] [address] H P Exam - Hospitalist 06/12/24 2347 MR#: [id number] Acct: [id number] Name: MARYCRUZ MENDEZ Rep #: [id number] : 1935 89 From: Ammon Morris MD PCP: Dr. Michela Holguin MD Status:ADM KAYLYN Location: [place] [address] HPI - General General Date of Admission: 06/12/24 Date of Service: 06/12/24 Chief Complaint: Left-sided hemianopsia about 6:30, lasted for an hour. HPI Narrative MARYCRUZ MENDEZ, is a 89 F who came to ED with sudden onset of vision loss on the left side while she was watching the TV. This happened about 6:30 PM and she had to turn her head to the left to see the TV. She was also confused and was trying to call her daughter who lives in close have her hold but it took 5 minutes to figure out how to call her. Actually she picked up a TV remote and thought it was her phone. Her symptoms of vision loss lasted for about an hour. She denies any other symptoms like hemiplegia, sensory loss, language deficit, dysarthria or dysphagia. She had similar symptoms of vision loss total 3 in her life in last 1 year. She checked her blood sugar and it was 70. Complain of mild headache in the frontal region. Her symptoms resolved by the time she came to ED. She has also seen manager cost Dr. 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 Vitals in the ED shows BP was high 199/95, heart rate 90/min but most recent BP 155/71. CT head does not show acute intracranial abnormality and patient was admitted. [facility] Medical History Solar lentigo GERD (gastroesophageal reflux disease) Type 2 diabetes mellitus HTN (hypertension) Rheumatoid arthritis Home Medications ???Medication ???Instructions ???Recorded ???Last Taken ???Type cholecalciferol (vitamin D3) 25 1,000 unit PO DAILY 12/21/16 Unknown History mcg (1,000 unit) capsule (Vitamin D3) folic acid 1 mg tablet 1 mg PO DAILY@0800 12/21/16 Unknown History methotrexate sodium 2.5 mg tablet 5 mg PO QWEEK 12/21/16 Unknown History insulin glargine 100 unit/mL (3 6 unit subcut DAILY 03/26/24 Unknown History mL) subcutaneous pen (Lantus Solostar U-100 Insulin) ferrous sulfate 325 mg (65 mg 325 mg PO QDAY 05/23/24 Unknown History iron) tablet metformin 500 mg 24 hr 1,000 mg PO BID 05/23/24 Unknown History tablet,extended release (gastric retention) rosuvastatin 5 mg tablet 5 mg PO QDAY 05/23/24 Unknown History insulin lispro 100 unit/mL See Rx Instructions .Route .COMPLEX 06/13/24 Unknown History subcutaneous pen (Humalog KwikPen (U-100) Insulin) losartan 50 mg tablet 50 mg PO DAILY 06/13/24 Unknown History Allergy/AdvReac Type Severity Reaction Status Date / Time No Known Allergies Allergy Verified 06/12/24 20:46 Family History Mother Diabetes Social History Smoking Status: Never smoker Electronic Cigarette Use: not used second hand exposure: No alcohol intake: never substance use type: does not use ROS ROS Narrative Constitutional: No acute fatigue and weakness. Mild headache, has resolved. No fever. HEENT: No dizziness/vertigo. Reports systems reviewed and no addt'l complaints, except as documented Respiratory/Chest: No acute shortness of breath or respiratory distress or wheezing. CVS: No chest pain pressure or tightness. Gastrointestinal: Denies coffee ground emesis, hematemesis or vomiting Genitourinary: Denies burning urination or new urinary tract symptoms Musculoskeletal: Denies acute joint pain or limited range of motion. No acute injury Neurologic: Denies seizure-like symptoms. Chronic mild gait instability but no new weakness. Rest as described in HPI skin: No ulcer. No rash Endocrinology: Reports systems reviewed and no addt'l complaints, except as documented Hematologic/Lymphatic: Reports systems reviewed and no addt'l complaints, except as documented Rest 14 ROS are negative except as mentioned in HPI Vital Signs Vital Signs Vital Signs: 06/12/24 20:46 06/12/24 21:34 06/12/24 21:45 Temperature 97.5 F L Temperature Source Temporal Pulse Rate 90 82 Respiratory Rate 18 19 H Blood Pressure 199/95 H 154/91 H Blood Pressure Mean 129 108 Pulse Ox 100 99 Oxygen Delivery Method Room Air Room Air 06/12/24 22:00 06/12/24 22:30 06/12/24 23:00 Temperature Temperature Source Pulse Rate 83 78 74 Respiratory Rate 14 9 L 15 Blood Pressure 163/86 H 173/70 H 155/71 H Blood Pressure Mean 108 104 96 Pulse Ox 94 97 97 Oxygen Delivery Method Weight Weight: 121 lb 14.65 oz Body Mass Index (BMI) 22.3 (more content not included)... Normal [facility] L501.4020on 06-12-2024 TROPONIN-I HS 50 pg/mL Normal 3.0-54.0 [facility] Comment on above: Order Comment: 'TROP ' Serial specimen #1, #2 or #3: 1 Result Comment: Dunia rosales Note: New Test Units and Gender Specific Reference Ranges. For more information see Policy Stat Procedure Girard High Sensitivity Troponin (TNIH) and attachments. Performed By: #### L 500.2500, L501.4020, L300.4310, L100.0100, L300.3900 ####[facility] [address] [place], [address] Partial Thromboplast Timeon 06-12-2024 aPTT Coag (Bld) [Time] 25.0 s Normal 24.1-36.2 [facility] Comment on above: Performed By: #### L 500.2500, L501.4020, L300.4310, L100.0100, L300.3900 ####[facility] [address] [place], [address] Prothrombin Time w/INRon INR Coag (PPP) [Relative time] 0.9 {INR} Normal [facility] Comment on above: Performed By: #### L 500.2500, L501.4020, L300.4310, L100.0100, L300.3900 ####[facility] [address] [place], [address] PT Coag (PPP) [Time] 11.8 s Normal 11.7-14.9 [facility] Comment on above: Performed By: #### L 500.2500, L501.4020, L300.4310, L100.0100, L300.3900 ####[facility] [address] [place], [address] Absolute lymphocyte countOrd ered By: Michela Holguin on 10-19-2023 Lymphocytes Auto (Unsp spec) [#/Vol] 0.87 10*3/uL 0.83-4.51 [facility] Automated lymphocyte count a s percentage of total leukocytesOrdered By: Michela Holguin on 10-19-2023 Lymphocytes/100 WBC Auto (Unsp spec) 25.0 % 19-41 [facility] Basophil percentageOrdered B y: Briannavictor hugo Hawkinske on 10-19-2023 Basophils/100 WBC (Bld) 0.3 % 0-1 [facility] Eosinophils/100 WBC (Bld) 0.3 % 0-5 [facility] Hemoglobin (Bld) [Mass/Vol] 10.6 g/dL 12.0-15.0 [facility] Monocytes/100 WBC (Bld) 6.9 % 0-10 [facility] Neutrophils (Bld) [#/Vol] 2.3 10*3/uL 2.0-7.7 [facility] Neutrophils/100 WBC (Bld) 67.2 % 47-70 [facility] WBC (Bld) [#/Vol] 3.5 10*3/uL 4.4-11.0 [facility] Determination of erythrocyte mean corpuscular volume (MCV)Ordered By: Michela Holguin on 10-19-2023 MCV (RBC) [Entitic vol] 93.6 fL 81-99 [facility] Erythrocyte distribution wid th ratioOrdered By: [facility] on 10-19-2023 Erythrocyte distribution width (RBC) [Ratio] 14.6 % 11.6-14.6 [facility] Erythrocyte distribution wid th standard deviationOrdered By: [facility] on 10-19-2023 Erythrocyte distribution width (RBC) [Entitic vol] 49.6 fL 35.1-43.9 [facility] Hematocrit Auto (Bld) [Volum e fraction]Ordered By: Michela Holguin on 10-19-2023 Hematocrit (Bld) [Volume fraction] 33.5 % 37-47 [facility] Immature granulocytes/100 WB C Auto (Bld)Ordered By: Michela Holguin on 10-19-2023 Immature granulocytes/100 WBC (Bld) 0.300 % 0.0-0.9 [facility] Comment on above: IG% - Immature Granu locytes (promyelocytes, myelocytes and metamyelocytes) > 1% indicates that a LEFT SHIFT is Present. Iron measurement (mass/mass) Ordered By: Michela Holguin on 10-19-2023 Iron (Unsp spec) [Mass/Mass] 47 ug/dL 50-170 [facility] Laboratory - Chemistry and C hemistry - challengeOrdered By: Michela Holguin on 10-19-2023 Ferritin [Mass/Vol] 13 ng/mL 8-252 [facility] - Hematology and Cell countsOrdered By: Michela Holguin on 10-19-2023 MCH (RBC) [Entitic mass] 29.6 pg 27.0-32.0 [facility] MCHC (RBC) [Mass/Vol] 31.6 g/dL 32-36 [facility] Nucleated RBC/100 WBC (Bld) [Ratio] 0 % 0-5 [facility] Platelet mean volume (Bld) [Entitic vol] 10.4 fL 6.2-12.0 [facility] Platelets (Bld) [#/Vol] 251 10*3/uL 150-450 [facility] No Panel InformationOrdered By: Michela Holguin on 10-19-2023 Folate 23.80 ng/mL 3.1-55.4 [facility] Total Iron Binding Capacity 342 ug/dL 250-450 [facility] RBC Auto (Bld) [#/Vol]Ordere d By: Michela Holguin on 10-19-2023 RBC (Bld) [#/Vol] 3.58 10*6/uL 4.2-5.4 [facility] Serum or plasma iron saturat ion measurement (mass fraction)Ordered By: Michela Holguin on 10-19-2023 Iron saturation [Mass fraction] 13.7 % 15.0-55.0 [facility] Serum or plasma thyroid stim ulating hormone (TSH) measurement (units/volume)Ordered By: Michela Holguin on 10-19-2023 TSH Qn 1.02 uIU/mL 0.358-3.74 [facility] Absolute lymphocyte countOrd ered By: Bassam Soni on 07-10-2023 Lymphocytes Auto (Unsp spec) [#/Vol] 1.40 10*3/uL 0.83-4.51 [facility] Basophil percentageOrdered B y: Bassam Soni on 07-10-2023 Basophils/100 WBC (Bld) 0.4 % 0-1 [facility] Chloride [Moles/Vol] 100 mmol/L 98-107 [facility] Eosinophils/100 WBC (Bld) 0.7 % 0-5 [facility] Glucose [Mass/Vol] 426 mg/dL 74-106 [facility] Comment on above: Glucose result great er than or equal to 200 mg/dLsuggests DIABETES MELLITUS per A.D.A. criteria. Neutrophils (Bld) [#/Vol] 3.7 10*3/uL 2.0-7.7 [facility] Neutrophils/100 WBC (Bld) 65.8 % 47-70 [facility] Potassium [Moles/Vol] 4.0 mmol/L 3.5-5.1 [facility] Sodium [Moles/Vol] 136 mmol/L 136-145 [facility] WBC (Bld) [#/Vol] 5.6 10*3/uL 4.4-11.0 [facility] Blood erythrocytes count (nu mber/volume)Ordered By: Bassam Soni on 07-10-2023 RBC (Bld) [#/Vol] 3.47 10*6/uL 4.2-5.4 [facility] Blood hemoglobin measurement (mass/volume)Ordered By: Bassam Soni on 07-10-2023 Hemoglobin (Bld) [Mass/Vol] 10.5 g/dL 12.0-15.0 [facility] Blood lymphocytes/100 leukoc ytesOrdered By: Bassam Soni on 07-10-2023 Lymphocytes/100 WBC (Bld) 25.2 % 19-41 [facility] Blood monocytes/100 leukocyt esOrdered By: Bassam Soni on 07-10-2023 Monocytes/100 WBC (Bld) 7.0 % 0-10 [facility] Blood platelet mean volumeOr dered By: Bassam Soni on 07-10-2023 Platelet mean volume (Bld) [Entitic vol] 9.7 fL 6.2-12.0 [facility] Determination of erythrocyte mean corpuscular volume (MCV)Ordered By: Bassam Soni on 07-10-2023 MCV (RBC) [Entitic vol] 96.0 fL 81-99 [facility] Glucose Glucometer (BldC) [M ass/Vol]Ordered By: Bassam Soni on 07-10-2023 Glucose [Mass/Vol] 415 mg/dL 74-106 [facility] Comment on above: MANAGEMENT OF PATIEN T CARE PER NURSING PROTOCOL Hematocrit Auto (Bld) [Volum e fraction]Ordered By: Bassam Soni on 07-10-2023 Hematocrit (Bld) [Volume fraction] 33.3 % 37-47 [facility] Laboratory - Chemistry and C hemistry - challengeOrdered By: Bassam Soni on 07-10-2023 CO2 [Moles/Vol] 31.0 mmol/L 21.0-32.0 [facility] Urea nitrogen/Creatinine [Mass ratio] 33.5 mg/mg 10-20 [facility] Laboratory - Hematology and Cell countsOrdered By: Bassam Soni on 07-10-2023 Erythrocyte distribution width (RBC) [Entitic vol] 47.7 fL 35.1-43.9 [facility] Erythrocyte distribution width (RBC) [Ratio] 13.5 % 11.6-14.6 [facility] Immature granulocytes/100 WBC (Bld) 0.900 % 0.0-0.9 [facility] Comment on above: IG% - Immature Granu locytes (promyelocytes, myelocytes and metamyelocytes) > 1% indicates that a LEFT SHIFT is Present. MCH (RBC) [Entitic mass] 30.3 pg 27.0-32.0 [facility] Nucleated RBC/100 WBC (Bld) [Ratio] 0 % 0-5 [facility] MCHC Auto (RBC) [Mass/Vol]Or dered By: Bassam Soni on 07-10-2023 MCHC (RBC) [Mass/Vol] 31.5 g/dL 32-36 [facility] No Panel InformationOrdered By: Bassam Soni on 07-10-2023 Estimated Creatinine Clearance Calc 31.94 ml/min [facility] Estimated GFR (MDRD) Amer 91 mL/min >60 [facility] Comment on above: GFR Calc Estimated GFR (MDRD) Non-Af Amer 75 mL/min >60 [facility] Comment on above: Non- GFR Calc Platelets bldOrdered By: Adelfo Soni on 07-10-2023 Platelets (Bld) [#/Vol] 312 10*3/uL 150-450 [facility] Serum or plasma acetone geovany urement (mass/volume)Ordered By: Bassam Soni on 07-10-2023 Acetone [Mass/Vol] Negative NEG [facility] Serum or plasma calcium geovany urement (mass/volume)Ordered By: Bassam Soni on 07-10-2023 Calcium [Mass/Vol] 9.0 mg/dL 8.5-10.1 [facility] Serum or plasma creatinine m easurement (mass/volume)Ordered By: Bassam Soni on 07-10-2023 Creatinine [Mass/Vol] 0.78 mg/dL 0.55-1.02 [facility] Comment on above: The validity of the calculated GFR & GFRAA in patients over 70 years has not been determined. Clinical correlation is essential. Serum or plasma urea nitroge n measurement (mass/volume)Ordered By: Bassam Soni on 07-10-2023 Urea nitrogen [Mass/Vol] 26 mg/dL 7-18 [facility] Thin prep Papanicolaou smear with manual screeningOrdered By: Bassam Soni on 07-10-2023 Thin prep Papanicolaou smear with manual screening 5 5-15 [facility] Basophil percentageOrdered B y: Arya Miller on 07-08-2023 Basophil percentage 0 SEEN /hpf 0-5 [facility] Bilirubin Test strip Ql (U)O rdered By: Arya Miller on 07-08-2023 Bilirubin Ql (U) Negative Negative [facility] Glucose Glucometer (BldC) [M ass/Vol]Ordered By: Arya Miller on 07-08-2023 Glucose [Mass/Vol] 205 mg/dL 74-106 [facility] Comment on above: MANAGEMENT OF PATIEN T CARE PER NURSING PROTOCOL Ketones Test strip Ql (U)Ord ered By: Arya Miller on 07-08-2023 Ketones Ql (U) Negative Negative [facility] Mucus LM Ql (Urine sed)Order ed By: Arya Miller on 07-08-2023 Mucus Ql (Urine sed) 0 SEEN /hpf [facility] Nitrite Test strip Ql (U)Ord ered By: Arya Miller on 07-08-2023 Nitrite Ql (U) Negative Negative [facility] Protein Test strip Ql (U)Ord ered By: Arya Miller on 07-08-2023 Protein Ql (U) Negative Negative [facility] Squamous epithelial cells de tection in urine sediment by light microscopyOrdered By: Arya Miller on 07-08-2023 Epithelial cells.squamous LM Ql (Urine sed) 0 SEEN /hpf 5-10 [facility] Urine blood detectionOrdered By: Arya Miller on 07-08-2023 RBC Ql (U) Negative Negative [facility] RBC Ql (U) 0 SEEN /hpf 0-5 [facility] Urine clarityOrdered By: Karyn Miller on 07-08-2023 Clarity (U) Clear Clear [facility] Urine color determinationOrd ered By: Arya Miller on 07-08-2023 Color (U) Yellow Yellow [facility] Urine glucose detectionOrder ed By: Arya Miller on 07-08-2023 Glucose Ql (U) 250 mg/dl Normal [facility] Urine leukocyte esterase det ection by dipstickOrdered By: Arya Miller on 07-08-2023 Leukocyte esterase Test strip Ql (U) Negative Negative [facility] Urine pHOrdered By: Arya Miller on 07-08-2023 pH (U) 6.5 [pH] 5.0 - 8.0 [facility] Urine sediment bacteria coun t by microscopy (number/high power field)Ordered By: Arya Miller on 07-08-2023 Bacteria LM.HPF (Urine sed) [#/Area] 0 /[HPF] None Seen [facility] Urine specific gravity measu rementOrdered By: Arya Miller on 07-08-2023 Specific gravity (U) [Rel density] 1.010 1.002-1.030 [facility] Urobilinogen Auto test strip Ql (U)Ordered By: Arya Miller on 07-08-2023 Urobilinogen Ql (U) Normal mg/dl Normal [facility] Basic metabolic 2000 panelon 03-30-2023 Anion gap [Moles/Vol] 10 mmol/L 10 - 2 0 mmol/L [facility] Calcium [Mass/Vol] 9.2 mg/dL 8.4 - 10. 2 mg/dL [facility] Chloride [Moles/Vol] 105 mmol/L 98 - 10 8 mmol/L [facility] Creatinine [Mass/Vol] 0.71 mg/dL 0.60 - 1.20 mg/dL [facility] GFR/1.73 sq M.predicted CKD-EPI (S/P/Bld) [Vol rate/Area] 83 - PINF [facility] Comment on above: Estimated GFR was ca lculated using the 2020 CKD-EPI creatinine equation. Glucose [Mass/Vol] 178 mg/dL High 65 - 99 mg/dL [facility] HCO3 [Moles/Vol] 29 mmol/L 21 - 32 mmol/L [facility] Interpretation and review of laboratory results Abnormal [facility] Potassium [Moles/Vol] 4.6 mmol/L 3.5 - 5.1 mmol/L [facility] Sodium [Moles/Vol] 139 mmol/L 135 - 145 mmol/L [facility] Urea nitrogen [Mass/Vol] 23 mg/dL 8 - 25 mg/dL [facility] Urea nitrogen/Creatinine [Mass ratio] 32.4 mg/mg High 10.0 - 20.0 [facility] Labor[facility] y Services has implemented the eGFR calculation approach that does not have a coefficient for race that conforms to the NKF-ASN Task Force Recommendations. [facility] C-reactive proteinon 023 CRP [Mass/Vol] mg/L NINF - 10.0 mg/L [facility] ESR Westergren method (Bld) [Velocity]on 03-30-2023 ESR (Bld) [Velocity] 1 mm/h [facility] Interpretation and review of laboratory results Normal [facility] Hepatic function 2000 panelo n 03-30-2023 Albumin [Mass/Vol] 3.6 g/dL 3.2 - 5.2 g/dL [facility] ALP [Catalytic activity/Vol] 114 U/L 40 - 150 U/L [facility] ALT [Catalytic activity/Vol] 33 U/L 14 - 65 U/L [facility] AST [Catalytic activity/Vol] 20 U/L 0 - 45 U/L [facility] Bilirubin [Mass/Vol] 0.2 mg/dL 0.0 - 1 .3 mg/dL [facility] Bilirubin.conjugated [Mass/Vol] mg/dL 0.0 - 0.4 mg/dL [facility] Protein [Mass/Vol] 6.5 g/dL 6.0 - 8.0 g/dL [facility] LDHon 03-30-2023 LDH Lactate to pyruvate reaction [Catalytic activity/Vol] 190 U/L 100 - 250 U/L [facility] No Panel Informationon 03-30 Interpretation and review of laboratory results Normal [facility] Pathologist Blood Smear Inte rpretationOrdered By: Sariah Babin on 03-30-2023 Basophils (Bld) [#/Vol] 0.02 10*3/uL [facility] Basophils/100 WBC (Bld) 0.5 % [facility] Clinical Question ? cause aneami? Oh [facility] Diagnosis ANEAMIA/ra [facility] Eosinophils (Bld) [#/Vol] 0.01 10*3/uL [facility] Eosinophils/100 WBC (Bld) 0.2 % [facility] Erythrocyte distribution width (RBC) [Entitic vol] 14.6 % 11.6 - 14.8 % [facility] Hematocrit (Bld) [Volume fraction] 33.7 % Low 36.0 - 46.0 % [facility] Hemoglobin (Bld) [Mass/Vol] 10.7 g/dL Low 12.0 - 16.0 g/dL [facility] Immature granulocytes (Bld) [#/Vol] 0.02 10*3/uL [facility] Immature granulocytes/100 WBC (Bld) 0.50 % [facility] Interpretation and review of laboratory results Abnormal [facility] Lymphocytes (Bld) [#/Vol] 1.05 10*3/uL [facility] Lymphocytes/100 WBC (Bld) 24.9 % [facility] MCH (RBC) [Entitic mass] 30.5 pg 26.0 - 34.0 pg [facility] MCHC (RBC) [Mass/Vol] 31.8 g/dL 31.0 - 37.0 g/dL [facility] MCV (RBC) [Entitic vol] 96.0 fL 80.0 - 100.0 fL [facility] Monocytes (Bld) [#/Vol] 0.32 10*3/uL [facility] Monocytes/100 WBC (Bld) 7.6 % [facility] Neutrophils (Bld) [#/Vol] 2.80 10*3/uL [facility] Neutrophils/100 WBC (Bld) 66.3 % [facility] Nucleated RBC (Bld) [#/Vol] 0.00 10*3/uL [facility] Nucleated RBC/100 WBC (Bld) [Ratio] 0.0 % [facility] Pathologist review Pathologist comment (Bld) [Interp] Reviewed [facility] Comment on above: See Pathology report #[id number] for results. Platelet mean volume (Bld) [Entitic vol] 10.1 fL 9.4 - 12.4 fL [facility] Platelets (Bld) [#/Vol] 226 10*3/uL [facility] RBC (Bld) [#/Vol] 3.51 10*6/uL [facility] WBC (Bld) [#/Vol] 4.22 10*3/uL [facility] Absolute lymphocyte counton 11-08-2022 Lymphocytes Auto (Unsp spec) [#/Vol] 0.93 10*3/uL 0.83-4.51 [facility] Basophil percentageon 2022 Basophils/100 WBC (Bld) 0.2 % 0-1 [facility] Bilirubin [Mass/Vol] 0.30 mg/dL 0.20-1.00 [facility] Comment on above: For patients on eltr ombopag therapy, use of Dimension Girard TBIL is not recommended. Chloride [Moles/Vol] 105 mmol/L 98-107 [facility] Eosinophils/100 WBC (Bld) 0.5 % 0-5 [facility] Glucose [Mass/Vol] 147 mg/dL 74-106 [facility] Comment on above: Fasting Glucose resu lt greater than or equal to 126 mg/dL suggests DIABETES MELLITUS per A.D.A. criteria. Neutrophils (Bld) [#/Vol] 3.1 10*3/uL 2.0-7.7 [facility] Neutrophils/100 WBC (Bld) 70.3 % 47-70 [facility] Potassium [Moles/Vol] 3.7 mmol/L 3.5-5.1 [facility] Protein [Mass/Vol] 6.4 g/dL 6.4-8.2 [facility] Sodium [Moles/Vol] 140 mmol/L 136-145 [facility] WBC (Bld) [#/Vol] 4.4 10*3/uL 4.4-11.0 [facility] Blood erythrocytes count (nu mber/volume)on 11-08-2022 RBC (Bld) [#/Vol] 3.48 10*6/uL 4.2-5.4 [facility] Blood hemoglobin measurement (mass/volume)on 11-08-2022 Hemoglobin (Bld) [Mass/Vol] 10.6 g/dL 12.0-15.0 [facility] Blood lymphocytes/100 leukoc yteson 11-08-2022 Lymphocytes/100 WBC (Bld) 21.4 % 19-41 [facility] Blood monocytes/100 leukocyt eson 11-08-2022 Monocytes/100 WBC (Bld) 7.4 % 0-10 [facility] Blood platelet mean volumeon 11-08-2022 Platelet mean volume (Bld) [Entitic vol] 10.1 fL 6.2-12.0 [facility] Determination of erythrocyte mean corpuscular volume (MCV)on 11-08-2022 MCV (RBC) [Entitic vol] 96.0 fL 81-99 [facility] Direct bilirubinon Bilirubin.direct [Mass/Vol] 0.14 mg/dL 0.00-0.30 [facility] Hematocrit Auto (Bld) [Volum e fraction]on 11-08-2022 Hematocrit (Bld) [Volume fraction] 33.4 % 37-47 [facility] Laboratory - Chemistry and C hemistry - challengeon 11-08-2022 ALP [Catalytic activity/Vol] 99 U/L 45-117 [facility] ALT [Catalytic activity/Vol] 33 U/L 13-56 [facility] CO2 [Moles/Vol] 31.0 mmol/L 21.0-32.0 [facility] Globulin (S) [Mass/Vol] 3.0 g/dL 2.2-4.2 [facility] Urea nitrogen/Creatinine [Mass ratio] 33.7 mg/mg 10-20 [facility] Laboratory - Hematology and Cell countson 11-08-2022 Erythrocyte distribution width (RBC) [Entitic vol] 50.4 fL 35.1-43.9 [facility] Erythrocyte distribution width (RBC) [Ratio] 14.5 % 11.6-14.6 [facility] Immature granulocytes/100 WBC (Bld) 0.200 % 0.0-0.9 [facility] Comment on above: IG% - Immature Granu locytes (promyelocytes, myelocytes and metamyelocytes) > 1% indicates that a LEFT SHIFT is Present. MCH (RBC) [Entitic mass] 30.5 pg 27.0-32.0 [facility] Nucleated RBC/100 WBC (Bld) [Ratio] 0 % 0-5 [facility] [Mass/Vol]on 11-08-2022 MCHC (RBC) [Mass/Vol] 31.7 g/dL 32-36 [facility] No Panel Informationon 11-08 Anti-Nuclear Antibody Screen Positive Negative [facility] Comment on above: Performed at: [facility] [address] [id number] Director: Santiago Gutierrez PhD, Phone: [phone] Estimated GFR (MDRD) Amer 111 mL/min >60 [facility] Comment on above: GFR Calc Estimated GFR (MDRD) Non-Af Amer 92 mL/min >60 [facility] Comment on above: Non- GFR Calc Hepatitis B Surface Antigen Non-Reactive Nonreactive [facility] Hepatitis C Antibody Non-Reactive Nonreactive [facility] Comment on above: Non Reactive: < 0.8 Equivocal: >/= 0.8 to < 1.0 Reactive: >/= 1.0The CDC recommends that a reactive/equivocal HCV antibody result be followed up by the HCV Nucleic Acid Amplificationtest (642923) CREATIVE DESIGNER Antibody <0.2 AI 0.0-0.9 [facility] Platelets bldon 11-08-2022 Platelets (Bld) [#/Vol] 224 10*3/uL 150-450 [facility] Qualitative QuantiFERON-TB g old in tube teston 11-08-2022 M. tuberculosis tuberculin stim IFN-g Ql (Bld) 0.03 IU/mL . [facility] Review by pathologiston 10-14 Pathologist review Dave (Unsp spec) [Interp] Reviewed [facility] Serum Yeboah extractable nucl ear antibody detectionon 11-08-2022 Yeboah extractable nuclear Ab Ql (S) <0.2 AI 0.0-0.9 [facility] Serum cyclic citrullinated p eptide IgG antibody assay (units/volume)on 11-08-2022 Cyclic citrullinated peptide IgG Qn 0 units 0-19 [facility] Comment on above: Negative <20 Weak po sitive 20 - 39 Moderate positive 40 - 59 Strong positive >59 Serum hepatitis B virus core antibody detectionon 11-08-2022 HBV core Ab Ql (S) Negative Negative [facility] Comment on above: Performed at: - [employer] [id number] Director: Santiago Gutierrez PhD, Phone: [phone] Serum hepatitis B virus surf ron antibody IgG detectionon 11-08-2022 HBV surface IgG Ql (S) Non-Reactive [facility] Comment on above: Non Reactive: Incons istent with immunity less than <10 mIU/mL Reactive: Consistent with immunity greater than or equal to 10 mIU/mL Serum or plasma albumin geovany urement (mass/volume)on 11-08-2022 Albumin [Mass/Vol] 3.4 g/dL 3.2-5.0 [facility] Serum or plasma calcium geovnay urement (mass/volume)on 11-08-2022 Calcium [Mass/Vol] 8.6 mg/dL 8.5-10.1 [facility] Serum or plasma creatinine m easurement (mass/volume)on 11-08-2022 Creatinine [Mass/Vol] 0.65 mg/dL 0.55-1.02 [facility] Comment on above: The validity of the calculated GFR & GFRAA in patients over 70 years has not been determined. Clinical correlation is essential. Serum or plasma urea nitroge n measurement (mass/volume)on 11-08-2022 Urea nitrogen [Mass/Vol] 22 mg/dL 7-18 [facility] Serum rheumatoid factor dete ctionon 11-08-2022 Rheumatoid factor Ql (S) 19.0 IU/mL <15 [facility] Thin prep Papanicolaou smear with manual screeningon 11-08-2022 Thin prep Papanicolaou smear with manual screening 25 U/L 15-37 [facility] Thin prep Papanicolaou smear with manual screening 4 5-15 [facility] Thin prep Papanicolaou smear with manual screening Comment . [facility] Comment on above: QuantiFERON-TB Gold Plus is a qualitative indirect test forM tuberculosis infection (including disease) and isintended for use in conjunction with risk assessment,radiography, and other medical and diagnostic evaluations.The QuantiFERON-TB Gold Plus result is determined bysubtracting the Nil value from either TB antigen (Ag)value. The Mitogen tube serves as a control for the test. Thin prep Papanicolaou smear with manual screening 0.03 IU/mL . [facility] Thin prep Papanicolaou smear with manual screening 0.02 IU/mL . [facility] Thin prep Papanicolaou smear with manual screening > 10.00 IU/mL . [facility] Thin prep Papanicolaou smear with manual screening Negative Negative [facility] Comment on above: No response to M tub erculosis antigens detected.Infection with M tuberculosis is unlikely, but high riskindividuals should be considered for additional testing(ATS/IDSA/CDC Clinical Practice Guidelines, 2017). Thereference range is an Antigen minus Nil result of <0.35IU/mL.The specimen received for QuantiFERON testing was incubatedby the ordering institution. Specific procedures outlinedin our Directory of Services and in the package insert forthe QuantiFERON Gold (In Tube) test must be followed toenable for proper stimulation of cells for the productionof interferon gamma. Chemiluminescence immunoassaymethodology BUN and Creatinineon 018 Creatinine 0.65 mg/dL Normal 0.60-1.20 [facility] Comment on above: Performed By: #### C BCDIF, BUNCR, CRPQT, HEPF, SEDR, HEPCABS, CCPAB, G6PD, HBSABS ####Unless otherwise noted, all testing performed by [address] [phone]: [id number] Director: Hussein Callejas M.D. eGFR (black) mL/min/{1.73_m2} Normal [facility] Comment on above: Result Comment: Afri can [place] GFR Calc Performed By: #### C BCDIF, BUNCR, CRPQT, HEPF, SEDR, HEPCABS, CCPAB, G6PD, HBSABS ####Unless otherwise noted, all testing performed by [address] [phone]: [id number] Director: Hussein Callejas M.D. eGFR (non-black) mL/min/{1.73_m2} Normal [facility] Comment on above: Result Comment: Non- GFR CalceGFR is an estimated Glomerular Filtration Rate based on the valueof the patient's serum creatinine. In outpatients, eGFR should be usedas a helpful tool in screening for CKD. In inpatients or patients withacute renal failure, eGFR represents the GFR at the moment of the drawand should be used with caution. Performed By: #### C BCDIF, BUNCR, CRPQT, HEPF, SEDR, HEPCABS, CCPAB, G6PD, HBSABS ####Unless otherwise noted, all testing performed by [address] [phone]: [id number] Director: Hussein Callejas M.D. Urea nitrogen 18 mg/dL Normal 8-25 [facility] Comment on above: Performed By: #### C BCDIF, BUNCR, CRPQT, HEPF, SEDR, HEPCABS, CCPAB, G6PD, HBSABS ####Unless otherwise noted, all testing performed by [address] [phone]: [id number] Director: Hussein Callejas M.D. CBC and Differentialon 09-13 Basophils 0.5 % Invalid Interpretation Code [facility] Basophils 0.0 K/mcL Invalid Interpretation Code 0 - 0.2 [facility] Eosinophils 0.0 K/mcL Invalid Interpretation Code 0 - 0.5 [facility] Erythrocytes (RBC) 4.02 M/mcL Invalid Interpretation Code 3.7 - 5.0 [facility] Hematocrit (HCT) 35.7 % Normal 34.4-44.8 [facility] Comment on above: Performed By: #### C BCDIF, BUNCR, CRPQT, HEPF, SEDR, HEPCABS, CCPAB, G6PD, HBSABS ####Unless otherwise noted, all testing performed by [address] [phone]: [id number] Director: Hussein Callejas M.D. Hemoglobin (HGB) 11.9 g/dL Normal 11.6-15.4 [facility] Comment on above: Performed By: #### C BCDIF, BUNCR, CRPQT, HEPF, SEDR, HEPCABS, CCPAB, G6PD, HBSABS ####Unless otherwise noted, all testing performed by [address] [phone]: [id number] Director: Hussein Callejas M.D. Interpretation and review of laboratory results Abnormal Invalid Interpretation Code [facility] Lymphocytes 1.4 K/mcL Invalid Interpretation Code 1.0 - 3.7 [facility] MCH 29.5 pg Normal 27.9-33.9 [facility] Comment on above: Performed By: #### C BCDIF, BUNCR, CRPQT, HEPF, SEDR, HEPCABS, CCPAB, G6PD, HBSABS ####Unless otherwise noted, all testing performed by [address] [phone]: [id number] Director: Hussein Callejas M.D. MCHC 33.2 g/dL Normal 33.1-35.1 [facility] Comment on above: Performed By: #### C BCDIF, BUNCR, CRPQT, HEPF, SEDR, HEPCABS, CCPAB, G6PD, HBSABS ####Unless otherwise noted, all testing performed by [address] [phone]: [id number] Director: Hussein Callejas M.D. MCV 88.9 fL Normal 82.6-98.9 [facility] Comment on above: Performed By: #### C BCDIF, BUNCR, CRPQT, HEPF, SEDR, HEPCABS, CCPAB, G6PD, HBSABS ####Unless otherwise noted, all testing performed by [address] [phone]: [id number] Director: Hussein Callejas M.D. Monocytes 0.4 K/mcL Invalid Interpretation Code 0.1 - 0.6 [facility] Neutrophils 3.0 K/mcL Invalid Interpretation Code 1.2 - 6.9 [facility] Platelet mean volume (PMV) 8.2 fL Normal 7.0-10.6 [facility] Comment on above: Performed By: #### C BCDIF, BUNCR, CRPQT, HEPF, SEDR, HEPCABS, CCPAB, G6PD, HBSABS ####Unless otherwise noted, all testing performed by [address] [phone]: [id number] Director: Hussein Callejas M.D. Platelets 310 K/mcL Invalid Interpretation Code 162 - 402 [facility] RDW-CA 14.6 % High 10.0-14.4 [facility] Comment on above: Performed By: #### C BCDIF, BUNCR, CRPQT, HEPF, SEDR, HEPCABS, CCPAB, G6PD, HBSABS ####Unless otherwise noted, all testing performed by [address] [phone]: [id number] Director: Hussein Callejas M.D. Segmented Neut 62.0 % Invalid Interpretation Code [facility] T8 suppressor/100 cells 0.7 10*3/uL Invalid Interpretation Code [facility] T8 suppressor/100 cells 29.2 10*3/uL Invalid Interpretation Code [facility] T8 suppressor/100 cells 7.6 10*3/uL Invalid Interpretation Code [facility] WBC (Leukocytes) 4.9 K/mcL Invalid Interpretation Code 3.4 - 10.6 [facility] CBC with Diffon 09-13-2017 Basophils Auto #/vol (Bld) 0.0 K/mcL Normal 0-0.2 [facility] Comment on above: Performed By: #### C BCDIF, BUNCR, CRPQT, HEPF, SEDR, HEPCABS, CCPAB, G6PD, HBSABS ####Unless otherwise noted, all testing performed by [address] [phone]: [id number] Director: Hussein Callejas M.D. Basophils/100 WBC Auto (Bld) 0.5 % Normal [facility] Comment on above: Performed By: #### C BCDIF, BUNCR, CRPQT, HEPF, SEDR, HEPCABS, CCPAB, G6PD, HBSABS ####Unless otherwise noted, all testing performed by [address] [phone]: [id number] Director: Hussein Callejas M.D. Eosinophils 0.0 K/mcL Normal 0-0.5 [facility] Comment on above: Performed By: #### C BCDIF, BUNCR, CRPQT, HEPF, SEDR, HEPCABS, CCPAB, G6PD, HBSABS ####Unless otherwise noted, all testing performed by [address] [phone]: [id number] Director: Hussein Callejas M.D. Eosinophils/100 leukocytes 0.7 % Normal [facility] Comment on above: Performed By: #### C BCDIF, BUNCR, CRPQT, HEPF, SEDR, HEPCABS, CCPAB, G6PD, HBSABS ####Unless otherwise noted, all testing performed by [place] [phone]: [id number] Director: Hussein Callejas M.D. Erythrocytes (RBC) 4.02 M/mcL Normal 3.7-5.0 [facility] Comment on above: Performed By: #### C BCDIF, BUNCR, CRPQT, HEPF, SEDR, HEPCABS, CCPAB, G6PD, HBSABS ####Unless otherwise noted, all testing performed by [address] [phone]: [id number] Director: Hussein Callejas M.D. Lymphocytes 1.4 K/mcL Normal 1.0-3.7 [facility] Comment on above: Performed By: #### C BCDIF, BUNCR, CRPQT, HEPF, SEDR, HEPCABS, CCPAB, G6PD, HBSABS ####Unless otherwise noted, all testing performed by [address] [phone]: [id number] Director: Hussein Callejas M.D. Lymphocytes/100 leukocytes 29.2 % Normal [facility] Comment on above: Performed By: #### C BCDIF, BUNCR, CRPQT, HEPF, SEDR, HEPCABS, CCPAB, G6PD, HBSABS ####Unless otherwise noted, all testing performed by [address] [phone]: [id number] Director: Hussein Callejas M.D. Monocytes 0.4 K/mcL Normal 0.1-0.6 [facility] Comment on above: Performed By: #### C BCDIF, BUNCR, CRPQT, HEPF, SEDR, HEPCABS, CCPAB, G6PD, HBSABS ####Unless otherwise noted, all testing performed by [address] [phone]: [id number] Director: Hussein Callejas M.D. Monocytes/100 leukocytes 7.6 % Normal [facility] Comment on above: Performed By: #### C BCDIF, BUNCR, CRPQT, HEPF, SEDR, HEPCABS, CCPAB, G6PD, HBSABS ####Unless otherwise noted, all testing performed by [address] [phone]: [id number] Director: Hussein Callejas M.D. Neutrophils 3.0 K/mcL Normal 1.2-6.9 [facility] Comment on above: Performed By: #### C BCDIF, BUNCR, CRPQT, HEPF, SEDR, HEPCABS, CCPAB, G6PD, HBSABS ####Unless otherwise noted, all testing performed by [address] [phone]: [id number] Director: Hussein Callejas M.D. Platelets 310 K/mcL Normal 162-402 [facility] Comment on above: Performed By: #### C BCDIF, BUNCR, CRPQT, HEPF, SEDR, HEPCABS, CCPAB, G6PD, HBSABS ####Unless otherwise noted, all testing performed by [address] [phone]: [id number] Director: Hussein Callejas M.D. Segmented Neut % 62.0 % Normal [facility] Comment on above: Performed By: #### C BCDIF, BUNCR, CRPQT, HEPF, SEDR, HEPCABS, CCPAB, G6PD, HBSABS ####Unless otherwise noted, all testing performed by [address] [phone]: [id number] Director: Hussein Callejas M.D. WBC (Leukocytes) 4.9 K/mcL Normal 3.4-10.6 [facility] Comment on above: Performed By: #### C BCDIF, BUNCR, CRPQT, HEPF, SEDR, HEPCABS, CCPAB, G6PD, HBSABS ####Unless otherwise noted, all testing performed by [address] [phone]: [id number] Director: Hussein Callejas M.D. CCP Antibodieson 09-13-2017 CCP Antibodies 1.1 Unit Normal 0.0-20.0 [facility] Comment on above: Result Comment: Refe rence Ranges:<20Units Mnxnqseu25-26Yhapi Weakly Ztiigpho06-57Byvhx Moderative Positive>=60Units Strong PositiveTest [place] [address] Performed By: #### C BCDIF, BUNCR, CRPQT, HEPF, SEDR, HEPCABS, CCPAB, G6PD, HBSABS ####Unless otherwise noted, all testing performed by [address] [phone]: [id number] Director: Hussein Callejas M.D. CRP, C-Reactive Proteinon CRP - Inflammation 4.0 mg/L Invalid Interpretation Code 0 - 10 mg/L [facility] CRP, C-Reactive Protein 4.0 mg/L Normal 0.0-10.0 [facility] Comment on above: Performed By: #### C BCDIF, BUNCR, CRPQT, HEPF, SEDR, HEPCABS, CCPAB, G6PD, HBSABS ####Unless otherwise noted, all testing performed by [address] [phone]: [id number] Director: Hussein Callejas M.D. Gluc 6 Phos Dehydr.on 2017 Glucose mass conc 10.6 U/g Hb Normal 8.8 - 13.4 [facility] Comment on above: Result Comment: ---- ADDITIONAL INFORMATION This test was developed and its performance characteristicsdetermined by [facility] in a manner consistent withIA requirements. This test has not been cleared orapproved by the U.S. Food and Drug Administration.Test Performed by:[place] [address] Performed By: #### C BCDIF, BUNCR, CRPQT, HEPF, SEDR, HEPCABS, CCPAB, G6PD, HBSABS ####Unless otherwise noted, all testing performed by [address] [phone]: [id number] Director: Hussein Callejas M.D. HAND BILATERAL, 2 VIEWSon Bilirubin (direct) Final ReportAccession No: [id number] Performed: Sep 13 2017 3:18PMExamination: HAND BILATERAL, 2 VIEWSBILATERAL HANDS 2 VIEWSCLINICAL HISTORY: Bilateral hand pain for months.TECHNIQUE: AP and PA radiographs of both hands.FINDINGS: There is no evidence of fracture or dislocation. Mildradiocarpalnarrowing is seen as well as mild degenerative change to the firstcarpometacarpal joint. Do not see evidence of an area of bony erosion orsubperiosteal resumption. Soft tissue calcifications are not evident.IMPRESSION:Mild degenerative changes bilaterally.Interpreting Physician: FRANKLIN HUITRON D.O.Trans: shannanel : cc: Normal [facility] Hepatic Function Panelon Alanine aminotransferase (ALT) 17 U/L Normal 14-65 [facility] Comment on above: Result Comment: This test result might be falsely depressed or falsely elevated onsamples drawn from patients taking Sulfasalazine and Sulfapyridine.Venipuncture should occur prior to taking either of these drugs. Performed By: #### C BCDIF, BUNCR, CRPQT, HEPF, SEDR, HEPCABS, CCPAB, G6PD, HBSABS ####Unless otherwise noted, all testing performed by [address] [phone]: [id number] Director: Hussein Callejas M.D. Albumin 3.6 g/dL Normal 3.2-5.2 [facility] Comment on above: Performed By: #### C BCDIF, BUNCR, CRPQT, HEPF, SEDR, HEPCABS, CCPAB, G6PD, HBSABS ####Unless otherwise noted, all testing performed by [address] [phone]: [id number] Director: Hussein Callejas M.D. Alkaline phosphatase (ALP) 120 U/L Normal 40-150 [facility] Comment on above: Performed By: #### C BCDIF, BUNCR, CRPQT, HEPF, SEDR, HEPCABS, CCPAB, G6PD, HBSABS ####Unless otherwise noted, all testing performed by [address] [phone]: [id number] Director: Hussein Callejas M.D. Aspartate aminotransferase (AST) 15 U/L Normal 0-45 [facility] Comment on above: Result Comment: This test result might be falsely depressed or falsely elevated onsamples drawn from patients taking Sulfasalazine and Sulfapyridine.Venipuncture should occur prior to taking either of these drugs. Performed By: #### C BCDIF, BUNCR, CRPQT, HEPF, SEDR, HEPCABS, CCPAB, G6PD, HBSABS ####Unless otherwise noted, all testing performed by [address] [phone]: [id number] Director: Hussein Callejas M.D. Bilirubin (direct) mg/dL Normal 0.0-0.4 [facility] Comment on above: Performed By: #### C BCDIF, BUNCR, CRPQT, HEPF, SEDR, HEPCABS, CCPAB, G6PD, HBSABS ####Unless otherwise noted, all testing performed by [address] [phone]: [id number] Director: Hussein Callejas M.D. Bilirubin (total) mg/dL Invalid Interpretation Code 0 - 0.4 mg/dL [facility] Bilirubin (total) 0.2 mg/dL Low 0.3-1.2 [facility] Comment on above: Performed By: #### C BCDIF, BUNCR, CRPQT, HEPF, SEDR, HEPCABS, CCPAB, G6PD, HBSABS ####Unless otherwise noted, all testing performed by [address] [phone]: [id number] Director: Hussein Callejas M.D. Protein 7.0 g/dL Normal 6.0-8.0 [facility] Comment on above: Performed By: #### C BCDIF, BUNCR, CRPQT, HEPF, SEDR, HEPCABS, CCPAB, G6PD, HBSABS ####Unless otherwise noted, all testing performed by [address] [phone]: [id number] Director: Hussein Callejas M.D. Urine, bilirubin presence 0.2 mg/dL Low 0.3 - 1.2 mg/dL [facility] Hepatitis B Surface Abson Hepatitis B Surf Ab, Qt < 5.0 Normal [facility] Comment on above: Result Comment: ---- REFERENCE VALUE Unvaccinated: <5.0Vaccinated: >=12.0Test Performed by:[facility] [place] [address] Performed By: #### C BCDIF, BUNCR, CRPQT, HEPF, SEDR, HEPCABS, CCPAB, G6PD, HBSABS ####Unless otherwise noted, all testing performed by [address] [phone]: [id number] Director: Hussein Callejas M.D. Hepatitis B Surface Abs Negative Normal [facility] Comment on above: Result Comment: Annia ent is presumed to be not immune to infection with HBV. REFERENCE VALUE Unvaccinated: NegativeVaccinated: Positive Performed By: #### C BCDIF, BUNCR, CRPQT, HEPF, SEDR, HEPCABS, CCPAB, G6PD, HBSABS ####Unless otherwise noted, all testing performed by [address] [phone]: [id number] Director: Hussein Callejas M.D. Hepatitis C Antibodyon 09-13 Hepatitis C Antibody Negative Normal Negative [facility] Comment on above: Result Comment: Test performed using [employer] VITROS Immunodiagnostic system.Test Performed by [facility] [address] [place] [address] Performed By: #### C BCDIF, BUNCR, CRPQT, HEPF, SEDR, HEPCABS, CCPAB, G6PD, HBSABS ####Unless otherwise noted, all testing performed by [address] [phone]: [id number] Director: Hussein Callejas M.D. M.Tuberculosis by QuantiFERO Non 09-13-2017 M.Tuberculosis by QuantiFERON Negative Normal Negative [facility] Comment on above: Result Comment: No i nterferon-gamma response to M. tuberculosis antigenswas detected. Infection with M. tuberculosis is unlikely.A negative result alone does not exclude infection withM. tuberculosis.For detailed information regarding test interpretation see:[email or web address] Performed By: #### C BCDIF, BUNCR, CRPQT, HEPF, SEDR, HEPCABS, CCPAB, G6PD, HBSABS ####Unless otherwise noted, all testing performed by [address] [phone]: [id number] Director: Hussein Callejas M.D. Mitogen Minus Nil Result 8.66 IU/mL Normal [facility] Comment on above: Performed By: #### C BCDIF, BUNCR, CRPQT, HEPF, SEDR, HEPCABS, CCPAB, G6PD, HBSABS ####Unless otherwise noted, all testing performed by [address] [phone]: [id number] Director: Hussein Callejas M.D. QFT- Nil Result 0.01 IU/mL Normal [facility] Comment on above: Result Comment: Test Performed by:[facility] [place] [address] Performed By: #### C BCDIF, BUNCR, CRPQT, HEPF, SEDR, HEPCABS, CCPAB, G6PD, HBSABS ####Unless otherwise noted, all testing performed by [address] [phone]: [id number] Director: Hussein Callejas M.D. TB Ag Minus Nil Result 0.00 IU/mL Normal [facility] Comment on above: Performed By: #### C BCDIF, BUNCR, CRPQT, HEPF, SEDR, HEPCABS, CCPAB, G6PD, HBSABS ####Unless otherwise noted, all testing performed by [address] [phone]: [id number] Director: Hussein Callejas M.D. Rheumatoid Factoron 09-13-19 18 Rheumatoid Factor Negative Normal Negative [facility] Comment on above: Performed By: #### C BCDIF, BUNCR, CRPQT, HEPF, SEDR, HEPCABS, CCPAB, G6PD, HBSABS ####Unless otherwise noted, all testing performed by [address] [phone]: [id number] Director: Hussein Callejas M.D. Sed Rateon 09-13-2017 Sed Rate 19 MM/hr. Normal 0-20 [facility] Comment on above: Performed By: #### C BCDIF, BUNCR, CRPQT, HEPF, SEDR, HEPCABS, CCPAB, G6PD, HBSABS ####Unless otherwise noted, all testing performed by [address] [phone]: [id number] Director: Hussein Callejas M.D. Sedimentation Rateon 018 Sed Rate 19 MM/hr. Invalid Interpretation Code 0 - 20 [facility] XR Spine Cervical Comp Flex/ [place] 09-02-2017 XR Spine Cervical Comp Flex/Ext Exam Date/Time:09/02/2017 14:34 ESTReason for Exam:rheumatoid arthritis involving multiple sitesReportEXAM: XR SPINE CERVICAL COMP FLEX/EXTENSIONREASON FOR EXAM: rheumatoid arthritis involving multiple sites.TECHNIQUE: AP, lateral, lateral flexion, lateral extension, open mouthodontoid, and both oblique views of the cervical spine.COMPARISON: None.FINDINGS: No acute fracture or subluxation is identified. Seven cervicalsegments are seen. Disc spaces are preserved. No major neural foraminalencroachment is seen. There is mild multilevel facet hypertrophy noted. This isseen from C3 through C7 bilaterally. Retropharyngeal soft tissue width appearssatisfactory. No focal level of instability is seen on the motion views. Thereis limited flexion and extension-type motion.IMPRESSION:No acute fracture or subluxation. Multilevel facet degenerative changes arenoted. Disc spaces are relatively preserved. No focal level of instability isseen on the motion views. FINAL REPORT Dictated: 09/02/2017 4:22 pm Daniel Barr DOSigned (Electronic Signature): 09/02/2017 4:22 pmSigned by: Daniel Barr DO Technologist: [facility] Vital Signs Date Time Vital Sign Value Performing Clinician Facility 05-29-2025 11:16040 Body height 157.48 cm Michela Holguin MD Work Phone: [facility] 05-29-2025 11:160400 Body mass index (BMI) [Ratio] 23.9 kg/m2 Michela Holguin MD Work Phone: [facility] 05-29-2025 11:16040 Body weight 59.42 kg Michela Holguin MD Work Phone: [facility] 05-29-2025 11:16-0400 Diastolic blood pressure 69 mm[Hg] Michela Holguin MD Work Phone: [facility] 05-29-2025 11:16-0400 Heart rate 67 /min Michela Holguin MD Work Phone: [facility] 05-29-2025 11:16-0400 SaO2% (BldA) [Mass fraction] 98 % Michela Holguin MD Work Phone: [facility] 05-29-2025 11:16-0400 Systolic blood pressure 143 mm[Hg] Michela Holguin MD Work Phone: [facility] 02-20-2025 10:42-0400 Body height 157.48 cm Michela Holguin MD Work Phone: [facility] 02-20-2025 10:42-0400 Body mass index (BMI) [Ratio] 22.8 kg/m2 Michela Holguin MD Work Phone: [phone] [place] [address] 02-20-2025 10:42-0400 Body weight 56.69 kg Michela Holguin MD Work Phone: [facility] 02-20-2025 10:42-0400 Diastolic blood pressure 74 mm[Hg] Michela Holguin MD Work Phone: [facility] 02-20-2025 10:42-0400 Heart rate 69 /min Michela Holguin MD Work Phone: [facility] 02-20-2025 10:42-0400 SaO2% (BldA) [Mass fraction] 68 % Michela Holguin MD Work Phone: [facility] 02-20-2025 10:42-0400 Systolic blood pressure 123 mm[Hg] Michela Holguin MD Work Phone: [facility] 11-21-2024 10:43-0400 Body mass index (BMI) [Ratio] 23 kg/m2 Michela Holguin MD Work Phone: [facility] 11-21-2024 10:43-0400 Body weight 57.15 kg Michela Holguin MD Work Phone: [facility] 11-21-2024 10:43-0400 Diastolic blood pressure 70 mm[Hg] Michela Holguin MD Work Phone: [facility] 11-21-2024 10:43-0400 Heart rate 79 /min Michela Holguin MD Work Phone: [facility] 11-21-2024 10:43-0400 SaO2% (BldA) [Mass fraction] 97 % Michela Holguin MD Work Phone: [facility] 11-21-2024 10:43-0400 Systolic blood pressure 167 mm[Hg] Michela Holguin MD Work Phone: [facility] 07-10-2023 20:54-0500 Diastolic blood pressure 52 mm[Hg] [facility] 07-10-2023 20:54-0500 Heart rate 59 /min [facility] 07-10-2023 20:54-0500 Respiratory rate 16 /min [facility] 07-10-2023 20:54-0500 SaO2% (BldA) [Mass fraction] 97 % [facility] 07-10-2023 20:54-0500 Systolic blood pressure 96 mm[Hg] [facility] 07-10-2023 19:24-0500 Body height 157.48 cm [facility] 07-10-2023 19:24-0500 Body mass index (BMI) [Ratio] 22.4 kg/m2 [facility] 07-10-2023 19:24-0500 Body temperature 97.8 [degF] [facility] 07-10-2023 19:24-0500 Body weight 55.45 kg [facility] 07-08-2023 12:36-0500 Body mass index (BMI) [Ratio] 22.1 kg/m2 [facility] 07-08-2023 12:36-0500 Body temperature 97 [degF] [facility] 07-08-2023 12:36-0500 Body weight 54.88 kg [facility] 07-08-2023 12:36-0500 Diastolic blood pressure 70 mm[Hg] [facility] 07-08-2023 12:36-0500 Heart rate 74 /min [facility] 07-08-2023 12:36-0500 Respiratory rate 18 /min [facility] 07-08-2023 12:36-0500 SaO2% (BldA) [Mass fraction] 98 % [facility] 07-08-2023 12:36-0500 Systolic blood pressure 176 mm[Hg] [facility] 03-30-2023 08:09-0400 Body mass index (BMI) [Ratio] 21.26 kg/m2 Rosemarie Shi MD Work Phone: [facility] 03-30-2023 08:09-0400 Body weight 54.43 kg Rosemarie Shi MD Work Phone: [facility] 03-30-2023 08:09-0400 Diastolic blood pressure 70 mm[Hg] Rosemarie Shi MD Work Phone: [facility] 03-30-2023 08:09-0400 Heart rate 70 /min Rosemarie Shi MD Work Phone: [facility] 03-30-2023 08:09-0400 Systolic blood pressure 125 mm[Hg] Rosemarie Shi MD Work Phone: [facility] 11-04-2021 18:20-0400 Body height 157.48 cm [facility] Work Phone: 11-04-2021 18:20-0400 Body weight 56.51 kg [facility] Work Phone: 09-24-2021 14:26-0500 Body weight 57.15 kg [facility] Work Phone: 12-12-2017 11:20-0400 BMI (Body Mass Index) 25.33 kg/m2 Evaristo Gonzalezvalentinayvan [facility] 12-12-2017 11:20-0400 BP Diastolic 72 mm[Hg] Evaristo Gonzalezvalentinayvan [facility] 12-12-2017 11:20-0400 BP Systolic 131 mm[Hg] Evaristo Lisaclifton [facility] 12-12-2017 11:20-0400 Height 160 cm Evaristo Lisaclifton [facility] 12-12-2017 11:20-0400 Pulse (Heart Rate) 71 /[facility]12[facility] 11:20-0400 Weight 64.86 kg Evaristo Arrooy [facility] 09-28-2017 10:07-0500 BMI (Body Mass Index) 25.33 kg/m2 Evaristo Arroyo [facility] Work Phone: 09-28-2017 10:07-0500 BP Diastolic 81 mm[Hg] Evaristo Arroyo [facility] Work Phone: 09-28-2017 10:07-0500 BP Systolic 149 mm[Hg] Evaristo Arroyo [facility] Work Phone: 09-28-2017 10:07-0500 Pulse (Heart Rate) 83 /min Evaristo Arroyo [facility] Work Phone: 09-28-2017 10:07-0500 Weight 64.86 kg Evaristo Arroyo [facility] Work Phone: 09-13-2017 14:17-0500 BMI (Body Mass Index) 25.44 kg/m2 Evaristo Arroyo [facility] Work Phone: 09-13-2017 14:17-0500 BP Diastolic 78 mm[Hg] Evaristo Arroyo [facility] Work Phone: 09-13-2017 14:17-0500 BP Systolic 149 mm[Hg] Evaristo Arroyo [facility] Work Phone: 09-13-2017 14:17-0500 Height 160 cm Evaristo Arroyo [facility] Work Phone: 09-13-2017 14:17-0500 Pulse (Heart Rate) 93 /min Evaristo Arroyo [facility] Work Phone: 09-13-2017 14:17-0500 Weight 65.14 kg Evaristo Arroyo [facility] Work Phone: Encounters Encounter Date Encounter Type Care Provider Facility Start: 05-29-2025 End: 05-29-2025 ambulatory [facility] Facility:[facility] Start: 05-29-2025 End: 05-29-2025 Patient encounter procedure Tonia Guzmán NP-C -[facility] Work Phone: Start: 02-28-2025 End: 02-28-2025 ambulatory Michela Holguin MD Work Phone: -Outpatient Bone Densitometry Start: 02-28-2025 End: 02-28-2025 Patient encounter procedure Tonia Guzmán NP-Ana -[facility] Work Phone: Start: 02-28-2025 End: 02-28-2025 ambulatory Chalon Ezio Facility:[facility] Start: 02-20-2025 End: 02-20-2025 Patient encounter procedure Tonia Guzmán NP-Ana -[facility] Work Phone: Start: 02-20-2025 End: 02-20-2025 ambulatory Michela Holguin MD Work Phone: -[facility] Start: 12-10-2024 End: 12-10-2024 Patient encounter procedure Tonia SCOTT -[facility] [place] Work Phone: Start: 12-10-2024 End: 12-10-2024 ambulatory Chalon Ezio Facility:[facility] Start: 11-21-2024 End: 11-21-2024 Patient encounter procedure Tonia Guzmán NP-C -[facility] Work Phone: Start: 11-21-2024 End: 11-21-2024 ambulatory Chalon Ezio Facility:[facility] Start: 08-22-2024 End: 08-22-2024 ambulatory Chalon Ezio Facility:[facility] Start: 08-16-2024 End: 08-16-2024 ambulatory Chalon Ezio Facility:[facility] Start: 07-22-2024 ambulatory Chalon Ezio Facility:[facility] Start: 07-16-2024 End: 07-16-2024 ambulatory Chalon Ezio Facility:[facility] Start: 07-02-2024 End: 07-02-2024 ambulatory Chalon Ezoi Facility:[facility] Start: 06-13-2024 ambulatory Chalon Ezio Facility:[facility] Start: 06-12-2024 End: 06-14-2024 ambulatory Guzman [place] Facility:[facility] Start: 10-19-2023 End: 10-19-2023 ambulatory [facility] Work Phone: Start: 10-19-2023 End: 10-19-2023 Patient encounter procedure [facility]-Laboratory, Nirmala Rubio Start: 07-10-2023 End: 07-10-2023 Emergency department patient visit [facility] Work Phone: Start: 07-08-2023 End: 07-08-2023 Emergency department patient visit [facility] Work Phone: Start: 06-16-2023 ambulatory [facility] Ambulatory Start: 03-30-2023 End: 04-03-[address] 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; Long-term use of Plaquenil; Gait instability Start: 11-30-2022 ambulatory [facility] Ambulatory Start: 11-17-2022 Registered [facility] Start: 11-17-2022 End: 11-17-2022 ambulatory [facility] Work Phone: Start: 11-17-2022 End: 11-17-2022 Patient encounter procedure [facility]-Outpatient Bone Densitometry Start: 11-12-2022 ambulatory [facility] Ambulatory Start: 11-08-2022 End: 11-08-2022 ambulatory [facility] Work Phone: Start: 11-08-2022 End: 11-08-2022 Patient encounter procedure [facility]-Laboratory Start: 11-01-2022 End: 11-01-2022 ambulatory [facility] Ambulato ry Start: 11-01-2022 End: 11-01-2022 Encounter for general adult medical examination without abnormal findings [facility] Ambulatory Start: 09-13-2022 End: 09-13-2022 ambulatory [facility] Work Phone: Start: 09-13-2022 End: 09-13-2022 Patient encounter procedure [facility]-Radiology, [facility] Start: 02-17-2022 Transcribe Orders Evaristo mckay MD Work Phone: [facility] Comment on above: Callus (Primary Dx) Start: 11-04-2021 End: 11-05-2021 Discharged Recurring [facility] Start: 10-08-2021 End: 10-12-2021 Discharged Recurring [facility] Start: 08-29-2020 End: 08-29-2020 Orders Only Martina Gamez Work Phone: [facility] Start: 12-12-2017 End: 12-12-2017 Office/outpatient visit, est, level 3 Evaristo Arroyo Work Phone: [facility] Start: 09-28-2017 Office/outpatient visit, est, level 3 Evaristo Arroyo Work Phone: [facility] Start: 09-13-2017 End: 09-13-2017 Ambulatory EVARISTO ARROYO [facility] Start: 09-13-2017 Ambulatory Evaristo Arroyo [facility] Start: 09-13-2017 End: 09-13-2017 Ambulatory Evaristo Arroyo Work Phone: [facility] Start: 09-13-2017 Office/outpatient visit, new, level 4 [address] Work Phone: [facility] Start: 09-02-2017 End: 09-03-2017 Ambulatory Evaristo Plaza Facility:[facility] Procedures Date Procedure Procedure Detail Performing Clinician Start: 02-28-2025 Dual energy X-ray absorptiometry Michela Holguin MD Work Phone: Start: 02-28-2025 Vitamin D, 25-hydrox y measurement Michela Holguin MD Work Phone: Comment on above: Vitamin D StatusDefi ciency: <20 ng/mL (50nmol/L)Insufficiency: 20-30 ng/mL (50-75 nmol/L)Sufficiency: 30-100 ng/mL (75-250 nmol/L)Toxicity: >100 ng/mL (>250 nmol/L) Start: 11-17-2022 Dual energy X-ray absorptiometry Start: 09-13-2022 Plain x-ray of pelvi s and lower extremity Plan of Treatment Date Care Activity Detail Author Start: 10-05-2023 End: 10-05-2023 Patient encounter procedure 10/05/2023 9:00 AM EST Office Visit [facility] [address] [place] [address] [place] [address] Rosemarie Shi MD [address] [place] [id number] [facility] Start: 07-10-2023 [facility] Start: 04-15-2023 Influenza vaccination Sequenti al Influenza Vaccine (#1) [facility] Start: 11-08-2022 Procedure [facility] Start: 04-15-2022 Influenza vaccination Sequenti al Influenza Vaccine (#1) [facility] Start: 12-03-2021 COVID-19 Vaccine (5 - Moderna series) COVID-19 Vaccine (5 - Moderna series) [facility] Start: 04-15-2020 Influenza vaccinatio n given Sequential Influenza Vaccine (#1) [facility] Start: 03-13-2018 End: 03-13-2018 Ambulatory 03/13/2018 Office Visit Orthopedic Surgery Evaristo Arroyo MD [address] [place] [address] [phone] [facility] Start: 12-14-2017 Ambulatory 12/14/2017 Off ice Visit Orthopedic Surgery Evaristo Arroyo MD [address] [place] [address] [phone] [facility] Start: 09-28-2017 Ambulatory 09/28/2017 Off ice Visit Orthopedic Surgery Evaristo Arroyo MD [address] [facility] [place] [address] [phone] [facility] Start: 04-15-2017 Influenza vaccination SEQUENTI AL INFLUENZA VACCINE (#1) [facility] Work Phone: Start: 06-27-2007 Pneumococcal Vaccine : Age 65+ (2 - PCV) Pneumococcal Vaccine: Age 65+ (2 - PCV) [facility] Start: 2002 Fall risk assessment Falls Risk Asse ssment [facility] Start: 2002 Pneumococcal vaccination PNEUM OCOCCAL VACCINE AGE 65+ (1 of 2 - PCV13) [facility] Work Phone: Start: 2002 Pneumococcal Vaccine : Age 65+ (1 - PCV) Pneumococcal Vaccine: Age 65+ (1 - PCV) [facility] Start: 1997 Zoster vacc, sc ZOSTER VACCINE [facility] Work Phone: Start: 1987 Administration of he rpes zoster vaccine Zoster Vaccines (1 of 2) [facility] Start: 1949 Adolescent depressio n screening assessment Depression Screening (PHQ9) [facility] Start: 1949 Depression screening using PHQ-9 (Patient Health Questionnaire 9) score Depression Screening (PHQ-2/9) [facility] Start: 1947 Diabetic foot examination Foot Exam [facility] Start: 1947 Glaucoma screening Diabetic Eye Exam [facility] Start: 1947 Urine screening for protein Urine Microalbumin [facility] Start: 02-28-1940 History and physical examination, annual for health maintenance Wellness Visit [facility] Start: 1937 COVID-19 Vaccine (#1) COVID-19 Vacci ne (#1) [facility] Start: 1937 Fall risk assessment Falls Risk Asse ssment [facility] Start: 1937 Hemoglobin A1c measurement A1C [facility] Start: 1937 End: 1937 Screening for osteoporosis DEXA SCAN [facility] Start: 1937 End: 1937 Tetanus vaccination [facility] End: 03-30-2024 DIANNA measurement DIANNA Lab Routine Anemia, unspecified type 1 Occurrences starting 03/30/2023 until 03/30/2024 [facility] Work Phone: Comment on above: 1 Occurrences starti ng 03/30/2023 until 03/30/2024 DIANNA measurement DIANNA Lab Routine Anemia, unspecified type 03/30/2023 8:53 AM EDT [facility] End: 09-29-2018 BUN BUN Routine Seronegative rheumatoid arthritis (HCC) 8 wks for 6 Occurrences starting 09/28/2017 until 09/29/2018 [employer] Work Phone: End: 09-14-2018 BUN BUN Routine Rheumatoid arthritis, involving unspecified site, unspecified rheumatoid factor presence (HCC) 1 Occurrences starting 09/13/2017 until 09/14/2018 [employer] Work Phone: End: 09-29-2018 CBC and Differential CBC and Differential Routine Seronegative rheumatoid arthritis (HCC) 8 wks for 6 Occurrences starting 09/28/2017 until 09/29/2018 [employer] Work Phone: End: 09-14-2018 CBC and Differential CBC and Differential Routine Rheumatoid arthritis, involving unspecified site, unspecified rheumatoid factor presence (HCC) 1 Occurrences starting 09/13/2017 until 09/14/2018 [employer] Work Phone: End: 09-14-2018 Ccp antibody CCP Antibody Routine Rheumatoid arthritis, involving unspecified site, unspecified rheumatoid factor presence (HCC) 1 Occurrences starting 09/13/2017 until 09/14/2018 [employer] Work Phone: Comprehensive metabo lic 2000 panel - Serum or Plasma [facility] End: 09-29-2018 Creatinine, serum Creatinine, serum Routine Seronegative rheumatoid arthritis (HCC) 8 wks for 6 Occurrences starting 09/28/2017 until 09/29/2018 [employer] Work Phone: End: 09-14-2018 Creatinine, serum Creatinine, serum Routine Rheumatoid arthritis, involving unspecified site, unspecified rheumatoid factor presence (HCC) 1 Occurrences starting 09/13/2017 until 09/14/2018 [employer] Work Phone: End: 09-14-2018 CRP, Inflammation CRP, Inflammation Routine Rheumatoid arthritis, involving unspecified site, unspecified rheumatoid factor presence (HCC) 1 Occurrences starting 09/13/2017 until 09/14/2018 [employer] Work Phone: DXA Bone [Mass/Area] Bone density [facility] End: 09-14-2018 Erythrocyte sedimentation rate Sedimentation Rate Routine Rheumatoid arthritis, involving unspecified site, unspecified rheumatoid factor presence (HCC) 1 Occurrences starting 09/13/2017 until 09/14/2018 [employer] Work Phone: End: 03-30-2024 Extractable nuclear antigen antibody screening test Nuclear antigen antibody Lab Routine Anemia, unspecified type 1 Occurrences starting 03/30/2023 until 03/30/2024 [facility] Comment on above: 1 Occurrences starti ng 03/30/2023 until 03/30/2024 Extractable nuclear antigen antibody screening test Nuclear antigen antibody Lab Routine Anemia, unspecified type 03/30/2023 8:53 AM EDT [facility] End: 09-14-2018 Glucose 6 Phosphate Dehydrogenase, Qn, RBC Glucose 6 Phosphate Dehydrogenase, Qn, RBC Routine Rheumatoid arthritis, involving unspecified site, unspecified rheumatoid factor presence (HCC) 1 Occurrences starting 09/13/2017 until 09/14/2018 [employer] Work Phone: End: 09-29-2018 Hepatic function 2000 panel - Serum or Plasma Hepatic Function Panel Routine Seronegative rheumatoid arthritis (HCC) 8 wks for 6 Occurrences starting 09/28/2017 until 09/29/2018 [employer] Work Phone: End: 09-14-2018 Hepatic function 2000 panel - Serum or Plasma Hepatic Function Panel Routine Rheumatoid arthritis, involving unspecified site, unspecified rheumatoid factor presence (HCC) 1 Occurrences starting 09/13/2017 until 09/14/2018 [employer] Work Phone: End: 09-14-2018 Hepatitis B Surface Antibody Hepatitis B Surface Antibody Routine Rheumatoid arthritis, involving unspecified site, unspecified rheumatoid factor presence (HCC) 1 Occurrences starting 09/13/2017 until 09/14/2018 [employer] Work Phone: End: 09-14-2018 Hepatitis C Antibody Hepatitis C Antibody Routine Rheumatoid arthritis, involving unspecified site, unspecified rheumatoid factor presence (HCC) 1 Occurrences starting 09/13/2017 until 09/14/2018 [employer] Work Phone: Lipid 1996 panel - S nereyda or Plasma [facility] End: 09-14-2018 M. Tuberculosis by QuantiFERON M. Tuberculosis by QuantiFERON Routine Rheumatoid arthritis, involving unspecified site, unspecified rheumatoid factor presence (HCC) 1 Occurrences starting 09/13/2017 until 09/14/2018 [employer] Work Phone: Patient Education ED Diabetic Hyperglycemia [facility] Work Phone: Patient referral [facility] Work Phone: End: 09-14-2018 Rheumatoid factor Rheumatoid factor Routine Rheumatoid arthritis, involving unspecified site, unspecified rheumatoid factor presence (HCC) 1 Occurrences starting 09/13/2017 until 09/14/2018 [employer] Work Phone: Thyroid stimulating hormone measurement [facility] Urine microalbumin/creatinine ratio measurement [facility] Vitamin D, 25-hydrox y measurement [facility] End: 09-13-2018 XR Hand Left 2 Views XR Hand Left 2 Views Routine Rheumatoid arthritis, involving unspecified site, unspecified rheumatoid factor presence (HCC) 1 Occurrences starting 09/13/2017 until 09/13/2018 [employer] Phone: End: 09-13-2018 XR Hand Right 2 Views XR Hand Right 2 Views Routine Rheumatoid arthritis, involving unspecified site, unspecified rheumatoid factor presence (HCC) 1 Occurrences starting 09/13/2017 until 09/13/2018 [employer] Work Phone: End: 09-13-2018 XR Wrist Left 2 Views XR Wrist Left 2 Views Routine Rheumatoid arthritis, involving unspecified site, unspecified rheumatoid factor presence (HCC) 1 Occurrences starting 09/13/2017 until 09/13/2018 [employer] Phone: End: 09-13-2018 XR Wrist Right 2 Views XR Wrist Right 2 Views Routine Rheumatoid arthritis, involving unspecified site, unspecified rheumatoid factor presence (HCC) 1 Occurrences starting 09/13/2017 until 09/13/2018 [facility] Work Phone: Immunizations Immunization Date Immunization Notes Care Provider Armando holly 06-13-2024 influenza, high dose seasonal, preservative-free Michela Holguin MD Work Phone: [facility] 06-08-2023 Antonette (Spikevax) Michela Holguin MD Work Phone: [facility] 06-08-2023 influenza, injectabl e, quadrivalent, preservative free Michela Holguin MD Work Phone: [facility] 06-10-2022 Influenza, injectabl e, Madin [place] Canine Kidney, preservative free, quadrivalent Michela Holguin MD Work Phone: [facility] 10-08-2021 Antonette (Moderna) Michela Holguin MD Work Phone: [facility] 06-23-2021 Antonette (Moderna) Michela Holguin MD Work Phone: [facility] 06-09-2021 influenza, injectabl e, quadrivalent, preservative free Michela Holguin MD Work Phone: [facility] 10-08-2020 Antonette (Moderna) Michela Holguin MD Work Phone: [facility] 09-10-2020 Antonette (Moderna) Michela Holguin MD Work Phone: [facility] 05-29-2020 influenza, injectabl e, quadrivalent, preservative free Michela Holguin MD Work Phone: [facility] 06-26-2019 influenza, injectabl e, quadrivalent, preservative free Michela Holguin MD Work Phone: [facility] 06-26-2019 zoster vaccine recombinant Michela Holguin MD Work Phone: [facility] 03-29-2019 zoster vaccine recombinant Michela Holguin MD Work Phone: [facility] 05-25-2018 influenza, injectabl e, quadrivalent, preservative free Michela Holguin MD Work Phone: [facility] 06-16-2017 influenza, injectabl e, quadrivalent, preservative free Michela Holguin MD Work Phone: [facility] 05-24-2016 influenza, injectabl e, quadrivalent, preservative free Michela Holguin MD Work Phone: [facility] 05-29-2013 influenza, injectabl e, quadrivalent, preservative free Michela Holguin MD Work Phone: [facility] 06-27-2006 pneumococcal polysaccharide vaccine, 23 valent Michela Holguin MD Work Phone: [facility] Payers Date Payer Category Payer Self-pay [id number] 2024 Medicare [id number] 2021 Medicare [id number] 2017 Unknown [id number] 2017 Unknown AARP AARP COMMER ON LICENSE OF [facility] [id number] 2017-Present [id number] 2017 Unknown AARP AARP COMMER ON LICENSE OF [facility] [id number] 2017-Present [phone] [address] [place] [address] [id number] 2002 Medicare [id number] 2002 Medicare 2002 Medicare MEDICARE MEDICAR E PART A & B [id number] 2002-Present [place] [id number] 1937 Unknown [id number] 1937 Unknown [id number] 1937 Unknown [id number] 1937 Unknown [id number] 2.840.1.920815.3.579.2.90 1937 Unknown [id number] 2.840.1.758693.3.579.2. 1937 Unknown [id number] [id number] Medicare [id number] Unknown [id number] Unknown [id number] Unknown [id number] Unknown [id number] [id number] Unknown [id number] Unknown [id number] Unknown [id number] .[id number] Unknown [id number] Unknown [id number] [id number] Unknown [id number] Unknown [id number] [id number] Unknown [id number] Unknown [id number] [id number] Unknown [id number] Unknown [id number] Unknown [id number] Social History Date Type Detail Facility Start: 12-12-2017 End: 06-14-2024 Tobacco smoking status NHIS Never smoker [facility] Work Phone: Start: 1935 Sex Assigned At Not on file O [facility] Work Phone: Start: 09-14-2017 End: 07-10-2023 Tobacco smoking status MSIS Unknown if ever smoked [facility] Start: 12-12-2017 End: 11-01-2022 Tobacco use and exposure Never used [facility] Start: 12-12-2017 End: 03-30-2023 Alcohol intake Current non-drinker of alcohol (finding) [facility] Start: 1935 Sex Assigned At Female [facility] Start: 11-01-2022 History of Social function [facility] Start: 11-01-2022 Tobacco use panel [facility] Procedure Code Equipment Code Equipment Origin al Text Equipment Identifier Dates Pen Needle, Diab etic 32 gauge x 5/32 needle Start: 01-30-2025 Pen Needle, Diab etic (Bd Ultra-Fine Danyell Pen Needle) 32 gauge x 5/32 needle Start: 11-08-2024 End: 01-30-2025 Pen Needle, Diab etic 32 gauge x 5/32 needle Start: 01-30-2025 Pen Needle, Diab etic (Bd Ultra-Fine Danyell Pen Needle) 32 gauge x 5/32 needle Start: 11-08-2024 End: 01-30-2025 Blood Sugar Diagnostic (Freestyle Precision Aldo Strips) strip Start: 06-03-2025 Pen Needle, Diab etic 32 gauge x 5/32 needle Start: 01-30-2025 Pen Needle, Diab etic (Bd Ultra-Fine Danyell Pen Needle) 32 gauge x 5/32 needle Start: 11-08-2024 End: 01-30-2025 Mental Status Date Assessment Result Facility 07-10-2023 Cognitive function Level Of Cons ciousness Awake;Alert;Appropriate;Follow s Commands [facility] Work Phone: 07-08-2023 Cognitive function Level Of Cons ciousness Awake;Alert;Appropriate;Follow s Commands [facility] Work Phone: Clinical Notes 03-30-2023 to 05-29-2025 Note Date & Type Note Facility 05-29-2025 Progress note [facility] 02-20-2025 Evaluation note Diagnosis Onset Date Resolution Blood cholesterol decreased chronic February 20, 2025 10:39am HTN (hypertension) chronic February 202024 10:39am Osteopenia chronic February 20, 2025 10:39am Type 2 diabetes mellitus chronic February 20, 2025 10:39am Blood cholesterol decreased chronic May 29 11:11am HTN (hypertension) chronic 2024 11:11am Osteoporosis chronic May 11:11am Type 2 diabetes mellitus chronic May 29 11:11am [facility] Work Phone: 1(407) 112-282204-09-2025 Evaluation note* Diagnosis Onset Date Resolution Status Admit Date Blood cholesterol decreased chronic November 21, 2024 10:39am HTN (hypertension) chronic November 21, 2024 10:39am Type 2 diabetes mellitus chronic November 21, 2024 10:39am [facility] Work Phone: 1(336) 263-147604-09-2025 Evaluation note* Diagnosis Onset Date Resolution Status Admit Date Blood cholesterol decreased chronic November 21, 2024 10:39am HTN (hypertension) chronic November 21, 2024 10:39am Type 2 diabetes mellitus chronic November 21, 2024 10:39am Blood cholesterol decreased chronic February 20, 2025 10:39am HTN (hypertension) chronic February 202024 10:39am Osteopenia chronic February 20, 2025 10:39am Type 2 diabetes mellitus chronic February 20, 2025 10:39am [facility] Work Phone: 1(156) 648-402510-31-2024 [facility] Medical Records Department [address] [place] [address] Discharge Summary 06/14/24 1606 MR#: [id number] Acct: [id number] Name: MARYCRUZ MENDEZ Rep #: [id number] : 1935 89 From: Alice Triplett MD PCP: Dr. Michela Holguin MD Status:ADM KAYLYN Location: [place] [address] Providers Date of Admission: 06/12/24 Date of Discharge: 06/14/24 Primary Care Physician: Michela Hogluin MD Consultations 06/13/24 00:38 Consult: Tele-Neurology Routine Consulting Provider: [facility] Reason for Consult: Acute Ischemic Stroke/TIA EMERGENT Consult: No MD Notified: Yes Date Notified: 06/13/24 Time Notified: 04:19 Method of Notification: Answering Service Nursing Unit Staff Notify [facility] of Tele-Neurology Consult: Yes Reason For Visit: TIA Diagnosis Discharge Diagnosis (1) Left homonymous hemianopsia: Status: Acute Code(s): H53.462 - Homonymous bilateral field defects, left side (2) Brain TIA: Status: Acute Code(s): G45.9 - Transient cerebral ischemic attack, unspecified Plan #Left sided homonymous hemianopia * Didnt recur. * CT of the brain and CT of the head and neck did not show any acute pathology. EKG showed no acute ST changes. * MRI of the brain shows no evidence of stroke. * Lipid profile is normal. Neurology reviewed patient's and think this is atypical for TIA. * Neurology recommends continuing aspirin and Plavix and to get STEVEN and EEG. He had been ordered. * PT OT on board. * High intensity statin * #Type 2 diabetes mellitus: On Lantus 6 units daily. Insulin sliding scale. Accu- Cheks ACHS. Also on metformin Hypertension: Resume BP meds and stroke has been ruled out. On losartan #Chronic rheumatoid arthritis: Stable. On methotrexate #DVT prophylaxis: Lovenox Medications at Discharge Home Medications cholecalciferol (vitamin D3) 25 mcg (1,000 unit) capsule (Vitamin D3) 1,000 unit PO DAILY 12/21/16 folic acid 1 mg tablet 1 mg PO DAILY@0800 12/21/16 methotrexate sodium 2.5 mg tablet 5 mg PO QWEEK 12/21/16 insulin glargine 100 unit/mL (3 mL) subcutaneous pen (Lantus Solostar U-100 Insulin) 6 unit subcut DAILY 03/26/24 ferrous sulfate 325 mg (65 mg iron) tablet 325 mg PO QDAY 05/23/24 metformin 500 mg 24 hr tablet,extended release (gastric retention) 1,000 mg PO BID 05/23/24 rosuvastatin 5 mg tablet 5 mg PO QDAY 05/23/24 aspirin 81 mg chewable tablet 81 mg PO BREAKFAST #30 tabs 06/13/24 insulin lispro 100 unit/mL subcutaneous pen (Humalog KwikPen (U-100) Insulin) See Rx Instructions .Route .COMPLEX 06/13/24 losartan 50 mg tablet 50 mg PO DAILY 06/13/24 clopidogrel 75 mg tablet 75 mg PO DAILY #21 tabs 06/14/24 Hospital Course Operations None Procedures 2-D Echocardiogram and Electroencephalogram Summary of Care Provided Minutes Spent on Discharge: 55 Hospital Course: Patient is an 89-year-old female with a past medical history as outlined was admitted through the ED on 06/12/2024 with a complaint of sudden onset of loss of vision in the left eye while she was watching TV. Her last normal was around 6:30 PM. She had to turn her head to watch TV. She also had associated confusion. His symptoms lasted for about an hour and subsequently resolved. She had no other symptoms. Says she had had similar symptoms of vision loss like this previously. She has been managed for macular degeneration by her manager cost. Review of systems otherwise negative. CT of the brain showed no acute intracranial pathology. She was admitted to rule out a stroke. CTA of the head and neck showed no acute intracranial pathology and no hemodynamically significant stenosis. 2D echo done showed EF of 70% with stage I diastolic dysfunction and moderate concentric left ventricular hypertrophy with negative bubble study. Neurology reviewed patient and thought this was an unusual presentation for TIA. Neurology therefore commended that patient get a STEVEN and an EEG. STEVEN was ordered and cardiology attempted STEVEN but could not do it due to concerns about a possible esophageal stricture. She did have the EEG which showed no evidence of his seizure. Neurology therefore commended that patient could be discharged on a 30-day event monitor and to be discharged on p.o. aspirin and Plavix for 21 days and then to continue with only aspirin. Hold off on statin as the LDL was very low. She was to follow-up with her primary care doctor and with neurology on outpatient basis. Patient was seen and examined prior to discharge. She had no active complaints and had an uneventful night. Review of systems otherwise negative. Labs and vitals reviewed. Home medication reviewed and reconciled. Physical Exam Const alert, oriented x3, no apparent distress and well nourished General Appearance: cooperative and comfortable Orientation / Consciousness: awake Exam Limitations: no limitations HE (more content not included)...[facility]11-26-2023 Hospital Discharge instructions Additional Instructions Acute blood sugar the night between 10 and 1030 before you go to bed. Usual sliding scale insulin prior to bedtime. I prefer that you are a little bit higher while you are sleeping ninth and it goes low. We will change your metformin dose to 1500 in the morning. And leave your evening dose the same as it is at 1000. Will be primary care physician. Follow-up with your primary care physician and/or get an appointment with the bay stocker, Dr. Montana Arriaga.[facility] Work Phone: 1(725) 166-681508-16-2023 History of Present illness Narrative* Rosemarie Shi MD - 03/30/2023 8:09 AM EDT Images from the original note were not included. RHEUMATOLOGY EST PATIENT VISIT Patients name: Marycruz Mendez : 1935 Today's date: 03/30/2023 Reason [...] walking stick. Dr. Chadd Pryor [facility] [place] Office: [address] [facility] [address] Prior Rheum appts: Former Dr. Arroyo patient Oct 2022 Interim: The patient reports feeling good with no swollen joints or other issues after the decrease in methotrexate dosage. The patient is currently taking three methotrexate pills and has a history of being on Plaquenil, which was discontinued due to concerns from their bilingual legal assistant about potential eye issues. The patient recalls experiencing overall stiffness, swollen hands, and difficulty moving their arms when their joint issues first began around the age of 62. The patient has a history of gait therapy, which they found helpful, but still experiences a fear of falling due to feeling unbalanced. They have had a bone density test done recently but the resultshave not been received yet. The patient has [...] headaches, speech/balance/coordination problems. Denied new focal numbness orweakness of extremities Psych: denied anxiety, depression or [...] Bone Density DEXA Axial done recently at [place] - need to obtain result H/O methotrexate therapy - Plan:No fibrosis - Explained to patient that we need to monitor for laboratory abnormalities such as liver function and blood counts every three months. Advised patient to abstain from alcohol. -Explained to patient that she needs to take folic acid supplementation every day EXCEPT day MTX isadministered to reduce the incidence of other adverse [...] TH Telehealth appointments ok. Rosemarie Shi MD Insert Operator Interactive Media Marketing Strategist Note: To expedite correspondence this note was generated by [email or web address] voice recognition software. Somegrammatical or spelling errors may occur using the system. 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 [place] [address] OFFICE VISIT Date of Service: 05/29/25 MR#: [id number] Acct: [id number] Name: MARYCRUZ MENDEZ Rep #: [id number] : 1935 Provider: SONIA Guzmán Age/Sex: 89/F Location: [facility] Status: Signed Intake Vital Signs 02/20/25 10:42 05/29/25 11:16 Height 5 ft 2 in 5 ft 2 in Weight: 125 lb 131 lb BMI 22.8 23.9 BP 123/74 H 143/69 H Blood Pressure Location Lt brachial Lt brachial Position Sitting Sitting Pulse 69 67 Pulse Source Monitor Monitor Pulse Oximetry (%) 68 98 Oxygen Delivery Method room air room air Intake Visit Reasons: 3 M FU Chief Complaint: f/u diabetes Newspaper Vendor Required: No Accompanied by: Self Is patient in pain?: No Allergies No Known Allergies Allergy (Verified 05/29/25 11:16) Medications ?Medication ?Instructions ?Recorded ?Confirmed ?Type folic acid 1 mg tablet 1 mg PO DAILY@0800 supplemen t 12/21/16 05/29/25 History methotrexate sodium 2.5 mg tablet 5 mg PO QWEEK 05/29/25 History insulin glargine 100 unit/mL (3 6 unit subcut DAILY di abetes 03/26/24 05/29/25 History mL) subcutaneous pen (Lantus Solostar U-100 Insulin) ferrous sulfate 325 mg (65 mg 325 mg PO QDAY supplemen t 05/23/24 05/29/25 History iron) tablet aspirin 81 mg chewable tablet 81 mg PO BREAKFAST #30 t abs 06/13/24 05/29/25 Rx calcium 600 mg (as carbonate)-vit tab PO 08/22/2405/15 History D3 1,000 unit-vitamin K2 90 mcg tab mecobalamin (vitamin B12) 1,000 1,000 mcg PO QDAY 04/0805/29/25 History mcg chewable tablet vitamins A,C,L-ibxq-cslwkt 2,148 2 tab PO BID 08/22/24 05/29/25 History mcg-113 mg-45 mg-17.4 mg tablet (PreserVision AREDS) losartan 100 mg tablet 100 mg PO QDAY #90 tabs 05/0905/29/25 Rx rosuvastatin 5 mg tablet 5 mg PO 2XW cholesterol 05/0905/29/25 History pen needle, diabetic 32 gauge x #360 ea 01/30/2505/29 Rx /32 metformin 500 mg tablet,extended 1,000 mg (2 x 500 mg) PO BID #360 02/04/25 05/29/25 Rx release 24 hr (Glucophage XR) tabs insulin lispro 100 unit/mL 7 unit (0.07 mL) subcut TID 02/20/25 05/29/25 Rx subcutaneous pen (Humalog KwikPen diabetes #15 mL (U-100) Insulin) Have you fallen in the past year?: No [facility] Medical History Solar lentigo GERD (gastroesophageal reflux disease) Type 2 diabetes mellitus HTN (hypertension) Rheumatoid arthritis Family History Mother Diabetes Social History Smoking Status: Never smoker Electronic Cigarette Use: not used second hand exposure: No alcohol intake: never substance use type: does not use HPI HPI Chief Complaint: f/u diabetes Details: MARYCRUZ MENDEZ, is a 89 F who presents to the office today for evaluation and management of diabetes. A1C today is 7.2%, increased from 02/20/25 at 6.8%. She has gained 6 lbs since that time. Currently taking Lantus 5 u once daily, Humalog 3-5-5, and metformin 1 gm BID with food. She is having recurrent loose stools after breakfast dose of metformin. Work 'n Gear downloaded and reviewed- unfortunately her CGM advertising sales consultant is downloading bizarre tracings with two blood sugars listed at all times that with signification variation in readings. CGM reading at time of appointment is 92, finger stick bgl is 88. Per her reports, blood sugar will drop within an hour of lunchtime, she will correct and blood sugar will increase throughout the day until supper time. She routinely goes to bed with elevated blood sugar and notes improvement upon rising in the morning. She denies any significant episodes of hypoglycemia that have required assistance from others. BP controlled. Currently taking losartan 100 mg once daily. Reports she has beentaking her BP at home a couple times/week with typical reading 120-140/60-80s. Bone density completed in February showed T score of -2.7 to her left hip. DiscussedProlia injections; however, she wanted to discuss with PCP prior to pursuing. She states that she forgot at her most recent appointment. She is taking a dailyvitamin D supplement. Denies any recent fractures or falls. She has tightly controlled cholesterol and is currently taking rosuvastatin 5 mg2x/week. Labs are up to date. Denies any acute concerns. ROS Const Constitutional: No fatigue, weakness, weight change or change in appetite Eyes Eyes: No change in vision ENT ENT: No hearing loss, nasal congestion or difficulty swallowing Cardio Cardiology: No chest pain at rest, chest pain with exertion or shortness of breath Musc Musculoskeletal: Positive for joint pain; No numbness Neuro Neurology: No weakness, memory loss or numbness Psych Psychiatric: No change in appetite, No memory loss and No Thoughts of harming yourself/Others Resp Respiratory: No cough or chest congestion Gastro GI: No difficulty swallowing Genitourinary-Female: No burning urination Skin Skin: No itchy eyes or wounds Endo Endocrine: No fatigue or weight change Aller/Imm Allergy/Immunologic: No itchy eyes Exam Const General: cooperative, healthy appearing, comfortable and no acute distress Nutritional Appearance: average body habitus Orientation: alert, awake and oriented x3 HENMT Head: normal to inspection Ears: hearing grossly normal bilaterally Nose: external nose normal Face and sinus: normal facial exam Eyes General: appearance normal, both eyes and all related structures Alignment and Position: alignment normal Sclera: sclerae normal Neck Neck: normal visual inspection Chest Chest palpation & inspection: normal inspection of the chest Resp Effort & Inspection: normal respiratory effort, able to speak in complete sentences, symmetric chest movement, normal respiratory pattern, no audible wheezes and no cough Auscultation: Bilateral: Clear to Auscultation Cardio Rate: regular rate Rhythm: regular rhythm Heart Sounds: S1 normal and S2 normal GI Inspection: normal to inspection Musc Thoracic/Lumbar Spine: kyphosis Skin General: no rashes or lesions noted Lesions: no lesions Rashes: no rashes Trauma: no lacerations or abrasions Wounds: no wounds Neuro General: patient alert, patient awake and patient oriented x3 Cognition: normal cognition Speech: speech normal Gait: normal gait Extrem General: normal to inspection and no pedal edema Psych Appearance: grossly normal Mental Status: mental status grossly normal Mood: congruent mood Affect: normal affect Speech and Movement: speech and movement normal Attitude: cooperative Thought Process: normal Thought Content: normal Judgment: judgment good Results POC A1C POC A1C 7.2 % Last Edit by Ines Graham on 05/29/25 11:25 Clinical Quality Measures Falls Risk Screening/Assistive Devices Have you fallen in the past year?: No Assessment and Plan Assessment and Plan (1) Type 2 diabetes mellitus: Status: Chronic Qualifiers: Diabetes mellitus prison insulin use: with ocean transportation intermediary use Diabetes mellitus complication status: with hyperglycemia Qualified Code(s): E11.65 - Type 2 diabetes mellitus with hyperglycemia; 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 Longitudinal care provided. G2211. I reviewed with the patient the risk of developing and worsening of diabetes complications including retinopathy, neuropathy, nephropathy, heart attack, stroke, amputation, and sudden . Diabetes education provided. Unfortunately unable to evaluate CGM readings today. Dexcom was called to inquire about two blood sugar readings. I gave her a new sensor and instructed her to stop her current sensor. She is going to return to office next week to download advertising sales consultant and review CGM tracings. If technical issue continues, will issue her a new reader. Decrease Lantus to 4 u once daily. Humalog 3-3-6. CGM: she is checking blood sugars 4x/day, she is taking 4 subq insulin injections/day, she is using blood sugar reading to titrate insulin dose, she isat risk of hypoglycemia. Notify office of persistently high/low blood sugars. Reviewed most recent labs. The patient was counseled regarding the importance of foot care including daily visual and tactile inspection. The patient was instructed not to go barefoot andto always wear socks with their shoes. Follow up in 3 months. (2) HTN (hypertension): Status: Chronic Qualifiers: Hypertension type: unspecified Qualified Code(s): I10 - Essential (primary) hypertension Plan: Chronic- controlled. Continue losartan 100 mg once daily. Avoid dietary sodium. Will continue to monitor. (3) Blood cholesterol decreased: Status: Chronic Plan: Chronic- stable. Continue rosuvastatin 5 mg 2x/week. Increase vegetable intake, choose lean cuts of meat, avoid processed carbohydrates. If total cholesterol remains <140 at annual labs, consider reducing statin to once weekly. (4) Osteoporosis: Status: Chronic Qualifiers: Osteoporosis type: age-related Presence of current pathological fracture: without current pathological fracture Qualified Code(s): M81.0 - Age-related osteoporosis without current pathological fracture Plan: Chronic- not well controlled. Will reach out to PCP's office to discuss pursuing Prolia. Continue vitamin D supplementation. Notify office of fractures. I have spent [38] minutes today reviewing labs, records and history. Time includes coordinating care, interpretation of tests, discussion with patient's other health care providers via telephone. This also includes time I spent with the patient for exam, treatment plan and education as well as documenting clinical information. Orders: Orders POC A1C Today E11.65 - Type 2 diabetes mellitus with hyperglycemia, Z79.4 - detention (current) use of insulin Plan Details Follow Up: 3 Months Coding Level of Care Code Off vis,est,level 4 Extra Time Spent Extra Time Spent Extra Time Spent: G2211 Diagnoses Type 2 diabetes mellitus with hyperglycemia, with long-term current use of insulin E11.65; Z79.4 Diabetes mellitus ocean transportation intermediary insulin use: with prison use Diabetes mellitus complication status: with hyperglycemia Hypertension, unspecified type I10 Hypertension type: unspecified Blood cholesterol decreased R79.89 Age-related osteoporosis without current pathological fracture M81.0 Osteoporosis type: age-related Presence of current pathological fracture: without current pathological fracture Additional Codes Extra Time Spent - Extra Time Spent: G2211 (G2211) 05/29/25 1619 <Electronically signed by Tonia SCOTT> Date _ Tonia SCOTT Cosigner Signature: Date (if applicable) CC: Dr. Michela Holguin MD ~ [facility] Work Phone: Reason for referral (narrative)No reason for referral information availableSierra Vista Hospital Work Phone: Assessments Diagnosis Seronegative rheumatoid arth ritis (HCC) Rheumatoid arthritis Diagnosis Seronegative rheumatoid arth ritis (HCC) - Primary Rheumatoid arthritis Diagnosis Rheumatoid arthritis, involv ing unspecified site, unspecified rheumatoid factor presence (HCC) Summary Purpose Family History Relationship Condition Age at Onset Recorded Date/T darren mother Diabetes mellitus Unknown Advance Directives Advance Directive Response Recorded Date/ Time Living Will Yes December 21, 2016 7: 47pm Power of Can Intake Worker Yes December 21, 2016 7:47pm Advance Directive Response Recorded Date/ Time Living Will Yes December 21, 2016 6: 47pm Power of Can Intake Worker Yes December 21, 2016 6:47pm Advance Directive Response Recorded Date/ Time Name of Medical Power of Can Intake Worker DAughter July 08, 2023 12:51pm Name of Medical Power of Can Intake Worker Benigno Barber July 10, 2023 8:10pm Living Will Yes July 10, 2 023 8:10pm Power of Can Intake Worker Yes July 10, 2023 8:10pm Advance Directive Response Recorded Date/ Time Name of Medical Power of Can Intake Worker DAughter July 08, 2023 1:51pm Name of Medical Power of Can Intake Worker Benigno Barber July 10, 2023 9:10pm Living Will Yes July 10, 2 023 9:10pm Power of Can Intake Worker Yes July 10, 2023 9:10pm Chief Complaint and Reason for Visit Chief Complaint TYPE 2 DM TYPE 2 DM Chief Complaint RIGHT HIP PAIN Chief Complaint RIGHT HIP PAIN OSTEO RHEUMATOID ARTHRITIS / RX HERE Chief Complaint HYPERGLYEMIA HYPERGLYCEMIA Chief Complaint Admit Date 3 M FU November 21, 2024 10:3 9am EORDERS December 10, 2024 3:1 6pm 3 M FU February 20, 2025 10:39 am Reason for Visit Admit Date Blood cholesterol decreased November 21, 2 025 10:39am HTN (hypertension) November 21, 2024 10:3 9am Type 2 diabetes mellitus November 21, 2024 10:39am Chief Complaint Admit Date 3 M FU November 21, 2024 10:3 9am EORDERS December 10, 2024 3:1 6pm 3 M FU February 20, 2025 10:39 am SCREENING/E ORDERS February 28, 2025 8:33 am Reason for Visit Admit Date Blood cholesterol decreased November 21, 025 10:39am HTN (hypertension) November 21, 2024 10:3 9am Type 2 diabetes mellitus November 21, 2024 10:39am Blood cholesterol decreased February 20 10:39am HTN (hypertension) February 20, 2025 10:39 am Osteopenia February 20, 2025 10:39 am Type 2 diabetes mellitus February 20, 2025 10:39am Chief Complaint Admit Date 3 M FU February 20, 2025 10:39 am SCREENING/E ORDERS February 28, 2025 8:33 am 3 M FU May 29, 2025 1 1:11am Reason for Visit Admit Date Blood cholesterol decreased February 20 10:39am HTN (hypertension) February 20, 2025 10:39 am Osteopenia February 20, 2025 10:39 am Type 2 diabetes mellitus February 20, 2025 10:39am Blood cholesterol decreased May 11:11am HTN (hypertension) May 29, 2025 1 1:11am Osteoporosis May 29, 2025 1 1:11am Type 2 diabetes mellitus May 29, 2 025 11:11am Reason for Referral Specialty Diagnoses / Procedures Referred By Shala green Referred To Contact Podiatry Diagnoses Evaristo Greenwood MD [address] [place] [address] [facility] [place] [address] Referral ID Status Reason Start Date Expiration Date V isits Requested Visits Authorized [id number] Authorized 02/17/2022 02/17/2023 1 1 Specialty Diagnoses / Procedures Referred By Shala green Referred To Contact Ophthalmology Diagnoses Long-term use of Plaquenil Rosemarie Shi MD [address] [place] [address] Referral ID Status Reason Start Date Expiration Date V isits Requested Visits Authorized [id number] Closed Specialty Services Required/Annia ent's Best Interest 03/30/2023 03/29/2024 1 1 Additional Source Comments INFORMATION SOURCE (unrecogn ized section and content) DATE CREATED AUTHOR 02/06/2018 [facility] DATE CREATED AUTHOR AUTHOR'S ORGANIZ ATION 02/06/2018 [facility] DATE CREATED AUTHOR AUTHOR'S ORGANIZ ATION 02/07/2018 [facility] DATE CREATED AUTHOR AUTHOR'S ORGANIZ ATION 04/03/2023 [facility] DATE CREATED AUTHOR AUTHOR'S ORGANIZ ATION 06/17/2023 [facility] DATE CREATED AUTHOR AUTHOR'S ORGANIZ ATION 05/30/2025 [facility] Goals (unrecognized section and content) Goals may be documented in a n alternate sectionGoals may be documented in an alternate sectionGoals may be documented in an alternate sectionGoals may be documented in an alternate sectionGoals may be documented in an alternate sectionGoals may be documented in an alternate sectionGoals may be documented in an alternate sectionGoals may be documented in an alternate sectionGoals may be documented in an alternate section Care Teams (unrecognized sec tion and content) Cow Washer Relationship Specialty Start Date End Date Evaristo Plaza MD PCP - General Family Medicine 09/13/17 Team Status: Active Member Role Status Dates Dr. Evaristo Plaza MD Family Provider Active Dr. Evaristo Plaza MD Primary Care Provider Active Team Status: Inactive Member Role Status Dates Dr. Evaristo Plaza MD Primary Care Prov ider, Attending Provider, Referring Provider Active Team Status: Inactive Member Role Status Dates Dr. Evaristo Plaza MD Primary Care Provider Active DOUG [place] Attending Provider Active Team Status: Inactive Member Role Status Dates Dr. Evaristo Plaza MD Primary Care Provider Active DOUG [place] Attending Provider Active Team Status: Active Member Role Status Dates Dr. Evaristo Plaza MD Primary Care Provider Active DOUG [place] Attending Provider, Referring Provider Active Cow Washer Relationship Specialty Start Date End Date Evaristo Plaza MD PCP - General Family Medicine 09/13/17 Team Status: Active Member Role Status Dates Dr. Evaristo Plaza MD Family Provider Active Michela Holguin MD Primary Care Provider Active Team Status: Inactive Member Role Status Griselda Holguin MD Primary Care Provider Active Dr. Arya Miller MD Emergency Provider Active Team Status: Inactive Member Role Status Griselda Holguin MD Primary Care Provider Active Dr. Bassam Soni MD Emergency Provider Active Team Status: Inactive Member Role Status Griselda Holguin MD Primary Care Provider Active Dr. Arya Miller MD Attending Provider, Emergency Provider Active Team Status: Inactive Member Role Status Griselda Holguin MD Primary Care Provider Active Dr. Bassam Soni MD Attending Provider, Emergency Pro vider Active Team Status: Inactive Member Role Status Griselda Holguin MD Primary Care Provider, Attending Prov ider Active Team Status: Active Member Role/Relationship Status Griselda Holguin MD Primary Care Provider Active Team Status: Inactive Member Role/Relationship Status Griselda Holguin MD Primary Care Provider Active St art: November 21, 2024 End: November 21, 2024 Michela Holguin MD Referring Provider Active Start : November 21, 2024 End: November 21, 2024 SONIA King Attending Provider Active Start: November 21, 2024 End: November 21, 2024 Team Status: Inactive Member Role/Relationship Status Griselda Holguin MD Primary Care Provider Active St art: December 10, 2024 End: December 10, 2024 SONIA King Attending Provider Active Start: December 10, 2024 End: December 10, 2024 SONIA King Referring Provider Active Start: December 10, 2024 End: December 10, 2024 Team Status: Inactive Member Role/Relationship Status Griselda Holguin MD Primary Care Provider Active St art: February 20, 2025 End: February 20, 2025 Michela Holguin MD Referring Provider Active Start : February 20, 2025 End: February 20, 2025 SONIA King Attending Provider Active Start: February 20, 2025 End: February 20, 2025 Team Status: Inactive Member Role/Relationship Status Griselda Holguin MD Primary Care Provider Active St art: February 28, 2025 End: February 28, 2025 SONIA King Attending Provider Active Start: February 28, 2025 End: February 28, 2025 SONIA King Referring Provider Active Start: February 28, 2025 End: February 28, 2025 Team Status: Active Member Role/Relationship Status Griselda Holguin MD Primary care physician Active Team Status: Inactive Member Role/Relationship Status Griselda Holguin MD Primary care physician Active S tart: February 20, 2025 End: February 20, 2025 Michela Holguin MD Referring Provider Active Start : February 20, 2025 End: February 20, 2025 SONIA King Attending physician Active Start: February 20, 2025 End: February 20, 2025 Team Status: Inactive Member Role/Relationship Status Griselda Holguin MD Primary care physician Active S tart: February 28, 2025 End: February 28, 2025 SONIA King Attending physician Active Start: February 28, 2025 End: February 28, 2025 SONIA King Referring Provider Active Start: February 28, 2025 End: February 28, 2025 Team Status: Inactive Member Role/Relationship Status Griselda Holguin MD Primary care physician Active S tart: May 29, 2025 End: May 29, 2025 Michela Holguin MD Referring Provider Active Start : May 29, 2025 End: May 29, 2025 SONIA King Attending physician Active Start: May 29, 2025 End: May 29, 2025 FOR RECORDS PERTAINING TO PATIENTS WHO ARE [...] BE BASED ON THE PRIMARY CLINICAL RECORDS. [facility] provides no warranty or guarantee of the accuracy or completeness of information in this document.
[2025-07-17 02:00] VITALS: BP 155/73; PULSE 71; RESP 16; O2SAT 98
[2025-07-17 02:16] LABS: CRP < 3.00 mg/L (0.0-3.0)
[2025-07-17 03:00] VITALS: BP 159/68; PULSE 73; RESP 18
[2025-07-17 03:26] VITALS: BP 159/68; PULSE 73; RESP 16; TEMP 36.6; O2SAT 99
== END 2025-07-17 03:27 | disposition home or self-care (01) ==
PROVIDERS: Emergency Provider Emergency Medicine; PCP Family Medicine; Visit Provider Emergency Medicine
DX: R20.2 Paresthesia of skin (principal); M06.9 Rheumatoid arthritis, unspecified; E11.9 Type 2 diabetes mellitus without complications; Z79.4 Long term (current) use of insulin; I10 Essential (primary) hypertension; K21.9 Gastro-esophageal reflux disease without esophagitis; Z79.82 Long term (current) use of aspirin; Z79.84 Long term (current) use of oral hypoglycemic drugs; Z79.899 Other long term (current) drug therapy
CPT/HCPCS: 70496; 70498; 80048; 82962; 83735; 85025; 85652; 86140; 93005; 96360; 96361; 99282; Q9967; A4216